=== PATIENT | male | born 1935 | race Caucasian/White ===

== ENCOUNTER 2016-11-05 12:16 | Inpatient (IN) | payer OTHER, MEDICARE ==
[2016-11-05] VITALS (14 sets, daily range): BP systolic 159–195; BP diastolic 88–123; PULSE 92–112; RESP 16–31; TEMP 98–98.8; O2SAT 95–97
[~2016-11-05] VITALS: Ht 167.6 cm; Wt 98.7 kg
[~2016-11-05 12:16] MED LIST: ASPI81TA11 PO; ATOR10TA PO; DIOV320T PO; FERR325T PO; FLUD.1 PO; FURO80 PO; ISOS10 PO; METO50TA PO; PLAV75TA PO; TAMS.4 PO
[2016-11-05 13:01] LABS: AUTOMATED NEUTROPHIL # 6.3 TH/MM3 (1.8-7.7); BASOPHIL % 0.6 % (0.0-2.0); EOSINOPHIL # 0.5 TH/MM3 (0-0.4); HEMATOCRIT 34.9 % (39.0-51.0); HEMO FLAGS DIFF FINAL; LYMPH % 8.1 % (9.0-44.0); LYMPHOCYTE # 0.7 TH/MM3 (1.0-4.8); MEAN CELL VOLUME 92.6 FL (80.0-100.0); MEAN CORPUSCULAR HGB CONC 32.4 % (32.0-36.0); NEUT % 78.3 % (16.0-70.0); PLATELET COUNT 202 TH/MM3 (150-450); RED BLOOD COUNT 3.77 MIL/MM3 (4.50-5.90); RED CELL DISTRIBUTION WIDTH 13.5 % (11.6-17.2); WHITE BLOOD COUNT 8.1 TH/MM3 (4.0-11.0)
[2016-11-05 13:15] LABS: APTT (PATIENT) 47.8 SEC (24.3-30.1); PROTHROMBIN TIME - PATIENT 10.8 SEC (9.8-11.6)
[2016-11-05] MEDS ORDERED: ISOS30TA3 PO (13:25)
[2016-11-05] MEDS ORDERED: FLUD.1 PO (13:25)
[2016-11-05] MEDS ORDERED: FERR325C PO (13:25)
[2016-11-05] MEDS ORDERED: LOSA100T PO (13:25)
[2016-11-05] MEDS ORDERED: CALC0.25 PO (13:25)
[2016-11-05] MEDS ORDERED: BIOTCAP PO (13:25)
[2016-11-05] MEDS ORDERED: ASPI81CH CHEW (13:25)
[2016-11-05] MEDS ORDERED: NITR1SUB3 SL (13:25)
[2016-11-05] MEDS ORDERED: OMEP40CA2 PO (13:25)
[2016-11-05] MEDS ORDERED: FURO80TA PO (13:25)
[2016-11-05] MEDS ORDERED: UBIQ1CAP4 (13:26)
[2016-11-05 13:33] LABS: ANION GAP 8 MEQ/L (5-15); BICARBONATE 19.2 MEQ/L (21.0-32.0); BLOOD UREA NITROGEN 60 MG/DL (7-18); CHLORIDE 111 MEQ/L (98-107); GLOMERULAR FILTRATION RATE 9 ML/MIN (>89); MAGNESIUM 2.2 MG/DL (1.5-2.5); POTASSIUM 4.7 MEQ/L (3.5-5.1); SODIUM (NA) 138 MEQ/L (136-145)
[2016-11-05 13:37] LABS: CREATINE KINASE 263 U/L (39-308)
[2016-11-05 14:00] LABS: CKMB 14.5 NG/ML (0.5-3.6)
[2016-11-05] MEDS ORDERED: HEPARIN SODIUM - IV 10,000 UNITS/10 ML VIAL IV ONE (14:00)
[2016-11-05] MEDS ORDERED: HEPARIN-D5W 25,000 U/250 ML 250 ML IV PRN (14:00)
--- NOTE | 2016-11-05 14:27 | PD ---
HPI Chief Complaint: Chest Pain Time Seen by Provider: 12:33 Travel History International Travel<30 days: No Contact w/Intl Traveler<30days: No Traveled to known affect area: No History of Present Illness HPI 81-year-old male that presents to the ED for evaluation of chest pain. Patient reports that he was recently seen at [facility] and actually was released today. Per patient he left AMA. Per patient he was admitted yesterday and was found to have what appears to be an and 72. Patient comes with paperwork that shows this. Patient had a positive troponin yesterday of 0.7. His network systems integrator as well as his accounting file clerk were concerned and they were about to set up an heart can't and per patient and Dr. Stout his network systems integrator get patient options of medical management or heart cath and patient and family wanted to for patient to have medical management. For some reason patient in a wide to have the heart At the specific hospital. Patient apparently signed out AMA because he wanted to come here to get evaluated and possibly get a second opinion. From what the patient tells me it appears that patient is very concerned that the heart Might put into the edge to have to need dialysis as well as family history of one of the family members having strokes after having the heart cath done at a different hospital. He states that he did have chest pain on the way here but he took a nitroglycerin which made her better. He denies any abdominal pain. Nausea or vomiting. Per patient the pain stays in the chest and feels like a pressure. Per patient feels similar to a year ago when he had his last cardiac event. He denies any other medical issues. No recent travel. Per family and patient he just left [facility]. No other medical issues reported. PFSH Past Medical History Hx Anticoagulant Therapy: Yes Blood Disorders: Yes (anemia) Anxiety: No Depression: No Cancer: No High Cholesterol: Yes Chest Pain: Yes Coronary Artery Disease: Yes Diabetes: Yes Patient Takes Glucophage: No Endocrine: No Genitourinary: Yes Hypertension: Yes Immune Disorder: No Musculoskeletal: No Neurologic: No Psychiatric: No Reproductive: No Respiratory: No Renal Failure: Yes Past Surgical History Abdominal Surgery: No Cardiac Surgery: Yes Coronary Stent: Yes Ear Surgery: No Endocrine Surgery: No Eye Surgery: Yes (BL CAT SX) Genitourinary Surgery: No Gynecologic Surgery: No Oral Surgery: No Thoracic Surgery: No Other Surgery: Yes (colonoscopy) Social History Alcohol Use: No Tobacco Use: No Substance Use: No Allergies-Medications (Allergen,Severity, Reaction): Coded Allergies: No Known Allergies (Unverified , 07/28/14) Reported Meds & Prescriptions Reported Meds & Active Scripts Active Reported Ultra Coq10 (Ubiquinone) 75 Mg Cap Omeprazole 40 Mg Cap 40 Mg PO DAILY Nitroglycerin SL (Nitroglycerin) 0.4 Mg Subl 0.4 Mg SL DIRECTED PRN ONE TABLET UNDER THE TONGUE NEEDED FOR CHEST PAIN, MAY REPEAT EVERY FIVE MINUTES FOR A TOTAL OF 3 DOSES OR CALL 911 IF NO RELIEF Losartan (Losartan Potassium) 100 Mg Tab 100 Mg PO DAILY Isosorbide Mononitrate ER (Isosorbide Mononitrate) 30 Mg Nena 30 Mg PO DAILY Furosemide 80 Mg Tab 80 Mg PO BID Fludrocortisone (Fludrocortisone Acetate) 0.1 Mg Tab 0.1 Mg PO DAILY Iron (Ferrous Sulfate) 325 Mg Cap 325 Mg PO BIDPC Calcitriol 0.25 Mcg Cap 0.25 Mcg PO DAILY Biotin 5 Mg Cap 5 Mg PO Aspirin 81 Mg Chew 81 Mg CHEW DAILY Review of Systems Except as stated in HPI: all other systems reviewed are Neg Physical Exam Narrative GENERAL: SKIN: Warm and dry. HEAD: Atraumatic. Normocephalic. EYES: Pupils equal and round. No scleral icterus. No injection or drainage. ENT: No nasal bleeding or discharge. Mucous membranes pink and moist. Tongue is midline. No uvula deviation. NECK: Trachea midline. No JVD. CARDIOVASCULAR: Regular rate and rhythm. No murmurs, S3, S4. RESPIRATORY: No accessory muscle use. Clear to auscultation. Breath sounds equal bilaterally. GASTROINTESTINAL: Abdomen soft, non-tender, nondistended. Hepatic and splenic margins not palpable. MUSCULOSKELETAL: Extremities without clubbing, cyanosis, or edema. No obvious deformities. Full range of motion of the upper and lower extremities bilaterally. 2+ pulses bilaterally. NEUROLOGICAL: Awake and alert. No obvious cranial nerve deficits. Motor grossly within normal limits. Five out of 5 muscle strength in the arms and legs. Normal speech. PSYCHIATRIC: Appropriate mood and affect; insight and judgment normal. Data Data Last Documented VS Vital Signs Date Time Temp Pulse Resp B/P (MAP) Pulse Ox O2 Delivery O2 Flow Rate FiO2 11/05/16 14:55 107 18 159/93 (115) 97 Room Air 11/05/16 12:22 98.0 Orders Orders Electrocardiogram (11/05/16 12:24) Electrocardiogram (11/05/16 12:41) Complete Blood Count With Diff (11/05/16 12:41) Basic Metabolic Panel (Bmp) (11/05/16 12:41) Ckmb (Isoenzyme) Profile (11/05/16 12:41) Troponin I (11/05/16 12:41) Prothrombin Time / Inr (Pt) (11/05/16 12:41) Act Partial Throm Time (Ptt) (11/05/16 12:41) Magnesium (Mg) (11/05/16 12:41) Iv Access Insert/Monitor (11/05/16 12:41) Ecg Monitoring (11/05/16 12:41) Oximetry (11/05/16 12:41) CKMB (11/05/16 12:50) CKMB% (11/05/16 12:50) Heparin Inj (Heparin Inj) (11/05/16 14:00) Heparin Inj (Heparin Inj) (11/05/16 20:00) Heparin Inj (Heparin Inj) (11/05/16 20:00) Heparin-D5w 25,000 U/250 Ml (Heparin-D5w (11/05/16 14:00) Act Partial Throm Time (Ptt) (11/05/16 13:47) Prothrombin Time / Inr (Pt) (11/05/16 13:47) Cbc No Diff, Includes Plts (11/05/16 13:47) Cbc No Diff, Includes Plts (11/08/16 06:00) Act Partial Throm Time (Ptt) (11/05/16 20:47) Occult Blood (Hemoccult) Stool (11/05/16 13:47) Labetalol Inj (Trandate Inj) (11/05/16 14:30) Admit Order (Ed Use Only) (11/05/16 15:07) Labs Laboratory Tests Test 11/05/16 12:50 White Blood Count 8.1 TH/MM3 Red Blood Count 3.77 MIL/MM3 Hemoglobin 11.3 GM/DL Hematocrit 34.9 % Mean Corpuscular Volume 92.6 FL Mean Corpuscular Hemoglobin 30.0 PG Mean Corpuscular Hemoglobin Concent 32.4 % Red Cell Distribution Width 13.5 % Platelet Count 202 TH/MM3 Mean Platelet Volume 9.2 FL Neutrophils (%) (Auto) 78.3 % Lymphocytes (%) (Auto) 8.1 % Monocytes (%) (Auto) 7.0 % Eosinophils (%) (Auto) 6.0 % Basophils (%) (Auto) 0.6 % Neutrophils # (Auto) 6.3 TH/MM3 Lymphocytes # (Auto) 0.7 TH/MM3 Monocytes # (Auto) 0.6 TH/MM3 Eosinophils # (Auto) 0.5 TH/MM3 Basophils # (Auto) 0.0 TH/MM3 CBC Comment DIFF FINAL Differential Comment Prothrombin Time 10.8 SEC Prothromb Time International Ratio 1.0 RATIO Activated Partial Thromboplast Time 47.8 SEC Blood Urea Nitrogen 60 MG/DL Creatinine 5.95 MG/DL Random Glucose 217 MG/DL Calcium Level 8.2 MG/DL Magnesium Level 2.2 MG/DL Sodium Level 138 MEQ/L Potassium Level 4.7 MEQ/L Chloride Level 111 MEQ/L Carbon Dioxide Level 19.2 MEQ/L Anion Gap 8 MEQ/L Estimat Glomerular Filtration Rate 9 ML/MIN Total Creatine Kinase 263 U/L Creatine Kinase MB 14.5 NG/ML Troponin I 3.27 NG/ML MDM Medical Decision Making Medical Screen Exam Complete: Yes Emergency Medical Condition: Yes Medical Record Reviewed: Yes Interpretation(s) EKG showed first-degree AV block but no sign of acute ST elevation. Read by me and attending. Troponin elevated at 3. CK slightly elevated. CBC & BMP Diagram 11/05/16 12:50 Calcium Level 8.2 L, Magnesium Level 2.2 Differential Diagnosis Chest pain versus atypical chest pain versus NSTEMI versus ACS versus STEMI Narrative Course 81-year-old male that presents to the ED for evaluation of possible second opinion. Patient was properly examined and was found to have signs and symptoms which appear to be very consistent with unstable angina versus and STEMI. Patient comes here the blood work that shows that he had a positive troponin. She does have significant history of heart disease. Labs were done and did show positive troponin of 3. I spoke with Dr. Stout over the phone and I told him the patient seemed to be more open to having a hard Now at this facility and he agreed that he should be admitted to medicine with a consult to his group. He states that he will speak with whoever is on-call for his group at this time. I spoke with Dr. Young who Agrees to admission. Patient himself and family agree with admission. My attending Dr. Zarate herself evaluated the patient with me and spoke with him in regards to need for further evaluation and more likely have a Heart cath, and he seemed agreeable. Diagnosis Primary Impression: NSTEMI (non-ST elevated myocardial infarction) Admitting Information Admitting Physician Requests: Admit Jon Rapp Nov 05, 2016 14:27
[2016-11-05] MEDS ORDERED: LABETALOL HCL 100 MG/20 ML VIAL IV PUSH ONE (14:30)
[2016-11-05] MEDS ORDERED: NITROGLYCERIN 2% OINT 1 GM PACKET TOPICAL ONE (15:15)
[2016-11-05] MEDS ORDERED: MAGNESIUM HYDROXIDE SUSP 30 ML CUP PO PRN (16:00)
[2016-11-05] MEDS ORDERED: MORPHINE SULFATE 4 MG/ML INJ IV PUSH PRN ×4 (16:00)
[2016-11-05] MEDS ORDERED: ACETAMINOPHEN 325 MG TAB PO PRN ×3 (16:00)
[2016-11-05] MEDS ORDERED: GLUCAGON 1 MG/ML VIAL OTHER PRN (16:00)
[2016-11-05] MEDS ORDERED: ONDANSETRON HCL 4 MG/2 ML VIAL IV PUSH PRN (16:00)
[2016-11-05] MEDS ORDERED: LACTULOSE SYRUP 20 GM/30 ML CUP PO PRN (16:00)
[2016-11-05] MEDS ORDERED: SENNOSIDES 8.6 MG TAB PO PRN (16:00)
[2016-11-05] MEDS ORDERED: NITROGLYCERIN 0.4 MG SL 25 TABS/BTL SL PRN (16:00)
[2016-11-05] MEDS ORDERED: DOCUSATE SODIUM 100 MG CAP PO PRN (16:00)
[2016-11-05] MEDS ORDERED: PROCHLORPERAZINE 25 MG SUPP RECTAL PRN (16:00)
[2016-11-05] MEDS ORDERED: ONDANSETRON HCL 4 MG/2 ML VIAL IVP PRN (16:00)
[2016-11-05] MEDS ORDERED: BISACODYL 10 MG SUPP RECTAL PRN (16:00)
[2016-11-05] MEDS ORDERED: SODIUM CHLORIDE 0.9% FLUSH 10 ML FLUSH IV FLUSH PRN ×2 (16:00)
[2016-11-05] MEDS ORDERED: ALPRAZolam 0.25 MG TAB PO PRN (16:00)
[2016-11-05] MEDS ORDERED: DEXTROSE 50% IN WATER 50 ML VIAL(D50) IV PUSH PRN (16:00)
[2016-11-05] MEDS ORDERED: oxyCODONE/ACETAMINOPHEN 5 MG/325 MG TAB PO PRN (16:00)
[2016-11-05] MEDS ORDERED: NALOXONE HCL 0.4 MG/ML AMP IV PUSH PRN (16:00)
--- NOTE | 2016-11-05 16:04 | HHI.HP ---
HPI Service [facility] Hospitalists Primary Care Physician Andrez Reyes DO Admission Diagnosis NSTEMI, ESRD Diagnoses: (1) NSTEMI (non-ST elevated myocardial infarction) Diagnosis: Principal (2) Hypertension Diagnosis: Secondary (3) CAD (coronary artery disease) Diagnosis: Principal (4) Chronic kidney disease Diagnosis: Principal (5) Morbid obesity Diagnosis: Secondary (6) Iron (Fe) deficiency anemia Diagnosis: Secondary (7) Hyperlipidemia Diagnosis: Secondary (8) CHF (congestive heart failure), NYHA class II Diagnosis: Secondary (9) Diabetes Diagnosis: Secondary (10) Hypothyroidism Diagnosis: Secondary Chief Complaint: Chest pain Travel History International Travel<30 Days: No Contact w/Intl Traveler <30 Da: No Traveled to Known Affected Are: No History of Present Illness Written by Meghana Verde PA-C acting as scribe for Dr. Young on 11/05/16 at 15:39. This is a 81yo male past medical history significant for coronary artery disease status post previous PA with history of cardiac stent implants WITH A HISTORY OF STENT THROMBOSIS WITH IN STENT RETHROMBOSIS approximately 3 years ago with the in-stent stenosis treated 1 year ago, hypertension, CKD stage IV, ESRD not yet on HD, DM, dyslipidemia, anemia, hypothyroidism, GERD and history of GI bleed who presents to [facility] ED with complaints of chest pain. Patient was admitted Thursday night AT [facility] with complaints of chest pain and was found to have elevated troponin 0.741. Patient was seen in consultation by his machine icer Dr. Joanne Stout as well as by his electrical and radio aircraft mechanic Dr. Lou. Patient and his family wanted treatment here in our facility and so decided to leave [place] and presented to our ED. Troponin now elevated at 3.27 and CK-MB is 14.5. He continues to have complaints of chest discomfort at this time. He states he received 3 sublingual nitroglycerin while he was over at [facility] earlier today and was started on nitroglycerin paste in our ED. Patient denies any other complaints at this time. Patient states that he takes aspirin only as anticoagulation. Review of Systems Constitutional: DENIES: Diaphoretic episodes, Fatigue, Fever, Weight gain, Weight loss, Chills, Dizziness, Change in appetite Endocrine: DENIES: Heat/cold intolerance, Polydipsia, Polyuria, Polyphagia Eyes: DENIES: Blurred vision, Diplopia, Eye inflammation, Eye pain, Vision loss Ears, nose, mouth, throat: DENIES: Tinnitus, Hearing loss, Vertigo, Nasal discharge, Oral lesions, Throat pain, Hoarseness Respiratory: DENIES: Apneas, Cough, Snoring, Wheezing, Hemoptysis Cardiovascular: COMPLAINS OF: Chest pain, DENIES: Palpitations, Syncope, Dyspnea on Exertion, PND Gastrointestinal: DENIES: Abdominal pain, Black stools, Bloody stools, Constipation, Diarrhea Genitourinary: DENIES: Sexual dysfunction, Urinary frequency Musculoskeletal: DENIES: Joint pain, Muscle aches, Stiffness Integumentary: DENIES: Abnormal pigmentation, Nail changes Hematologic/lymphatic: DENIES: Bruising, Lymphadenopathy Immunologic/allergic: DENIES: Eczema, Urticaria Neurologic: DENIES: Abnormal gait, Headache, Localized weakness Psychiatric: COMPLAINS OF: Anxiety, DENIES: Confusion, Mood changes Except as stated in HPI: all other systems reviewed are Neg Past Family Social History Past Medical History Coronary artery disease status post previous PA and cardiac stent implant History of pericardial effusion on 05/01/12 which resolved spontaneously CKD stage IV/ESRD not yet on HD Hypertension Diabetes Dyslipidemia Hypothyroidism Anemia GERD History GI bleed OBESITY Past Surgical History Cardiac catheterization for in-stent stenosis one year ago Cardiac catheterization with stent implantation 2014 Left knee arthroscopy Bilateral cataract surgery Colonoscopy Reported Medications Ultra Coq10 (Ubiquinone) 75 Mg Cap Omeprazole 40 Mg Cap 40 Mg PO DAILY Nitroglycerin SL (Nitroglycerin) 0.4 Mg Subl 0.4 Mg SL DIRECTED PRN ONE TABLET UNDER THE TONGUE NEEDED FOR CHEST PAIN, MAY REPEAT EVERY FIVE MINUTES FOR A TOTAL OF 3 DOSES OR CALL 911 IF NO RELIEF Losartan (Losartan Potassium) 100 Mg Tab 100 Mg PO DAILY Isosorbide Mononitrate ER (Isosorbide Mononitrate) 30 Mg Nena 30 Mg PO DAILY Furosemide 80 Mg Tab 80 Mg PO BID Fludrocortisone (Fludrocortisone Acetate) 0.1 Mg Tab 0.1 Mg PO DAILY Iron (Ferrous Sulfate) 325 Mg Cap 325 Mg PO BIDPC Calcitriol 0.25 Mcg Cap 0.25 Mcg PO DAILY Biotin 5 Mg Cap 5 Mg PO Aspirin 81 Mg Chew 81 Mg CHEW DAILY Allergies: Coded Allergies: No Known Allergies (Unverified , 07/28/14) Active Ordered Medications Current Medications Heparin Sodium (Porcine) (Heparin Inj) 4,000 units ONCE ONCE IV Last administered on 11/05/16 14:29; Start 11/05/16 at 14:00; Stop 11/05/16 at 14:01 ; Status DC Heparin Sodium (Porcine) (Heparin Inj) 5,000 units UNSCH PRN IV APTT LESS THAN 25; Start 11/05/16 at 20:00 Heparin Sodium (Porcine) (Heparin Inj) 2,500 units UNSCH PRN IV APTT 25 TO 39; Start 11/05/16 at 20:00 Heparin Sodium/ Dextrose 250 ml @ 10 mls/hr TITRATE PRN IV Coagulation management Last administered on 11/05/16 14:29; Start 11/05/16 at 14:00 Labetalol HCl (Trandate Inj) 20 mg ONCE ONCE IV PUSH Last administered on 11/05 14:53; Start 11/05/16 at 14:30; Stop 11/05/16 at 14:31; Status DC Nitroglycerin (Nitroglycerin 2% Oint) 1 inch ONCE ONCE TOPICAL Last administered on 11/05/16 15:22; Start 11/05/16 at 15:15; Stop 11/05/16 at 15:16 ; Status DC Dextrose (D50w (Vial) Inj) 50 ml UNSCH PRN IV PUSH HYPOGLYCEMIA-SEE COMMENTS; Start 11/05/16 at 16:00; Status UNV Glucagon (Glucagon Inj) 1 mg UNSCH PRN OTHER HYPOGLYCEMIA-SEE COMMENTS; Start 11/05/16 at 16:00; Status UNV Insulin Aspart (NovoLOG SUPPLEMENTAL SCALE) 1 ACHS SLIDING SCALE SQ ; Start at 17:00; Status UNV Current Medications Medications (Trade) Dose Ordered Sig/Armida Route Start Time Stop Time Status Last Admin (Heparin Inj) 5,000 units UNSCH PRN IV 11/05/16 20:00 (Heparin Inj) 2,500 units UNSCH PRN IV 11/05/16 20:00 Heparin Sodium/ Dextrose 250 ml @ 10 mls/hr TITRATE PRN IV 11/05/16 14:00 11/05/16 14:29 Family History Brothers and sisters, diabetes Social History Patient denies any tobacco use, alcohol consumption or illicit drug use. Physical Exam Vital Signs Vital Signs Date Time Temp Pulse Resp B/P (MAP) Pulse Ox O2 Delivery O2 Flow Rate FiO2 11/05/16 14:55 107 18 159/93 (115) 97 Room Air 11/05/16 14:50 110 18 189/123 (145) 97 Room Air 11/05/16 14:30 105 18 195/108 (137) 97 Room Air 11/05/16 14:20 102 18 190/115 (140) 97 Room Air 11/05/16 12:45 111 19 169/96 (120) 97 Room Air 11/05/16 12:43 110 15 97 Room Air 11/05/16 12:22 98.0 112 20 193/107 (135) 97 Room Air Physical Exam GENERAL: This is a well-nourished, well-developed obese patient, in no apparent distress. Awake and alert. Family at the bedside. SKIN: No rashes, ecchymoses or lesions. Cool and dry. HEAD: Atraumatic. Normocephalic. No temporal or scalp tenderness. EYES: Pupils equal round and reactive. Extraocular motions intact. No scleral icterus. No injection or drainage. ENT: Nose without bleeding, purulent drainage. Throat without erythema, tonsillar hypertrophy or exudate. Uvula midline. Airway patent. NECK: Trachea midline. No lymphadenopathy. Supple, nontender, no meningeal signs. CARDIOVASCULAR: Tachycardic. Irregular rate and rhythm without murmurs, gallops , or rubs. RESPIRATORY: Clear to auscultation. Breath sounds equal bilaterally. No wheezes , rales, or rhonchi. GASTROINTESTINAL: Abdomen soft, non-tender, nondistended. No hepato-splenomegaly , or palpable masses. No guarding. MUSCULOSKELETAL: Extremities without clubbing, cyanosis, or edema. No joint tenderness, effusion, or edema noted. No calf tenderness. NEUROLOGICAL: Awake and alert. Able to move all extremities. Normal speech. Laboratory Laboratory Tests Test 11/05/16 12:50 White Blood Count 8.1 Red Blood Count 3.77 Hemoglobin 11.3 Hematocrit 34.9 Mean Corpuscular Volume 92.6 Mean Corpuscular Hemoglobin 30.0 Mean Corpuscular Hemoglobin Concent 32.4 Red Cell Distribution Width 13.5 Platelet Count 202 Mean Platelet Volume 9.2 Neutrophils (%) (Auto) 78.3 Lymphocytes (%) (Auto) 8.1 Monocytes (%) (Auto) 7.0 Eosinophils (%) (Auto) 6.0 Basophils (%) (Auto) 0.6 Neutrophils # (Auto) 6.3 Lymphocytes # (Auto) 0.7 Monocytes # (Auto) 0.6 Eosinophils # (Auto) 0.5 Basophils # (Auto) 0.0 CBC Comment DIFF FINAL Differential Comment Prothrombin Time 10.8 Prothromb Time International Ratio 1.0 Activated Partial Thromboplast Time 47.8 Blood Urea Nitrogen 60 Creatinine 5.95 Random Glucose 217 Calcium Level 8.2 Magnesium Level 2.2 Sodium Level 138 Potassium Level 4.7 Chloride Level 111 Carbon Dioxide Level 19.2 Anion Gap 8 Estimat Glomerular Filtration Rate 9 Total Creatine Kinase 263 Creatine Kinase MB 14.5 Troponin I 3.27 Result Diagram: 11/05/16 1250 11/05/16 1250 Caprini VTE Risk Assessment Caprini VTE Risk Assessment: Mod/High Risk (score >= 2) Caprini Risk Assessment Model Point Value = 1 Point Value = 2 Point Value = 3 Point Value = 5 Age 41-60 Minor surgery BMI > 25 kg/m2 Swollen legs Varicose veins or History of unexplained or recurrent spontaneous Oral contraceptives or hormone replacement Sepsis (< 1 month) Serious lung disease, including pneumonia (< 1 month) Abnormal pulmonary function Acute myocardial infarction Congestive heart failure (< 1 month) History of inflammatory bowel disease Medical patient at bed rest Age 61-74 Arthroscopic surgery Major open surgery (> 45 min) Laparoscopic surgery (> 45 min) Malignancy Confined to bed (> 72 hours) Immobilizing plaster cast Central venous access Age >= 75 History of VTE Family history of VTE Factor V Leiden Prothrombin [id number] Lupus anticoagulant Anticardiolipin antibodies Elevated serum homocysteine Heparin-induced thrombocytopenia Other congenital or acquired thrombophilia Stroke (< 1 month) Elective arthroplasty Hip, pelvis, or leg fracture Acute spinal cord injury (< 1 month) Prophylaxis Regimen Total Risk Factor Score Risk Level Prophylaxis Regimen 0-1 Low Early ambulation 2 Moderate Order ONE of the following: *Sequential Compression Device (SCD) *Heparin 5000 units SQ BID 3-4 Higher Order ONE of the following medications: *Heparin 5000 units SQ TID *Enoxaparin/Lovenox 40 mg SQ daily (WT < 150 kg, CrCl > 30 mL/min) *Enoxaparin/Lovenox 30 mg SQ daily (WT < 150 kg, CrCl > 10-29 mL/min) *Enoxaparin/Lovenox 30 mg SQ BID (WT < 150 kg, CrCl > 30 mL/min) AND/OR *Sequential Compression Device (SCD) 5 or more Highest Order ONE of the following medications: *Heparin 5000 units SQ TID (Preferred with Epidurals) *Enoxaparin/Lovenox 40 mg SQ daily (WT < 150 kg, CrCl > 30 mL/min) *Enoxaparin/Lovenox 30 mg SQ daily (WT < 150 kg, CrCl > 10-29 mL/min) *Enoxaparin/Lovenox 30 mg SQ BID (WT < 150 kg, CrCl > 30 mL/min) AND *Sequential Compression Device (SCD) Assessment and Plan Problem List: (1) NSTEMI (non-ST elevated myocardial infarction) ICD Code: I21.4 - Non-ST elevation (NSTEMI) myocardial infarction Status: Acute (2) CAD (coronary artery disease) ICD Code: I25.10 - CAD (coronary artery disease) Status: Chronic (3) Hypertension ICD Code: I10 - Hypertension Status: Chronic (4) Chronic kidney disease ICD Code: N18.9 - Chronic kidney disease Status: Acute (5) Morbid obesity ICD Code: E66.01 - Morbid (severe) obesity due to excess calories (6) Diabetes ICD Code: E11.9 - Type 2 diabetes mellitus without complications (7) Hyperlipidemia ICD Code: E78.5 - Hyperlipidemia, unspecified (8) Hypothyroidism ICD Code: E03.9 - Hypothyroidism, unspecified (9) CHF (congestive heart failure), NYHA class II ICD Code: I50.9 - Heart failure, unspecified (10) Iron (Fe) deficiency anemia ICD Code: D50.9 - Iron deficiency anemia, unspecified Assessment and Plan 81yo male past medical history significant for coronary artery disease status post previous PA with history of cardiac stent implants approximately 3 years ago with the in-stent stenosis treated 1 year ago, hypertension, CKD stage IV, DM, dyslipidemia, anemia, hypothyroidism, GERD, history of GI bleed who presents to [facility] ED with complaints of chest pain. NSTEMI CAD with previous PA and cardiac stent implants - Consult cardiology - EKG personally reviewed and shows no evidence of ST elevation - Cycle cardiac enzymes - continuous cardiac monitoring - Continue aspirin daily - Supplemental oxygen to maintain O2 sats above 92% - IV Morphine when necessary chest pain - Continue Nitropaste - Heparin drip - obtain echocardiogram - PT/OT eval/tx Hypertension - BP elevated - Resume patient's home dose of losartan 100 mg daily and isosorbide 30 mg - Monitor BP CHF, not in acute exacerbation - Last echocardiogram in the system dated July 2014 revealed EF 20-25% and a grade 1 diastolic dysfunction - Monitor for signs of fluid overload - Fluid restriction, low-salt renal diabetic diet - Will hold patient's home dose of furosemide 80 mg twice a day until evaluated by nephrology CKD stage IV - Creatinine 5.95. Unknown baseline. - Consult nephrology - Avoid nephrotoxic agents - Monitor kidney function Diabetes - Elevated at 217 on admission - Accu-Chek - Insulin sliding scale - Obtain hemoglobin A1c - Last A1c in the system 07/2014 was 6.7 Hypothyroidism - No home thyroid medications listed in med rec - Check TSH level and free T4 Iron deficiency anemia - Resume patient's home dose of iron supplementation - Monitor CBC GERD - PPI DVT prophylaxis - Bilateral SCD/VENICE hose - Heparin drip The exam, history, and the medical decision-making described in the above note were completed with the assistance of the mid-level provider. I reviewed and agree with the findings presented. I attest that I had a [id number] encounter with the patient on the same day, and personally performed and documented my assessment and findings in the medical record. Seen in attendance simultaneously with ARCELIA discussed with family and ER and the patient Code Status Full code Discussed Condition With ED physician, nursing staff, daughter and Physician Certification 2 Midnight Certification Type: Admission for Inpatient Services Order for Inpatient Services The services are ordered in accordance with Medicare regulations or non- Medicare payer requirements, as applicable. In the case of services not specified as inpatient-only, they are appropriately provided as inpatient services in accordance with the 2-midnight benchmark. Estimated LOS (days): 3 3 days is the estimated time the patient will need to remain in the hospital, assuming treatment plan goals are met and no additional complications. Post-Hospital Plan: Not yet determined Meghana Verde Nov 05, 2016 16:04 Andrez Young DO Nov 05, 2016 16:22
[2016-11-05] MEDS: INSULIN ASPART SUPPLEMENTAL SCALE SQ SCH ×2 (17:00→21:00)
[2016-11-05] MEDS: FERROUS SULFATE 325 MG (65 MG ELEMENTAL IRON) TAB PO SCH (17:54)
[2016-11-05] MEDS: ASPIRIN EC 325 MG TABEC PO SCH (17:54)
--- NOTE | 2016-11-05 18:26 | PD.CONS ---
HPI Service Nephrology Consult Requested By ARCELIA Durbin Reason for Consult CKD stage 5 Primary Care Physician Andrez Reyes, DO History of Present Illness The patient is a 81 yo [place] male who presented to [facility] on 11/03 with complaints of chest pain and elevated troponin. According to records, he and his family refused treatment at [facility], so he signed out AMA and arrived in the ED here 11/05 with same complaints. He has been treated with NTG but still has discomfort. He has been stage 5 CKD for some time but has yet to be started on dialysis. There are potential plans for cardiac cath. He has a PMHx significant for CAD s/p GA, PTCA with restenosis of stents that had to be replaced a year ago and cardiomyopathy with EF of 20-25% in 2014. He also is hypertensive, diabetic, anemic, and has hx of GI bleeding. Admitting SCr 5.95 with eGFR of 9. According to regular poacher operator, Dr. Lou, his baseline SCr is 6. (Aaliyah Foreman) Review of Systems Cardiovascular: COMPLAINS OF: Chest pain (Aaliyah Foreman) Past Family Social History Allergies: Coded Allergies: No Known Allergies (Unverified , 07/28/14) Past Medical History CAD s/p GA and PTCA Cardiomyopathy of 20-25% HTN DM Anemia GERD GI bleeding Past Surgical History PTCA x2 in 2015 Repeat PTCA for restenosis x1 2016 Left knee arthroscopy Bilateral cataract surgery Colonoscopy Reported Medications Reported Meds & Active Scripts Active Reported Ultra Coq10 (Ubiquinone) 75 Mg Cap Omeprazole 40 Mg Cap 40 Mg PO DAILY Nitroglycerin SL (Nitroglycerin) 0.4 Mg Subl 0.4 Mg SL DIRECTED PRN ONE TABLET UNDER THE TONGUE NEEDED FOR CHEST PAIN, MAY REPEAT EVERY FIVE MINUTES FOR A TOTAL OF 3 DOSES OR CALL 911 IF NO RELIEF Losartan (Losartan Potassium) 100 Mg Tab 100 Mg PO DAILY Isosorbide Mononitrate ER (Isosorbide Mononitrate) 30 Mg Nena 30 Mg PO DAILY Furosemide 80 Mg Tab 80 Mg PO BID Fludrocortisone (Fludrocortisone Acetate) 0.1 Mg Tab 0.1 Mg PO DAILY Iron (Ferrous Sulfate) 325 Mg Cap 325 Mg PO BIDPC Calcitriol 0.25 Mcg Cap 0.25 Mcg PO DAILY Biotin 5 Mg Cap 5 Mg PO Aspirin 81 Mg Chew 81 Mg CHEW DAILY Active Ordered Medications Current Medications Medications (Trade) Dose Ordered Sig/Armida Route Start Time Stop Time Status Last Admin Heparin Sodium/ Dextrose 250 ml @ 10 mls/hr TITRATE PRN IV 11/05/16 14:00 11/05/16 14:29 (D50w (Vial) Inj) 50 ml UNSCH PRN IV PUSH 11/05/16 16:00 (Glucagon Inj) 1 mg UNSCH PRN OTHER 11/05/16 16:00 (NovoLOG SUPPLEMENTAL SCALE) 1 ACHS SLIDING SCALE SQ 11/05/16 17:00 (NS Flush) 2 ml BID IV FLUSH 11/05/16 21:00 (NS Flush) 2 ml UNSCH PRN IV FLUSH 11/05/16 16:00 (Ecotrin Ec) 325 mg DAILY PO 11/05/16 16:00 (Nitroglycerin 2% Oint) 1 inch Q6H TOP 11/05/16 22:00 (Nitrostat Sl) 0.4 mg Q5M PRN SL 11/05/16 16:00 (Morphine Inj) 2 mg Q30M PRN IV PUSH 11/05/16 16:00 (Tylenol) 650 mg Q6H PRN PO 11/05/16 16:00 (Xanax) 0.25 mg Q8H PRN PO 11/05/16 16:00 (Zofran Inj) 4 mg Q6H PRN IV PUSH 11/05/16 16:00 (Heparin Inj) 5,000 units UNSCH PRN IV 11/05/16 22:00 (Heparin Inj) 2,500 units UNSCH PRN IV 11/05/16 22:00 Heparin Sodium/ Dextrose 250 ml @ 10 mls/hr TITRATE PRN IV 11/05/16 16:00 (Compazine Supp) 25 mg Q12H PRN RECTAL 11/05/16 16:00 (Tylenol) 650 mg Q6H PRN PO 11/05/16 16:00 (Percocet 5-325 Mg) 1 tab Q6H PRN PO 11/05/16 16:00 (Percocet 10-325 Mg) 1 tab Q6H PRN PO 11/05/16 16:00 (Morphine Inj) 2 mg Q3H PRN IV PUSH 11/05/16 16:00 (Morphine Inj) 4 mg Q3H PRN IV PUSH 11/05/16 16:00 (Morphine Inj) 4 mg Q1H PRN IV PUSH 11/05/16 16:00 (Morphine Inj) 4 mg Q3H PRN IV PUSH 11/05/16 16:00 (Narcan Inj) 0.4 mg UNSCH PRN IV PUSH 11/05/16 16:00 (Janene-Colace) 1 tab BID PO 11/05/16 21:00 (Milk Of Magnesia Liq) 30 ml Q12H PRN PO 11/05/16 16:00 (Senokot) 17.2 mg Q12H PRN PO 11/05/16 16:00 (Dulcolax Supp) 10 mg DAILY PRN RECTAL 11/05/16 16:00 (Lactulose Liq) 30 ml DAILY PRN PO 11/05/16 16:00 (Rocaltrol) 0.25 mcg DAILY PO 11/06/16 09:00 (Florinef) 0.1 mg DAILY PO 11/06/16 09:00 (Imdur) 30 mg DAILY PO 11/06/16 09:00 (Cozaar) 100 mg DAILY PO 11/06/16 09:00 (Ferrous Sulfate) 325 mg BIDPC PO 11/05/16 18:00 (Protonix) 40 mg DAILY@0600 PO 11/06/16 06:00 Family History Diabetes Social History Denies illicits, EtOH, or tobacco use (Aaliyah Foreman) Physical Exam Vital Signs Vital Signs Date Time Temp Pulse Resp B/P (MAP) Pulse Ox O2 Delivery O2 Flow Rate FiO2 11/05/16 17:00 108 18 183/99 (127) 96 Room Air 11/05/16 16:00 110 18 169/95 (119) 96 Room Air 11/05/16 15:20 110 18 163/97 (119) 96 Room Air 11/05/16 14:55 107 18 159/93 (115) 97 Room Air 11/05/16 14:50 110 18 189/123 (145) 97 Room Air 11/05/16 14:30 105 18 195/108 (137) 97 Room Air 11/05/16 14:20 102 18 190/115 (140) 97 Room Air 11/05/16 12:45 111 19 169/96 (120) 97 Room Air 11/05/16 12:43 110 15 97 Room Air 11/05/16 12:22 98.0 112 20 193/107 (135) 97 Room Air Physical Exam GENERAL: Pt seen in ICU. Is laying in bed in NAD SKIN: Warm and dry. HEAD: Atraumatic. Normocephalic. EYES: Pupils equal and round. No scleral icterus. No injection or drainage. ENT: No nasal bleeding or discharge. Mucous membranes pink and moist. NECK: Trachea midline. No JVD. CARDIOVASCULAR: Regular rate and rhythm. RESPIRATORY: No accessory muscle use. Clear to auscultation. Breath sounds equal bilaterally. GASTROINTESTINAL: Abdomen soft, non-tender, nondistended. Hepatic and splenic margins not palpable. MUSCULOSKELETAL: Extremities without clubbing, cyanosis, or edema. No obvious deformities. NEUROLOGICAL: Awake and alert. Normal speech. PSYCHIATRIC: Appropriate mood and affect; insight and judgment normal. Laboratory Laboratory Tests Test 11/05/16 12:50 White Blood Count 8.1 Red Blood Count 3.77 Hemoglobin 11.3 Hematocrit 34.9 Mean Corpuscular Volume 92.6 Mean Corpuscular Hemoglobin 30.0 Mean Corpuscular Hemoglobin Concent 32.4 Red Cell Distribution Width 13.5 Platelet Count 202 Mean Platelet Volume 9.2 Neutrophils (%) (Auto) 78.3 Lymphocytes (%) (Auto) 8.1 Monocytes (%) (Auto) 7.0 Eosinophils (%) (Auto) 6.0 Basophils (%) (Auto) 0.6 Neutrophils # (Auto) 6.3 Lymphocytes # (Auto) 0.7 Monocytes # (Auto) 0.6 Eosinophils # (Auto) 0.5 Basophils # (Auto) 0.0 CBC Comment DIFF FINAL Differential Comment Prothrombin Time 10.8 Prothromb Time International Ratio 1.0 Activated Partial Thromboplast Time 47.8 Blood Urea Nitrogen 60 Creatinine 5.95 Random Glucose 217 Calcium Level 8.2 Magnesium Level 2.2 Sodium Level 138 Potassium Level 4.7 Chloride Level 111 Carbon Dioxide Level 19.2 Anion Gap 8 Estimat Glomerular Filtration Rate 9 Total Creatine Kinase 263 Creatine Kinase MB 14.5 Troponin I 3.27 (Aaliyah Foreman) Result Diagram: 11/05/16 1250 11/05/16 1250 Assessment and Plan Problem List: (1) Chronic kidney disease, stage 5 ICD Codes: N18.5 - Chronic kidney disease, stage 5 Plan: According to his regular poacher operator, his baseline SCr has been 6 for some time. He does not have any immediate plans for dialysis (i.e. not made plans for hemodialysis versus peritoneal dialysis), but does say that he realizes that he will require dialytic intervention in the near future if not during this admission. To continue on Rocaltrol. Check iPTH and Vit D levels. Check Phos His K+ is normal. He is mildly acidotic so we will start po bicarb. Will hold off on resuming Lasix for the present. Ordered CXR. There is no immediate indication for dialysis at the present, but will follow closely during admission. Medications should be adjusted for the patient's renal decline. (2) NSTEMI (non-ST elevated myocardial infarction) ICD Codes: I21.4 - Non-ST elevation (NSTEMI) myocardial infarction Status: Acute Plan: Awaiting cardiology opinion. Head Silverman in recommended cardiac cath. Given his severely impaired renal functions, he is at 15% risk or greater chance that he will require dialytic intervention post cardiac cath. The patient has been counseled of risk. He is making decisions about intervention with the help of his and his son who is a chiropractor. To help lessen damage of contrast injury, would recommend Mucomyst 1300mg BID starting day of procedure x4 doses. Consideration of IV hydration prior to cath is feasible, however, there are records reporting an EF of 20%. (3) Hypertension ICD Codes: I10 - Hypertension Status: Chronic Plan: Continue on Losartan. Add Amlodipine 5mg QD. (4) Diabetes ICD Codes: E11.9 - Type 2 diabetes mellitus without complications Plan: Mgmt as per primary team (5) Metabolic acidosis ICD Codes: E87.2 - Metabolic acidosis Status: Chronic Plan: Likely related to renal failure. Start po bicarbonate (Aaliyah Foreman) Assessment and Plan The exam, history, and the medical decision-making described in the above note were completed with the assistance of the SEBASTIÁN. I reviewed and agree with the findings presented. I attest that I had a [id number] encounter with the patient on the same day, and personally performed and documented my assessment and findings in the medical record. I discussed with the patient the proximal her risk of patient requiring dialytic support post contrast exposure. Given the current status of the patient's renal function it is inevitable that he will require dialytic support in the not too distant future regardless and the risk-benefit ratio needs to be considered as far as cardiac catheterization is concerned. We'll defer to cardiology to discussed with patient and his son the necessity of cardiac catheterization. If the patient accepts the risk of worsening renal function with the potential requirement for dialytic support most likely permanently if initiated the patient is clear from a renal point of view to proceed with cardiac catheterization. Patient was advised that cardiovascular disease is the primary contributor to in patients with chronic kidney disease and this should be kept in mind in regards to the patient making his decision. Case discussed with the medical oncologist in the ICU. I also discussed the patient with his primary poacher operator Dr. Lou by telephone. (Sg Henley MD) Aaliyah Foreman Nov 05, 2016 18:26 Sg Henley MD Nov 05, 2016 18:43
[2016-11-05] MEDS ORDERED: HEPARIN SODIUM - IV 10,000 UNITS/10 ML VIAL IV PRN ×4 (20:00→22:00)
[2016-11-05] MEDS: NITROGLYCERIN 2% OINT 1 GM PACKET TOP SCH (20:31)
[2016-11-05] MEDS: SODIUM BICARBONATE 650 MG TAB PO SCH (20:31)
[2016-11-05] MEDS: DOCUSATE SODIUM 50 MG/SENNA 8.6 MG TAB PO SCH (20:31)
[2016-11-05] MEDS ORDERED: ACETYLCYSTEINE 20% ORAL SOLN 4 ML VIAL PO SCH (21:00)
[2016-11-05] MEDS ORDERED: SODIUM CHLORIDE 0.9% FLUSH 10 ML FLUSH IV FLUSH SCH (21:00)
[2016-11-05] MEDS ORDERED: CHLORHEXIDINE GLUCONATE 2 % 1 PACK (2 CLOTHS)(extra cloths) TOPICAL PRN (21:30)
--- NOTE | 2016-11-05 21:33 | RADRPT ---
EXAM DATE/TIME: 11/05/2016 20:49 [facility] COMPARISON: CHEST PA & LAT, July 28, 2014, 14:11. INDICATIONS : Difficulty breathing. MEDICAL HISTORY : Myocardial infarction. Hypercholesterolemia. Hypertension. Renal failure. SURGICAL HISTORY : Coronary artery stent. ENCOUNTER: Initial ACUITY: 1 day PAIN SCORE: 2/10 LOCATION: Bilateral chest FINDINGS: The heart is enlarged. The pulmonary vascular pattern is normal. The lungs are clear. There is mild elevation of the right hemidiaphragm. Mild degenerative changes and scoliosis of the thoracic spine are noted. CONCLUSION: 1. No acute focal pulmonary infiltrate or pulmonary vascular congestion. 2. Mild cardiomegaly. 3. Degenerative changes and scoliosis of the thoracic spine. Rizwan Kline MD on November 05, 2016 at 21:24 Board Certified Radiologist. This report was verified electronically.
[2016-11-05 21:59] LABS: HEMATOCRIT 34.7 % (39.0-51.0); MEAN CORPUSCULAR HEMOGLOBIN 29.6 PG (27.0-34.0); MEAN CORPUSCULAR HGB CONC 32.2 % (32.0-36.0); PLATELET COUNT 202 TH/MM3 (150-450); RED BLOOD COUNT 3.77 MIL/MM3 (4.50-5.90); RED CELL DISTRIBUTION WIDTH 13.8 % (11.6-17.2); REVIEW FLAG FINAL
[2016-11-05 22:02] LABS: CKMB 18.8 NG/ML (0.5-3.6)
[2016-11-05] MEDS: SODIUM CHLORIDE 0.9% FLUSH 10 ML FLUSH IV FLUSH SCH (22:30)
[2016-11-05] MEDS: amLODIPine BESYLATE 5 MG TAB PO SCH (22:31)
[2016-11-05] MEDS: METOPROLOL TARTRATE 25 MG TAB PO SCH (22:33)
[2016-11-05 23:01] LABS: PROTHROMBIN TIME - PATIENT 10.7 SEC (9.8-11.6)
[2016-11-05 23:03] LABS: APTT (PATIENT) 92.4 SEC (24.3-30.1)
--- NOTE | 2016-11-05 23:20 | EKG ---
Date Performed: 11/05/2016 Time Performed: 21:46:24 PTAGE: 81 years EKG: Sinus rhythm INDETERMINATE AXIS ANTEROSEPTAL MYOCARDIAL INFARCTION , OF INDETERMINATE AGE ST/T wave changes possi ble ischemic in nature ABNORMAL ECG PREVIOUS TRACING : 11/05/2016 12.41 Compared to the previous tracing, ST/T wave changes are mil dly more prominent DOCTOR: Vickey Ott Interpretating Date/Time 11/05/2016 23:18:48
--- NOTE | 2016-11-05 23:27 | MB ---
cc: VICKEY BASHIR DO DATE OF CONSULTATION November 05, 2016 REASON FOR CONSULTATION NSTEMI. HISTORY OF PRESENT ILLNESS Rizwan Garcia is a pleasant 81-year-old male who is known to my partner, Dr. Stout, who presented to [facility] on November 05, 2016 due to chest pain. The patient was recently in [facility] with the complaint of chest pain. He was found to have an elevated troponin and my partner, Dr. Jara, had seen him. Originally, there was a plan for stress testing as he has significant chronic kidney disease. The patient continued to have elevation of his troponins and so it was felt that he should undergo cardiac catheterization. This was discussed multiple times with the patient and son per my partner Dr. Jara. The patient was placed on a heparin drip and nitro drip and still had episodes of chest pain. The patient left against medical advice from [facility] and presented to [facility]. In seeing him at this point he is currently hemodynamically stable without chest pain. PAST MEDICAL HISTORY 1. Coronary artery disease with a history of previous myocardial infarction. 2. Chronic kidney disease stage V. 3. Hypertension. 4. Diabetes mellitus. 5. Dyslipidemia. 6. Hypothyroidism. 7. Anemia. 8. Gastroesophageal reflux disease. 9. History of GI bleed. PAST SURGICAL HISTORY 1. The patient has had multiple cardiac catheterizations in the past with two stents placed in 2014. It appears that he had in-stent restenosis 1 year ago. His full cardiac anatomy is not known at this time. 2. Left knee arthroscopy. 3. Bilateral cataract surgery. 4. Colonoscopy. ALLERGIES NO KNOWN DRUG ALLERGIES. MEDICATIONS 1. Iron 325 milligrams b.i.d. 2. Imdur 30 milligrams daily. 3. Nitro sublingual as needed. 4. Losartan 100 milligrams daily. 5. Aspirin 81 milligrams daily. 6. Lasix 80 milligrams b.i.d. 7. Omeprazole 40 milligrams daily. 8. Fludrocortisone 0.1 milligrams daily. FAMILY HISTORY Denies premature coronary artery disease or sudden cardiac within the family. SOCIAL HISTORY Denies tobacco, alcohol or drug abuse. REVIEW OF SYSTEMS 14-systems were reviewed including osteopathic, pertinent positives and negatives above, otherwise negative. PHYSICAL EXAMINATION VITAL SIGNS: Temperature 98.8, heart rate 100, blood pressure 163/97, respirations 18, pulse ox 96% on room air. GENERAL: In general, the patient appears well, in no acute distress, alert, awake and oriented x3. HEENT: Extraocular muscles intact. Mucous membranes moist. NECK: Neck is supple. No JVD at 45 degrees. No carotid bruits heard bilaterally. Carotid upstroke is brisk in nature. HEART: Heart is regular rate and rhythm. Positive first and second heart sounds with no noted murmurs, gallops or rubs. LUNGS: Lungs have decreased breath sounds bilaterally but no overt wheezes, rales or rhonchi. ABDOMEN: Soft, nontender, nondistended. No organomegaly noted. EXTREMITIES: Show no clubbing, cyanosis or edema. Femoral and distal pulses intact bilaterally. NEUROLOGICALLY: No focal deficits. SKIN: Warm, dry and intact. OSTEOPATHIC: No kyphoscoliosis, lordosis or paraspinal tender points. LABORATORY FINDINGS Hemoglobin 11.2, hematocrit 34.7, platelets 202. Potassium 4.7, BUN 60, creatinine 5.95. Troponin 3.27. CARDIOLOGY STUDIES Electrocardiogram (November 05, 2016 at 12:41) sinus rhythm, anterior septal myocardial infarction. IMPRESSION 1. NSTEMI. 2. Accelerated hypertension. 3. History of coronary artery disease. 4. Chronic kidney disease stage V, not on hemodialysis. 5. Hyperlipidemia. 6. Congestive heart failure, [place] Heart Association class II. 7. Diabetes. 8. Hypothyroidism. RECOMMENDATIONS 1. Mr. Garcia appears to have sustained a myocardial infarction with chest pain concerning for coronary insufficiency. 2. I agree with admitting him to the ICU for further observation. 3. Case was discussed with my partner, Dr. Jara, and I agree with his overall assessment that he should undergo a cardiac catheterization. 4. I discussed this with Dr. Henley from nephrology who agrees that he will eventually be on hemodialysis and that cardiac catheterization should not be held back due to his chronic kidney disease. If catheterization was done we would plan on doing a diagnostic and if anything needs to be fixed a staged procedure 48 hours later depending on his creatinine levels. 5. The patient will be continued on aspirin and started on a heparin drip. If he has further chest pain I would start him on a nitro drip. 6. His blood pressure is overall elevated so we will plan on placing him on medications to further help this. 7. Case was discussed extensively over the phone with the patient's son for over 25 minutes, and he would like that he only be treated medically with no cardiac catheterization. We went over the risks, benefits and alternatives of this and he understands that there is significant risk as his father has had chest pain while at rest on heparin and nitro drip while in [facility] as well as the elevation of his troponins. This includes but not limited to further myocardial infarction, arrhythmia and . Overall, the patient's son seems to be somewhat dictating his father's care but afterwards I discussed with the patient the risks, benefits and alternatives and for now he would like to try medical therapy but understands that overall the decision is his with input from his son. 8. We will attempt to place him on antianginal medications to keep him chest pain free. 9. Overall I am unsure if antianginal medications as well as the heparin drip will keep him chest pain free and I explained to his son that he obviously cannot be released on a heparin and nitro drip to go home and I am unsure that we will be able to keep him chest pain free off of these medications and he understands this. 10. Greater than 60 minutes of critical care time was spent discussing with the patient, family and consultants. Thank you for allowing me to see Rizwan Garcia. If there are any questions please do not hesitate to call. Vickey Bashir DO VGP/EO /10:10 PM /10:57 PM
--- NOTE | 2016-11-05 23:49 | EKG ---
Date Performed: 11/05/2016 Time Performed: 12:41:58 PTAGE: 81 years EKG: PROBABLE SINUS TACHYCARDIA POSSIBLE RIGHT VENTRICULAR HYPERTROPHY ANTEROSEPTAL MYOCARDIAL I NFARCTION ABNORMAL ECG PREVIOUS TRACING : 07/28/2014 17.48 Compared to the previous tracing, rate has increased, ST/T wave changes are not noted DOCTOR: Vickey Ott Interpretating Date/Time 11/05/2016 23:47:46
[2016-11-06] VITALS (13 sets, daily range): BP systolic 112–154; BP diastolic 67–86; PULSE 78–109; RESP 15–25; TEMP 98.2–98.8; O2SAT 90–97
[2016-11-06] MEDS: HEPARIN-D5W 25,000 U/250 ML 250 ML IV PRN ×2 (00:12→23:48)
[2016-11-06 01:49] LABS: BLOOD, URINE MOD (NEG); GLUCOSE,URINE 300 mg/dL (NEG); KETONE, URINE NEG (NEG); NITRITE,URINE NEG (NEG); URINE COLOR LIGHT-YELLOW (YELLW/STRAW)
[2016-11-06] MEDS: oxyCODONE/ACETAMINOPHEN 10 MG/325 MG TAB PO PRN ×2 (02:41→23:47)
[2016-11-06 03:06] LABS: AUTOMATED NEUTROPHIL # 6.2 TH/MM3 (1.8-7.7); BASOPHIL # 0.1 TH/MM3 (0-0.2); BASOPHIL % 0.8 % (0.0-2.0); EOSINOPHIL # 0.6 TH/MM3 (0-0.4); EOSINOPHIL % 7.2 % (0.0-4.0); HEMATOCRIT 35.6 % (39.0-51.0); HEMO FLAGS DIFF FINAL; LYMPH % 12.8 % (9.0-44.0); LYMPHOCYTE # 1.1 TH/MM3 (1.0-4.8); MEAN CELL VOLUME 92.2 FL (80.0-100.0); MEAN CORPUSCULAR HEMOGLOBIN 29.8 PG (27.0-34.0); MEAN CORPUSCULAR HGB CONC 32.4 % (32.0-36.0); MONO % 7.6 % (0.0-8.0); NEUT % 71.6 % (16.0-70.0); PLATELET COUNT 214 TH/MM3 (150-450); RED BLOOD COUNT 3.86 MIL/MM3 (4.50-5.90); WHITE BLOOD COUNT 8.7 TH/MM3 (4.0-11.0)
[2016-11-06 03:18] LABS: APTT (PATIENT) 63.4 SEC (24.3-30.1)
[2016-11-06 03:52] LABS: ALKALINE PHOSPHATASE 86 U/L (45-117); ALT (GPT) 23 U/L (12-78); ANION GAP 8 MEQ/L (5-15); AST (GOT) 37 U/L (15-37); BICARBONATE 20.6 MEQ/L (21.0-32.0); BLOOD UREA NITROGEN 59 MG/DL (7-18); CHLORIDE 112 MEQ/L (98-107); CREATINE KINASE 419 U/L (39-308); FREE T4 0.95 NG/DL (0.76-1.46); GLOMERULAR FILTRATION RATE 10 ML/MIN (>89); HDL CHOLESTEROL 42.9 MG/DL (40.0-60.0); LDL CHOLESTEROL 124 MG/DL (0-99); MAGNESIUM 2.2 MG/DL (1.5-2.5); POTASSIUM 4.4 MEQ/L (3.5-5.1); SODIUM (NA) 141 MEQ/L (136-145); TOTAL BILIRUBIN ADULT 0.3 MG/DL (0.2-1.0)
[2016-11-06] MEDS: CHLORHEXIDINE GLUCONATE 2 % 1 PACK (2 CLOTHS)(taper/protocol) TOPICAL SCH (04:00)
[2016-11-06 04:05] LABS: CKMB 24.7 NG/ML (0.5-3.6)
[2016-11-06] MEDS: PANTOPRAZOLE SOD 40 MG DELAYED RELEASE TAB PO SCH (05:01)
[2016-11-06] MEDS: NITROGLYCERIN 2% OINT 1 GM PACKET TOP SCH ×4 (05:02→21:40)
[2016-11-06] MEDS: INSULIN ASPART SUPPLEMENTAL SCALE SQ SCH ×4 (08:00→21:00)
[2016-11-06] MEDS: ACETYLCYSTEINE 20% 6,000 MG/30 ML ORAL SOLN VIAL PO SCH ×2 (08:47→21:00)
[2016-11-06] MEDS: ASPIRIN EC 325 MG TABEC PO SCH (08:47)
[2016-11-06] MEDS: amLODIPine BESYLATE 5 MG TAB PO SCH (08:47)
[2016-11-06] MEDS: ISOSORBIDE MONONITRATE 30 MG TAB PO SCH (08:47)
[2016-11-06] MEDS: METOPROLOL TARTRATE 25 MG TAB PO SCH ×2 (08:47→21:41)
[2016-11-06] MEDS: LOSARTAN 50 MG TAB PO SCH (08:47)
[2016-11-06] MEDS: SODIUM BICARBONATE 650 MG TAB PO SCH ×2 (08:47→22:03)
[2016-11-06] MEDS: FERROUS SULFATE 325 MG (65 MG ELEMENTAL IRON) TAB PO SCH ×2 (08:47→17:49)
[2016-11-06] MEDS: CALCITRIOL 0.25 MCG CAP PO SCH (08:47)
[2016-11-06] MEDS: DOCUSATE SODIUM 50 MG/SENNA 8.6 MG TAB PO SCH ×2 (08:47→21:41)
[2016-11-06] MEDS: FLUDROCORTISONE ACETATE 0.1 MG TAB PO SCH (08:47)
[2016-11-06] MEDS: SODIUM CHLORIDE 0.9% FLUSH 10 ML FLUSH IV FLUSH SCH ×2 (08:48→21:45)
--- NOTE | 2016-11-06 09:00 | HHI.PR ---
Subjective Remarks Follow up for NSTEMI, CKD stage 5. Patient is doing well, resting in bed. He reports chest discomfort with minor exertion. Denies any nausea, vomiting, fever , chills. Patient has been evaluated by [employer] Dr. Ott. At the time of this interview, patient remains skeptical about undergoing cardiac catheterization. We had a lengthy conversation for more than 30 minutes. I went over his labs, his clinical symptoms, prognosis, importance of cardiac cath etc. Patient appears to understand. However, he would like to discuss with his son. 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 Objective Vitals Vital Signs Date Time Temp Pulse Resp B/P (MAP) Pulse Ox O2 Delivery O2 Flow Rate FiO2 11/06/16 07:51 95 21 11/06/16 06:00 78 11/06/16 04:00 98.2 79 18 136/67 (90) 90 11/06/16 04:00 79 11/06/16 02:00 83 11/06/16 00:00 98.4 90 16 154/80 (104) 97 11/06/16 00:00 90 11/05/16 22:00 92 11/05/16 20:20 96 21 11/05/16 20:00 100 11/05/16 19:00 98.3 96 16 181/88 (119) 95 11/05/16 18:24 98.8 92 31 177/116 (136) 97 11/05/16 17:00 108 18 183/99 (127) 96 Room Air 11/05/16 16:00 110 18 169/95 (119) 96 Room Air 11/05/16 15:20 110 18 163/97 (119) 96 Room Air 11/05/16 14:55 107 18 159/93 (115) 97 Room Air 11/05/16 14:50 110 18 189/123 (145) 97 Room Air 11/05/16 14:30 105 18 195/108 (137) 97 Room Air 11/05/16 14:20 102 18 190/115 (140) 97 Room Air 11/05/16 12:45 111 19 169/96 (120) 97 Room Air 11/05/16 12:43 110 15 97 Room Air 11/05/16 12:22 98.0 112 20 193/107 (135) 97 Room Air I/O 11/05/16 11/05/16 11/05/16 11/06/16 11/06/16 11/06/16 07:00 15:00 23:00 07:00 15:00 23:00 Intake Total 100 ml Output Total 800 ml Balance -700 ml Intake Oral 100 ml Output Urine Total 800 ml # Bowel Movements 0 Result Diagram: 11/06/16 0253 11/06/16 0253 Imaging Last Impressions Chest X-Ray 11/05/16 1813 Signed Impressions: Service Date/Time: Saturday, November 05, 2016 20:49 - CONCLUSION: 1. No acute focal pulmonary infiltrate or pulmonary vascular congestion. 2. Mild cardiomegaly. 3. Degenerative changes and scoliosis of the thoracic spine. Rizwan Kline MD Objective Remarks GENERAL: Alert, Oriented x 3, NAD. SKIN: Warm and dry. HEAD: Normocephalic. EYES: No scleral icterus. No injection or drainage. NECK: Supple, trachea midline. No JVD or lymphadenopathy. CARDIOVASCULAR: Regular rate and rhythm without murmurs, gallops, or rubs. RESPIRATORY: Breath sounds equal bilaterally. No accessory muscle use. GASTROINTESTINAL: Abdomen soft, non-tender, nondistended. MUSCULOSKELETAL: No cyanosis, or edema. BACK: Nontender without obvious deformity. No CVA tenderness. Procedures Echo 11/06/2016 The left ventricular systolic function is severely reduced with an estimated ejection fraction in the range of 20-25%. Anterior wall hypokinesis. Wall thickness is measured at the upper limits of normal. Normal left ventricular size. Mild mitral valve regurgitation. A/P Problem List: (1) NSTEMI (non-ST elevated myocardial infarction) ICD Code: I21.4 - Non-ST elevation (NSTEMI) myocardial infarction Status: Acute (2) CAD (coronary artery disease) ICD Code: I25.10 - CAD (coronary artery disease) Status: Chronic (3) Hypertension ICD Code: I10 - Hypertension Status: Chronic (4) Chronic kidney disease ICD Code: N18.9 - Chronic kidney disease Status: Acute (5) Diabetes ICD Code: E11.9 - Type 2 diabetes mellitus without complications (6) Hyperlipidemia ICD Code: E78.5 - Hyperlipidemia, unspecified (7) Hypothyroidism ICD Code: E03.9 - Hypothyroidism, unspecified (8) CHF (congestive heart failure), NYHA class II ICD Code: I50.9 - Heart failure, unspecified (9) Iron (Fe) deficiency anemia ICD Code: D50.9 - Iron deficiency anemia, unspecified Assessment and Plan Mr. Garcia is a pleasant 81 year old male with a history of CAD, CKD, DM, HTN who presented to the ED on 11/05/2016 with chest pain. He was initially evaluated at an outside facility for chest pain on 11/03/2016. [employer] recommended cardiac cath. Due to family's choice, he left the outside hospital against medical advice and came to [facility]. His troponin on Thursday was 0.7. After he came to [place], he was evaluated by Dr. Ott ( Cardiology) who recommended cardiac cath as well. Due to patient's advance stage CKD, Dr. Ott discussed with Nephrology. Patient's troponin elevated in the range of 5 to 6 and patient continued to have chest discomfort. After discussing with Nephrology, Dr. Ott offered cardiac cath. However, patient and family remained skeptical about the need for Cath. 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 - Continue heparin drip. - Continue Isosorbide mononitrate 30mg Qday, Metoprolol 25mg Q12hrs, Aspirin 325mg Qday. - Consider Lisinopril and perhaps also Spironolactone. - Will start patient on Lipitor 80mg QHS. - IF conservative medical management is desired, we could consider Ticagrelor , ASA 81mg, BB, JOSHUA inhibitor. - Per family's request, I consulted Dr. Rush for a second opinion. Dr. Persaud's agreed with Dr. Ott's recommendations. - Spent over 30 minutes with patient this morning going over his labs, clinical conditions, CKD and current NSTEMI. - Later in the evening, I also had 30 minute discussion with patient's son who then discussed with his parents. - Throughout my discussion with patient and later his son, while I emphasized the utmost importance of considering cardiac cath and possible PCI, I also repeated mentioned that ultimately it is patient's/family's choice whether they would accept our recommendations. - Final decision from the family was to proceed with Cardiac catheterization to be performed by Dr. Ott. - Will keep patient NPO midnight except meds for probable Cath in the morning. - CKD stage 5 - Creatinine is 5.57 with eGFR 10. - Nephrology following. - Due to gradual decline of CKD, patient will likely need dialysis in near future regardless of current consideration of cardiac cath. - Will continue gentle hydration with IV NS. - Diabetes mellitus type 2 - Hemoglobin A1c 8.6. - Currently blood glucose is within reasonable range. - Will continue sliding scale insulin. May need low dose Levemir at bedtime. - Hypertension - Continue Amlodipine 5mg Qday. - Iron deficiency anemia - Continue Ferrous sulfate 325mg BIDPC. Full code. Heparin Drip. Discussed with patient, patient's son, Dr. Rush (Cardiology), Dr. Ott ( Cardiology), RN. Over 60 minutes spent reviewing chart, discussing with patient/ family member. Rasheed Vega DO Nov 06, 2016 09:00
[2016-11-06 11:38] LABS: HEMOGLOBIN A1a 1.1 %; HEMOGLOBIN A1b 1.2 %; HEMOGLOBIN Ao 78.6 %; HEMOGLOBIN F 1.6 %; HEMOGLOBIN LA1C 2.8 %; HEMOGLOBIN P3 7.3 %
--- NOTE | 2016-11-06 12:11 | ECHRPT ---
Indication: Chest pain, unspecified CONCLUSIONS The left ventricular systolic function is severely reduced with an estimated ejection fraction in th e range of 20-25%. Anterior wall hypokinesis. Wall thickness is measured at the upper limits of normal. Normal left ventricular size. Mild mitral valve regurgitation. BP: / HR: 94 Rhythm: Sinus MEASUREMENTS (Male / Female) Normal Values Technical Quality:Good 2D ECHO LV Diastolic Diameter PLAX 5.4 cm 4.2 - 5.9 / 3.9 - 5.3 cm LV Systolic Diameter PLAX 4.9 cm IVS Diastolic Thickness 1.2 cm 0.6 - 1.0 / 0.6 - 0.9 cm LVPW Diastolic Thickness 1.2 cm 0.6 - 1.0 / 0.6 - 0.9 cm LV Relative Wall Thickness 0.5 LVOT Diameter 1.9 cm M-MODE Aortic Root Diameter MM 2.9 cm LA Systolic Diameter MM 3.9 cm LA Ao Ratio MM 1.3 AV Cusp Separation MM 2.1 cm DOPPLER AV Peak Velocity 134.0 cm/s AV Peak Gradient 7.2 mmHg LVOT Peak Velocity 120.0 cm/s LVOT Peak Gradient 5.8 mmHg AV Area Cont Eq pk 2.5 cm MR Peak Velocity 397.0 cm/s MR Peak Gradient 63.0 mmHg PV Peak Velocity 96.9 cm/s PV Peak Gradient 3.8 mmHg FINDINGS LEFT VENTRICLE The left ventricular systolic function is severely reduced with an estimated ejection fraction in th e range of 20-25%. Wall thickness is measured at the upper limits of normal. Normal left ventricular size. RIGHT VENTRICLE Normal right ventricular size and systolic function. LEFT ATRIUM The left atrial size is normal. RIGHT ATRIUM The right atrial size is normal. ATRIAL SEPTUM Normal atrial septal thickness without atrial level shunting by limited color doppler interrogation. AORTA The aortic root and proximal ascending aorta are normal in size on limited imaging. MITRAL VALVE Mild mitral valve regurgitation. AORTIC VALVE Trileaflet aortic valve. No aortic valve stenosis or regurgitation. TRICUSPID VALVE Structurally normal tricuspid valve. No tricuspid valve stenosis or regurgitation. PULMONARY VALVE The pulmonary valve is not well visualized. VESSELS The inferior vena cava is normal in size. PERICARDIUM No pericardial effusion. Harry Bob MD, FACC (Electronically Signed) Final Date:06 November 2016 12:10
[2016-11-06 13:47] LABS: APTT (PATIENT) 60.1 SEC (24.3-30.1)
--- NOTE | 2016-11-06 16:49 | MB ---
cc: PAMELA ARELLANO MD DATE OF CONSULTATION: 11/06/2016 REASON FOR CONSULTATION: Consultation, second opinion. HISTORY: This is a 81-year-old gentleman who to the hospital for chest discomfort has a history of coronary artery disease with stent implantation approximately 10 years ago. Last year the patient had in-stent stenosis with repeat balloon and stenting. He had been doing well when over the past week he developed increasing chest discomfort which he relates is very similar to his prior discomfort preceding his catheterization and stent implantation. He also has a history of stage V renal disease. 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 Brooks. At that time they apparently had some type of disagreement and the patient left against medical advice and returned to our hospital. He was seen by Dr. Ott who examined him and recommended a cardiac catheterization. The patient is unsure whether he wants to proceed with this and on we have been asked to see him for a second opinion. He has a history of stage V kidney disease and Dr. Henley has seen him and is of the opinion that the patient is very close to dialysis and should not have cardiac catheterization interfere with decision whether or not to do heart catheterization. Since his admission to the hospital EKG has not shown any significant changes but troponins were initially elevated at 3.27 and then increased to 6.11 yesterday. His creatinine has been stable at 5.57. The patient has had episodes of chest discomfort essentially at rest since his admission to the hospital but has had none today. He has been placed on heparin as well as isosorbide and nitroglycerin ointment. His losartan and metoprolol have been continued. He is currently resting comfortably. PAST MEDICAL HISTORY: Past medical history has otherwise been significant for diabetes and hypertension and hyperlipidemia. He also had a history of GI bleed in the past. MEDICATIONS Medications at home have included Isosorbide mononitrate 30 mg daily. Losartan 100 mg daily. Aspirin 81 daily. Lasix 80 mg twice daily. Omeprazole 40 daily. Flucortisone 0.1 mg daily. SOCIAL HISTORY The patient does not drink, smoke or use recreational drugs. ALLERGIES None. PHYSICAL EXAMINATION: IN GENERAL: On physical exam he is awake and alert. He is in no acute distress. VITAL SIGNS: Blood pressure 130/70, pulse is 80 and regular, NECK: There is no neck vein distention. No carotid bruits are present. LUNGS: The lungs are clear. CARDIOVASCULAR SYSTEM: Exam reveals regular rate and rhythm. There is no significant murmur, no gallop is noted. EXTREMITIES: The extremities revealed no edema. Peripheral pulses are intact. LABORATORY FINDINGS: The laboratory examination is as noted above in addition his CPK has also gone up slightly to 419 with a 6.1 MB percentage ASSESSMENT/PLAN: The patient has clearly had a non-STEMI of a small degree and troponins are starting to trend down. I would certainly agree that cardiac catheterization should be done in this setting as intervention is far superior to medical therapy. I also agree with Dr. Ott that I would stage the procedure in a diagnostic first and then if angioplasty is indicated to rehydrate and then proceed after 24/48 hours certainly would to hydrate liberally prior to either diagnostic or therapeutic interventions. MD CAROLYNE Yoo/ken[place] /3:06 PM /4:30 PM
--- NOTE | 2016-11-06 18:03 | PD.CARD.PN ---
Subjective Subjective Remarks Patient seen this morning Doing well resting in bed Did have chest pain last night while getting up to use the restroom Objective Medications Current Medications Medications (Trade) Dose Ordered Sig/Armida Route Start Time Stop Time Status Last Admin (D50w (Vial) Inj) 50 ml UNSCH PRN IV PUSH 11/05/16 16:00 (Glucagon Inj) 1 mg UNSCH PRN OTHER 11/05/16 16:00 (NovoLOG SUPPLEMENTAL SCALE) 1 ACHS SLIDING SCALE SQ 11/05/16 17:00 11/06/16 12:00 (NS Flush) 2 ml BID IV FLUSH 11/05/16 21:00 11/06/16 08:48 (NS Flush) 2 ml UNSCH PRN IV FLUSH 11/05/16 16:00 (Ecotrin Ec) 325 mg DAILY PO 11/05/16 16:00 11/06/16 08:47 (Nitroglycerin 2% Oint) 1 inch Q6H TOP 11/05/16 22:00 11/06/16 16:00 (Nitrostat Sl) 0.4 mg Q5M PRN SL 11/05/16 16:00 (Morphine Inj) 2 mg Q30M PRN IV PUSH 11/05/16 16:00 (Tylenol) 650 mg Q6H PRN PO 11/05/16 16:00 (Xanax) 0.25 mg Q8H PRN PO 11/05/16 16:00 (Zofran Inj) 4 mg Q6H PRN IV PUSH 11/05/16 16:00 (Heparin Inj) 5,000 units UNSCH PRN IV 11/05/16 22:00 (Heparin Inj) 2,500 units UNSCH PRN IV 11/05/16 22:00 Heparin Sodium/ Dextrose 250 ml @ 10 mls/hr TITRATE PRN IV 11/05/16 16:00 11/06/16 00:12 (Compazine Supp) 25 mg Q12H PRN RECTAL 11/05/16 16:00 (Tylenol) 650 mg Q6H PRN PO 11/05/16 16:00 (Percocet 5-325 Mg) 1 tab Q6H PRN PO 11/05/16 16:00 (Percocet 10-325 Mg) 1 tab Q6H PRN PO 11/05/16 16:00 11/06/16 02:41 (Morphine Inj) 2 mg Q3H PRN IV PUSH 11/05/16 16:00 11/05/16 17:55 (Morphine Inj) 4 mg Q3H PRN IV PUSH 11/05/16 16:00 (Morphine Inj) 4 mg Q1H PRN IV PUSH 11/05/16 16:00 (Morphine Inj) 4 mg Q3H PRN IV PUSH 11/05/16 16:00 (Narcan Inj) 0.4 mg UNSCH PRN IV PUSH 11/05/16 16:00 (Janene-Colace) 1 tab BID PO 11/05/16 21:00 11/06/16 08:47 (Milk Of Magnesia Liq) 30 ml Q12H PRN PO 11/05/16 16:00 (Senokot) 17.2 mg Q12H PRN PO 11/05/16 16:00 (Dulcolax Supp) 10 mg DAILY PRN RECTAL 11/05/16 16:00 (Lactulose Liq) 30 ml DAILY PRN PO 11/05/16 16:00 (Rocaltrol) 0.25 mcg DAILY PO 11/06/16 09:00 11/06/16 08:47 (Florinef) 0.1 mg DAILY PO 11/06/16 09:00 11/06/16 08:47 (Imdur) 30 mg DAILY PO 11/06/16 09:00 11/06/16 08:47 (Cozaar) 100 mg DAILY PO 11/06/16 09:00 11/06/16 08:47 (Ferrous Sulfate) 325 mg BIDPC PO 11/05/16 18:00 11/06/16 17:49 (Protonix) 40 mg DAILY@0600 PO 11/06/16 06:00 11/06/16 05:01 (Sodium Bicarbonate) 650 mg BID PO 11/05/16 21:00 11/06/16 08:47 (Norvasc) 5 mg DAILY PO 11/05/16 20:00 11/06/16 08:47 Miscellaneous Information Patient in critical care unit? Ass... [id number] .XX 11/05/16 21:30 (Chlorhexidine 2% Cloth) 3 pack DAILY@04 TOPICAL 11/06/16 04:00 11/10/16 04:01 (Chlorhexidine 2% Cloth) 3 pack UNSCH PRN TOPICAL 11/05/16 21:30 11/10/16 21:28 (Mucomyst 20% Liq) 1,200 mg BID PO 11/06/16 09:00 11/06/16 08:47 (Lopressor) 25 mg Q12HR PO 11/05/16 22:15 11/06/16 08:47 (Lipitor) 80 mg DAILY PO 11/07/16 09:00 Sodium Chloride 1,000 ml @ 84 mls/hr [id number] IV 11/06/16 18:00 Vital Signs / I&O Vital Signs Date Time Temp Pulse Resp B/P (MAP) Pulse Ox O2 Delivery O2 Flow Rate FiO2 11/06/16 16:00 79 11/06/16 14:00 83 11/06/16 12:00 98.4 81 25 145/78 (100) 94 11/06/16 12:00 81 11/06/16 10:00 97 11/06/16 08:00 98.8 82 15 147/73 (97) 94 11/06/16 08:00 82 11/06/16 07:51 95 21 11/06/16 06:00 78 11/06/16 04:00 98.2 79 18 136/67 (90) 90 11/06/16 04:00 79 11/06/16 02:00 83 11/06/16 00:00 98.4 90 16 154/80 (104) 97 11/06/16 00:00 90 11/05/16 22:00 92 11/05/16 20:20 96 21 11/05/16 20:00 100 11/05/16 19:00 98.3 96 16 181/88 (119) 95 11/05/16 18:24 98.8 92 31 177/116 (136) 97 I/O 11/05/16 11/05/16 11/05/16 11/06/16 11/06/16 11/06/16 06:59 14:59 22:59 06:59 14:59 22:59 Intake Total 100 ml Output Total 800 ml Balance -700 ml Intake Oral 100 ml Output Urine Total 800 ml # Bowel Movements 0 Physical Exam GENERAL: NAD, AAOx3 SKIN: Warm and dry. HEAD: Atraumatic. Normocephalic. EYES: Pupils equal and round. No scleral icterus. No injection or drainage. ENT: No nasal bleeding or discharge. Mucous membranes pink and moist. NECK: Trachea midline. No JVD. CARDIOVASCULAR: Regular rate and rhythm. RESPIRATORY: No accessory muscle use. Clear to auscultation. Breath sounds equal bilaterally. GASTROINTESTINAL: Abdomen soft, non-tender, nondistended. Hepatic and splenic margins not palpable. MUSCULOSKELETAL: Extremities without clubbing, cyanosis, or edema. No obvious deformities. NEUROLOGICAL: Awake and alert. No obvious cranial nerve deficits. Motor grossly within normal limits. Five out of 5 muscle strength in the arms and legs. Normal speech. PSYCHIATRIC: Appropriate mood and affect; insight and judgment normal. Laboratory Laboratory Tests Test 11/05/16 20:06 11/05/16 22:30 11/06/16 00:21 11/06/16 02:53 White Blood Count 8.0 TH/MM3 8.7 TH/MM3 Red Blood Count 3.77 MIL/MM3 3.86 MIL/MM3 Hemoglobin 11.2 GM/DL 11.5 GM/DL Hematocrit 34.7 % 35.6 % Mean Corpuscular Volume 92.0 FL 92.2 FL Mean Corpuscular Hemoglobin 29.6 PG 29.8 PG Mean Corpuscular Hemoglobin Concent 32.2 % 32.4 % Red Cell Distribution Width 13.8 % 14.0 % Platelet Count 202 TH/MM3 214 TH/MM3 Mean Platelet Volume 9.2 FL 8.8 FL Total Creatine Kinase 333 U/L 419 U/L Creatine Kinase MB 18.8 NG/ML 24.7 NG/ML Creatine Kinase MB % 5.6 % 6.1 % Troponin I 3.75 NG/ML 5.97 NG/ML Prothrombin Time 10.7 SEC Prothromb Time International Ratio 1.0 RATIO Activated Partial Thromboplast Time 92.4 SEC 63.4 SEC Urine Color LIGHT-YELLOW Urine Turbidity CLEAR Urine pH 6.0 Urine Specific [place] 1.009 Urine Protein 30 mg/dL Urine Glucose (UA) 300 mg/dL Urine Ketones NEG mg/dL Urine Occult Blood MOD Urine Nitrite NEG Urine Bilirubin NEG Urine Urobilinogen LESS THAN 2.0 MG/DL Urine Leukocyte Esterase NEG Urine RBC 1 /hpf Urine WBC LESS THAN 1 /hpf Neutrophils (%) (Auto) 71.6 % Lymphocytes (%) (Auto) 12.8 % Monocytes (%) (Auto) 7.6 % Eosinophils (%) (Auto) 7.2 % Basophils (%) (Auto) 0.8 % Neutrophils # (Auto) 6.2 TH/MM3 Lymphocytes # (Auto) 1.1 TH/MM3 Monocytes # (Auto) 0.7 TH/MM3 Eosinophils # (Auto) 0.6 TH/MM3 Basophils # (Auto) 0.1 TH/MM3 CBC Comment DIFF FINAL Differential Comment Blood Urea Nitrogen 59 MG/DL Creatinine 5.57 MG/DL Random Glucose 101 MG/DL Total Protein 6.9 GM/DL Albumin 3.2 GM/DL Calcium Level 8.4 MG/DL Phosphorus Level 4.6 MG/DL Magnesium Level 2.2 MG/DL Alkaline Phosphatase 86 U/L Aspartate Amino Transf (AST/SGOT) 37 U/L Alanine Aminotransferase (ALT/SGPT) 23 U/L Total Bilirubin 0.3 MG/DL Sodium Level 141 MEQ/L Potassium Level 4.4 MEQ/L Chloride Level 112 MEQ/L Carbon Dioxide Level 20.6 MEQ/L Anion Gap 8 MEQ/L Estimat Glomerular Filtration Rate 10 ML/MIN Hemoglobin A1c 8.6 % Triglycerides Level 155 MG/DL Cholesterol Level 198 MG/DL LDL Cholesterol 124 MG/DL HDL Cholesterol 42.9 MG/DL Cholesterol/HDL Ratio 4.61 RATIO 25-Hydroxy Vitamin D Total 22.4 ng/ML Free Thyroxine 0.95 NG/DL Thyroid Stimulating Hormone 3rd Gen 8.340 uIU/ML Parathyroid Hormone (Intact) 263.3 PG/ML Test 11/06/16 12:56 Activated Partial Thromboplast Time 60.1 SEC Assessment and Plan Problem List: (1) NSTEMI (non-ST elevated myocardial infarction) ICD Codes: I21.4 - Non-ST elevation (NSTEMI) myocardial infarction Status: Acute (2) Chronic kidney disease, stage 5 ICD Codes: N18.5 - Chronic kidney disease, stage 5 (3) CHF (congestive heart failure), NYHA class II ICD Codes: I50.9 - Heart failure, unspecified (4) Hypertension ICD Codes: I10 - Hypertension Status: Chronic (5) Hyperlipidemia ICD Codes: E78.5 - Hyperlipidemia, unspecified (6) Diabetes ICD Codes: E11.9 - Type 2 diabetes mellitus without complications (7) CAD (coronary artery disease) ICD Codes: I25.10 - CAD (coronary artery disease) Status: Chronic Assessment and Plan 1) Patient seen earlier 2) Currently hemodynamically stable without chest pain But getting out of bed he had chest pain 3) Family asked to have a second cardiology opinion They assumed because Dr. Stout and I were partners that we would automatically recommend the same thing I let them know that we all practice our own ways and I formed my own opinion of the case Discussed with Dr. Vega, will have Bob Bob or Nils Rush see the patient for second opinion Vickey Ott DO Nov 06, 2016 18:03
--- NOTE | 2016-11-06 18:28 | HHI.NPPN ---
Subjective History of Present Illness The patient is a 81 yo [place] male who presented to [facility] on 11/03 with complaints of chest pain and elevated troponin. According to records, he and his family refused treatment at [facility], so he signed out AMA and arrived in the ED here 11/05 with same complaints. He has been treated with NTG but still has discomfort. He has been stage 5 CKD for some time but has yet to be started on dialysis. There are potential plans for cardiac cath. He has a PMHx significant for CAD s/p AL, PTCA with restenosis of stents that had to be replaced a year ago and cardiomyopathy with EF of 20-25% in 2015. He also is hypertensive, diabetic, anemic, and has hx of GI bleeding. Admitting SCr 5.95 with eGFR of 9. According to regular certified court/medical interpreter, Dr. Lou, his baseline SCr is 6. Interval History Pt still with CP with any kind of exertion. Has had at this point 3 cardiology opinions regarding chest pain and all are recommending the same, i.e. to proceed with cath and angioplasty if needed The patient appears to be in agreement with this, but feels his son is making other dictations. (Aaliyah Foreman) Review of Systems Respiratory Lungs: SOB (Aaliyah Foreman) Cardiovascular Cardiac: Chest Pain (Aaliyah Foreman) Objective Data Data Vital Signs Date Time Temp Pulse Resp B/P (MAP) Pulse Ox O2 Delivery O2 Flow Rate FiO2 11/06/16 16:00 79 11/06/16 14:00 83 11/06/16 12:00 98.4 81 25 145/78 (100) 94 11/06/16 12:00 81 11/06/16 10:00 97 11/06/16 08:00 98.8 82 15 147/73 (97) 94 11/06/16 08:00 82 11/06/16 07:51 95 21 11/06/16 06:00 78 11/06/16 04:00 98.2 79 18 136/67 (90) 90 11/06/16 04:00 79 11/06/16 02:00 83 11/06/16 00:00 98.4 90 16 154/80 (104) 97 11/06/16 00:00 90 11/05/16 22:00 92 11/05/16 20:20 96 21 11/05/16 20:00 100 11/05/16 19:00 98.3 96 16 181/88 (119) 95 11/05/16 18:24 98.8 92 31 177/116 (136) 97 (Aaliyah Foreman) -: 11/06/16 0253 11/06/16 0253 Imaging Last Impressions Chest X-Ray 11/05/161812 Signed Impressions: Service Date/Time: Saturday, November 05, 2016 20:49 - CONCLUSION: 1. No acute focal pulmonary infiltrate or pulmonary vascular congestion. 2. Mild cardiomegaly. 3. Degenerative changes and scoliosis of the thoracic spine. Rizwan Kline MD Medication Review Current Medications Medications (Trade) Dose Ordered Sig/Armida Route Start Time Stop Time Status Last Admin (D50w (Vial) Inj) 50 ml UNSCH PRN IV PUSH 11/05/16 16:00 (Glucagon Inj) 1 mg UNSCH PRN OTHER 11/05/16 16:00 (NovoLOG SUPPLEMENTAL SCALE) 1 ACHS SLIDING SCALE SQ 11/05/16 17:00 11/06/16 12:00 (NS Flush) 2 ml BID IV FLUSH 11/05/16 21:00 11/06/16 08:48 (NS Flush) 2 ml UNSCH PRN IV FLUSH 11/05/16 16:00 (Ecotrin Ec) 325 mg DAILY PO 11/05/16 16:00 11/06/16 08:47 (Nitroglycerin 2% Oint) 1 inch Q6H TOP 11/05/16 22:00 11/06/16 16:00 (Nitrostat Sl) 0.4 mg Q5M PRN SL 11/05/16 16:00 (Morphine Inj) 2 mg Q30M PRN IV PUSH 11/05/16 16:00 (Tylenol) 650 mg Q6H PRN PO 11/05/16 16:00 (Xanax) 0.25 mg Q8H PRN PO 11/05/16 16:00 (Zofran Inj) 4 mg Q6H PRN IV PUSH 11/05/16 16:00 (Heparin Inj) 5,000 units UNSCH PRN IV 11/05/16 22:00 (Heparin Inj) 2,500 units UNSCH PRN IV 11/05/16 22:00 Heparin Sodium/ Dextrose 250 ml @ 10 mls/hr TITRATE PRN IV 11/05/16 16:00 11/06/16 00:12 (Compazine Supp) 25 mg Q12H PRN RECTAL 11/05/16 16:00 (Tylenol) 650 mg Q6H PRN PO 11/05/16 16:00 (Percocet 5-325 Mg) 1 tab Q6H PRN PO 11/05/16 16:00 (Percocet 10-325 Mg) 1 tab Q6H PRN PO 11/05/16 16:00 11/06/16 02:41 (Morphine Inj) 2 mg Q3H PRN IV PUSH 11/05/16 16:00 11/05/16 17:55 (Morphine Inj) 4 mg Q3H PRN IV PUSH 11/05/16 16:00 (Morphine Inj) 4 mg Q1H PRN IV PUSH 11/05/16 16:00 (Morphine Inj) 4 mg Q3H PRN IV PUSH 11/05/16 16:00 (Narcan Inj) 0.4 mg UNSCH PRN IV PUSH 11/05/16 16:00 (Janene-Colace) 1 tab BID PO 11/05/16 21:00 11/06/16 08:47 (Milk Of Magnesia Liq) 30 ml Q12H PRN PO 11/05/16 16:00 (Senokot) 17.2 mg Q12H PRN PO 11/05/16 16:00 (Dulcolax Supp) 10 mg DAILY PRN RECTAL 11/05/16 16:00 (Lactulose Liq) 30 ml DAILY PRN PO 11/05/16 16:00 (Rocaltrol) 0.25 mcg DAILY PO 11/06/16 09:00 11/06/16 08:47 (Florinef) 0.1 mg DAILY PO 11/06/16 09:00 11/06/16 08:47 (Imdur) 30 mg DAILY PO 11/06/16 09:00 11/06/16 08:47 (Cozaar) 100 mg DAILY PO 11/06/16 09:00 11/06/16 08:47 (Ferrous Sulfate) 325 mg BIDPC PO 11/05/16 18:00 11/06/16 17:49 (Protonix) 40 mg DAILY@0600 PO 11/06/16 06:00 11/06/16 05:01 (Sodium Bicarbonate) 650 mg BID PO 11/05/16 21:00 11/06/16 08:47 (Norvasc) 5 mg DAILY PO 11/05/16 20:00 11/06/16 08:47 Miscellaneous Information Patient in critical care unit? Ass... [id number] .XX 11/05/16 21:30 (Chlorhexidine 2% Cloth) 3 pack DAILY@04 TOPICAL 11/06/16 04:00 11/10/16 04:01 (Chlorhexidine 2% Cloth) 3 pack UNSCH PRN TOPICAL 11/05/16 21:30 11/10/16 21:28 (Mucomyst 20% Liq) 1,200 mg BID PO 11/06/16 09:00 11/06/16 08:47 (Lopressor) 25 mg Q12HR PO 11/05/16 22:15 11/06/16 08:47 (Lipitor) 80 mg DAILY PO 11/07/16 09:00 Sodium Chloride 1,000 ml @ 84 mls/hr [id number] IV 11/06/16 18:00 (Aaliyah Foreman) Physical Exam General Appearance: No Acute Distress, Comfortable (Aaliyah Foreman) Neck Neck Exam: Neck Supple, Trachea Midline (Aaliyah Foreman) Pulmonary Resp Exam: Clear Bilaterally, Breath Sounds Equal (Aaliyah Foreman) Cardiology CV Exam: Regular, Normal Sinus Rhythm (Aaliyah Foreman) Gastrointestinal/Abdomen GI Exam: Soft, Non-Tender (Aaliyah Foreman) Integumentary Skin Exam: Clear, Warm (Aaliyah Foreman) Extremeties Extremities Exam: No Edema (Aaliyah Foreman) Neurologic Neuro Exam: Alert, Awake, Oriented (Aaliyah Foreman) Psychiatric Psych Exam: Appropriate Responses (Aaliyah Foreman) Assessment/Plan Problem List: (1) Chronic kidney disease, stage 5 ICD Codes: N18.5 - Chronic kidney disease, stage 5 Plan: According to his regular certified court/medical interpreter, his baseline SCr has been 6 for some time. He does not have any immediate plans for dialysis (i.e. not made plans for hemodialysis versus peritoneal dialysis), but does say that he realizes that he will require dialytic intervention in the near future if not during this admission. To continue on Rocaltrol. Start Ergocalciferol. There is no immediate indication for dialysis at the present, but will follow closely during admission. The patient is aware that cardiac cath will likely lead to dialysis, but says he is willing to accept this. Medications should be adjusted for the patient's renal decline. (2) NSTEMI (non-ST elevated myocardial infarction) ICD Codes: I21.4 - Non-ST elevation (NSTEMI) myocardial infarction Status: Acute Plan: If the patient accepts the risk of worsening renal function with the potential requirement for dialytic support most likely permanently if initiated the patient is clear from a renal point of view to proceed with cardiac catheterization. Patient was advised that cardiovascular disease is the primary contributor to in patients with chronic kidney disease and this should be kept in mind in regards to the patient making his decision. Given his severely impaired renal functions, he is at 15% risk or greater chance that he will require dialytic intervention post cardiac cath. The patient has been counseled of risk. The patient seems to be leaning towards cath tomorrow, but is wanting son to be in agreement as well. As mentioned above, 3 cardiologists have recommended intervention at this point. (3) Hypertension ICD Codes: I10 - Hypertension Status: Chronic Plan: Continue on Losartan. Add Amlodipine 5mg QD. (4) Diabetes ICD Codes: E11.9 - Type 2 diabetes mellitus without complications Plan: Mgmt as per primary team (5) Metabolic acidosis ICD Codes: E87.2 - Metabolic acidosis Status: Chronic Plan: Likely related to renal failure. Continue po bicarb (Aaliyah Foreman) Plan The exam, history, and the medical decision-making described in the above note were completed with the assistance of the SEBASTIÁN. I reviewed and agree with the findings presented. (Sg Henley MD) Aaliyah Foreman Nov 06, 2016 18:28 Sg Henley MD Nov 07, 2016 15:26
[2016-11-06] MEDS ORDERED: ERGOCALCIFEROL (VIT D2) 50,000 UNIT CAP PO SCH (20:00)
[2016-11-06] MEDS: ATORVASTATIN 80 MG TAB PO SCH (21:40)
[2016-11-06] MEDS: SODIUM CHLOR 0.9% 1000 ML INJ 1,000 ML IV SCH (21:45)
[2016-11-07] VITALS (15 sets, daily range): BP systolic 116–176; BP diastolic 69–110; PULSE 71–117; RESP 16–23; TEMP 97.3–98.5; O2SAT 94–97
[2016-11-07] MEDS: NITROGLYCERIN 2% OINT 1 GM PACKET TOP SCH ×2 (04:00→20:59)
[2016-11-07] MEDS: CHLORHEXIDINE GLUCONATE 2 % 1 PACK (2 CLOTHS)(taper/protocol) TOPICAL SCH (04:00)
[2016-11-07 05:35] LABS: HEMATOCRIT 34.8 % (39.0-51.0); MEAN CELL VOLUME 92.2 FL (80.0-100.0); MEAN CORPUSCULAR HEMOGLOBIN 29.9 PG (27.0-34.0); MEAN CORPUSCULAR HGB CONC 32.5 % (32.0-36.0); PLATELET COUNT 197 TH/MM3 (150-450); RED BLOOD COUNT 3.78 MIL/MM3 (4.50-5.90); RED CELL DISTRIBUTION WIDTH 13.4 % (11.6-17.2); REVIEW FLAG FINAL; WHITE BLOOD COUNT 9.2 TH/MM3 (4.0-11.0)
[2016-11-07 05:39] LABS: APTT (PATIENT) 68.1 SEC (24.3-30.1)
[2016-11-07 05:55] LABS: BICARBONATE 18.5 MEQ/L (21.0-32.0); POTASSIUM 4.4 MEQ/L (3.5-5.1)
[2016-11-07] MEDS: SODIUM CHLOR 0.9% 1000 ML INJ 1,000 ML IV SCH (05:55)
[2016-11-07] MEDS ORDERED: HEPARIN-NS/PF INJ 1,000 ML ONE (08:10)
[2016-11-07] MEDS ORDERED: SODIUM CHLORID 0.9% 500 ML INJ 500 ML ONE (08:11)
[2016-11-07] MEDS: MORPHINE SULFATE 4 MG/ML INJ IV PUSH PRN (08:15)
[2016-11-07] MEDS ORDERED: NITROGLYCERIN-D5W 50 MG/250 ML 250 ML ONE (08:18)
--- NOTE | 2016-11-07 08:44 | HHI.PR ---
Subjective Remarks Follow up for NSTEMI, CKD stage 5. Patient complains of chest pressure this morning. No nausea, vomiting, diaphoresis. He is scheduled for cardiac cath today. Objective Vitals Vital Signs Date Time Temp Pulse Resp B/P (MAP) Pulse Ox O2 Delivery O2 Flow Rate FiO2 11/07/16 06:00 74 11/07/16 04:00 71 11/07/16 04:00 98.5 71 20 127/69 (88) 97 11/07/16 02:00 104 11/07/16 01:00 127/72 (90) 11/07/16 00:00 98.3 106 20 168/110 (129) 94 11/07/16 00:00 106 11/06/16 21:47 97 21 11/06/16 20:00 98.6 109 20 141/86 (104) 94 11/06/16 20:00 109 11/06/16 20:00 109 11/06/16 18:00 109 11/06/16 16:00 98.5 79 21 112/67 (82) 94 11/06/16 16:00 79 11/06/16 14:00 83 11/06/16 12:00 98.4 81 25 145/78 (100) 94 11/06/16 12:00 81 11/06/16 10:00 97 I/O 11/06/16 11/06/16 11/06/16 11/07/16 11/07/16 11/07/16 07:00 15:00 23:00 07:00 15:00 23:00 Intake Total 100 ml 847 ml Output Total 800 ml 650 ml 950 ml Balance -700 ml -650 ml -103 ml Intake Oral 100 ml 600 ml IV Total 247 ml Output Urine Total 800 ml 650 ml 950 ml # Bowel Movements 0 0 Result Diagram: 11/07/16 0434 11/07/16 0434 Imaging Last Impressions Chest X-Ray 11/05/161812 Signed Impressions: Service Date/Time: Saturday, November 05, 2016 20:49 - CONCLUSION: 1. No acute focal pulmonary infiltrate or pulmonary vascular congestion. 2. Mild cardiomegaly. 3. Degenerative changes and scoliosis of the thoracic spine. Rizwan Kline MD Objective Remarks GENERAL: Alert, Oriented x 3, NAD. SKIN: Warm and dry. HEAD: Normocephalic. EYES: No scleral icterus. No injection or drainage. NECK: Supple, trachea midline. No JVD or lymphadenopathy. CARDIOVASCULAR: Regular rate and rhythm without murmurs, gallops, or rubs. RESPIRATORY: Breath sounds equal bilaterally. No accessory muscle use. GASTROINTESTINAL: Abdomen soft, non-tender, nondistended. MUSCULOSKELETAL: No cyanosis, or edema. BACK: Nontender without obvious deformity. No CVA tenderness. Procedures Echo 11/06/2016 The left ventricular systolic function is severely reduced with an estimated ejection fraction in the range of 20-25%. Anterior wall hypokinesis. Wall thickness is measured at the upper limits of normal. Normal left ventricular size. Mild mitral valve regurgitation. A/P Problem List: (1) NSTEMI (non-ST elevated myocardial infarction) ICD Code: I21.4 - Non-ST elevation (NSTEMI) myocardial infarction Status: Acute (2) CAD (coronary artery disease) ICD Code: I25.10 - CAD (coronary artery disease) Status: Chronic (3) Hypertension ICD Code: I10 - Hypertension Status: Chronic (4) Chronic kidney disease ICD Code: N18.9 - Chronic kidney disease Status: Acute (5) Diabetes ICD Code: E11.9 - Type 2 diabetes mellitus without complications (6) Hyperlipidemia ICD Code: E78.5 - Hyperlipidemia, unspecified (7) Hypothyroidism ICD Code: E03.9 - Hypothyroidism, unspecified (8) CHF (congestive heart failure), NYHA class II ICD Code: I50.9 - Heart failure, unspecified (9) Iron (Fe) deficiency anemia ICD Code: D50.9 - Iron deficiency anemia, unspecified Assessment and Plan Mr. Garcia is a pleasant 81 year old male with a history of CAD, CKD, DM, HTN who presented to the ED on 11/05/2016 with chest pain. He was initially evaluated at an outside facility for chest pain on 11/03/2016. Strapping Machine Operator recommended cardiac cath. Due to family's choice, he left the outside hospital against medical advice and came to [facility]. His troponin on Thursday was 0.7. After he came to [facility], he was evaluated by Dr. Ott ( Cardiology) who recommended cardiac cath as well. Due to patient's advance stage CKD, Dr. Ott discussed with Nephrology. Patient's troponin elevated in the range of 5 to 6 and patient continued to have chest discomfort. After discussing with Nephrology, Dr. Ott offered cardiac cath. However, patient and family remained skeptical about the need for Cath. 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 - Continue heparin drip. - Continue Isosorbide mononitrate 30mg Qday, Metoprolol 25mg Q12hrs, Aspirin 325mg Qday. - Consider Lisinopril and perhaps also Spironolactone. - Continue Lipitor 80mg QHS. - Cardiac cath today. - Morphine, nitroglycerine PRN for chest pain. - CKD stage 5 - Creatinine is 5.78 with eGFR 10. - Nephrology following. - Will continue gentle hydration with IV NS. - Diabetes mellitus type 2 - Hemoglobin A1c 8.6. - Currently blood glucose is within reasonable range. - Will continue sliding scale insulin. May need low dose Levemir at bedtime. - Hypertension - Continue Amlodipine 5mg Qday. - Iron deficiency anemia - Continue Ferrous sulfate 325mg BIDPC. Full code. Heparin Drip. Rasheed Vega DO Nov 07, 2016 08:44
[2016-11-07] MEDS: FLUDROCORTISONE ACETATE 0.1 MG TAB PO SCH (09:00)
[2016-11-07] MEDS: FERROUS SULFATE 325 MG (65 MG ELEMENTAL IRON) TAB PO SCH ×2 (09:00→18:00)
[2016-11-07] MEDS: CALCITRIOL 0.25 MCG CAP PO SCH (09:00)
[2016-11-07] MEDS ORDERED: IOHEXOL 350 MG/ML 100 ML BTL (for Cath Lab) OTHER ONE (09:00)
[2016-11-07] MEDS: ISOSORBIDE MONONITRATE 30 MG TAB PO SCH (09:00)
[2016-11-07] MEDS ORDERED: ATORVASTATIN 80 MG TAB PO SCH (09:00)
[2016-11-07] MEDS ORDERED: MIDAZOLAM HCL 2 MG/2 ML VIAL ONE (09:03)
[2016-11-07] MEDS ORDERED: hydrALAZINE HCL 20 MG/ML VIAL ONE ×2 (09:41→14:10)
[2016-11-07] MEDS ORDERED: SODIUM CHLOR 0.9% 1000 ML INJ 1,000 ML IV SCH ×2 (09:59→11:39)
[2016-11-07] MEDS ORDERED: LABETALOL HCL 100 MG/20 ML VIAL ONE (09:59)
[2016-11-07] MEDS ORDERED: NITROGLYCERIN-D5W 50 MG/250 ML 250 ML IV PRN (10:00)
[2016-11-07] MEDS ORDERED: TIROFIBAN INFUSION INJ 0 ML IV ONE (10:06)
[2016-11-07] MEDS ORDERED: HEPARIN-NS/PF INJ 500 ML ONE (10:14)
[2016-11-07] MEDS ORDERED: HEPARIN SODIUM - IV 10,000 UNITS/10 ML VIAL ONE (10:17)
[2016-11-07] MEDS ORDERED: CLOPIDOGREL 300 MG TAB ONE (11:25)
--- NOTE | 2016-11-07 11:33 | MB ---
cc: PRISCILA BASHIR STEVEN C. DO KHANNA, SOHIT K. MD RAO, SURYA P. MD DATE OF CONSULTATION: 11/07/2016 DATE OF : 1935 PRIMARY CARE PHYSICIAN: Andrez Reyes MD. CARDIOLOGISTS: Dr. Jared Bashir. REASON FOR CONSULTATION: A 81 year-old male who apparently presented to [facility] on Thursday the with chest pain. He has been having chest pain off/on for the past year, worsening in the last couple of weeks and then presented to the emergency room and was found to have an elevated troponin at 0.74. He was seen by his aircraft magneto mechanic Dr. Jared ONTIVEROS. Apparently his son works as a chiropractor who decided for him to leave against medical advice and then come over to our facility to be evaluated for the chest pain. Upon admission his troponin was 3.27 and 6.11, His electrocardiogram does show right bundle-branch block, poor R-wave progression, he was ruled in for a non-STEMI. The son actually wanted a second opinion for cardiology and they consulted Dr. Elie Rush who agreed that the patient would require undergoing cardiac catheterization. He has a history of chronic kidney disease, stage IV, he sees Dr. Lou in [place], he has not been placed on dialysis, he still urinates, he states that his levels are about the same. He currently is undergoing cardiac catheterization where he continued to having chest pains despite the catheterization. He did require some Hydralazine, labetalol, nitroglycerin IV for hypertension and chest pain. The patients pain is currently starting to improve however, his blood pressure was 200/114, and he went down into the low 100s following the administration of the intravenous medications. He also started complaining of some low back pain and there was concern for possible dissection which he did an aortogram which at this time is not showing an acute dissection. The patient did receive a 3.0 drug eluting stent to the mid right coronary artery. His pain is down to a 2-3/10. PAST MEDICAL HISTORY: 1. Includes again; coronary artery disease with prior myocardial infarction. 2. Coronary stenting times two to the left anterior descending. 3. Has history of pericardial effusion in April 2012 which resolved spontaneously. 4. Chronic kidney disease stage IV, followed by Dr. Lou as an outpatient, now being seen by Dr. Henley at our facility. He is not yet on dialysis. 5. Hypertension. 6. Diabetes mellitus. 7. Hyperlipidemia. 8. Hypothyroidism. 9. Anemia. 10. Gastroesophageal reflux disease. 11. History of gastrointestinal bleed. 12. Obesity. PAST SURGICAL HISTORY: 1. Cardiac catheterization with stent implant times two 2015 to the left anterior descending. 2. Restent stenosis one year ago. 3. Left knee arthroplasty. 4. Bilateral cataract surgery. 5. Colon surgery. ALLERGIES NO KNOWN DRUG ALLERGIES. HOME MEDICATIONS: 1. Co-Q-10. 2. Omeprazole 3. Nitro 4. Losartan 5. Imdur 6. Lasix 7. Florinef 8. Iron 9. Bioten 10. Aspirin FAMILY HISTORY: Noncontributory. SOCIAL HISTORY: The patient is , two children. No tobacco or alcohol. 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 REVIEW OF SYSTEMS As above in the history of present illness otherwise 12 systems unremarkable. PHYSICAL EXAMINATION: VITAL SIGNS: Blood pressure currently 120/75, heart rate remains slightly tachycardiac at 112-114, 94% on o2. IN GENERAL: The patient is awake, alert, still complaining of some mild low back pain, chest pain is improving. Pupils are midline reactive, not injected. Oral mucosa is pink and moist. NECK: The neck is supple, no jugular venous distention. HEART: The heart sounds are S1, S2. Regular rate and rhythm, no audible rubs, murmurs or gallops. LUNGS: Diminished in the bases, otherwise clear to auscultation, no wheezes, rales or rhonchi. ABDOMEN: The abdomen is soft, hypoactive bowel sounds, he does have a arterial venous sheath in the right groin, plus distal pulses. LABORATORY FINDINGS: The lab work shows; hemoglobin of 11, hematocrit 35, white blood count of 9.2, platelet count of 197. Sodium 140, potassium 4.4. Blood urea nitrogen 60, creatinine 5.78. Hemoglobin A1c 8.6. Troponin as above. Triglycerides 155, cholesterol 198, LDL 124, TSH at 8.3. T4 0.95. Normal liver function tests, INR was 1.0, currently on heparin drip. Urinalysis showed no evidence of bacteria, MRSA screen negative. Chest x-ray showed some degenerative changes in his spine, and electrocardiogram as above. IMPRESSION: This is a 81 year old male who signed out against medical advice from [facility] who had been consulted at that time by his aircraft magneto mechanic Dr. ONTIVEROS, recommending a cardiac catheterization at that facility. He left against medical advice and presented to our emergency department with non-STEMI, he has undergone cardiac catheterization with emergent placement of a drug eluting stent to the mid right coronary artery, is still having some chest discomfort. The cardiac films will need to be evaluated by Dr. Alonso Burnham in regards for planning for possible coronary artery bypass grafting. After the films are reviewed, he did have a echocardiogram which did show injection fraction of 25%, anterior wall hypokinesis, severe left ventricular systolic dysfunction. There was no aortic valve stenosis or regurgitation, no tricuspid valve stenosis or regurgitation. The patient did have some mid mitral regurgitation. Further planning as per Dr. Nicole Burnham. Dictated by CLAIRE Ramirez Nicole Skelton /10:57 AM /12:34 PM
--- NOTE | 2016-11-07 11:42 | CATHPROC ---
[employer] HIS Report Study Information Study Number Admission Scheduled Start Study Start [id number] Nov 05 2016 3:09PM 11/06/2016 Nov 07 2016 8:13AM [facility] Cardiac Catheterization Admit Source Facility Department Emergency department [facility] - Press Tender Physician and Clinical Staff Initial Vickey Moise Counter Tender Hemanth Mclain,RN Counter Tender David Hamlin,SOFIA Recorder Reggie Marshall,RT(R) Scrub John TiradoRT(R) Procedures Performed Procedure Location (Site) Vessel Name Angiogram LV Asc. Aorta (A) Coronary Angiograms LCA Left Coronary Coronary Angiograms RCA Right Coronary Drug Eluting Inflatio RCA Mid Right Coronary Drug Eluting Inflatio RCA Prox Right Coronary L Heart Cath PTCA RCA Mid Right Coronary PTCA RCA Prox Right Coronary Wire insertion Fem Art (right) Femoral Art Equipment Time Sign Language Instructor Description Size Mfg Part Number Used/Scraped WIRE, BALANCE MIDDLEWEIGHT [id number] 10:18 [employer] 190CM Used 190CM *[id number] TRANSDUCER, TRUWAVE [id number] 08:52 JOYCE TENORIO * Used W/STOCKCOCK *[id number] BALLOON, 2.75 12[place] [id number] 11:18 [employer] 2.75 12MM Used QUANTUM APEX MR *[id number] BALLOON, 3.0 [place] [id number] 10:38 [employer] 3.0 12MM Used QUANTUM APEX MR *[id number] MPIS-502-10.0- INTRODUCER SET, 08:52 [employer]. FR 5 SC-NT-U-SST Used MICROPUNCTURE, STIFFENED *[id number] MPIS-502-10.0- INTRODUCER SET, 08:52 [employer]. FR 5 SC-NT-U-SST Used MICROPUNCTURE, STIFFENED *[id number] 534-520T *[id number] [phone] *[id number] [phone] *[id number] 538-421 *[id number] 534-521T *[id number] 534-552S *[id number] 08:52 [employer] PACK, CCL CUSTOM * Used *[id number] [id number] 10:11 [employer] PACK, CCL CUSTOM * Used *[id number] 10:23 MEDTRONIC BALLOON, 2.0 X 12MM EUPHORA 12MM Used *0854827 [id number] 11:13 MEDTRONIC STENT, 2.75 12MM DARIEL 2.75 12MM Used *[id number] [id number] 10:31 MEDTRONIC STENT, 3.0 18MM DARIEL 3.0 18MM Used *[id number] [id number] 10:16 [employer] MEDICAL 30 JULIO CESAR INDEFLATOR Used *[id number] [id number] 10:12 [employer] MEDICAL SHEATH, FR6.5 PRELUDE 11CM FR 6.5 038ACT Used *5800014 [id number] 08:52 [employer] MEDICAL WIRE, 3MMJ .035 180CM 180CM Used *5400559 [id number] 10:12 [employer] WIRE, 3MMJ .035 180CM 180CM Used *[id number] 10:11 NAMIC MANIFOLD, 4 PORT * Used *[id number] 08:52 NAMIC MANIFOLD, 4 PORT * Used *4656938 [id number] 10:46 NAMIC TUBING, HIGH PRESSURE 20" 20" Used *[id number] 08:52 [employer] OMNIPAQUE, 350 MG, 150ML 150ML [id number] Used 10:50 [employer] OMNIPAQUE, 350 MG, 50ML 50ML [id number] Used [id number] 08:52 [employer],WARM AIR CCL * Used *6388980 [id number] 09:11 TERUMO MEDICAL SHEATH, FR5 TERUMO (10CM) FR 5 Used *6527683 [id number] 10:16 [employer]UMO MEDICAL SHEATH, FR6 TERUMO (10CM) FR 6 Used *[id number] Equipment Model, Serial, Lot Number and Expiration Data Description Model Number Serial Number Lot Number Expiration Date BALLOON, 2.75 12MM NC QUANTUM [id number] 12-16-2018 APEX MR BALLOON, 3.0 12MM NC QUANTUM [id number] 06-16-2019 APEX MR INTRODUCER SET, [id number] 09-16-2019 MICROPUNCTURE, STIFFENED STENT, 2.75 12MM DARIEL [id number] 07-30-2018 STENT, 3.0 18MM DARIEL [id number] 07-23-2018 History: Current Medications Medication Dosage/Unit Route Frequency Last Date/Time Taken ASA Prilosec NTG SL HEPARIN Insulin History: Allergies Allergy Reaction No Known Allergies History: Risk Factors Family History of Hypertension Dyslipidemia Previous [place] Previous Heart Failure Premature CAD Yes Yes No Yes No Prior Valve Prior PCI Prior PCIDate Prior CABG Surgery No Yes 03/19/2014 No Cerebrovascular Peripheral Artery Chronic Lung On Dialysis Diabetes Diabetes Therapy Disease Disease Disease No No No No Yes Insulin History: Symptoms/Diagnosis Selection Items Chest pain History: CV Disease Selection Items Cardiomyopathy Known CAD [place] History: Stress Tests Stress or Imaging Studies Performed No History: Other Disease Selection Items CAD CHF Gerd HTN Renal Failure-No Dialysis History: Other Current Smoker No Labs Hgb (g/dl) Hct (%) RBC (MIL/MM3) WBC (l/cumm) Platelets (thousands) 11.60-17.00 35.00-51.00 4.00-5.90 4.00-11.00 150.00-450.00 11.3 34.8 3.7 9.2 197 Glucose (mg/dl) BUN (mg/dl) Creatinine (mg/dl) BUN:Creatinine (1:x) 74.00-106.00 7.00-18.00 0.50-1.30 10.00-20.00 117 11 5.7 1.9 Na (meq/l) K (meq/l) Cl (meq/l) CO2 (mmol/L) Ca (mg/dl) 136.00-145.00 3.50-5.10 98.00-107.00 21.00-32.00 8.50-10.10 140 4.4 111 18.5 8.4 PT (sec) PTT (sec) INR (PTT:PT) 9.80-11.60 24.30-30.10 0.90-1.10 10.7 68.1 1 Troponin I (ng/ml) Troponin T (ng/ml) CPK (u/l) CPK-MB (ng/ML) 0.02-0.05 0.40-2.10 26.00-308.00 0.50-3.60 5.97 6.11 419 24.7 Medication Medication Total Dose (Bolus/Oral) Medication Total Dosage/Unit 1% XYLOCAINE 40 mL FENTANYL 50 mcg HEPARIN 6900 units HYDRALAZINE 20 mg LABETOLOL 10 mg PLAVIX 600 mg VERSED 1 mg Medications (Bolus/Oral) Medication Time Given Dosage/Unit Administered By Reason VERSED 11/07/2016 9:05:01 AM 0.5 mg David Hamlin 0.5 mg VERSED given in lab by David Hamlin RN in Right Antecubital via Peripheral IV. Ordered by Vickey Chanel. FENTANYL 11/07/2016 9:05:09 AM 25 mcg FerliDavid pitt 25 mcg FENTANYL given in lab by David Hamlin RN in Right Antecubital via Peripheral IV. Ordered by Vickey Ott. 1% XYLOCAINE 11/07/2016 9:05:14 AM 20 mL Vickey Ott 20 mL 1% XYLOCAINE given in lab by Vickey Ott in Right Groin via Subcutaneous. HYDRALAZINE 11/07/2016 9:42:07 AM 10 mg David Hamlin 10 mg HYDRALAZINE given in lab by David Hamlin RN in Right Antecubital via Peripheral IV. Ordered by Vickey Ott. HYDRALAZINE 11/07/2016 9:49:17 AM 10 mg David Hamlin 10 mg HYDRALAZINE given in lab by David Hamlin RN in Right Antecubital via Peripheral IV. Ordered by Vickey Ott. LABETOLOL 11/07/2016 9:52:02 AM 10 mg Hemanth Mclain 10 mg LABETOLOL given in lab by Hemanth Mclain RN in Right Antecubital via Peripheral IV. Ordered by Vickey Ott. VERSED 11/07/2016 10:11:24 AM 0.5 mg David Hamlin 0.5 mg VERSED given in lab by David Hamlin RN in Right Antecubital via Peripheral IV. Ordered by Vickey Chanel. FENTANYL 11/07/2016 10:11:27 AM 25 mcg David Hamlin 25 mcg FENTANYL given in lab by David Hamlin RN in Right Antecubital via Peripheral IV. Ordered by Vickey Ott. 1% XYLOCAINE 11/07/2016 10:20:17 AM 20 mL Vickey Ott 20 mL 1% XYLOCAINE given in lab by Vickey Ott in Right Groin via Subcutaneous. HEPARIN 11/07/2016 10:22:00 AM 6900 units Hemanth Mclain 6900 units HEPARIN given in lab by Hemanth Mclain RN in Right Antecubital via Peripheral IV. Ordered by Vickey Ott. PLAVIX 11/07/2016 11:29:48 AM 600 mg Hemanth Mclain 600 mg PLAVIX given in lab by Hemanth Mclain RN via Oral. Ordered by Vickey Ott. Medication (Drip) Medication Time Given Dosage/Unit Concentration/Unit Diluent (ml) Solution HEPARIN DRIP 11/07/2016 8:37:34 AM 100 units/hr 51980 units 250 D5W Patient arrived on 100 units/hr HEPARIN DRIP via Peripheral IV. Pump/Drip Flow = 1 ml/hr using D5[place] [address] units in 250 ml. HEPARIN DRIP 11/07/2016 9:55:20 AM 700 units/hr 15149 units 250 D5W Patient arrived on 700 units/hr HEPARIN DRIP given by David Hamlin RN in Right Antecubital via Per ipheral IV. Pump/Drip Flow = 7 ml/hr [place] [address] units in 250 ml. Ordered by Vickey Ott. HEPARIN DRIP STOPPED 11/07/2016 10:18:43 AM 0 units/hr 0 0 units/hr HEPARIN DRIP STOPPED given in lab by David Hamlin RN via Peripheral IV. Pump/Drip Flow = 0 ml/hr using [Solution Name]. Ordered by Vickey Ott. IV Solutions 11/07/2016 8:40:28 AM 0 mL (IV) 1000 NaCl .9 Patient arrived on IV Solutions given by Hemanth Mclain RN in Left Forearm via Peripheral IV. Pump/Dr ip Flow = 20 ml/hr using NaCl .9. NITROGLYCERIN DRIP 11/07/2016 8:38:02 AM 13.33 mcg/min 50 mg 250 D5W Patient arrived on 13.33 mcg/min NITROGLYCERIN DRIP in Left Forearm via Peripheral IV. Pump/Drip Flow = 4 ml/hr using D5W with a concentration of 50 mg in 250 ml. NITROGLYCERIN DRIP 11/07/2016 9:26:28 AM 30 mcg/min 50 mg 250 D5W Patient arrived on 30 mcg/min NITROGLYCERIN DRIP given by David Hamlin RN in Left Forearm via Janene pheral IV. Pump/Drip Flow = 9 ml/hr using D5W with a concentration of 50 mg in 250 ml. Ordered by Vickey Ott. NITROGLYCERIN DRIP 11/07/2016 9:33:22 AM 40 mcg/min 50 mg 250 D5W Patient arrived on 40 mcg/min NITROGLYCERIN DRIP given by David Hamlin RN in Left Forearm via Janene pheral IV. Pump/Drip Flow = 12 ml/hr using D5W with a concentration of 50 mg in 250 ml. Ordered by Vickey Ott. NITROGLYCERIN DRIP 11/07/2016 9:49:11 AM 70 mcg/min 50 mg 250 D5W Patient arrived on 70 mcg/min NITROGLYCERIN DRIP given by David Hamlin RN in Left Forearm via Janene pheral IV. Pump/Drip Flow = 21 ml/hr using D5W with a concentration of 50 mg in 250 ml. Ordered by Vickey Ott. NITROGLYCERN DRIP 11/07/2016 10:18:31 AM 0 units/hr 0 STOPPED 0 units/hr NITROGLYCERN DRIP STOPPED given in lab by David Hamlin RN via Peripheral IV. Pump/Drip Flow = 0 ml/hr using [Solution Name]. Ordered by Vickey Ott. Initial Case Assessment Cardiovascular HR Rhythm NIBP Chest Pain 114 Sinus 202/140 0 Edema Present Skin color Skin None Normal Warm Dry Circulatory - Right Pulses Dorsalis Pedis Femoral 1 1 Scale (0,1,2,3,4,d) Circulatory - Left Pulses Dorsalis Pedis Femoral 1 1 Scale (0,1,2,3,4,d) Neurological State Oriented to time-place- Alert Moves all extremities person Respiration - General Respiration Rate SpO2 (%) O2 (lpm) (B/min) 8 97 2 Final Case Assessment Cardiovascular HR Rhythm NIBP Chest Pain 117 SinusTACHY 130/114 0 Edema Present Skin color Skin None Normal Warm Dry Circulatory - Right Pulses Dorsalis Pedis Femoral 1 1 Scale (0,1,2,3,4,d) Circulatory - Left Pulses Dorsalis Pedis Femoral 1 1 Scale (0,1,2,3,4,d) Neurological State Oriented to time-place- Alert Moves all extremities person Respiration - General Respiration Rate SpO2 (%) O2 (lpm) (B/min) 8 97 2 Chronological Log Time Study Chronological Log 8:34:06 Patient arrived via Bed. 8:34:07 Patient Name, D.O.B, / Armband Verified By R.N. 8:34:08 Consent signed by the physician and the patient and verified by the Press Tender staff. 8:34:09 Pre-op and post- op instructions given; patient acknowledges understanding of instructions. 8:34:10 Verbal Stimulation=2 Physical Stimulation=2 Airway=2 Respiration=2 TOTAL=8. (0=absent, 1=li mited, 2=present) 8:34:24 Presedation assessment performed by Press Tender RN. 8:34:46 Patient has been NPO for More than 6Hrs. 8:34:47 Skin Breakdown- none per patient. 8:37:06 Patient Warmer Placed on the Table. 8:37:09 Tatum Prominences Protected 8:37:13 A # 20 IV was noted in the Antecubital (right). Grade = 0 Patient arrived on 100 units/hr HEPARIN DRIP via Peripheral IV. Pump/Drip Flow = 1 ml/hr using D5W with a 8:37:[place] [address] units in 250 ml. 8:38:00 History and physical on the chart or being dictated. Patient arrived on 13.33 mcg/min NITROGLYCERIN DRIP in Left Forearm via Peripheral IV. Pump/Dri p Flow = 4 ml/hr 8:38:02 using D5W with a concentration of 50 mg in 250 ml. 8:40:01 A # 20 IV was noted in the Forearm (left). Grade = 0 Patient arrived on IV Solutions given by Hemanth Mclain RN in Left Forearm via Peripheral IV. P ump/Drip Flow = 20 ml/hr 8:40:28 using NaCl .9. Vitals capture started with the following parameters, Patient=Adult, Interval=5 min, Initial Pre myrmh=316 mmHg, 8:40:37 Deflation Rate=5 mmHg, Cuff placed on Left Ankle Assessment: Initial Case, HL=984 BPM, Rhythm=Sinus, LUQT=022/140 mmhg, Chest Pain=0, Edema=None, Color=Normal, Skin = Warm, Dry Right Pulses: Darrick Ped=1, Femoral=1 8:41:39 Left Pulses: Darrick Ped=1, Femoral=1 Neurological: State=Alert, Ox3, REYES Respiration: Resp=8 B/min, SpO2=97 %, O2=2 lpm 8:42:01 TF=612 bpm, CGRS=906/140 mmhg, SpO2=97.0 %, Resp=8 B/min, Pain=0, Temitope=10, Pete=2 8:46:25 GT=189 bpm, LPNH=050/144 mmhg, SpO2=98.0 %, Resp=17 B/min, Pain=0, Temitope=10, Pete=2 8:46:43 Reference ECG taken 8:48:42 MD arrived. 8:49:53 Contrast Scanned 8:49:53 Immediate Presedation assesment performed by physician. 8:51:10 Bilateral groins prepped with 2% chlorhexidine, and with a 3 min. waiting time. 8:51:26 FX=896 bpm, JBGB=122/136 mmhg, SpO2=96.0 %, Resp=18 B/min, Pain=0, Temitope=10, Pete=2 8:56:23 MT=847 bpm, YWXQ=032/135 mmhg, SpO2=95.0 %, Resp=10 B/min, Pain=0, Temitope=10, Pete=2 8:57:31 Pressure channel 1 zeroed. 9:01:22 MG=245 bpm, KIIK=837/133 mmhg, SpO2=95.0 %, Resp=14 B/min, Pain=0, Temitope=10, Pete=2 Time Out. Correct patient, correct procedure,correct physician, ,power injector loaded or not lo aded with contrast with 9:04:00 surgical team present. Time Out Concurred by MD, individual staff and THIRD RAIL INSTALLER in procedure 9:04:02 Case Start 9:04:03 Verbal Stimulation=2 Physical Stimulation=2 Airway=2 Respiration=2 TOTAL=8. (0=absent, 1=bejarano ited, 2=present) Time Out. Correct patient, correct procedure,correct physician, ,power injector loaded or not lo aded with contrast with 9:04:39 surgical team present. Time Out Concurred by , individual staff and THIRD RAIL INSTALLER in procedure 9:05:01 0.5 mg VERSED given in lab by David Hamlin RN in Right Antecubital via Peripheral IV. Ord ered by Vickey Ott. 25 mcg FENTANYL given in lab by David Hamlin RN in Right Antecubital via Peripheral IV. Order ed by Tru, 9:05:09 Vickey. 9:05:14 20 mL 1% XYLOCAINE given in lab by Vickey Ott in Right Groin via Subcutaneous. 9:06:19 BG=967 bpm, WRBM=175/117 mmhg, SpO2=95.0 %, Resp=15 B/min, Pain=0, Temitope=10, Pete=2 9:07:11 Access site was Right Femoral Artery. A INTRODUCER SET, MICROPUNCTURE, STIFFENED FR 5 was advanced into the Fem Art (right) using the ::15 Percutaneous technique. A SHEATH, FR5 TERUMO (10CM) FR 5 was exchanged in the Fem Art (right). This was necessary in ord er to 9:07:21 accomodate a larger catheter. 9::16 An injection in the Fem Art (right) was made through the SHEATH, FR5 TERUMO (10CM) FR 5. A JR 4.0 INFINITI CATHETER FR 5 was advanced over a wire. OMNIPAQUE, 350 MG, 150ML 150ML was use d for ::11 injections. 9:11:21 YH=976 bpm, QCNN=132/110 mmhg, SpO2=94.0 %, Resp=15 B/min, Pain=0, Temitope=10, Pete=2 Recorded Pressure: LV, ZQ=432, Condition=Condition 1 9:13:09 (Left Ventricle) LV 157/19/22 Recorded Pressure: LV, Ao, PJ=652, Condition=Condition 1 9:13:30 (Left Ventricle) LV 153/18/21, (Aorta) Ao 147/87/113 Recorded Pressure: Ao, VP=448, Condition=Condition 1 9:13:57 (Aorta) Ao 158/91/122 9:14:34 The RCA was injected and visualized at various angles. OMNIPAQUE, 350 MG, 150ML 150ML used. 9:16:15 DX=774 bpm, XSUX=247/105 mmhg, SpO2=96.0 %, Resp=15 B/min, Pain=0, Temitope=10, Pete=2 After removing the current catheter a JL 4.0 INFINITI CATHETER FR 5 was advanced over a WIRE, 3M MJ .035 180CM 9:16:30 180CM. 9:19:49 The LCA was injected and visualized at various angles. OMNIPAQUE, 350 MG, 150ML 150ML used. 9:21:19 WQ=041 bpm, PMCL=281/109 mmhg, SpO2=97.0 %, Resp=17 B/min, Pain=0, Temitope=10, Pete=2 9:26:20 RW=376 bpm, YRGU=625/111 mmhg, SpO2=98.0 %, Resp=16 B/min, Pain=0, Temitope=10, Pete=2 Patient arrived on 30 mcg/min NITROGLYCERIN DRIP given by David Hamlin RN in Left Forearm vi a Peripheral IV. 9:26:28 Pump/Drip Flow = 9 ml/hr using D5W with a concentration of 50 mg in 250 ml. Ordered by Vickey Ott. 9:26:55 Catheter was removed 9:30:42 Activated Clotting Time Drawn 9:31:19 GE=144 bpm, YKHS=975/122 mmhg, SpO2=96.0 %, Resp=12 B/min, Pain=0, Temitope=10, Pete=2 Patient arrived on 40 mcg/min NITROGLYCERIN DRIP given by David Hamlin RN in Left Forearm vi a Peripheral IV. 9:33:22 Pump/Drip Flow = 12 ml/hr using D5W with a concentration of 50 mg in 250 ml. Ordered by Vickey Arreola. 9:34:17 ACT (Normal Range 90-180) = 151 9:34:21 Case End 9:34:38 Catheter(s) removed without difficulty 9:34:42 No case complications noted. 9:34:42 Cine recording checked. 9:34:45 Bedside Report will be given. 9:34:47 Contrast Scanned 9::49 Verbal Stimulation=2 Physical Stimulation=2 Airway=2 Respiration=2 TOTAL=8. (0=absent, 1=bejarano ited, 2=present) 9:35:05 A Left Heart Cath was performed. 9:37:05 XU=529 bpm, ZBEG=335/128 mmhg, SpO2=97.0 %, Resp=14 B/min, Pain=0, Temitope=10, Pete=2 9:41:27 AL=021 bpm, CJYC=468/138 mmhg, SpO2=98.0 %, Resp=15 B/min, Pain=0, Temitope=10, Pete=2 10 mg HYDRALAZINE given in lab by David Hamlin RN in Right Antecubital via Peripheral IV. Or dered by Tru, 9:42:07 Vickey. 9:46:26 DS=954 bpm, FKZZ=085/128 mmhg, SpO2=98.0 %, Resp=15 B/min, Pain=2, Temitope=10, Pete=2 Patient arrived on 70 mcg/min NITROGLYCERIN DRIP given by David Hamlin RN in Left Forearm vi a Peripheral IV. 9:49:11 Pump/Drip Flow = 21 ml/hr using D5W with a concentration of 50 mg in 250 ml. Ordered by Vickey Arreola. 10 mg HYDRALAZINE given in lab by David Hamlin RN in Right Antecubital via Peripheral IV. Or dered by Tru, 9:49:17 Vickey. 9:51:29 DC=043 bpm, SEUH=617/110 mmhg, SpO2=98.0 %, Resp=14 B/min, Pain=4, Temitope=10, Pete=2 10 mg LABETOLOL given in lab by Hemanth Mclain RN in Right Antecubital via Peripheral IV. Order ed by Tru, 9:52:02 Vickey. 9:53:34 In the Fem Art (right) the SHEATH, FR5 TERUMO (10CM) FR [address] by John Tirado RT(R). Patient arrived on 700 units/hr HEPARIN DRIP given by David Hamlin RN in Right Antecubital v ia Peripheral IV. 9:55:20 Pump/Drip Flow = 7 ml/hr [place] D[place] [address] units in 250 ml. Ordered by Vickey Hughes. 9:56:26 IG=814 bpm, CCDU=597/116 mmhg, SpO2=99.0 %, Resp=13 B/min, Pain=4, Temitope=10, Pete=2 9:56:49 Sterile dressing applied to site 10:01:23 NF=459 bpm, ZNHR=603/106 mmhg, SpO2=98.0 %, Resp=10 B/min, Pain=6, Temitope=10, Pete=2 10:07:06 Patient complaining of worsening chest pain. Vitals capture started with the following parameters, Patient=Adult, Interval=5 min, Initial Pr ajdlql=370 mmHg, 10:11:17 Deflation Rate=5 mmHg, Cuff placed on Left Ankle 10:11:24 0.5 mg VERSED given in lab by David Hamlin, SOFIA in Right Antecubital via Peripheral IV. Or dered by Vickey Ott. 25 mcg FENTANYL given in lab by David Hamlin RN in Right Antecubital via Peripheral IV. Orde red by Tru, 10:11:27 Vickey. 10:11:56 OD=133 bpm, FBRY=025/66 mmhg, SpO2=95.0 %, Resp=8 B/min, Pain=6, Temitope=10, Pete=2 10:16:49 KE=251 bpm, NIBP=86/66 mmhg, SpO2=94.0 %, Resp=13 B/min, Pain=6, Temitope=10, Pete=2 10:17:36 Proceeding with intervention of RCA Vitals capture started with the following parameters, Patient=Adult, Interval=5 min, Initial Pr szpgko=342 mmHg, 10:18:03 Deflation Rate=5 mmHg, Cuff placed on Left Ankle 10:18:27 TX=004 bpm, NIBP=88/57 mmhg, SpO2=94.0 %, Resp=16 B/min, Pain=6, Temitope=10, Pete=2 0 units/hr NITROGLYCERN DRIP STOPPED given in lab by David Hamlin, SOFIA via Peripheral IV. Pump /Drip Flow = 0 ml/hr 10:18:31 using [Solution Name]. Ordered by Vickey Ott. 0 units/hr HEPARIN DRIP STOPPED given in lab by David Hamlin, SOFIA via Peripheral IV. Pump/Drip Flow = 0 ml/hr using 10:18:43 [Solution Name]. Ordered by Vickey Ott. 10:18:56 Bilateral groins prepped with 2% chlorhexidine, and with a 3 min. waiting time. Vitals capture started with the following parameters, Patient=Adult, Interval=5 min, Initial Pr crgpln=065 mmHg, 10:19:33 Deflation Rate=5 mmHg, Cuff placed on Left Ankle 10:19:59 CE=626 bpm, NIBP=90/54 mmhg, SpO2=93.0 %, Resp=16 B/min, Pain=6, Temitope=10, Pete=2 10:20:17 20 mL 1% XYLOCAINE given in lab by Vickey Ott in Right Groin via Subcutaneous. A SHEATH, FR6 TERUMO (10CM) FR 6 was exchanged in the Fem Art (right). This was necessary in or chad to insure 10:20:33 sterility. 6900 units HEPARIN given in lab by Hemanth Mclain, RN in Right Antecubital via Peripheral IV. Or dered by Tru, 10:22:00 Vickey. 10:23:10 Pressure channel 1 zeroed. A JR 4.0 GUIDE CATHETER FR 6 was advanced over a wire. OMNIPAQUE, 350 MG, 150ML 150ML was used for 10:23:20 injections. Recorded Pressure: Ao, IR=066, Condition=Condition 1 10:23:57 (Aorta) Ao 80/52/63 10:25:02 KX=590 bpm, NIBP=99/52 mmhg, SpO2=95.0 %, Resp=14 B/min, Pain=6, Temitope=10, Pete=2 10:26:41 A WIRE, BALANCE MIDDLEWEIGHT 190CM 190CM was inserted via Fem Art (right). 10:27:46 Interventional wire has crossed the lesion A BALLOON, 2.0 X 12MM EUPHORA 12MM was inserted over WIRE, BALANCE MIDDLEWEIGHT 190CM 190CM via the 10:28:41 RCA Mid. A BALLOON, 2.0 X 12MM EUPHORA 12MM over a WIRE, BALANCE MIDDLEWEIGHT 190CM 190CM in the RCA Mid was 10:29:07 inflated using a 30 JULIO CESAR INDEFLATOR at 8 julio cesar for 10 sec. A BALLOON, 2.0 X 12MM EUPHORA 12MM over a WIRE, BALANCE MIDDLEWEIGHT 190CM 190CM in the RCA Mid was 10:29:53 inflated using a 30 JULIO CESAR INDEFLATOR at 14 juloi cesar for 20 sec. 10:30:02 FQ=885 bpm, VHLD=846/60 mmhg, SpO2=95.0 %, Resp=14 B/min, Pain=6, Temitope=10, Pete=2 10:30:18 Balloon Removed. A STENT, 3.0 18MM DARIEL 3.0 18MM was advanced through a JR 4.0 GUIDE CATHETER FR 6 over a WIRE, BALANCE 10:30:56 MIDDLEWEIGHT 190CM 190CM. A STENT, 3.0 18MM DARIEL 3.0 18MM was deployed using a 30 JULIO CESAR INDEFLATOR at 12 atmospheres for 10 seconds in 10:34:45 the RCA Mid. 10:35:03 EX=052 bpm, NIBP=96/67 mmhg, SpO2=95.0 %, Resp=11 B/min, Pain=6, Temitope=10, Pete=2 10:36:14 Delivery device removed 10:37:02 Activated Clotting Time Drawn A BALLOON, 3.0 12MM NC QUANTUM APEX MR 3.0 12MM was inserted over WIRE, BALANCE MIDDLEWEIGHT 19 0CM 10:38:31 190CM via the RCA Mid. A BALLOON, 3.0 12MM NC QUANTUM APEX MR 3.0 12MM over a WIRE, BALANCE MIDDLEWEIGHT 190CM 190CM i n the 10:39:14 RCA Mid was inflated using a 30 JULIO CESAR INDEFLATOR at 14 julio cesar for 15 sec. A BALLOON, 3.0 12MM NC QUANTUM APEX MR 3.0 12MM over a WIRE, BALANCE MIDDLEWEIGHT 190CM 190CM i n the 10:39:42 RCA Mid was inflated using a 30 JULIO CESAR INDEFLATOR at 12 julio cesar for 10 sec. 10:39:55 Balloon Removed. 10:39:58 QS=210 bpm, EJOD=314/78 mmhg, SpO2=95.0 %, Resp=12 B/min, Pain=4, Temitope=10, Pete=2 10:40:02 ACT (Normal Range 90-180) = 325 10:45:01 GN=813 bpm, YLRM=844/76 mmhg, SpO2=94.0 %, Resp=15 B/min, Pain=4, Temitope=10, Pete=2 10:45:31 Wire removed After removing the current catheter a PIGTAIL ANG. INFINITI CATHETER FR 5 was advanced over a W SOLA, 3MMJ .035 10:46:17 180CM 180CM. 10:48:59 The Asc. Aorta (A) was injected at 20 cc/sec for a total of 40. OMNIPAQUE, 350 MG, 50ML 50M L used. 10:50:04 UC=011 bpm, HYDL=350/74 mmhg, SpO2=94.0 %, Resp=13 B/min, Pain=4, Temitope=10, Pete=2 10:55:03 RO=102 bpm, ZLCJ=712/82 mmhg, SpO2=95.0 %, Resp=15 B/min, Pain=4, Temitope=10, Pete=2 A PIGTAIL ANG. INFINITI CATHETER FR 5 was advanced over a wire. OMNIPAQUE, 350 MG, 150ML 150ML was used 10:56:37 for injections. Recorded Pressure: LV, HC=976, Condition=Condition 1 10:57:51 (Left Ventricle) LV 104/14/18 10:58:17 Catheter was removed A JR 4.0 INFINITI CATHETER FR 4 was advanced over a wire. OMNIPAQUE, 350 MG, 150ML 150ML was us ed for 10:58:58 injections. 11:00:06 MT=981 bpm, VKET=697/75 mmhg, SpO2=95.0 %, Resp=13 B/min, Pain=4, Temitope=10, Pete=2 11:00:46 The RCA was injected and visualized at various angles. OMNIPAQUE, 350 MG, 150ML 150ML used . After removing the current catheter a JR 4.0 GUIDE CATHETER FR 6 was advanced over a WIRE, 3MMJ .035 180CM 11:01:40 180CM. 11:05:07 DW=760 bpm, CRSK=961/76 mmhg, SpO2=95.0 %, Resp=15 B/min, Pain=3, Temitope=10, Pete=2 11:07:40 A WIRE, BALANCE MIDDLEWEIGHT 190CM 190CM was inserted via Fem Art (right). 11:08:47 Interventional wire has crossed the lesion A STENT, 2.75 12MM DARIEL 2.75 12MM was advanced through a JR 4.0 INFINITI CATHETER FR 4 over a W SOLA, 11:09:06 BALANCE MIDDLEWEIGHT 190CM 190CM. 11:10:02 NW=014 bpm, BLOS=210/90 mmhg, SpO2=95.0 %, Resp=18 B/min, Pain=3, Temitope=10, Pete=2 11:15:07 WF=749 bpm, LYER=393/85 mmhg, SpO2=94.0 %, Resp=12 B/min, Pain=3, Temitope=10, Pete=2 A STENT, 2.75 12MM DARIEL 2.75 12MM was deployed using a 30 JULIO CESAR INDEFLATOR at 14 atmospheres for 15 seconds 11:15:53 in the RCA Prox. 11:17:13 Delivery device removed A BALLOON, 2.75 12MM NC QUANTUM APEX MR 2.75 12MM was inserted over WIRE, BALANCE MIDDLEWEIGHT 190CM 11:18:15 190CM via the RCA Prox. 11:20:04 WB=101 bpm, VDDY=010/114 mmhg, SpO2=94.0 %, Resp=12 B/min, Pain=3, Temitope=10, Pete=2 A BALLOON, 2.75 12MM NC QUANTUM APEX MR 2.75 12MM over a WIRE, BALANCE MIDDLEWEIGHT 190CM 190CM in 11:21:05 the RCA Prox was inflated using a 30 JULIO CESAR INDEFLATOR at 14 julio cesar for 15 sec. 11:21:53 Balloon Removed. 11:22:32 Wire removed 11:23:58 Catheter was removed 11:24:02 Case End 11:24:09 In the Fem Art (right) the SHEATH, FR6 TERUMO (10CM) FR [address] by John Tirado RT(R). Assessment: Final Case, ES=135 BPM, Rhythm=SinusTACHY, POOM=126/114 mmhg, Chest Pain=0, Edema=N one, Color=Normal, Skin = Warm, Dry Right Pulses: Darrick Ped=1, Femoral=1 11:24:26 Left Pulses: Darrick Ped=1, Femoral=1 Neurological: State=Alert, Ox3, REYES Respiration: Resp=8 B/min, SpO2=97 %, O2=2 lpm 11:24:57 Sterile dressing applied to site 11:24:57 No case complications noted. 11:24:58 Cine recording checked. 11:25:05 Bedside Report will be given. 11:25:06 Implantable Device card placed in patient's chart. 11:25:07 DF=984 bpm, LFLZ=093/98 mmhg, SpO2=98.0 %, Resp=16 B/min, Pain=3, Temitope=10, Pete=2 11:25:08 Contrast Scanned 11:25:09 Verbal Stimulation=2 Physical Stimulation=2 Airway=2 Respiration=2 TOTAL=8. (0=absent, 1=l imited, 2=present) 11:29:48 600 mg PLAVIX given in lab by Hemanth Mclain RN via Oral. Ordered by Vickey Ott. 11:30:10 KM=747 bpm, FGLS=271/103 mmhg, SpO2=97.0 %, Resp=16 B/min, Pain=3, Temitope=10, Pete=2 11:41:42 Patient moved to stretcher and taken to CVICU End Study - Contrast Media Used In Study Contrast Total Opened (mL) Total Used (mL) Total Wasted (mL) Omnipaque 195 195 0 End Study - Maximum Contrast Load Max Contrast Load (mL) 86.0 End Study - Radiation Exposure Fluoro Time (minutes) 20.3 End Study - Patient Disposition Complications Transferred To Interventional Outcome No Critical Care Bed successful
[2016-11-07] MEDS ORDERED: MISC INFORMATION XX ONE (11:45)
[2016-11-07] MEDS ORDERED: ACETAMINOPHEN 325 MG TAB PO PRN (11:45)
[2016-11-07] MEDS: INSULIN ASPART SUPPLEMENTAL SCALE SQ SCH ×2 (12:00→21:00)
[2016-11-07] MEDS: amLODIPine BESYLATE 5 MG TAB PO SCH (13:13)
[2016-11-07] MEDS: METOPROLOL TARTRATE 25 MG TAB PO SCH ×2 (13:13→20:56)
[2016-11-07] MEDS ORDERED: INSULIN REGULAR (IV INFUSION) 100 UNITS in SODIUM CHLORIDE 0.9% INJ 100 ML IV SCH (15:15)
[2016-11-07] MEDS ORDERED: ceFAZolin 2 GM PREMIX 50 ML IV SCH (15:15)
[2016-11-07] MEDS ORDERED: CHLORHEXIDINE GLUCONATE 4% SOLN 120 ML BTL TOPICAL SCH (15:15)
[2016-11-07] MEDS ORDERED: PAPAVERINE INJ 60 MG, NITROGLYCERIN INJ 100 MCG, DILTIAZEM INJ 100 MG in SODIUM CHLORID... IRRIGATION SCH (15:15)
[2016-11-07] MEDS ORDERED: METOPROLOL TARTRATE 25 MG TAB PO SCH (15:15)
[2016-11-07] MEDS ORDERED: CEFAZOLIN INJ 500 MG in SODIUM CHLORIDE 0.9% IRR BTL 500 ML IRRIGATION SCH (15:15)
--- NOTE | 2016-11-07 15:22 | PD.CAR.PN ---
CVT Progress Note Subjective/Hospital Course: sts data discussed with the pt RISK SCORES About the STS Risk Calculator Procedure: CAB Only Risk of Mortality: 11.157% Morbidity or Mortality: 52.662% Long Length of Stay: 27.08% Short Length of Stay: 6.215% Permanent Stroke: 4.599% Prolonged Ventilation: 29.238% DSW Infection: 0.722% Renal Failure: 35.539% Reoperation: 12.799% Objective: Vital Signs Date Time Temp Pulse Resp B/P (MAP) Pulse Ox O2 Delivery O2 Flow Rate FiO2 11/07/16 09:19 97 21 11/07/16 08:00 80 11/07/16 08:00 98.1 80 23 176/99 (124) 94 11/07/16 07:00 76 11/07/16 06:00 74 11/07/16 04:00 71 11/07/16 04:00 98.5 71 20 127/69 (88) 97 11/07/16 02:00 104 11/07/16 01:00 127/72 (90) 11/07/16 00:00 98.3 106 20 168/110 (129) 94 11/07/16 00:00 106 11/06/16 21:47 97 21 11/06/16 20:00 98.6 109 20 141/86 (104) 94 11/06/16 20:00 109 11/06/16 20:00 109 11/06/16 18:00 109 11/06/16 16:00 98.5 79 21 112/67 (82) 94 11/06/16 16:00 79 Labs: Laboratory Tests Test 11/07/16 04:34 White Blood Count 9.2 TH/MM3 (4.0-11.0) Red Blood Count 3.78 MIL/MM3 (4.50-5.90) Hemoglobin 11.3 GM/DL (13.0-17.0) Hematocrit 34.8 % (39.0-51.0) Mean Corpuscular Volume 92.2 FL (80.0-100.0) Mean Corpuscular Hemoglobin 29.9 PG (27.0-34.0) Mean Corpuscular Hemoglobin Concent 32.5 % (32.0-36.0) Red Cell Distribution Width 13.4 % (11.6-17.2) Platelet Count 197 TH/MM3 (150-450) Mean Platelet Volume 9.3 FL (7.0-11.0) Activated Partial Thromboplast Time 68.1 SEC (24.3-30.1) Blood Urea Nitrogen 60 MG/DL (7-18) Creatinine 5.78 MG/DL (0.60-1.30) Random Glucose 117 MG/DL (74-106) Albumin 2.9 GM/DL (3.4-5.0) Calcium Level 8.4 MG/DL (8.5-10.1) Phosphorus Level 4.6 MG/DL (2.5-4.9) Sodium Level 140 MEQ/L (136-145) Potassium Level 4.4 MEQ/L (3.5-5.1) Chloride Level 111 MEQ/L (98-107) Carbon Dioxide Level 18.5 MEQ/L (21.0-32.0) Anion Gap 11 MEQ/L (5-15) Estimat Glomerular Filtration Rate 10 ML/MIN (>89) Result Diagram: 11/07/16 0434 11/07/16 0434 (1) NSTEMI (non-ST elevated myocardial infarction) (2) Chronic kidney disease, stage 5 (3) CHF (congestive heart failure), NYHA class II (4) Hypertension (5) Hyperlipidemia (6) Diabetes (7) CAD (coronary artery disease) Rocio Conway Nov 07, 2016 15:22
--- NOTE | 2016-11-07 15:30 | HHI.NPPN ---
Subjective History of Present Illness The patient is a 81 yo [place] male who presented to [facility] on 11/03 with complaints of chest pain and elevated troponin. According to records, he and his family refused treatment at [facility], so he signed out AMA and arrived in the ED here 11/05 with same complaints. He has been treated with NTG but still has discomfort. He has been stage 5 CKD for some time but has yet to be started on dialysis. There are potential plans for cardiac cath. He has a PMHx significant for CAD s/p [place], PTCA with restenosis of stents that had to be replaced a year ago and cardiomyopathy with EF of 20-25% in 2015. He also is hypertensive, diabetic, anemic, and has hx of GI bleeding. Admitting SCr 5.95 with eGFR of 9. According to regular oil expert, Dr. Lou, his baseline SCr is 6. Interval History Patient had no verbal complaints today. Status post drug-eluting stent placement however consideration is being given for coronary bypass. Review of Systems Respiratory Lungs: SOB Cardiovascular Cardiac: Chest Pain Objective Data Data Vital Signs Date Time Temp Pulse Resp B/P (MAP) Pulse Ox O2 Delivery O2 Flow Rate FiO2 11/07/16 09:19 97 21 11/07/16 08:00 80 11/07/16 08:00 98.1 80 23 176/99 (124) 94 11/07/16 07:00 76 11/07/16 06:00 74 11/07/16 04:00 71 11/07/16 04:00 98.5 71 20 127/69 (88) 97 11/07/16 02:00 104 11/07/16 01:00 127/72 (90) 11/07/16 00:00 98.3 106 20 168/110 (129) 94 11/07/16 00:00 106 11/06/16 21:47 97 21 11/06/16 20:00 98.6 109 20 141/86 (104) 94 11/06/16 20:00 109 11/06/16 20:00 109 11/06/16 18:00 109 11/06/16 16:00 98.5 79 21 112/67 (82) 94 11/06/16 16:00 79 -: 11/07/16 0434 11/07/16 0434 Physical Exam General Appearance: No Acute Distress, Comfortable Neck Neck Exam: Neck Supple, Trachea Midline Pulmonary Resp Exam: Clear Bilaterally, Breath Sounds Equal Cardiology CV Exam: Regular, Normal Sinus Rhythm Gastrointestinal/Abdomen GI Exam: Soft, Non-Tender Integumentary Skin Exam: Clear, Warm Extremeties Extremities Exam: No Edema Neurologic Neuro Exam: Alert, Awake, Oriented Psychiatric Psych Exam: Appropriate Responses Assessment/Plan Discussed Condition With: Patient Problem List: (1) Chronic kidney disease, stage 5 ICD Codes: N18.5 - Chronic kidney disease, stage 5 Plan: According to his regular oil expert, his baseline SCr has been 6 for some time. He does not have any immediate plans for dialysis (i.e. not made plans for hemodialysis versus peritoneal dialysis), but does say that he realizes that he will require dialytic intervention in the near future if not during this admission. To continue on Rocaltrol. Start Ergocalciferol. There is no immediate indication for dialysis at the present, but will follow closely during admission. Patient already has CKD stage V and if he does require coronary artery bypassing procedure it would be very unlikely that we would be able to avoid initiating dialysis in my opinion in this would almost certainly be required permanently as discussed with the patient. As mentioned previously however it is inevitable that the patient will require dialytic support in the not too distant future regardless . Await decision of patient and basilar surgery. Medications should be adjusted for the patient's renal decline. Avoid gadolinium. (2) NSTEMI (non-ST elevated myocardial infarction) ICD Codes: I21.4 - Non-ST elevation (NSTEMI) myocardial infarction Status: Acute Plan: (3) Hypertension ICD Codes: I10 - Hypertension Status: Chronic Plan: Continue on Losartan. Add Amlodipine 5mg QD. (4) Diabetes ICD Codes: E11.9 - Type 2 diabetes mellitus without complications Plan: Mgmt as per primary team (5) Metabolic acidosis ICD Codes: E87.2 - Metabolic acidosis Status: Chronic Plan: Secondary to CKD. Continue by mouth sodium bicarbonate. Benefits of same discussed with patient. Sg Henley MD Nov 07, 2016 15:30
--- NOTE | 2016-11-07 18:06 | RADRPT ---
EXAM DATE/TIME: 11/07/2016 17:09 [facility] COMPARISON: No previous studies available for comparison. INDICATIONS : Preop cardiac surgery. MEDICAL HISTORY : [place]. CAD. Hypercholesterol. Hypertension. Renal failure. Diabetic. SURGICAL HISTORY : Coronary stent. Left knee arthrscopy. Colonoscopy. ENCOUNTER: Initial ACUITY: 1 day PAIN SCORE: 0/10 LOCATION: Bilateral leg. TECHNIQUE: Venous ultrasound of the left and right leg was performed from the inguinal ligament to the proximal calf. Real-time, color Doppler and spectral tracing, compression and augmentation techniques were us ed. FINDINGS: RIGHT LEG: There is normal compressibility of the deep venous system from the inguinal region to the proximal ca lf. No echogenic clot is seen in the lumen of the common femoral, femoral, popliteal, and posterior tibial veins. There is a normal response of the venous system to proximal and distal augmentation an d respiration. LEFT LEG: There is normal compressibility of the deep venous system from the inguinal region to the proximal ca lf. No echogenic clot is seen in the lumen of the common femoral, femoral, popliteal, and posterior tibial veins. There is a normal response of the venous system to proximal and distal augmentation an d respiration. CONCLUSION: No evidence of deep venous thrombosis within the lower extremities. Rizwan Kline MD on November 07, 2016 at 18:04 Board Certified Radiologist. This report was verified electronically.
--- NOTE | 2016-11-07 18:47 | RADRPT ---
EXAM DATE/TIME: 11/07/2016 16:47 [facility] COMPARISON: No previous studies available for comparison. INDICATIONS : Preop cardiac surgery. MEDICAL HISTORY : [place]. CAD. Hypercholesterolemia. Hypertension. Renal failure. Diabetic. SURGICAL HISTORY : Colonoscopy. Left knee arthroscopy. Coronary stent. ENCOUNTER: Initial ACUITY: 1 day PAIN SCORE: 0/10 LOCATION: Bilateral neck PEAK SYSTOLIC VELOCITIES (cm/sec): ICA/CCA RATIO: Right: 1.5 Left: 3.1 ICA: Right: 101 Left: 166 CCA: Right: 68 Left: 55 ECA: Right: 108 Left: 180 VERTEBRAL: Right: 37 antegrade Left: 27 antegrade Elevated flow velocities and ICA/CCA ratios have been found to correlate with increased degrees of vessel stenosis, calculated as percentage of diameter relative to a normal segment of distal ICA/CCA FINDINGS: There is elevation of the peak systolic velocity of the left ICA as well as the left ICA to CCA ratio in the 50-69& stenosis range. There is also elevation of the peak systolic velocity of the left ext ernal carotid artery in the 50-69% stenosis range. The right ICA and CCA systolic velocities suggest less than 50% stenosis. Atherosclerotic plaque is noted within the left carotid system and is moder ate in degree. Antegrade flow is noted within the vertebral arteries bilaterally. CONCLUSION: 1. Approximately 50-69% stenosis involving the left ICA and ECA. Rizwan Kline MD on November 07, 2016 at 18:01 Board Certified Radiologist. This report was verified electronically.
[2016-11-07] MEDS ORDERED: hydrALAZINE HCL 20 MG/ML VIAL IV ONE (20:00)
--- NOTE | 2016-11-07 20:22 | RADRPT ---
EXAM DATE/TIME: 11/07/2016 17:18 [facility] COMPARISON: No previous studies available for comparison. INDICATIONS : Pre-op cardiac surgery. MEDICAL HISTORY : [place]. CAD. Hypercholesterol. Hypertension. Renal failure. Diabetic. SURGICAL HISTORY : Colonoscopy. Coronary stent. Left knee arthroscopy. ENCOUNTER: Initial ACUITY: 1 day PAIN SCORE: 0/10 LOCATION: Bilateral leg. GREATER SAPHENOUS VEIN THIGH: PROXIMAL: Right 5 mm Left 4 mm MID: Right 2 mm Left 2 mm DISTAL: Right Non-visualized Left Non-visualized CALF: PROXIMAL: Right Non-visualized Left Non-visualized MID: Right Non-visualized Left Non-visualized DISTAL: Right Non-visualized Left Non-visualized FINDINGS: The venous system of the lower extremities are patent by color Doppler imaging. Measurements of the leg veins (in mm) are listed above. CONCLUSION: Saphenous vein measurements as above. Rizwan Kline MD on November 07, 2016 at 20:20 Board Certified Radiologist. This report was verified electronically.
[2016-11-07] MEDS: SODIUM BICARBONATE 650 MG TAB PO SCH (20:56)
[2016-11-07] MEDS: ATORVASTATIN 80 MG TAB PO SCH (20:56)
[2016-11-07] MEDS: SODIUM CHLORIDE 0.9% FLUSH 10 ML FLUSH IV FLUSH SCH (21:00)
[2016-11-07] MEDS: DOCUSATE SODIUM 50 MG/SENNA 8.6 MG TAB PO SCH (21:00)
[2016-11-07] MEDS: ACETYLCYSTEINE 20% 6,000 MG/30 ML ORAL SOLN VIAL PO SCH (21:00)
--- NOTE | 2016-11-07 23:25 | PD.CARD.PN ---
Subjective Subjective Remarks Patient seen earlier around 4pm post-cath Doing well, no further chest pain Back pain relieved with morphine Objective Medications Current Medications Medications (Trade) Dose Ordered Sig/Armida Route Start Time Stop Time Status Last Admin (D50w (Vial) Inj) 50 ml UNSCH PRN IV PUSH 11/05/16 16:00 (Glucagon Inj) 1 mg UNSCH PRN OTHER 11/05/16 16:00 (NovoLOG SUPPLEMENTAL SCALE) 1 ACHS SLIDING SCALE SQ 11/05/16 17:00 11/06/16 12:00 (NS Flush) 2 ml BID IV FLUSH 11/05/16 21:00 11/06/16 21:45 (NS Flush) 2 ml UNSCH PRN IV FLUSH 11/05/16 16:00 (Nitroglycerin 2% Oint) 1 inch Q6H TOP 11/05/16 22:00 11/07/16 20:59 (Nitrostat Sl) 0.4 mg Q5M PRN SL 11/05/16 16:00 (Morphine Inj) 2 mg Q30M PRN IV PUSH 11/05/16 16:00 11/07/16 08:15 (Tylenol) 650 mg Q6H PRN PO 11/05/16 16:00 (Xanax) 0.25 mg Q8H PRN PO 11/05/16 16:00 (Zofran Inj) 4 mg Q6H PRN IV PUSH 11/05/16 16:00 (Compazine Supp) 25 mg Q12H PRN RECTAL 11/05/16 16:00 (Percocet 5-325 Mg) 1 tab Q6H PRN PO 11/05/16 16:00 (Percocet 10-325 Mg) 1 tab Q6H PRN PO 11/05/16 16:00 11/06/16 23:47 (Morphine Inj) 2 mg Q3H PRN IV PUSH 11/05/16 16:00 11/05/16 17:55 (Morphine Inj) 4 mg Q3H PRN IV PUSH 11/05/16 16:00 (Morphine Inj) 4 mg Q1H PRN IV PUSH 11/05/16 16:00 (Morphine Inj) 4 mg Q3H PRN IV PUSH 11/05/16 16:00 (Narcan Inj) 0.4 mg UNSCH PRN IV PUSH 11/05/16 16:00 (Janene-Colace) 1 tab BID PO 11/05/16 21:00 11/06/16 21:41 (Milk Of Magnesia Liq) 30 ml Q12H PRN PO 11/05/16 16:00 (Senokot) 17.2 mg Q12H PRN PO 11/05/16 16:00 (Dulcolax Supp) 10 mg DAILY PRN RECTAL 11/05/16 16:00 (Lactulose Liq) 30 ml DAILY PRN PO 11/05/16 16:00 (Rocaltrol) 0.25 mcg DAILY PO 11/06/16 09:00 11/06/16 08:47 (Florinef) 0.1 mg DAILY PO 11/06/16 09:00 11/06/16 08:47 (Imdur) 30 mg DAILY PO 11/06/16 09:00 11/06/16 08:47 (Cozaar) 100 mg DAILY PO 11/06/16 09:00 Future Hold 11/06/16 08:47 (Ferrous Sulfate) 325 mg BIDPC PO 11/05/16 18:00 11/06/16 17:49 (Protonix) 40 mg DAILY@0600 PO 11/06/16 06:00 11/06/16 05:01 (Sodium Bicarbonate) 650 mg BID PO 11/05/16 21:00 11/07/16 20:56 (Norvasc) 5 mg DAILY PO 11/05/16 20:00 11/07/16 13:13 Miscellaneous Information Patient in critical care unit? Ass... Q361D .XX 11/05/16 21:30 (Chlorhexidine 2% Cloth) 3 pack DAILY@04 TOPICAL 11/06/16 04:00 11/10/16 04:01 (Chlorhexidine 2% Cloth) 3 pack UNSCH PRN TOPICAL 11/05/16 21:30 11/10/16 21:28 (Mucomyst 20% Liq) 1,200 mg BID PO 11/06/16 09:00 11/06/16 21:00 (Lopressor) 25 mg Q12HR PO 11/05/16 22:15 11/07/16 20:56 Sodium Chloride 1,000 ml @ 84 mls/hr [id number] IV 11/06/16 18:00 11/06/16 21:45 (Drisdol) 50,000 units Q7D PO 11/06/16 20:00 11/06/16 22:15 (Lipitor) 80 mg HS PO 11/06/16 21:00 11/07/16 20:56 Nitroglycerin/ Dextrose 250 ml @ 1.5 mls/hr TITRATE PRN IV 11/07/16 10:00 (Tylenol) 325 mg Q4H PRN PO 11/07/16 11:45 (Aspirin Chew) 81 mg DAILY CHEW 11/08/16 09:00 Papaverine HCl 60 mg/Nitroglycerin 100 mcg/Diltiazem HCl 100 mg/Sodium Chloride 100 ml @ 0 mls/hr RISK CONSULTANT IRRIGATION 11/07/16 15:15 11/14/16 15:14 Cefazolin Sodium 500 mg/Sodium Chloride 505 ml @ 0 mls/hr RISK CONSULTANT IRRIGATION 11/07/16 15:15 11/14/16 15:14 Cefazolin Sodium/ Dextrose 50 ml @ 150 mls/hr RISK CONSULTANT IV 11/07/16 15:15 11/14/16 15:14 (Lopressor) 12.5 mg RISK CONSULTANT PO 11/07/16 15:15 11/14/16 15:14 (Hibiclens 4% Top Soln) 1 applic RISK CONSULTANT TOPICAL 11/07/16 15:15 11/14/16 15:14 Insulin Human Regular 100 units/ Sodium Chloride 101 ml @ 0 mls/hr RISK CONSULTANT IV 11/07/16 15:15 11/14/16 15:14 Vital Signs / I&O Vital Signs Date Time Temp Pulse Resp B/P (MAP) Pulse Ox O2 Delivery O2 Flow Rate FiO2 11/07/16 21:42 95 21 11/07/16 20:00 98.3 84 18 128/81 (97) 95 11/07/16 20:00 84 11/07/16 18:00 87 11/07/16 16:00 98.1 78 16 116/75 (89) 96 11/07/16 15:00 80 11/07/16 12:00 97.3 117 18 167/92 (117) 97 11/07/16 09:19 97 21 11/07/16 08:00 80 11/07/16 08:00 98.1 80 23 176/99 (124) 94 11/07/16 07:00 76 11/07/16 06:00 74 11/07/16 04:00 71 11/07/16 04:00 98.5 71 20 127/69 (88) 97 11/07/16 02:00 104 11/07/16 01:00 127/72 (90) 11/07/16 00:00 98.3 106 20 168/110 (129) 94 11/07/16 00:00 106 I/O 11/07/16 11/07/16 11/07/16 11/08/16 11/08/16 11/08/16 07:00 15:00 23:00 07:00 15:00 23:00 Intake Total 847 ml 2122 ml Output Total 950 ml 700 ml Balance -103 ml 1422 ml Intake Oral 600 ml 480 ml IV Total 247 ml 1642 ml Output Urine Total 950 ml 700 ml # Bowel Movements 0 Physical Exam GENERAL: NAD, AAOx3 SKIN: Warm and dry. HEAD: Atraumatic. Normocephalic. EYES: Pupils equal and round. No scleral icterus. No injection or drainage. ENT: No nasal bleeding or discharge. Mucous membranes pink and moist. NECK: Trachea midline. No JVD. CARDIOVASCULAR: Regular rate and rhythm. RESPIRATORY: No accessory muscle use. Clear to auscultation. Breath sounds equal bilaterally. GASTROINTESTINAL: Abdomen soft, non-tender, nondistended. Hepatic and splenic margins not palpable. MUSCULOSKELETAL: Extremities without clubbing, cyanosis, or edema. No obvious deformities. NEUROLOGICAL: Awake and alert. No obvious cranial nerve deficits. Motor grossly within normal limits. Five out of 5 muscle strength in the arms and legs. Normal speech. PSYCHIATRIC: Appropriate mood and affect; insight and judgment normal. Laboratory Laboratory Tests Test 11/07/16 04:34 White Blood Count 9.2 TH/MM3 Red Blood Count 3.78 MIL/MM3 Hemoglobin 11.3 GM/DL Hematocrit 34.8 % Mean Corpuscular Volume 92.2 FL Mean Corpuscular Hemoglobin 29.9 PG Mean Corpuscular Hemoglobin Concent 32.5 % Red Cell Distribution Width 13.4 % Platelet Count 197 TH/MM3 Mean Platelet Volume 9.3 FL Activated Partial Thromboplast Time 68.1 SEC Blood Urea Nitrogen 60 MG/DL Creatinine 5.78 MG/DL Random Glucose 117 MG/DL Albumin 2.9 GM/DL Calcium Level 8.4 MG/DL Phosphorus Level 4.6 MG/DL Sodium Level 140 MEQ/L Potassium Level 4.4 MEQ/L Chloride Level 111 MEQ/L Carbon Dioxide Level 18.5 MEQ/L Anion Gap 11 MEQ/L Estimat Glomerular Filtration Rate 10 ML/MIN Assessment and Plan Problem List: (1) NSTEMI (non-ST elevated myocardial infarction) ICD Codes: I21.4 - Non-ST elevation (NSTEMI) myocardial infarction Status: Acute (2) Chronic kidney disease, stage 5 ICD Codes: N18.5 - Chronic kidney disease, stage 5 (3) CHF (congestive heart failure), NYHA class II ICD Codes: I50.9 - Heart failure, unspecified (4) Hypertension ICD Codes: I10 - Hypertension Status: Chronic (5) Hyperlipidemia ICD Codes: E78.5 - Hyperlipidemia, unspecified (6) Diabetes ICD Codes: E11.9 - Type 2 diabetes mellitus without complications (7) CAD (coronary artery disease) ICD Codes: I25.10 - CAD (coronary artery disease) Status: Chronic Assessment and Plan 1) DESx2 to the RCA due to cardiogenic shock/unstable angina during catheterization Con't ASA 2) Residual CAD Consider CABG Dr. Burnham will discuss with patient and family Will hold Plavix in anticipation of surgery Place on heparin and aggrastat drips in the morning due to GLEN 3) Back pain Relieved with morphine No dissection noted on aortic root angiogram but suboptimal If further concern would CT angio 4) CKD 5 5) EF 20-25% Vickey Ott DO Nov 07, 2016 23:25
[2016-11-08] VITALS (16 sets, daily range): BP systolic 142–160; BP diastolic 85–103; PULSE 82–110; RESP 16–18; TEMP 97–99; O2SAT 94–99
[2016-11-08] MEDS: CHLORHEXIDINE GLUCONATE 2 % 1 PACK (2 CLOTHS)(taper/protocol) TOPICAL SCH (04:00)
[2016-11-08] MEDS: NITROGLYCERIN 2% OINT 1 GM PACKET TOP SCH ×2 (04:00→10:06)
[2016-11-08 05:32] LABS: AUTOMATED NEUTROPHIL # 8.9 TH/MM3 (1.8-7.7); BASOPHIL % 0.2 % (0.0-2.0); EOSINOPHIL # 0.3 TH/MM3 (0-0.4); EOSINOPHIL % 2.5 % (0.0-4.0); HEMATOCRIT 30.8 % (39.0-51.0); HEMO FLAGS DIFF FINAL; LYMPH % 4.4 % (9.0-44.0); LYMPHOCYTE # 0.5 TH/MM3 (1.0-4.8); MEAN CELL VOLUME 92.2 FL (80.0-100.0); MEAN CORPUSCULAR HEMOGLOBIN 30.6 PG (27.0-34.0); MEAN CORPUSCULAR HGB CONC 33.2 % (32.0-36.0); MONO % 7.4 % (0.0-8.0); NEUT % 85.5 % (16.0-70.0); PLATELET COUNT 184 TH/MM3 (150-450); RED BLOOD COUNT 3.34 MIL/MM3 (4.50-5.90); RED CELL DISTRIBUTION WIDTH 14.1 % (11.6-17.2); WHITE BLOOD COUNT 10.4 TH/MM3 (4.0-11.0)
[2016-11-08 05:33] LABS: APTT (PATIENT) 49.1 SEC (24.3-30.1)
[2016-11-08 05:41] LABS: BICARBONATE 15.4 MEQ/L (21.0-32.0); POTASSIUM 4.5 MEQ/L (3.5-5.1)
[2016-11-08] MEDS: SODIUM CHLOR 0.9% 1000 ML INJ 1,000 ML IV SCH ×2 (05:45→14:24)
[2016-11-08] MEDS: PANTOPRAZOLE SOD 40 MG DELAYED RELEASE TAB PO SCH (06:25)
[2016-11-08] MEDS: MORPHINE SULFATE 4 MG/ML INJ IV PUSH PRN ×3 (07:32→10:23)
[2016-11-08] MEDS: INSULIN ASPART SUPPLEMENTAL SCALE SQ SCH ×4 (08:00→21:00)
--- NOTE | 2016-11-08 08:22 | MA ---
cc: VICKEY BASHIR DO DATE: November 07, 2016 PROCEDURE Left heart catheterization, coronary angiogram, complex case, moderate sedation 140 minutes, aortic root angiogram, Resolute rishi drug-eluting stent x2 (2.75 x 12 proximal, 3 x 18 mid) to the RCA. PREPROCEDURE DIAGNOSIS N-STEMI, Coronary artery disease. POSTPROCEDURE DIAGNOSIS Multivessel coronary artery disease, N-STEMI, cardiogenic shock, status post Resolute Rishi drug-eluting stent x2 (2.75 x 12 proximal, 3 x 18 mid)to the Right coronary artery). MEDICATIONS 1. Versed 1 mg. 2. Fentanyl 50 mcg. 3. Hydralazine 20 mg, lately. 4. Labetalol 10 mg. 5. Heparin 6900 units. 6. Plavix 600 mg. CONTRAST 195 cc. Fluoroscopy 20.3 minutes Moderate sedation 140 minutes ESTIMATED BLOOD LOSS 30 cc. PROCEDURAL SUMMARY: Rizwan Garcia is a pleasant 81-year-old male who originally presented to [facility] after previously being in [facility] with N-STEMI and continual chest pain. Because of his elevated troponins and symptoms of angina. It was felt that he should undergo cardiac catheterization. The Risks, benefits and alternatives were explained to him and he consented as such. I also did discuss the procedure preoperatively with his son about the risks, benefits and alternatives. I originally planned for a diagnostic only, as he has significant chronic kidney disease stage V. DyeVert was used during the initial portion of the procedure to try to limit our amount of contrast. He was brought to the lab and prepped in the usual sterile fashion. Right femoral artery was accessed using a modified Seldinger technique and placement of a 5-Maori sheath. This was easily aspirated and flushed. A JR-4 was advanced over a J-wire to the ascending aorta and an across the aortic valve for measurement of left ventricular pressure. This was pulled back across the aortic valve showing no significant gradient of aortic stenosis. JR-4 was used for selective angiography of the right coronary artery. This was then exchanged out for JL-4 which was used for selective angiography of the left coronary artery. JL-4 was removed over a J-wire. At that time the patient was noted to have multivessel coronary artery disease and I plan on him being seen by cardiothoracic surgery for evaluation for coronary artery bypass graft. While on the table before removal of the sheath Mr. Greer started to have chest pain. His pressure got elevated at 200/100 and he was started on a nitroglycerin drip which was quickly titrated up as well as he was given doses of hydralazine and labetalol. The chest pain seemed to be getting worse and worse and was uncontrolled with a nitroglycerin drip. As this chest pain became more and more extensive the patient's blood pressure went from 150-170 systolically quickly to 70 systolic. I believe this may be due to him being ischemic for the past week while trying to avoid cardiac catheterization. At that time it was felt that the RCA needed to be intervened on and there was no chance of him waiting until he could have a surgical workup. His 5-Maori sheath was then exchanged for a 6-Maori sheath. He was given heparin as an additional anticoagulant. A JR-4 guide was inserted and engaged in the right coronary artery. The BMW wire was advanced into the distal RCA. A compliant balloon (2 x 12) was then inflated over the lesion. This was exchanged for a Resolute rishi drug-eluting stent (3 x 18) which was placed over the lesion and inflated. A noncompliant balloon (3 x 12) was then used to post dilate the stent. Post angiography shows possibly some spasm in the proximal portion of the RCA, although it is difficult as there is overlap with the Conus branch. At this time the patient was stating that he had some back pain and due to the presentation with hypotension I felt that an aortic root shot was prudent to try to rule out a dissection. The wire was removed. The JR-4 guide was exchanged for a pigtail. Aortic root angiogram, although somewhat suboptimal did not show any glaring dissections. Post stenting the patient's chest pain decreased, his blood pressure got somewhat better and his back felt better after being able to move most likely from lying on the table. There was still concerned for the proximal portion of the RCA so a 4-Maori JR-4 was used to engage the ostium of the RCA and angiogram shows most likely a stenosis without spasm. It was felt that this should be also be intervened on as the patient still had some chest pain. The JR-4 guide was then engaged into the RCA. A BMW wire was advanced to the distal portion of the vessel. A Resolute rishi drug-eluting stent (2.75 x 12) was then placed in the proximal portion of the RCA and inflated. Afterwards a noncompliant balloon (2.7 x 12) was placed within the stent and inflated to post dilate the stent. Wire was pulled back angiogram shows two well opposed stents with no dissections or perforations. JR-4 guide was removed over a J-wire. Femoral sheath was sewn in place with a plan to remove once ACTs were adequate. 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 FINDINGS Left main overall short vessel with adequate reflux and mild luminal irregularities. LAD small to moderate size vessel with diffuse 70% disease in the proximal to midportion. In the midportion of the vessel there is a wall overlapping stents which are believed to be 2.25 mm in size with diffuse 60-70% disease. Distally the LAD does get larger in size with possible to target for bypass. He gives off one major diagonal which has at least a 60% lesion in the proximal portion. Left circumflex normal size vessel with mild luminal irregularities throughout the proximal portion. At it gives off two major obtuse marginals with the first one having diffuse 50% disease. A second one has what appears to be a 70-80% ostial lesion. Right coronary artery, normal-size vessel with proximal 70% stenosis and mid 99% stenosis. Overall it is a dominant vessel. This it is no significant disease distally. LVEDP 21. IMPRESSION 1. N-STEMI. 2. Multivessel coronary artery disease as above. 3. Cardiogenic shock, most likely due to prolonged ischemia during decision making for possible cardiac catheterization. 4. Status post Resolute rishi drug-eluting stent x2 (2.75 x 12 proximal, 3 x 18 mid) three right coronary artery. IMPRESSION 1. Mr. Garcia underwent cardiac catheterization was found to have significant multivessel coronary artery disease. Due to him appearing to go into cardiogenic shock. It was felt necessary to intervene on his RCA. Because of this he will be placed on aspirin and was loaded with Plavix. 2. He will still be evaluated by CT surgery and after discussing with them. We will plan on holding the Plavix and he will discuss with him consideration of bypassing his LAD, circumflex and possible obtuse marginal. Because of the recent drug-eluting stents we will place him on a heparin drip as well as statin therapy. 3. If he decides against coronary artery bypass grafting, his overall disease in his LAD is quite diffuse and may be difficult from a percutaneous standpoint. This will have to be further discussed with him his family about how to further intervene on his coronary anatomy. 4. He will be transferred to the CVICU for further observation. 5. Further recommendations will be made based on the hospital course. Thank you for allowing me to see Rizwan Garcia, if there are any questions please do not hesitate to call. Vickey Bashir DO VGP/mh /10:24 PM /7:59 AM MTDD
[2016-11-08] MEDS: ASPIRIN 81 MG CHEW TAB CHEW SCH (08:31)
[2016-11-08] MEDS: CALCITRIOL 0.25 MCG CAP PO SCH (08:32)
[2016-11-08] MEDS: SODIUM BICARBONATE 650 MG TAB PO SCH ×2 (08:32→17:16)
[2016-11-08] MEDS: METOPROLOL TARTRATE 25 MG TAB PO SCH ×2 (08:32→21:32)
[2016-11-08] MEDS: ISOSORBIDE MONONITRATE 30 MG TAB PO SCH (08:32)
[2016-11-08] MEDS: FLUDROCORTISONE ACETATE 0.1 MG TAB PO SCH (08:32)
[2016-11-08] MEDS: FERROUS SULFATE 325 MG (65 MG ELEMENTAL IRON) TAB PO SCH ×2 (08:32→17:16)
[2016-11-08] MEDS: SODIUM CHLORIDE 0.9% FLUSH 10 ML FLUSH IV FLUSH SCH ×2 (08:32→22:09)
[2016-11-08] MEDS: amLODIPine BESYLATE 5 MG TAB PO SCH (08:32)
[2016-11-08] MEDS: ACETYLCYSTEINE 20% 6,000 MG/30 ML ORAL SOLN VIAL PO SCH ×2 (08:44→22:05)
[2016-11-08] MEDS: DOCUSATE SODIUM 50 MG/SENNA 8.6 MG TAB PO SCH ×2 (09:00→21:32)
[2016-11-08] MEDS ORDERED: CLOPIDOGREL 75 MG TAB PO SCH (09:00)
[2016-11-08] MEDS ORDERED: HEPARIN-D5W 25,000 U/250 ML 250 ML IV PRN (11:45)
--- NOTE | 2016-11-08 11:45 | PD.CARD.PN ---
Subjective Subjective Remarks No events overnight Doing well No chest pain/back pain Objective Medications Current Medications Medications (Trade) Dose Ordered Sig/Armida Route Start Time Stop Time Status Last Admin (D50w (Vial) Inj) 50 ml UNSCH PRN IV PUSH 11/05/16 16:00 (Glucagon Inj) 1 mg UNSCH PRN OTHER 11/05/16 16:00 (NovoLOG SUPPLEMENTAL SCALE) 1 ACHS SLIDING SCALE SQ 11/05/16 17:00 11/06/16 12:00 (NS Flush) 2 ml BID IV FLUSH 11/05/16 21:00 11/08/16 08:32 (NS Flush) 2 ml UNSCH PRN IV FLUSH 11/05/16 16:00 (Nitroglycerin 2% Oint) 1 inch Q6H TOP 11/05/16 22:00 11/08/16 10:06 (Nitrostat Sl) 0.4 mg Q5M PRN SL 11/05/16 16:00 (Morphine Inj) 2 mg Q30M PRN IV PUSH 11/05/16 16:00 11/08/16 10:23 (Tylenol) 650 mg Q6H PRN PO 11/05/16 16:00 (Xanax) 0.25 mg Q8H PRN PO 11/05/16 16:00 (Zofran Inj) 4 mg Q6H PRN IV PUSH 11/05/16 16:00 (Compazine Supp) 25 mg Q12H PRN RECTAL 11/05/16 16:00 (Percocet 5-325 Mg) 1 tab Q6H PRN PO 11/05/16 16:00 (Percocet 10-325 Mg) 1 tab Q6H PRN PO 11/05/16 16:00 11/06/16 23:47 (Morphine Inj) 2 mg Q3H PRN IV PUSH 11/05/16 16:00 11/05/16 17:55 (Morphine Inj) 4 mg Q3H PRN IV PUSH 11/05/16 16:00 (Morphine Inj) 4 mg Q1H PRN IV PUSH 11/05/16 16:00 (Morphine Inj) 4 mg Q3H PRN IV PUSH 11/05/16 16:00 (Narcan Inj) 0.4 mg UNSCH PRN IV PUSH 11/05/16 16:00 (Janene-Colace) 1 tab BID PO 11/05/16 21:00 11/07/16 21:00 (Milk Of Magnesia Liq) 30 ml Q12H PRN PO 11/05/16 16:00 (Senokot) 17.2 mg Q12H PRN PO 11/05/16 16:00 (Dulcolax Supp) 10 mg DAILY PRN RECTAL 11/05/16 16:00 (Lactulose Liq) 30 ml DAILY PRN PO 11/05/16 16:00 (Rocaltrol) 0.25 mcg DAILY PO 11/06/16 09:00 11/08/16 08:32 (Florinef) 0.1 mg DAILY PO 11/06/16 09:00 11/08/16 08:32 (Imdur) 30 mg DAILY PO 11/06/16 09:00 11/08/16 08:32 (Cozaar) 100 mg DAILY PO 11/06/16 09:00 Future Hold 11/06/16 08:47 (Ferrous Sulfate) 325 mg BIDPC PO 11/05/16 18:00 11/08/16 08:32 (Protonix) 40 mg DAILY@0600 PO 11/06/16 06:00 11/08/16 06:25 (Sodium Bicarbonate) 650 mg BID PO 11/05/16 21:00 11/08/16 08:32 (Norvasc) 5 mg DAILY PO 11/05/16 20:00 11/08/16 08:32 Miscellaneous Information Patient in critical care unit? Ass... [id number] .XX 11/05/16 21:30 (Chlorhexidine 2% Cloth) 3 pack DAILY@04 TOPICAL 11/06/16 04:00 11/10/16 04:01 11/07/16 04:00 (Chlorhexidine 2% Cloth) 3 pack UNSCH PRN TOPICAL 11/05/16 21:30 11/10/16 21:28 (Mucomyst 20% Liq) 1,200 mg BID PO 11/06/16 09:00 11/08/16 08:44 (Lopressor) 25 mg Q12HR PO 11/05/16 22:15 11/08/16 08:32 Sodium Chloride 1,000 ml @ 84 mls/hr [id number] IV 11/06/16 18:00 11/08/16 05:45 (Drisdol) 50,000 units Q7D PO 11/06/16 20:00 11/06/16 22:15 (Lipitor) 80 mg HS PO 11/06/16 21:00 11/07/16 20:56 Nitroglycerin/ Dextrose 250 ml @ 1.5 mls/hr TITRATE PRN IV 11/07/16 10:00 (Tylenol) 325 mg Q4H PRN PO 11/07/16 11:45 (Aspirin Chew) 81 mg DAILY CHEW 11/08/16 09:00 11/08/16 08:31 Papaverine HCl 60 mg/Nitroglycerin 100 mcg/Diltiazem HCl 100 mg/Sodium Chloride 100 ml @ 0 mls/hr DETECTIVE HOMICIDE SQUAD IRRIGATION 11/07/16 15:15 11/14/16 15:14 Cefazolin Sodium 500 mg/Sodium Chloride 505 ml @ 0 mls/hr DETECTIVE HOMICIDE SQUAD IRRIGATION 11/07/16 15:15 11/14/16 15:14 Cefazolin Sodium/ Dextrose 50 ml @ 150 mls/hr DETECTIVE HOMICIDE SQUAD IV 11/07/16 15:15 11/14/16 15:14 (Lopressor) 12.5 mg DETECTIVE HOMICIDE SQUAD PO 11/07/16 15:15 11/14/16 15:14 (Hibiclens 4% Top Soln) 1 applic DETECTIVE HOMICIDE SQUAD TOPICAL 11/07/16 15:15 11/14/16 15:14 Insulin Human Regular 100 units/ Sodium Chloride 101 ml @ 0 mls/hr DETECTIVE HOMICIDE SQUAD IV 11/07/16 15:15 11/14/16 15:14 Vital Signs / I&O Vital Signs Date Time Temp Pulse Resp B/P (MAP) Pulse Ox O2 Delivery O2 Flow Rate FiO2 11/08/16 11:07 110 11/08/16 09:49 94 21 11/08/16 08:47 98.0 88 18 157/95 (115) 97 11/08/16 07:39 94 11/08/16 04:00 98.6 89 18 144/85 (104) 94 11/08/16 03:00 108 11/08/16 00:00 98.3 84 18 142/91 (108) 96 11/07/16 23:00 108 11/07/16 21:42 95 21 11/07/16 20:00 98.3 84 18 128/81 (97) 95 11/07/16 20:00 84 11/07/16 18:00 87 11/07/16 16:00 98.1 78 16 116/75 (89) 96 11/07/16 15:00 80 11/07/16 12:00 97.3 117 18 167/92 (117) 97 I/O 11/07/16 11/07/16 11/07/16 11/08/16 11/08/16 11/08/16 07:00 15:00 23:00 07:00 15:00 23:00 Intake Total 847 ml 2122 ml 1584 ml Output Total 950 ml 700 ml 600 ml Balance -103 ml 1422 ml 984 ml Intake Oral 600 ml 480 ml 680 ml IV Total 247 ml 1642 ml 904 ml Output Urine Total 950 ml 700 ml 600 ml # Bowel Movements 0 2 Physical Exam GENERAL: NAD, AAOx3 SKIN: Warm and dry. HEAD: Atraumatic. Normocephalic. EYES: Pupils equal and round. No scleral icterus. No injection or drainage. ENT: No nasal bleeding or discharge. Mucous membranes pink and moist. NECK: Trachea midline. No JVD. CARDIOVASCULAR: Regular rate and rhythm. RESPIRATORY: No accessory muscle use. Clear to auscultation. Breath sounds equal bilaterally. GASTROINTESTINAL: Abdomen soft, non-tender, nondistended. Hepatic and splenic margins not palpable. MUSCULOSKELETAL: Extremities without clubbing, cyanosis, or edema. No obvious deformities. NEUROLOGICAL: Awake and alert. No obvious cranial nerve deficits. Motor grossly within normal limits. Five out of 5 muscle strength in the arms and legs. Normal speech. PSYCHIATRIC: Appropriate mood and affect; insight and judgment normal. Laboratory Laboratory Tests Test 11/08/16 05:03 White Blood Count 10.4 TH/MM3 Red Blood Count 3.34 MIL/MM3 Hemoglobin 10.2 GM/DL Hematocrit 30.8 % Mean Corpuscular Volume 92.2 FL Mean Corpuscular Hemoglobin 30.6 PG Mean Corpuscular Hemoglobin Concent 33.2 % Red Cell Distribution Width 14.1 % Platelet Count 184 TH/MM3 Mean Platelet Volume 9.2 FL Neutrophils (%) (Auto) 85.5 % Lymphocytes (%) (Auto) 4.4 % Monocytes (%) (Auto) 7.4 % Eosinophils (%) (Auto) 2.5 % Basophils (%) (Auto) 0.2 % Neutrophils # (Auto) 8.9 TH/MM3 Lymphocytes # (Auto) 0.5 TH/MM3 Monocytes # (Auto) 0.8 TH/MM3 Eosinophils # (Auto) 0.3 TH/MM3 Basophils # (Auto) 0.0 TH/MM3 CBC Comment DIFF FINAL Differential Comment Activated Partial Thromboplast Time 49.1 SEC Blood Urea Nitrogen 50 MG/DL Creatinine 5.20 MG/DL Random Glucose 113 MG/DL Calcium Level 8.0 MG/DL Sodium Level 138 MEQ/L Potassium Level 4.5 MEQ/L Chloride Level 112 MEQ/L Carbon Dioxide Level 15.4 MEQ/L Anion Gap 11 MEQ/L Estimat Glomerular Filtration Rate 11 ML/MIN Assessment and Plan Problem List: (1) NSTEMI (non-ST elevated myocardial infarction) ICD Codes: I21.4 - Non-ST elevation (NSTEMI) myocardial infarction Status: Acute (2) Chronic kidney disease, stage 5 ICD Codes: N18.5 - Chronic kidney disease, stage 5 (3) CHF (congestive heart failure), NYHA class II ICD Codes: I50.9 - Heart failure, unspecified (4) Hypertension ICD Codes: I10 - Hypertension Status: Chronic (5) Hyperlipidemia ICD Codes: E78.5 - Hyperlipidemia, unspecified (6) Diabetes ICD Codes: E11.9 - Type 2 diabetes mellitus without complications (7) CAD (coronary artery disease) ICD Codes: I25.10 - CAD (coronary artery disease) Status: Chronic Assessment and Plan 1) DESx2 to the RCA due to cardiogenic shock/unstable angina during catheterization Con't ASA 2) Residual CAD Consider CABG Dr. Burnham will discuss with patient and family Will hold Plavix in anticipation of surgery Place on heparin and aggrastat drips 3) Back pain Relieved with morphine No dissection noted on aortic root angiogram but suboptimal If further concern would CT angio 4) CKD 5 5) EF 20-25% Vickey Ott DO Nov 08, 2016 11:45
--- NOTE | 2016-11-08 12:13 | HHI.PR ---
Subjective Remarks Follow up for NSTEMI, CKD stage 5. Patient is currently doing well. He denies any chest pain, shortness of breath, fever or chills. He had back pain yesterday but no back pain today. Family members at bedside. Objective Vitals Vital Signs Date Time Temp Pulse Resp B/P (MAP) Pulse Ox O2 Delivery O2 Flow Rate FiO2 11/08/16 11:07 110 11/08/16 09:49 94 21 11/08/16 08:47 98.0 88 18 157/95 (115) 97 11/08/16 07:39 94 11/08/16 04:00 98.6 89 18 144/85 (104) 94 11/08/16 03:00 108 11/08/16 00:00 98.3 84 18 142/91 (108) 96 11/07/16 23:00 108 11/07/16 21:42 95 21 11/07/16 20:00 98.3 84 18 128/81 (97) 95 11/07/16 20:00 84 11/07/16 18:00 87 11/07/16 16:00 98.1 78 16 116/75 (89) 96 11/07/16 15:00 80 I/O 11/07/16 11/07/16 11/07/16 11/08/16 11/08/16 11/08/16 07:00 15:00 23:00 07:00 15:00 23:00 Intake Total 847 ml 2122 ml 1584 ml Output Total 950 ml 700 ml 600 ml Balance -103 ml 1422 ml 984 ml Intake Oral 600 ml 480 ml 680 ml IV Total 247 ml 1642 ml 904 ml Output Urine Total 950 ml 700 ml 600 ml # Bowel Movements 0 2 Result Diagram: 11/08/16 0503 11/08/16 0503 Imaging Last Impressions Lower Extremity Ultrasound 11/07/16 0000 Signed Impressions: Service Date/Time: Monday, November 07, 2016 17:18 - CONCLUSION: Saphenous vein measurements as above. Rizwan Kline MD Carotid Artery Ultrasound 11/07/16 0000 Signed Impressions: Service Date/Time: Monday, November 07, 2016 16:47 - CONCLUSION: 1. 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 Rizwan Kline MD Chest X-Ray 11/05/16 181 Signed Impressions: Service Date/Time: Saturday, November 05, 2016 20:49 - CONCLUSION: 1. No acute focal pulmonary infiltrate or pulmonary vascular congestion. 2. Mild cardiomegaly. 3. Degenerative changes and scoliosis of the thoracic spine. Rizwan Kline MD Objective Remarks GENERAL: Alert, Oriented x 3, NAD. SKIN: Warm and dry. HEAD: Normocephalic. EYES: No scleral icterus. No injection or drainage. NECK: Supple, trachea midline. No JVD or lymphadenopathy. CARDIOVASCULAR: Regular rate and rhythm without murmurs, gallops, or rubs. RESPIRATORY: Breath sounds equal bilaterally. No accessory muscle use. GASTROINTESTINAL: Abdomen soft, non-tender, nondistended. MUSCULOSKELETAL: No cyanosis, or edema. BACK: Nontender without obvious deformity. No CVA tenderness. Procedures Echo 11/06/2016 The left ventricular systolic function is severely reduced with an estimated ejection fraction in the range of 20-25%. Anterior wall hypokinesis. Wall thickness is measured at the upper limits of normal. Normal left ventricular size. Mild mitral valve regurgitation. A/P Problem List: (1) NSTEMI (non-ST elevated myocardial infarction) ICD Code: I21.4 - Non-ST elevation (NSTEMI) myocardial infarction Status: Acute (2) CAD (coronary artery disease) ICD Code: I25.10 - CAD (coronary artery disease) Status: Chronic (3) Hypertension ICD Code: I10 - Hypertension Status: Chronic (4) Chronic kidney disease ICD Code: N18.9 - Chronic kidney disease Status: Acute (5) Diabetes ICD Code: E11.9 - Type 2 diabetes mellitus without complications (6) Hyperlipidemia ICD Code: E78.5 - Hyperlipidemia, unspecified (7) Hypothyroidism ICD Code: E03.9 - Hypothyroidism, unspecified (8) CHF (congestive heart failure), NYHA class II ICD Code: I50.9 - Heart failure, unspecified (9) Iron (Fe) deficiency anemia ICD Code: D50.9 - Iron deficiency anemia, unspecified Assessment and Plan Mr. Garcia is a pleasant 81 year old male with a history of CAD, CKD, DM, HTN who presented to the ED on 11/05/2016 with chest pain. He was initially evaluated at an outside facility for chest pain on 11/03/2016. Prune Washer recommended cardiac cath. Due to family's choice, he left the outside hospital against medical advice and came to [facility]. His troponin on Thursday was 0.7. After he came to [place], he was evaluated by Dr. Ott ( Cardiology) who recommended cardiac cath as well. Due to patient's advance stage CKD, Dr. Ott discussed with Nephrology. Patient's troponin elevated in the range of 5 to 6 and patient continued to have chest discomfort. After discussing with Nephrology, Dr. Ott offered cardiac cath. Although initially family members declined cardiac catheter. However eventually they agreed with cardiac catheterization. Patient underwent cardiac catheter on 11/07. 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 - Continue heparin drip as well as Aggrastat drip. - Continue Isosorbide mononitrate 30mg Qday, Metoprolol 25mg Q12hrs, Aspirin 325mg Qday. - Consider Lisinopril and perhaps also Spironolactone. - Continue Lipitor 80mg QHS. - Cardiac cath on 11/07/2016 ==> multivessel disease, emergent GLEN were placed to the RCA due to cardiogenic shock. - CT surgery evaluated patient. Patient/family declines surgery at this point. - Consider Ticagrelor, low dose aspirin as well as BB, JOSHUA inhibitor, Spironolactone. Will wait for further cardiology recs. - CKD stage 5 - Creatinine is 5.78 with eGFR 10. - Nephrology following. - Currently on Mucomyst, Bicarb. - Diabetes mellitus type 2 - Hemoglobin A1c 8.6. - Currently blood glucose is within reasonable range. - Will continue sliding scale insulin - Hypertension - Continue Amlodipine 5mg Qday. - Iron deficiency anemia - Continue Ferrous sulfate 325mg BIDPC. - Transfer patient to step down (CIC) with telemetry. Full code. Heparin Drip. Discussed with Cardiology as well as RN. Rasheed Vega DO Nov 08, 2016 12:13
--- NOTE | 2016-11-08 12:45 | PD.CAR.PN ---
CVT Progress Note Subjective/Hospital Course: Lengthy discussion with patient, son, [id number] and regarding clinical and angiographic findings. I have offered off Pump CABG to LAD and LCX distribution to them. I think, in the long-term, it offers him the best option to improved cardiac function and lifestyle, however, the patient and all the family members are not in favor of proceeding with surgical therapy. They understand the sequelae of their decision and that the next cardiac event could be fatal. Will standby for now. Objective: Vital Signs Date Time Temp Pulse Resp B/P (MAP) Pulse Ox O2 Delivery O2 Flow Rate FiO2 11/08/16 12:14 97.0 85 18 160/103 (122) 97 11/08/16 11:07 110 11/08/16 09:49 94 21 11/08/16 08:47 98.0 88 18 157/95 (115) 97 11/08/16 07:39 94 11/08/16 04:00 98.6 89 18 144/85 (104) 94 11/08/16 03:00 108 11/08/16 00:00 98.3 84 18 142/91 (108) 96 11/07/16 23:00 108 11/07/16 21:42 95 21 11/07/16 20:00 98.3 84 18 128/81 (97) 95 11/07/16 20:00 84 11/07/16 18:00 87 11/07/16 16:00 98.1 78 16 116/75 (89) 96 11/07/16 15:00 80 Labs: Laboratory Tests Test 11/08/16 05:03 White Blood Count 10.4 TH/MM3 (4.0-11.0) Red Blood Count 3.34 MIL/MM3 (4.50-5.90) Hemoglobin 10.2 GM/DL (13.0-17.0) Hematocrit 30.8 % (39.0-51.0) Mean Corpuscular Volume 92.2 FL (80.0-100.0) Mean Corpuscular Hemoglobin 30.6 PG (27.0-34.0) Mean Corpuscular Hemoglobin Concent 33.2 % (32.0-36.0) Red Cell Distribution Width 14.1 % (11.6-17.2) Platelet Count 184 TH/MM3 (150-450) Mean Platelet Volume 9.2 FL (7.0-11.0) Neutrophils (%) (Auto) 85.5 % (16.0-70.0) Lymphocytes (%) (Auto) 4.4 % (9.0-44.0) Monocytes (%) (Auto) 7.4 % (0.0-8.0) Eosinophils (%) (Auto) 2.5 % (0.0-4.0) Basophils (%) (Auto) 0.2 % (0.0-2.0) Neutrophils # (Auto) 8.9 TH/MM3 (1.8-7.7) Lymphocytes # (Auto) 0.5 TH/MM3 (1.0-4.8) Monocytes # (Auto) 0.8 TH/MM3 (0-0.9) Eosinophils # (Auto) 0.3 TH/MM3 (0-0.4) Basophils # (Auto) 0.0 TH/MM3 (0-0.2) CBC Comment DIFF FINAL Differential Comment Activated Partial Thromboplast Time 49.1 SEC (24.3-30.1) Blood Urea Nitrogen 50 MG/DL (7-18) Creatinine 5.20 MG/DL (0.60-1.30) Random Glucose 113 MG/DL (74-106) Calcium Level 8.0 MG/DL (8.5-10.1) Sodium Level 138 MEQ/L (136-145) Potassium Level 4.5 MEQ/L (3.5-5.1) Chloride Level 112 MEQ/L (98-107) Carbon Dioxide Level 15.4 MEQ/L (21.0-32.0) Anion Gap 11 MEQ/L (5-15) Estimat Glomerular Filtration Rate 11 ML/MIN (>89) Result Diagram: 11/08/16 0503 11/08/16 0503 (1) NSTEMI (non-ST elevated myocardial infarction) (2) Chronic kidney disease, stage 5 (3) CHF (congestive heart failure), NYHA class II (4) Hypertension (5) Hyperlipidemia (6) Diabetes (7) CAD (coronary artery disease) Nicole Burnham MD Nov 08, 2016 12:45
[2016-11-08] MEDS ORDERED: TIROFIBAN INFUSION INJ 250 ML IV SCH (13:00)
[2016-11-08] MEDS ORDERED: TIROFIBAN BOLUS IV ONE (13:00)
[2016-11-08] MEDS ORDERED: TICAGRELOR 90 MG TAB PO ONE (14:00)
--- NOTE | 2016-11-08 14:02 | HHI.NPPN ---
Subjective History of Present Illness The patient is a 81 yo [place] male who presented to [facility] on 11/03 with complaints of chest pain and elevated troponin. According to records, he and his family refused treatment at [facility], so he signed out AMA and arrived in the ED here 11/05 with same complaints. He has been treated with NTG but still has discomfort. He has been stage 5 CKD for some time but has yet to be started on dialysis. There are potential plans for cardiac cath. He has a PMHx significant for CAD s/p [place], PTCA with restenosis of stents that had to be replaced a year ago and cardiomyopathy with EF of 20-25% in 2015. He also is hypertensive, diabetic, anemic, and has hx of GI bleeding. Admitting SCr 5.95 with eGFR of 9. According to regular gas pumper, Dr. Lou, his baseline SCr is 6. Interval History Pt seen in CVICU with at bedside States he is feeling well. Chest pain resolved after PTCA (Aaliyah Foreman) Review of Systems Respiratory Lungs: SOB (Aaliyah Foreman) Objective Data Data Vital Signs Date Time Temp Pulse Resp B/P (MAP) Pulse Ox O2 Delivery O2 Flow Rate FiO2 11/08/16 12:14 97.0 85 18 160/103 (122) 97 11/08/16 11:07 110 11/08/16 09:49 94 21 11/08/16 08:47 98.0 88 18 157/95 (115) 97 11/08/16 07:39 94 11/08/16 04:00 98.6 89 18 144/85 (104) 94 11/08/16 03:00 108 11/08/16 00:00 98.3 84 18 142/91 (108) 96 11/07/16 23:00 108 11/07/16 21:42 95 21 11/07/16 20:00 98.3 84 18 128/81 (97) 95 11/07/16 20:00 84 11/07/16 18:00 87 11/07/16 16:00 98.1 78 16 116/75 (89) 96 11/07/16 15:00 80 (Aaliyah Foreman) -: 11/08/16 0503 11/08/16 0503 Imaging Last Impressions Lower Extremity Ultrasound 11/07/16 0000 Signed Impressions: Service Date/Time: Monday, November 07, 2016 17:18 - CONCLUSION: Saphenous vein measurements as above. Rizwan Kline MD Carotid Artery Ultrasound 11/07/16 0000 Signed Impressions: Service Date/Time: Monday, November 07, 2016 16:47 - CONCLUSION: 1. 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 Rizwan Kline MD Chest X-Ray 11/05/161812 Signed Impressions: Service Date/Time: Saturday, November 05, 2016 20:49 - CONCLUSION: 1. No acute focal pulmonary infiltrate or pulmonary vascular congestion. 2. Mild cardiomegaly. 3. Degenerative changes and scoliosis of the thoracic spine. Rizwan Kline MD Medication Review Current Medications Medications (Trade) Dose Ordered Sig/Armida Route Start Time Stop Time Status Last Admin (D50w (Vial) Inj) 50 ml UNSCH PRN IV PUSH 11/05/16 16:00 (Glucagon Inj) 1 mg UNSCH PRN OTHER 11/05/16 16:00 (NovoLOG SUPPLEMENTAL SCALE) 1 ACHS SLIDING SCALE SQ 11/05/16 17:00 11/08/16 12:12 (NS Flush) 2 ml BID IV FLUSH 11/05/16 21:00 11/08/16 08:32 (NS Flush) 2 ml UNSCH PRN IV FLUSH 11/05/16 16:00 (Nitrostat Sl) 0.4 mg Q5M PRN SL 11/05/16 16:00 (Morphine Inj) 2 mg Q30M PRN IV PUSH 11/05/16 16:00 11/08/16 10:23 (Tylenol) 650 mg Q6H PRN PO 11/05/16 16:00 (Xanax) 0.25 mg Q8H PRN PO 11/05/16 16:00 (Zofran Inj) 4 mg Q6H PRN IV PUSH 11/05/16 16:00 (Compazine Supp) 25 mg Q12H PRN RECTAL 11/05/16 16:00 (Percocet 5-325 Mg) 1 tab Q6H PRN PO 11/05/16 16:00 (Percocet 10-325 Mg) 1 tab Q6H PRN PO 11/05/16 16:00 11/06/16 23:47 (Morphine Inj) 2 mg Q3H PRN IV PUSH 11/05/16 16:00 11/05/16 17:55 (Morphine Inj) 4 mg Q3H PRN IV PUSH 11/05/16 16:00 (Morphine Inj) 4 mg Q1H PRN IV PUSH 11/05/16 16:00 (Morphine Inj) 4 mg Q3H PRN IV PUSH 11/05/16 16:00 (Narcan Inj) 0.4 mg UNSCH PRN IV PUSH 11/05/16 16:00 (Janene-Colace) 1 tab BID PO 11/05/16 21:00 11/07/16 21:00 (Milk Of Magnesia Liq) 30 ml Q12H PRN PO 11/05/16 16:00 (Senokot) 17.2 mg Q12H PRN PO 11/05/16 16:00 (Dulcolax Supp) 10 mg DAILY PRN RECTAL 11/05/16 16:00 (Lactulose Liq) 30 ml DAILY PRN PO 11/05/16 16:00 (Rocaltrol) 0.25 mcg DAILY PO 11/06/16 09:00 11/08/16 08:32 (Florinef) 0.1 mg DAILY PO 11/06/16 09:00 11/08/16 08:32 (Imdur) 30 mg DAILY PO 11/06/16 09:00 11/08/16 08:32 (Cozaar) 100 mg DAILY PO 11/06/16 09:00 Future hold 11/06/16 08:47 (Ferrous Sulfate) 325 mg BIDPC PO 11/05/16 18:00 11/08/16 08:32 (Protonix) 40 mg DAILY@0600 PO 11/06/16 06:00 11/08/16 06:25 (Sodium Bicarbonate) 650 mg BID PO 11/05/16 21:00 11/08/16 08:32 (Norvasc) 5 mg DAILY PO 11/05/16 20:00 11/08/16 08:32 Miscellaneous Information Patient in critical care unit? Ass... Q361D .XX 11/05/16 21:30 (Chlorhexidine 2% Cloth) 3 pack DAILY@04 TOPICAL 11/06/16 04:00 11/10/16 04:01 11/07/16 04:00 (Chlorhexidine 2% Cloth) 3 pack UNSCH PRN TOPICAL 11/05/16 21:30 11/10/16 21:28 (Mucomyst 20% Liq) 1,200 mg BID PO 11/06/16 09:00 11/08/16 08:44 (Lopressor) 25 mg Q12HR PO 11/05/16 22:15 11/08/16 08:32 (Drisdol) 50,000 units Q7D PO 11/06/16 20:00 11/06/16 22:15 (Lipitor) 80 mg HS PO 11/06/16 21:00 11/07/16 20:56 Nitroglycerin/ Dextrose 250 ml @ 1.5 mls/hr TITRATE PRN IV 11/07/16 10:00 (Tylenol) 325 mg Q4H PRN PO 11/07/16 11:45 (Aspirin Chew) 81 mg DAILY CHEW 11/08/16 09:00 11/08/16 08:31 (Brilinta) 90 mg BID PO 11/08/16 21:00 (Brilinta) 180 mg ONCE ONCE PO 11/08/16 14:00 11/08/16 14:01 11/08/16 13:43 (Aaliyah Foreman) Physical Exam General Appearance: No Acute Distress, Comfortable (Aaliyah Foreman) Neck Neck Exam: Neck Supple, Trachea Midline (Aaliyah Foreman) Pulmonary Resp Exam: Clear Bilaterally, Breath Sounds Equal, Diminished Breath Sounds (Aaliyah Foreman) Cardiology CV Exam: Regular, Normal Sinus Rhythm (Aaliyah Foreman) Gastrointestinal/Abdomen GI Exam: Soft, Non-Tender (Aaliyah Foreman) Integumentary Skin Exam: Clear, Warm (Aaliyah Foreman) Extremeties Extremities Exam: No Edema (Aaliyah Foremna) Neurologic Neuro Exam: Alert, Awake, Oriented (Aaliyah Foreman) Psychiatric Psych Exam: Appropriate Responses (Aaliyah Foreman) Assessment/Plan Discussed Condition With: Patient Problem List: (1) Chronic kidney disease, stage 5 ICD Codes: N18.5 - Chronic kidney disease, stage 5 Plan: According to his regular gas pumper, his baseline SCr has been 6 for some time. He does not have any immediate plans for dialysis (i.e. not made plans for hemodialysis versus peritoneal dialysis), but does say that he realizes that he will require dialytic intervention in the near future if not during this admission. Renal functions stable UOP good. Decrease IVF to 40mL/hr Increase po bicarb given acidosis Will continue to follow at the present---no immediate need for dialysis Medications should be adjusted for the patient's renal decline. Avoid gadolinium. (2) NSTEMI (non-ST elevated myocardial infarction) ICD Codes: I21.4 - Non-ST elevation (NSTEMI) myocardial infarction Status: Acute Plan: Management as per cardiology Underwent cardiac cath with stenting. Recommendations are to proceed with CABG , but at the present the patient and his feel like they will likely defer this to a later time. Will defer discussion about this to cardiology (3) Hypertension ICD Codes: I10 - Hypertension Status: Chronic Plan: Continue current regimen (4) Diabetes ICD Codes: E11.9 - Type 2 diabetes mellitus without complications Plan: Mgmt as per primary team (5) Metabolic acidosis ICD Codes: E87.2 - Metabolic acidosis Status: Chronic Plan: Secondary to CKD. Increase po bicarb (Aaliyah Foreman) Plan The exam, history, and the medical decision-making described in the above note were completed with the assistance of the PACarlin. I reviewed and agree with the findings presented. (Sg Henley MD) Aaliyah Foreman Nov 08, 2016 14:02 Sg Henley MD Nov 09, 2016 16:05
[2016-11-08] MEDS ORDERED: SODIUM CHLOR 0.9% 1000 ML INJ 1,000 ML IV SCH (17:00)
--- NOTE | 2016-11-08 17:38 | EKG ---
Date Performed: 11/08/2016 Time Performed: 06:56:38 PTAGE: 81 years EKG: Sinus rhythm with 1st degree A-V block Rightward axis Anteroseptal infarct - age undetermined Inferior/lateral ST -T changes suggest myocardial injury/ischemia Abnormal ECG PREVIOUS TRACING : 11/05/2016 21.46 Since previous tracing 11/05/2016, ST changes anterolaterly slightly more prominent. T-wave changes in leads 1 and AVL has improved to some degree. DOCTOR: Kirit Toribio Interpretating Date/Time 11/08/2016 17:38:06
[2016-11-08] MEDS ORDERED: HEPARIN SODIUM - IV 10,000 UNITS/10 ML VIAL IV PRN ×2 (17:45)
[2016-11-08] MEDS: ATORVASTATIN 80 MG TAB PO SCH (21:31)
[2016-11-08] MEDS: TICAGRELOR 90 MG TAB PO SCH (21:32)
[2016-11-09] VITALS (29 sets, daily range): BP systolic 16–167; BP diastolic 69–95; PULSE 78–120; RESP 16–21; TEMP 97.8–99; O2SAT 93–99
[2016-11-09] MEDS: CHLORHEXIDINE GLUCONATE 2 % 1 PACK (2 CLOTHS)(taper/protocol) TOPICAL SCH (04:00)
[2016-11-09] MEDS: PANTOPRAZOLE SOD 40 MG DELAYED RELEASE TAB PO SCH (06:16)
[2016-11-09 07:19] LABS: BICARBONATE 13.7 MEQ/L (21.0-32.0); POTASSIUM 4.1 MEQ/L (3.5-5.1)
[2016-11-09] MEDS: INSULIN ASPART SUPPLEMENTAL SCALE SQ SCH ×4 (08:00→21:32)
[2016-11-09] MEDS: ASPIRIN 81 MG CHEW TAB CHEW SCH (08:42)
[2016-11-09] MEDS: TICAGRELOR 90 MG TAB PO SCH ×2 (08:42→21:34)
[2016-11-09] MEDS: SODIUM BICARBONATE 650 MG TAB PO SCH ×3 (08:42→17:57)
[2016-11-09] MEDS: ISOSORBIDE MONONITRATE 30 MG TAB PO SCH (08:43)
[2016-11-09] MEDS: DOCUSATE SODIUM 50 MG/SENNA 8.6 MG TAB PO SCH ×2 (08:43→21:00)
[2016-11-09] MEDS: amLODIPine BESYLATE 5 MG TAB PO SCH (08:43)
[2016-11-09] MEDS: CARVEDILOL 6.25 MG TAB PO SCH ×2 (08:44→21:33)
[2016-11-09] MEDS: FERROUS SULFATE 325 MG (65 MG ELEMENTAL IRON) TAB PO SCH ×2 (08:45→17:57)
[2016-11-09] MEDS: FLUDROCORTISONE ACETATE 0.1 MG TAB PO SCH (08:45)
[2016-11-09] MEDS: CALCITRIOL 0.25 MCG CAP PO SCH (08:45)
[2016-11-09] MEDS: LOSARTAN 50 MG TAB PO SCH (08:46)
[2016-11-09] MEDS: SODIUM CHLORIDE 0.9% FLUSH 10 ML FLUSH IV FLUSH SCH ×2 (08:48→21:34)
[2016-11-09] MEDS: ACETYLCYSTEINE 20% 6,000 MG/30 ML ORAL SOLN VIAL PO SCH (08:57)
--- NOTE | 2016-11-09 11:08 | HHI.NPPN ---
Subjective History of Present Illness The patient is a 81 yo [place] male who presented to [facility] on 11/03 with complaints of chest pain and elevated troponin. According to records, he and his family refused treatment at [facility], so he signed out AMA and arrived in the ED here 11/05 with same complaints. He has been treated with NTG but still has discomfort. He has been stage 5 CKD for some time but has yet to be started on dialysis. There are potential plans for cardiac cath. He has a PMHx significant for CAD s/p [place], PTCA with restenosis of stents that had to be replaced a year ago and cardiomyopathy with EF of 20-25% in 2015. He also is hypertensive, diabetic, anemic, and has hx of GI bleeding. Admitting SCr 5.95 with eGFR of 9. According to regular mailing section clerk, Dr. Lou, his baseline SCr is 6. Interval History Pt resting States he feels well today Somewhat SOB last night, IVF stopped (Aaliyah Foreman) Review of Systems Respiratory Lungs: SOB (Aaliyah Foreman) Objective Data Data Vital Signs Date Time Temp Pulse Resp B/P (MAP) Pulse Ox O2 Delivery O2 Flow Rate FiO2 11/09/16 11:00 102 11/09/16 10:00 96 11/09/16 09:00 100 11/09/16 08:20 93 21 11/09/16 08:00 120 11/09/16 07:00 102 11/09/16 07:00 98.9 112 20 146/92 (110) 94 11/09/16 06:02 100 11/09/16 05:50 109 11/09/16 04:03 99 11/09/16 03:40 96 Nasal Cannula 2.00 11/09/16 03:15 98.8 99 16 167/95 (119) 99 11/09/16 03:15 97 11/09/16 02:26 99 11/09/16 01:25 99 11/09/16 00:41 95 11/08/16 23:42 99.0 94 16 151/93 (112) 99 11/08/16 23:42 88 11/08/16 22:45 82 11/08/16 21:00 96 11/08/16 20:00 90 11/08/16 19:30 87 11/08/16 19:30 97.9 92 16 153/96 (115) 98 11/08/16 18:11 92 11/08/16 16:12 94 11/08/16 15:12 87 11/08/16 12:14 97.0 85 18 160/103 (122) 97 (Aaliyah Foreman) -: 11/08/16 0503 11/09/16 0615 Medication Review Current Medications Medications (Trade) Dose Ordered Sig/Armida Route Start Time Stop Time Status Last Admin (D50w (Vial) Inj) 50 ml UNSCH PRN IV PUSH 11/05/16 16:00 (Glucagon Inj) 1 mg UNSCH PRN OTHER 11/05/16 16:00 (NovoLOG SUPPLEMENTAL SCALE) 1 ACHS SLIDING SCALE SQ 11/05/16 17:00 11/09/16 08:00 (NS Flush) 2 ml BID IV FLUSH 11/05/16 21:00 11/09/16 08:48 (NS Flush) 2 ml UNSCH PRN IV FLUSH 11/05/16 16:00 11/08/16 21:32 (Nitrostat Sl) 0.4 mg Q5M PRN SL 11/05/16 16:00 (Morphine Inj) 2 mg Q30M PRN IV PUSH 11/05/16 16:00 11/08/16 10:23 (Tylenol) 650 mg Q6H PRN PO 11/05/16 16:00 (Xanax) 0.25 mg Q8H PRN PO 11/05/16 16:00 (Zofran Inj) 4 mg Q6H PRN IV PUSH 11/05/16 16:00 (Compazine Supp) 25 mg Q12H PRN RECTAL 11/05/16 16:00 (Percocet 5-325 Mg) 1 tab Q6H PRN PO 11/05/16 16:00 (Percocet 10-325 Mg) 1 tab Q6H PRN PO 11/05/16 16:00 11/06/16 23:47 (Morphine Inj) 2 mg Q3H PRN IV PUSH 11/05/16 16:00 11/05/16 17:55 (Morphine Inj) 4 mg Q3H PRN IV PUSH 11/05/16 16:00 (Morphine Inj) 4 mg Q1H PRN IV PUSH 11/05/16 16:00 (Morphine Inj) 4 mg Q3H PRN IV PUSH 11/05/16 16:00 (Narcan Inj) 0.4 mg UNSCH PRN IV PUSH 11/05/16 16:00 (Janene-Colace) 1 tab BID PO 11/05/16 21:00 11/08/16 21:32 (Milk Of Magnesia Liq) 30 ml Q12H PRN PO 11/05/16 16:00 (Senokot) 17.2 mg Q12H PRN PO 11/05/16 16:00 (Dulcolax Supp) 10 mg DAILY PRN RECTAL 11/05/16 16:00 (Lactulose Liq) 30 ml DAILY PRN PO 11/05/16 16:00 (Rocaltrol) 0.25 mcg DAILY PO 11/06/16 09:00 11/09/16 08:45 (Florinef) 0.1 mg DAILY PO 11/06/16 09:00 11/09/16 08:45 (Imdur) 30 mg DAILY PO 11/06/16 09:00 11/09/16 08:43 (Cozaar) 100 mg DAILY PO 11/06/16 09:00 Future hold 11/09/16 08:46 (Ferrous Sulfate) 325 mg BIDPC PO 11/05/16 18:00 11/09/16 08:45 (Protonix) 40 mg DAILY@0600 PO 11/06/16 06:00 11/09/16 06:16 (Norvasc) 5 mg DAILY PO 11/05/16 20:00 11/09/16 08:43 Miscellaneous Information Patient in critical care unit? Ass... Q361D .XX 11/05/16 21:30 (Chlorhexidine 2% Cloth) 3 pack DAILY@04 TOPICAL 11/06/16 04:00 11/10/16 04:01 11/07/16 04:00 (Chlorhexidine 2% Cloth) 3 pack UNSCH PRN TOPICAL 11/05/16 21:30 11/10/16 21:28 (Drisdol) 50,000 units Q7D PO 11/06/16 20:00 11/06/16 22:15 (Lipitor) 80 mg HS PO 11/06/16 21:00 11/08/16 21:31 Nitroglycerin/ Dextrose 250 ml @ 1.5 mls/hr TITRATE PRN IV 11/07/16 10:00 (Tylenol) 325 mg Q4H PRN PO 11/07/16 11:45 (Aspirin Chew) 81 mg DAILY CHEW 11/08/16 09:00 11/09/16 08:42 (Brilinta) 90 mg BID PO 11/08/16 21:00 11/09/16 08:42 (Coreg) 6.25 mg Q12HR PO 11/09/16 09:00 11/09/16 08:44 (Sodium Bicarbonate) 1,300 mg TID PO 11/09/16 13:00 (Aaliyah Foreman) Physical Exam General Appearance: No Acute Distress, Comfortable (Aaliyah Foreman) Neck Neck Exam: Neck Supple, Trachea Midline (Aaliyah Foreman) Pulmonary Resp Exam: Clear Bilaterally, Breath Sounds Equal, Diminished Breath Sounds (Aaliyah Foreman) Cardiology CV Exam: Normal Sinus Rhythm, Irregular (Aaliyah Foreman) Gastrointestinal/Abdomen GI Exam: Soft, Non-Tender (Aaliyah Foreman) Integumentary Skin Exam: Clear, Warm (Aaliyah Foreman) Extremeties Extremities Exam: No Edema (Aaliyah Foreman) Neurologic Neuro Exam: Alert, Awake, Oriented (Aaliyah Foreman) Psychiatric Psych Exam: Appropriate Responses (Aaliyah Foreman) Assessment/Plan Discussed Condition With: Patient Problem List: (1) Chronic kidney disease, stage 5 ICD Codes: N18.5 - Chronic kidney disease, stage 5 Plan: According to his regular mailing section clerk, his baseline SCr has been 6 for some time. He does not have any immediate plans for dialysis (i.e. not made plans for hemodialysis versus peritoneal dialysis), but does say that he realizes that he will require dialytic intervention in the near future if not during this admission. Renal functions stable UOP good. IVF stopped. Increase bicarb to 1300mg TID Will continue to follow at the present---no immediate need for dialysis If discharge planning underway, he needs to have f/u with Dr. Lou (regular mailing section clerk) within 1-2 weeks Medications should be adjusted for the patient's renal decline. Avoid gadolinium. (2) NSTEMI (non-ST elevated myocardial infarction) ICD Codes: I21.4 - Non-ST elevation (NSTEMI) myocardial infarction Status: Acute Plan: Management as per cardiology (3) Hypertension ICD Codes: I10 - Hypertension Status: Chronic Plan: Continue current regimen (4) Diabetes ICD Codes: E11.9 - Type 2 diabetes mellitus without complications Plan: Mgmt as per primary team (5) Metabolic acidosis ICD Codes: E87.2 - Metabolic acidosis Status: Chronic Plan: Secondary to CKD. Increase po bicarb (Aaliyah Foreman) Plan Patient sodium bicarbonate level fell today despite being on by mouth bicarbonate. Sodium bicarbonate has been increased but as discussed with the patient is acid- base status does not improve significantly with by mouth bicarbonate, dialysis may have to be initiated. The patient is stable enough for discharge he was advised to follow-up with his outpatient mailing section clerk within 2 weeks. The exam, history, and the medical decision-making described in the above note were completed with the assistance of the SEBASTIÁN. I reviewed and agree with the findings presented. I attest that I had a [id number] encounter with the patient on the same day, and personally performed and documented my assessment and findings in the medical record. (Sg Henley MD) Aaliyah Foreman Nov 09, 2016 11:08 Sg Henley MD Nov 09, 2016 17:20
[2016-11-09] MEDS ORDERED: FUROSEMIDE 40 MG/4 ML VIAL IV PUSH ONE (11:45)
--- NOTE | 2016-11-09 11:46 | PD.CARD.PN ---
Subjective Subjective Remarks Doing well Mildly SOB upon waking Objective Medications Current Medications Medications (Trade) Dose Ordered Sig/Armida Route Start Time Stop Time Status Last Admin (D50w (Vial) Inj) 50 ml UNSCH PRN IV PUSH 11/05/16 16:00 (Glucagon Inj) 1 mg UNSCH PRN OTHER 11/05/16 16:00 (NovoLOG SUPPLEMENTAL SCALE) 1 ACHS SLIDING SCALE SQ 11/05/16 17:00 11/09/16 08:00 (NS Flush) 2 ml BID IV FLUSH 11/05/16 21:00 11/09/16 08:48 (NS Flush) 2 ml UNSCH PRN IV FLUSH 11/05/16 16:00 11/08/16 21:32 (Nitrostat Sl) 0.4 mg Q5M PRN SL 11/05/16 16:00 (Morphine Inj) 2 mg Q30M PRN IV PUSH 11/05/16 16:00 11/08/16 10:23 (Tylenol) 650 mg Q6H PRN PO 11/05/16 16:00 (Xanax) 0.25 mg Q8H PRN PO 11/05/16 16:00 (Zofran Inj) 4 mg Q6H PRN IV PUSH 11/05/16 16:00 (Compazine Supp) 25 mg Q12H PRN RECTAL 11/05/16 16:00 (Percocet 5-325 Mg) 1 tab Q6H PRN PO 11/05/16 16:00 (Percocet 10-325 Mg) 1 tab Q6H PRN PO 11/05/16 16:00 11/06/16 23:47 (Morphine Inj) 2 mg Q3H PRN IV PUSH 11/05/16 16:00 11/05/16 17:55 (Morphine Inj) 4 mg Q3H PRN IV PUSH 11/05/16 16:00 (Morphine Inj) 4 mg Q1H PRN IV PUSH 11/05/16 16:00 (Morphine Inj) 4 mg Q3H PRN IV PUSH 11/05/16 16:00 (Narcan Inj) 0.4 mg UNSCH PRN IV PUSH 11/05/16 16:00 (Janene-Colace) 1 tab BID PO 11/05/16 21:00 11/08/16 21:32 (Milk Of Magnesia Liq) 30 ml Q12H PRN PO 11/05/16 16:00 (Senokot) 17.2 mg Q12H PRN PO 11/05/16 16:00 (Dulcolax Supp) 10 mg DAILY PRN RECTAL 11/05/16 16:00 (Lactulose Liq) 30 ml DAILY PRN PO 11/05/16 16:00 (Rocaltrol) 0.25 mcg DAILY PO 11/06/16 09:00 11/09/16 08:45 (Florinef) 0.1 mg DAILY PO 11/06/16 09:00 11/09/16 08:45 (Imdur) 30 mg DAILY PO 11/06/16 09:00 11/09/16 08:43 (Cozaar) 100 mg DAILY PO 11/06/16 09:00 Future hold 11/09/16 08:46 (Ferrous Sulfate) 325 mg BIDPC PO 11/05/16 18:00 11/09/16 08:45 (Protonix) 40 mg DAILY@0600 PO 11/06/16 06:00 11/09/16 06:16 (Norvasc) 5 mg DAILY PO 11/05/16 20:00 11/09/16 08:43 Miscellaneous Information Patient in critical care unit? Ass... Q361D .XX 11/05/16 21:30 (Chlorhexidine 2% Cloth) 3 pack DAILY@04 TOPICAL 11/06/16 04:00 11/10/16 04:01 11/07/16 04:00 (Chlorhexidine 2% Cloth) 3 pack UNSCH PRN TOPICAL 11/05/16 21:30 11/10/16 21:28 (Drisdol) 50,000 units Q7D PO 11/06/16 20:00 11/06/16 22:15 (Lipitor) 80 mg HS PO 11/06/16 21:00 11/08/16 21:31 Nitroglycerin/ Dextrose 250 ml @ 1.5 mls/hr TITRATE PRN IV 11/07/16 10:00 (Tylenol) 325 mg Q4H PRN PO 11/07/16 11:45 (Aspirin Chew) 81 mg DAILY CHEW 11/08/16 09:00 11/09/16 08:42 (Brilinta) 90 mg BID PO 11/08/16 21:00 11/09/16 08:42 (Coreg) 6.25 mg Q12HR PO 11/09/16 09:00 11/09/16 08:44 (Sodium Bicarbonate) 1,300 mg TID PO 11/09/16 13:00 Vital Signs / I&O Vital Signs Date Time Temp Pulse Resp B/P (MAP) Pulse Ox O2 Delivery O2 Flow Rate FiO2 11/09/16 11:00 102 11/09/16 10:00 96 11/09/16 09:00 100 11/09/16 08:20 93 21 11/09/16 08:00 120 11/09/16 07:00 102 11/09/16 07:00 98.9 112 20 146/92 (110) 94 11/09/16 06:02 100 11/09/16 05:50 109 11/09/16 04:03 99 11/09/16 03:40 96 Nasal Cannula 2.00 11/09/16 03:15 98.8 99 16 167/95 (119) 99 11/09/16 03:15 97 11/09/16 02:26 99 11/09/16 01:25 99 11/09/16 00:41 95 11/08/16 23:42 99.0 94 16 151/93 (112) 99 11/08/16 23:42 88 11/08/16 22:45 82 11/08/16 21:00 96 11/08/16 20:00 90 11/08/16 19:30 87 11/08/16 19:30 97.9 92 16 153/96 (115) 98 11/08/16 18:11 92 11/08/16 16:12 94 11/08/16 15:12 87 11/08/16 12:14 97.0 85 18 160/103 (122) 97 I/O 11/08/16 11/08/16 11/08/16 11/09/16 11/09/16 11/09/16 07:00 15:00 23:00 07:00 15:00 23:00 Intake Total 1584 ml 1800 ml 120 ml 480 ml Output Total 600 ml 705 ml 100 ml 625 ml Balance 984 ml 1095 ml 20 ml -145 ml Intake Oral 680 ml 900 ml 120 ml 480 ml IV Total 904 ml 900 ml Output Urine Total 600 ml 705 ml 100 ml 625 ml # Voids 3 # Bowel Movements 2 1 Physical Exam GENERAL: NAD, AAOx3 SKIN: Warm and dry. HEAD: Atraumatic. Normocephalic. EYES: Pupils equal and round. No scleral icterus. No injection or drainage. ENT: No nasal bleeding or discharge. Mucous membranes pink and moist. NECK: Trachea midline. No JVD. CARDIOVASCULAR: Regular rate and rhythm. RESPIRATORY: No accessory muscle use. Decreased breath sounds bilateral bases GASTROINTESTINAL: Abdomen soft, non-tender, nondistended. Hepatic and splenic margins not palpable. MUSCULOSKELETAL: Extremities without clubbing, cyanosis, or edema. No obvious deformities. NEUROLOGICAL: Awake and alert. No obvious cranial nerve deficits. Motor grossly within normal limits. Five out of 5 muscle strength in the arms and legs. Normal speech. PSYCHIATRIC: Appropriate mood and affect; insight and judgment normal. Laboratory Laboratory Tests Test 11/09/16 06:15 Blood Urea Nitrogen 53 MG/DL Creatinine 5.40 MG/DL Random Glucose 150 MG/DL Albumin 2.8 GM/DL Calcium Level 8.8 MG/DL Phosphorus Level 3.2 MG/DL Sodium Level 138 MEQ/L Potassium Level 4.1 MEQ/L Chloride Level 111 MEQ/L Carbon Dioxide Level 13.7 MEQ/L Anion Gap 13 MEQ/L Estimat Glomerular Filtration Rate 10 ML/MIN Assessment and Plan Problem List: (1) NSTEMI (non-ST elevated myocardial infarction) ICD Codes: I21.4 - Non-ST elevation (NSTEMI) myocardial infarction Status: Acute (2) Chronic kidney disease, stage 5 ICD Codes: N18.5 - Chronic kidney disease, stage 5 (3) CHF (congestive heart failure), NYHA class II ICD Codes: I50.9 - Heart failure, unspecified (4) Hypertension ICD Codes: I10 - Hypertension Status: Chronic (5) Hyperlipidemia ICD Codes: E78.5 - Hyperlipidemia, unspecified (6) Diabetes ICD Codes: E11.9 - Type 2 diabetes mellitus without complications (7) CAD (coronary artery disease) ICD Codes: I25.10 - CAD (coronary artery disease) Status: Chronic Assessment and Plan 1) DESx2 to the RCA due to cardiogenic shock/unstable angina during catheterization Con't ASA/Brilinta 2) Residual CAD Does not want CABG Discussed PCI of LAD Most likely would need CSI and stenting of the proximal LAD as well as probably laser atherectomy and cutting balloon of in-stent restenosis Patient and son want to try to treat medically as best they can 3) SOB Sounds fluid overloaded Lasix x1 today Reevaluate tomorrow 4) CKD 5 5) EF 20-25% Coreg/ARB 6) HTN Agree with changing Lopressor to Coreg Vickey Ott DO Nov 09, 2016 11:46
--- NOTE | 2016-11-09 12:05 | HHI.PR ---
Subjective Remarks Follow-up for N STEMI, multivessel vessel coronary artery disease, ischemic cardiomyopathy. Patient is currently doing well. He does report some shortness of breath. No chest pain at rest or on ambulation. No fever or chills. Objective Vitals Vital Signs Date Time Temp Pulse Resp B/P (MAP) Pulse Ox O2 Delivery O2 Flow Rate FiO2 11/09/16 11:30 98.3 78 18 129/89 (102) 98 11/09/16 11:00 102 11/09/16 10:00 96 11/09/16 09:00 100 11/09/16 08:20 93 21 11/09/16 08:00 120 11/09/16 07:00 102 11/09/16 07:00 98.9 112 20 146/92 (110) 94 11/09/16 06:02 100 11/09/16 05:50 109 11/09/16 04:03 99 11/09/16 03:40 96 Nasal Cannula 2.00 11/09/16 03:15 98.8 99 16 167/95 (119) 99 11/09/16 03:15 97 11/09/16 02:26 99 11/09/16 01:25 99 11/09/16 00:41 95 11/08/16 23:42 99.0 94 16 151/93 (112) 99 11/08/16 23:42 88 11/08/16 22:45 82 11/08/16 21:00 96 11/08/16 20:00 90 11/08/16 19:30 87 11/08/16 19:30 97.9 92 16 153/96 (115) 98 11/08/16 18:11 92 11/08/16 16:12 94 11/08/16 15:12 87 11/08/16 12:14 97.0 85 18 160/103 (122) 97 I/O 11/08/16 11/08/16 11/08/16 11/09/16 11/09/16 11/09/16 07:00 15:00 23:00 07:00 15:00 23:00 Intake Total 1584 ml 1800 ml 120 ml 480 ml Output Total 600 ml 705 ml 100 ml 625 ml Balance 984 ml 1095 ml 20 ml -145 ml Intake Oral 680 ml 900 ml 120 ml 480 ml IV Total 904 ml 900 ml Output Urine Total 600 ml 705 ml 100 ml 625 ml # Voids 3 # Bowel Movements 2 1 Result Diagram: 11/08/16 0503 11/09/16 0615 Imaging Last Impressions Lower Extremity Ultrasound 11/07/16 0000 Signed Impressions: Service Date/Time: Monday, November 07, 2016 17:18 - CONCLUSION: Saphenous vein measurements as above. Rizwan Klien MD Carotid Artery Ultrasound 11/07/16 0000 Signed Impressions: Service Date/Time: Monday, November 07, 2016 16:47 - CONCLUSION: 1. 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 Rizwan Kline MD Chest X-Ray 11/05/16 1813 Signed Impressions: Service Date/Time: Saturday, November 05, 2016 20:49 - CONCLUSION: 1. No acute focal pulmonary infiltrate or pulmonary vascular congestion. 2. Mild cardiomegaly. 3. Degenerative changes and scoliosis of the thoracic spine. Rizwan Kline MD Objective Remarks GENERAL: Alert, Oriented x 3, NAD. SKIN: Warm and dry. HEAD: Normocephalic. EYES: No scleral icterus. No injection or drainage. NECK: Supple, trachea midline. No JVD or lymphadenopathy. CARDIOVASCULAR: Regular rate and rhythm without murmurs, gallops, or rubs. RESPIRATORY: Breath sounds equal bilaterally. No accessory muscle use. GASTROINTESTINAL: Abdomen soft, non-tender, nondistended. MUSCULOSKELETAL: No cyanosis, or edema. BACK: Nontender without obvious deformity. No CVA tenderness. Procedures Echo 11/06/2016 The left ventricular systolic function is severely reduced with an estimated ejection fraction in the range of 20-25%. Anterior wall hypokinesis. Wall thickness is measured at the upper limits of normal. Normal left ventricular size. Mild mitral valve regurgitation. A/P Problem List: (1) NSTEMI (non-ST elevated myocardial infarction) ICD Code: I21.4 - Non-ST elevation (NSTEMI) myocardial infarction Status: Acute (2) CAD (coronary artery disease) ICD Code: I25.10 - CAD (coronary artery disease) Status: Chronic (3) Hypertension ICD Code: I10 - Hypertension Status: Chronic (4) Chronic kidney disease ICD Code: N18.9 - Chronic kidney disease Status: Acute (5) Diabetes ICD Code: E11.9 - Type 2 diabetes mellitus without complications (6) Hyperlipidemia ICD Code: E78.5 - Hyperlipidemia, unspecified (7) Hypothyroidism ICD Code: E03.9 - Hypothyroidism, unspecified (8) CHF (congestive heart failure), NYHA class II ICD Code: I50.9 - Heart failure, unspecified (9) Iron (Fe) deficiency anemia ICD Code: D50.9 - Iron deficiency anemia, unspecified Assessment and Plan Mr. Garcia is a pleasant 81 year old male with a history of CAD, CKD, DM, HTN who presented to the ED on 11/05/2016 with chest pain. He was initially evaluated at an outside facility for chest pain on 11/03/2016. Fish Icer recommended cardiac cath. Due to family's choice, he left the outside hospital against medical advice and came to [facility]. His troponin on Thursday was 0.7. After he came to [place], he was evaluated by Dr. Ott ( Cardiology) who recommended cardiac cath as well. Due to patient's advance stage CKD, Dr. Ott discussed with Nephrology. Patient's troponin elevated in the range of 5 to 6 and patient continued to have chest discomfort. After discussing with Nephrology, Dr. Ott offered cardiac cath. Although initially family members declined cardiac catheter. However eventually they agreed with cardiac catheterization. Patient underwent cardiac catheter on 11/07. 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 - Cardiac cath on 11/07/2016 ==> multivessel disease, emergent GLEN were placed to the RCA due to cardiogenic shock. - CT surgery evaluated patient. Patient/family declines surgery at this point. - Continue aspirin 81 mg, ticagrelor 90 mg BID, losartan 100 mg, isosorbide mononitrate 30 mg. - We'll switch metoprolol to carvedilol 6.25 g twice a day, titrate as needed. - Cardiology will start patient on IV Lasix. - Hold fludrocortisone 0.1 mg daily. - CKD stage 5 - Creatinine is 5.40 with eGFR 10. - Nephrology following. - Currently on Bicarb. - Diabetes mellitus type 2 - Hemoglobin A1c 8.6. - Currently blood glucose is within goal range of 140-180. - Will continue sliding scale insulin - Hypertension - Continue Amlodipine 5mg Qday. - Titrate carvedilol up before increasing amlodipine. - Iron deficiency anemia - Continue Ferrous sulfate 325mg BIDPC. Full code. SCDs, ambulation Discussed with Cardiology. Potential discharge in the morning. Rasheed Vega DO Nov 09, 2016 12:05 pm
[2016-11-09] MEDS: ATORVASTATIN 80 MG TAB PO SCH (21:33)
[2016-11-10] VITALS (30 sets, daily range): BP systolic 129–170; BP diastolic 79–94; PULSE 78–128; RESP 16–20; TEMP 97.4–98.7; O2SAT 94–97
[2016-11-10] MEDS: PANTOPRAZOLE SOD 40 MG DELAYED RELEASE TAB PO SCH (06:03)
[2016-11-10] MEDS: INSULIN ASPART SUPPLEMENTAL SCALE SQ SCH ×4 (08:00→22:15)
[2016-11-10] MEDS: DOCUSATE SODIUM 50 MG/SENNA 8.6 MG TAB PO SCH ×2 (08:52→20:57)
[2016-11-10] MEDS: TICAGRELOR 90 MG TAB PO SCH ×2 (08:52→20:57)
[2016-11-10] MEDS: SODIUM BICARBONATE 650 MG TAB PO SCH ×3 (08:53→18:39)
[2016-11-10] MEDS: LOSARTAN 50 MG TAB PO SCH (08:53)
[2016-11-10] MEDS: ISOSORBIDE MONONITRATE 30 MG TAB PO SCH (08:54)
[2016-11-10] MEDS: CALCITRIOL 0.25 MCG CAP PO SCH (08:54)
[2016-11-10] MEDS: FERROUS SULFATE 325 MG (65 MG ELEMENTAL IRON) TAB PO SCH ×2 (08:55→18:40)
[2016-11-10] MEDS: SODIUM CHLORIDE 0.9% FLUSH 10 ML FLUSH IV FLUSH SCH ×2 (08:55→21:01)
[2016-11-10] MEDS: ASPIRIN 81 MG CHEW TAB CHEW SCH (08:55)
[2016-11-10] MEDS: amLODIPine BESYLATE 5 MG TAB PO SCH (08:55)
[2016-11-10] MEDS: CARVEDILOL 12.5 MG TAB PO SCH ×2 (09:00→21:07)
--- NOTE | 2016-11-10 09:44 | HHI.PR ---
Subjective Remarks Follow-up for NSTEMI, multivessel vessel coronary artery disease, ischemic cardiomyopathy. Patient is currently doing well. Denies any chest pain, shortness of breath, fever or chills. No chest pain on ambulation either. Per telemetry he had a 4 second cause at around 6 AM this morning. However patient was sleeping and was asymptomatic. Objective Vitals Vital Signs Date Time Temp Pulse Resp B/P (MAP) Pulse Ox O2 Delivery O2 Flow Rate FiO2 11/10/16 08:19 97.9 91 18 129/81 (97) 97 11/10/16 06:11 96 11/10/16 05:04 88 11/10/16 04:36 87 11/10/16 03:10 98.7 86 20 138/87 (104) 96 11/10/16 03:01 81 11/10/16 02:06 83 11/10/16 01:01 78 11/10/16 00:19 103 11/09/16 23:30 99.0 91 16 138/84 (102) 96 11/09/16 23:05 92 11/09/16 22:01 95 11/09/16 20:41 94 11/09/16 20:36 96 11/09/16 19:30 98.9 97 20 144/82 (102) 97 11/09/16 19:00 95 11/09/16 18:02 94 11/09/16 17:00 98 11/09/16 16:00 86 11/09/16 15:00 97.8 86 21 118/69 (85) 96 11/09/16 15:00 84 11/09/16 14:00 90 11/09/16 13:46 86 11/09/16 12:02 90 11/09/16 11:30 98.3 94 18 144/72 (96) 98 11/09/16 11:00 102 11/09/16 10:00 96 I/O 11/09/16 11/09/16 11/09/16 11/10/16 11/10/16 11/10/16 07:00 15:00 23:00 07:00 15:00 23:00 Intake Total 480 ml 630 ml 720 ml Output Total 625 ml 950 ml 1045 ml Balance -145 ml -320 ml -325 ml Intake Oral 480 ml 630 ml 720 ml Output Urine Total 625 ml 950 ml 1045 ml Result Diagram: 9/23/17 0503 11/09/16 0615 Imaging Last Impressions Lower Extremity Ultrasound 11/07/16 0000 Signed Impressions: Service Date/Time: Monday, November 07, 2016 17:18 - CONCLUSION: Saphenous vein measurements as above. Rizwan Kline MD Carotid Artery Ultrasound 11/07/16 0000 Signed Impressions: Service Date/Time: Monday, November 07, 2016 16:47 - CONCLUSION: 1. 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 Rizwan Kline MD Chest X-Ray 11/05/16 1813 Signed Impressions: Service Date/Time: Saturday, November 05, 2016 20:49 - CONCLUSION: 1. No acute focal pulmonary infiltrate or pulmonary vascular congestion. 2. Mild cardiomegaly. 3. Degenerative changes and scoliosis of the thoracic spine. Rizwan Kline MD Objective Remarks GENERAL: Alert, Oriented x 3, NAD. SKIN: Warm and dry. HEAD: Normocephalic. EYES: No scleral icterus. No injection or drainage. NECK: Supple, trachea midline. No JVD or lymphadenopathy. CARDIOVASCULAR: Regular rate and rhythm without murmurs, gallops, or rubs. RESPIRATORY: Breath sounds equal bilaterally. No accessory muscle use. GASTROINTESTINAL: Abdomen soft, non-tender, nondistended. MUSCULOSKELETAL: No cyanosis, or edema. BACK: Nontender without obvious deformity. No CVA tenderness. Procedures Echo 11/06/2016 The left ventricular systolic function is severely reduced with an estimated ejection fraction in the range of 20-25%. Anterior wall hypokinesis. Wall thickness is measured at the upper limits of normal. Normal left ventricular size. Mild mitral valve regurgitation. A/P Problem List: (1) NSTEMI (non-ST elevated myocardial infarction) ICD Code: I21.4 - Non-ST elevation (NSTEMI) myocardial infarction Status: Acute (2) CAD (coronary artery disease) ICD Code: I25.10 - CAD (coronary artery disease) Status: Chronic (3) Hypertension ICD Code: I10 - Hypertension Status: Chronic (4) Chronic kidney disease ICD Code: N18.9 - Chronic kidney disease Status: Acute (5) Diabetes ICD Code: E11.9 - Type 2 diabetes mellitus without complications (6) Hyperlipidemia ICD Code: E78.5 - Hyperlipidemia, unspecified (7) Hypothyroidism ICD Code: E03.9 - Hypothyroidism, unspecified (8) CHF (congestive heart failure), NYHA class II ICD Code: I50.9 - Heart failure, unspecified (9) Iron (Fe) deficiency anemia ICD Code: D50.9 - Iron deficiency anemia, unspecified Assessment and Plan Mr. Garcia is a pleasant 81 year old male with a history of CAD, CKD, DM, HTN who presented to the ED on 11/05/2016 with chest pain. He was initially evaluated at an outside facility for chest pain on 11/03/2016. Tobacco Drier Operator recommended cardiac cath. Due to family's choice, he left the outside hospital against medical advice and came to [facility]. His troponin on Thursday was 0.7. After he came to [place], he was evaluated by Dr. Ott ( Cardiology) who recommended cardiac cath as well. Due to patient's advance stage CKD, Dr. Ott discussed with Nephrology. Patient's troponin elevated in the range of 5 to 6 and patient continued to have chest discomfort. After discussing with Nephrology, Dr. Ott offered cardiac cath. Although initially family members declined cardiac catheter. However eventually they agreed with cardiac catheterization. Patient underwent cardiac catheter on 11/07. 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 - Cardiac cath on 11/07/2016 ==> multivessel disease, emergent GLEN were placed to the RCA due to cardiogenic shock. - CT surgery evaluated patient. Patient/family declines surgery at this point. - Continue aspirin 81 mg, ticagrelor 90 mg BID, losartan 100 mg, isosorbide mononitrate 30 mg. - Patient's heart rate has been in the 80s and 90s. We'll increase carvedilol from 6.25-12.5 mg twice a day. - However, due to a 4 second pause on telemetry at this morning, we'll hold beta mike for now until cardiology evaluates patient. - Will also need to know if patient needs LifeVest prior to discharge. - Discontinue fludrocortisone. - CKD stage 5 - Creatinine is 5.40 with eGFR 10. BMP is pending this AM. - Nephrology following. - Currently on Bicarb. - Diabetes mellitus type 2 - Hemoglobin A1c 8.6. - Currently blood glucose is within goal range of 140-180. - Will continue sliding scale insulin - Hypertension - Continue Amlodipine 5mg Qday. - Titrate carvedilol up before increasing amlodipine. - Iron deficiency anemia - Continue Ferrous sulfate 325mg BIDPC. Full code. SCDs, ambulation Pending cardiology clearance, patient could potentially be discharged this morning. Rasheed Vega DO Nov 10, 2016 9:44 am
[2016-11-10] MEDS ORDERED: CARV12.5 PO (09:48)
[2016-11-10] MEDS ORDERED: SODI650T PO (09:48)
[2016-11-10] MEDS ORDERED: AMLO5 PO (09:48)
[2016-11-10] MEDS ORDERED: BRIL90TA PO (09:48)
[2016-11-10] MEDS ORDERED: ATOR1TAB18 PO (09:48)
[2016-11-10 10:16] LABS: BICARBONATE 15.2 MEQ/L (21.0-32.0); POTASSIUM 3.8 MEQ/L (3.5-5.1)
--- NOTE | 2016-11-10 10:57 | HHI.NPPN ---
Subjective History of Present Illness The patient is a 81 yo [place] male who presented to [facility] on 11/03 with complaints of chest pain and elevated troponin. According to records, he and his family refused treatment at [facility], so he signed out AMA and arrived in the ED here 11/05 with same complaints. He has been treated with NTG but still has discomfort. He has been stage 5 CKD for some time but has yet to be started on dialysis. There are potential plans for cardiac cath. He has a PMHx significant for CAD s/p SD, PTCA with restenosis of stents that had to be replaced a year ago and cardiomyopathy with EF of 20-25% in 2015. He also is hypertensive, diabetic, anemic, and has hx of GI bleeding. Admitting SCr 5.95 with eGFR of 9. According to regular welder apprentice combination, Dr. Lou, his baseline SCr is 6. Interval History Had 6s pause this AM per tele. Asymptomatic. Pt anxious to go home. Review of Systems Respiratory Lungs: SOB Objective Data Data Vital Signs Date Time Temp Pulse Resp B/P (MAP) Pulse Ox O2 Delivery O2 Flow Rate FiO2 11/10/16 08:19 97.9 91 18 129/81 (97) 97 11/10/16 06:11 96 11/10/16 05:04 88 11/10/16 04:36 87 11/10/16 03:10 98.7 86 20 138/87 (104) 96 11/10/16 03:01 81 11/10/16 02:06 83 11/10/16 01:01 78 11/10/16 00:19 103 11/09/16 23:30 99.0 91 16 138/84 (102) 96 11/09/16 23:05 92 11/09/16 22:01 95 11/09/16 20:41 94 11/09/16 20:36 96 11/09/16 19:30 98.9 97 20 144/82 (102) 97 11/09/16 19:00 95 11/09/16 18:02 94 11/09/16 17:00 98 11/09/16 16:00 86 11/09/16 15:00 97.8 86 21 118/69 (85) 96 11/09/16 15:00 84 11/09/16 14:00 90 11/09/16 13:46 86 11/09/16 12:02 90 11/09/16 11:30 98.3 94 18 144/72 (96) 98 11/09/16 11:00 102 -: 11/08/16 0503 11/10/16 0743 Imaging Last Impressions Lower Extremity Ultrasound 11/07/16 0000 Signed Impressions: Service Date/Time: Monday, November 07, 2016 17:18 - CONCLUSION: Saphenous vein measurements as above. Rizwan Kline MD Carotid Artery Ultrasound 11/07/16 0000 Signed Impressions: Service Date/Time: Monday, November 07, 2016 16:47 - CONCLUSION: 1. 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 Rizwan Kline MD Chest X-Ray 11/05/161812 Signed Impressions: Service Date/Time: Saturday, November 05, 2016 20:49 - CONCLUSION: 1. No acute focal pulmonary infiltrate or pulmonary vascular congestion. 2. Mild cardiomegaly. 3. Degenerative changes and scoliosis of the thoracic spine. Rizwan Kline MD Medication Review Current Medications Medications (Trade) Dose Ordered Sig/Armida Route Start Time Stop Time Status Last Admin (D50w (Vial) Inj) 50 ml UNSCH PRN IV PUSH 11/05/16 16:00 (Glucagon Inj) 1 mg UNSCH PRN OTHER 11/05/16 16:00 (NovoLOG SUPPLEMENTAL SCALE) 1 ACHS SLIDING SCALE SQ 11/05/16 17:00 11/09/16 21:32 (NS Flush) 2 ml BID IV FLUSH 11/05/16 21:00 11/10/16 08:55 (NS Flush) 2 ml UNSCH PRN IV FLUSH 11/05/16 16:00 11/08/16 21:32 (Nitrostat Sl) 0.4 mg Q5M PRN SL 11/05/16 16:00 (Morphine Inj) 2 mg Q30M PRN IV PUSH 11/05/16 16:00 11/08/16 10:23 (Tylenol) 650 mg Q6H PRN PO 11/05/16 16:00 (Xanax) 0.25 mg Q8H PRN PO 11/05/16 16:00 (Zofran Inj) 4 mg Q6H PRN IV PUSH 11/05/16 16:00 (Compazine Supp) 25 mg Q12H PRN RECTAL 11/05/16 16:00 (Percocet 5-325 Mg) 1 tab Q6H PRN PO 11/05/16 16:00 (Percocet 10-325 Mg) 1 tab Q6H PRN PO 11/05/16 16:00 11/06/16 23:47 (Morphine Inj) 2 mg Q3H PRN IV PUSH 11/05/16 16:00 11/05/16 17:55 (Morphine Inj) 4 mg Q3H PRN IV PUSH 11/05/16 16:00 (Morphine Inj) 4 mg Q1H PRN IV PUSH 11/05/16 16:00 (Morphine Inj) 4 mg Q3H PRN IV PUSH 11/05/16 16:00 (Narcan Inj) 0.4 mg UNSCH PRN IV PUSH 11/05/16 16:00 (Janene-Colace) 1 tab BID PO 11/05/16 21:00 11/10/16 08:52 (Milk Of Magnesia Liq) 30 ml Q12H PRN PO 11/05/16 16:00 (Senokot) 17.2 mg Q12H PRN PO 11/05/16 16:00 (Dulcolax Supp) 10 mg DAILY PRN RECTAL 11/05/16 16:00 (Lactulose Liq) 30 ml DAILY PRN PO 11/05/16 16:00 (Rocaltrol) 0.25 mcg DAILY PO 11/06/16 09:00 11/10/16 08:54 (Imdur) 30 mg DAILY PO 11/06/16 09:00 11/10/16 08:54 (Cozaar) 100 mg DAILY PO 11/06/16 09:00 Future hold 11/10/16 08:53 (Ferrous Sulfate) 325 mg BIDPC PO 11/05/16 18:00 11/10/16 08:55 (Protonix) 40 mg DAILY@0600 PO 11/06/16 06:00 11/10/16 06:03 (Norvasc) 5 mg DAILY PO 11/05/16 20:00 11/10/16 08:55 Miscellaneous Information Patient in critical care unit? Ass... [id number] .XX 11/05/16 21:30 (Chlorhexidine 2% Cloth) 3 pack UNSCH PRN TOPICAL 11/05/16 21:30 11/10/16 21:28 (Drisdol) 50,000 units Q7D PO 11/06/16 20:00 11/06/16 22:15 (Lipitor) 80 mg HS PO 11/06/16 21:00 11/09/16 21:33 Nitroglycerin/ Dextrose 250 ml @ 1.5 mls/hr TITRATE PRN IV 11/07/16 10:00 (Tylenol) 325 mg Q4H PRN PO 11/07/16 11:45 (Aspirin Chew) 81 mg DAILY CHEW 11/08/16 09:00 11/10/16 08:55 (Brilinta) 90 mg BID PO 11/08/16 21:00 11/10/16 08:52 (Sodium Bicarbonate) 1,300 mg TID PO 11/09/16 13:00 11/10/16 08:53 (Coreg) 12.5 mg Q12HR PO 11/10/16 09:00 Physical Exam General Appearance: No Acute Distress, Comfortable Neck Neck Exam: Neck Supple, Trachea Midline Pulmonary Resp Exam: Clear Bilaterally, Breath Sounds Equal, Diminished Breath Sounds Cardiology CV Exam: Normal Sinus Rhythm, Irregular Gastrointestinal/Abdomen GI Exam: Soft, Non-Tender Integumentary Skin Exam: Clear, Warm Extremeties Extremities Exam: No Edema Neurologic Neuro Exam: Alert, Awake, Oriented Psychiatric Psych Exam: Appropriate Responses Assessment/Plan Discussed Condition With: Patient Problem List: (1) Chronic kidney disease, stage 5 ICD Codes: N18.5 - Chronic kidney disease, stage 5 Plan: According to his regular welder apprentice combination, his baseline SCr has been 6 for some time. He does not have any immediate plans for dialysis (i.e. not made plans for hemodialysis versus peritoneal dialysis), but does say that he realizes that he will require dialytic intervention in the near future if not during this admission. Renal functions stable UOP good. IVF stopped. Continue bicarb at 1300mg TID. Florinef stopped by cardio. Resume Lasix 40mg po QD OK to be discharged today if cleared by specialists If discharge planning underway, he needs to have f/u with Dr. Lou (regular welder apprentice combination) within 1-2 weeks Medications should be adjusted for the patient's renal decline. Avoid gadolinium. (2) NSTEMI (non-ST elevated myocardial infarction) ICD Codes: I21.4 - Non-ST elevation (NSTEMI) myocardial infarction Status: Acute Plan: Management as per cardiology (3) Hypertension ICD Codes: I10 - Hypertension Status: Chronic Plan: Continue current regimen (4) Diabetes ICD Codes: E11.9 - Type 2 diabetes mellitus without complications Plan: Mgmt as per primary team (5) Metabolic acidosis ICD Codes: E87.2 - Metabolic acidosis Status: Chronic Plan: Secondary to CKD. Increase po Aaliyah Torre Nov 10, 2016 10:57
--- NOTE | 2016-11-10 17:03 | PD.CARD.PN ---
Subjective Subjective Remarks 6am this morning noted to have Second Degree Type 2 AV Block Patient was sleeping and asymptomatic Also had anther similar episode later in the day Objective Medications Current Medications Medications (Trade) Dose Ordered Sig/Armida Route Start Time Stop Time Status Last Admin (D50w (Vial) Inj) 50 ml UNSCH PRN IV PUSH 11/05/16 16:00 (Glucagon Inj) 1 mg UNSCH PRN OTHER 11/05/16 16:00 (NovoLOG SUPPLEMENTAL SCALE) 1 ACHS SLIDING SCALE SQ 11/05/16 17:00 11/10/16 12:00 (NS Flush) 2 ml BID IV FLUSH 11/05/16 21:00 11/10/16 08:55 (NS Flush) 2 ml UNSCH PRN IV FLUSH 11/05/16 16:00 11/08/16 21:32 (Nitrostat Sl) 0.4 mg Q5M PRN SL 11/05/16 16:00 (Morphine Inj) 2 mg Q30M PRN IV PUSH 11/05/16 16:00 11/08/16 10:23 (Tylenol) 650 mg Q6H PRN PO 11/05/16 16:00 (Xanax) 0.25 mg Q8H PRN PO 11/05/16 16:00 (Zofran Inj) 4 mg Q6H PRN IV PUSH 11/05/16 16:00 (Compazine Supp) 25 mg Q12H PRN RECTAL 11/05/16 16:00 (Percocet 5-325 Mg) 1 tab Q6H PRN PO 11/05/16 16:00 (Percocet 10-325 Mg) 1 tab Q6H PRN PO 11/05/16 16:00 11/06/16 23:47 (Morphine Inj) 2 mg Q3H PRN IV PUSH 11/05/16 16:00 11/05/16 17:55 (Morphine Inj) 4 mg Q3H PRN IV PUSH 11/05/16 16:00 (Morphine Inj) 4 mg Q1H PRN IV PUSH 11/05/16 16:00 (Morphine Inj) 4 mg Q3H PRN IV PUSH 11/05/16 16:00 (Narcan Inj) 0.4 mg UNSCH PRN IV PUSH 11/05/16 16:00 (Janene-Colace) 1 tab BID PO 11/05/16 21:00 11/10/16 08:52 (Milk Of Magnesia Liq) 30 ml Q12H PRN PO 11/05/16 16:00 (Senokot) 17.2 mg Q12H PRN PO 11/05/16 16:00 (Dulcolax Supp) 10 mg DAILY PRN RECTAL 11/05/16 16:00 (Lactulose Liq) 30 ml DAILY PRN PO 11/05/16 16:00 (Rocaltrol) 0.25 mcg DAILY PO 11/06/16 09:00 11/10/16 08:54 (Imdur) 30 mg DAILY PO 11/06/16 09:00 11/10/16 08:54 (Cozaar) 100 mg DAILY PO 11/06/16 09:00 Future hold 11/10/16 08:53 (Ferrous Sulfate) 325 mg BIDPC PO 11/05/16 18:00 11/10/16 08:55 (Protonix) 40 mg DAILY@0600 PO 11/06/16 06:00 11/10/16 06:03 (Norvasc) 5 mg DAILY PO 11/05/16 20:00 11/10/16 08:55 Miscellaneous Information Patient in critical care unit? Ass... Q361D .XX 11/05/16 21:30 (Chlorhexidine 2% Cloth) 3 pack UNSCH PRN TOPICAL 11/05/16 21:30 11/10/16 21:28 (Drisdol) 50,000 units Q7D PO 11/06/16 20:00 11/06/16 22:15 (Lipitor) 80 mg HS PO 11/06/16 21:00 11/09/16 21:33 Nitroglycerin/ Dextrose 250 ml @ 1.5 mls/hr TITRATE PRN IV 11/07/16 10:00 (Tylenol) 325 mg Q4H PRN PO 11/07/16 11:45 (Aspirin Chew) 81 mg DAILY CHEW 11/08/16 09:00 11/10/16 08:55 (Brilinta) 90 mg BID PO 11/08/16 21:00 11/10/16 08:52 (Sodium Bicarbonate) 1,300 mg TID PO 11/09/16 13:00 11/10/16 12:53 (Coreg) 12.5 mg Q12HR PO 11/10/16 09:00 (Lasix) 40 mg DAILY PO 11/11/16 09:00 Vital Signs / I&O Vital Signs Date Time Temp Pulse Resp B/P (MAP) Pulse Ox O2 Delivery O2 Flow Rate FiO2 11/10/16 16:13 95 11/10/16 15:25 92 11/10/16 15:16 98.2 93 20 144/82 (102) 96 11/10/16 14:02 81 11/10/16 13:00 91 11/10/16 12:00 96 11/10/16 11:00 98.0 93 17 131/79 (96) 95 11/10/16 11:00 99 11/10/16 10:40 127 11/10/16 10:00 101 11/10/16 09:00 128 11/10/16 08:19 97.9 91 18 129/81 (97) 97 11/10/16 08:00 98 11/10/16 07:00 86 11/10/16 06:11 96 11/10/16 05:04 88 11/10/16 04:36 87 11/10/16 03:10 98.7 86 20 138/87 (104) 96 11/10/16 03:01 81 11/10/16 02:06 83 11/10/16 01:01 78 11/10/16 00:19 103 11/09/16 23:30 99.0 91 16 138/84 (102) 96 11/09/16 23:05 92 11/09/16 22:01 95 11/09/16 20:41 94 11/09/16 20:36 96 11/09/16 19:30 98.9 97 20 144/82 (102) 97 11/09/16 19:00 95 11/09/16 18:02 94 11/09/16 17:00 98 I/O 11/09/16 11/09/16 11/09/16 11/10/16 11/10/16 11/10/16 07:00 15:00 23:00 07:00 15:00 23:00 Intake Total 480 ml 630 ml 720 ml Output Total 625 ml 950 ml 1045 ml Balance -145 ml -320 ml -325 ml Intake Oral 480 ml 630 ml 720 ml Output Urine Total 625 ml 950 ml 1045 ml Physical Exam GENERAL: NAD, AAOx3 SKIN: Warm and dry. HEAD: Atraumatic. Normocephalic. EYES: Pupils equal and round. No scleral icterus. No injection or drainage. ENT: No nasal bleeding or discharge. Mucous membranes pink and moist. NECK: Trachea midline. No JVD. CARDIOVASCULAR: Regular rate and rhythm. RESPIRATORY: No accessory muscle use. Decreased breath sounds bilateral bases GASTROINTESTINAL: Abdomen soft, non-tender, nondistended. Hepatic and splenic margins not palpable. MUSCULOSKELETAL: Extremities without clubbing, cyanosis, or edema. No obvious deformities. NEUROLOGICAL: Awake and alert. No obvious cranial nerve deficits. Motor grossly within normal limits. Five out of 5 muscle strength in the arms and legs. Normal speech. PSYCHIATRIC: Appropriate mood and affect; insight and judgment normal. Laboratory Laboratory Tests Test 11/10/16 07:43 Blood Urea Nitrogen 51 MG/DL Creatinine 5.33 MG/DL Random Glucose 112 MG/DL Albumin 2.5 GM/DL Calcium Level 8.7 MG/DL Phosphorus Level 3.2 MG/DL Sodium Level 141 MEQ/L Potassium Level 3.8 MEQ/L Chloride Level 112 MEQ/L Carbon Dioxide Level 15.2 MEQ/L Anion Gap 14 MEQ/L Estimat Glomerular Filtration Rate 10 ML/MIN Assessment and Plan Problem List: (1) NSTEMI (non-ST elevated myocardial infarction) ICD Codes: I21.4 - Non-ST elevation (NSTEMI) myocardial infarction Status: Acute (2) Chronic kidney disease, stage 5 ICD Codes: N18.5 - Chronic kidney disease, stage 5 (3) CHF (congestive heart failure), NYHA class II ICD Codes: I50.9 - Heart failure, unspecified (4) Hypertension ICD Codes: I10 - Hypertension Status: Chronic (5) Hyperlipidemia ICD Codes: E78.5 - Hyperlipidemia, unspecified (6) Diabetes ICD Codes: E11.9 - Type 2 diabetes mellitus without complications (7) CAD (coronary artery disease) ICD Codes: I25.10 - CAD (coronary artery disease) Status: Chronic Assessment and Plan 1) DESx2 to the RCA due to cardiogenic shock/unstable angina during catheterization Con't ASA Change to Plavix 2) Residual CAD Does not want CABG Discussed PCI of LAD Most likely would need CSI and stenting of the proximal LAD as well as probably laser atherectomy and cutting balloon of in-stent restenosis Patient and son want to try to treat medically as best they can 3) SOB Reevaluated, doing well, no complaints 4) CKD 5 5) EF 20-25% Coreg/ARB 6) Second degree type 2 AV block Will plan for EP evaluation Brilinta can cause some AV block in case studies, usually more likely pauses , will plan to change to Plavix Vickey Ott DO Nov 10, 2016 17:03
[2016-11-10] MEDS ORDERED: CLOPIDOGREL 75 MG TAB PO ONE (18:00)
[2016-11-10] MEDS: ATORVASTATIN 80 MG TAB PO SCH (20:57)
[2016-11-11] VITALS (17 sets, daily range): BP systolic 120–146; BP diastolic 75–86; PULSE 79–118; RESP 18–20; TEMP 97.9–98.7; O2SAT 95–98
--- NOTE | 2016-11-11 06:10 | MB ---
cc: ALEJANDRO TURNER M.D. DATE OF CONSULTATION 11/10/2016 ELECTROPHYSIOLOGY CONSULT REASON FOR CONSULTATION AV block. HISTORY OF PRESENT ILLNESS Mr. Garcia is a 81-year-old gentleman with a history of coronary artery disease. He has previous PTCA plus stent around 12 years ago, history of high blood pressure, diabetes mellitus, hyperlipidemia, a history of GI bleeding. He was admitted on November 05 due to [id number] MO. The gentleman underwent left heart catheterization by Dr. Ott, PTCA plus stent to the RCA was performed. The gentleman during hospitalization developed an episode of A-V dissociation. Beta-mike was discontinued. His ejection fraction is around 20%. I was consulted for further evaluation and management. The chart was reviewed. The patient was evaluated. ALLERGIES None. SOCIAL HISTORY The gentleman denies smoking and drinking. FAMILY HISTORY Noncontributory to his current medical condition. MEDICATIONS 1. He is on nitrates 2. Amlodipine 5 mg a day. 3. Aspirin. 4. Lipitor 80 mg a day. 5. Coreg was on hold. 6. Plavix. 7. Imdur. 8. Brilinta was discontinued. REVIEW OF SYSTEMS Refers shortness of breath on minimal activity. No chest pain or chest discomfort. PHYSICAL EXAMINATION GENERAL: Alert, fully oriented. The gentleman looked tired and very difficult to keep up his breath. LUNGS: Ventilated. CARDIOVASCULAR: S1-S2, no gallop. Tachycardia. ABDOMEN: Obese. No mass. EXTREMITIES: Edema +1-2. ELECTROCARDIOGRAM Indicated possible sinus tachycardia, right axis, poor R-wave progression, diffuse ST and T-wave changes. LABORATORY DATA Hemoglobin is 10.2, white blood cell 10.4, potassium 3.8, creatinine is 5.33, coming down. INR is 1. APTT 49.1. ASSESSMENT AND RECOMMENDATIONS Mr. Garcia is in tachyarrhythmia. Heart rate needs to be controlled in the setting of [id number] MO. He is very tired. He has some shortness of breath. His creatinine is 5.33, improving from 5.78. The gentleman's heart rate needs to be controlled. He will need some diuretic because of the shortness of breath, the gentleman is in heart failure. Nephrology needs to be consulted. At this point I am going to resume the Coreg. If the gentleman develops AV block, then he will need a pacemaker defibrillator, but the heart rate needs to be controlled. Case discussed extensively with the gentleman. I did explain to him that he may need to spend some more days in the hospital for further management. His condition is of care. Alejandro Turner MD HS/SSB /8:26 PM /6:00 AM
[2016-11-11 06:16] LABS: HEMATOCRIT 26.7 % (39.0-51.0); MEAN CELL VOLUME 90.7 FL (80.0-100.0); MEAN CORPUSCULAR HEMOGLOBIN 30.2 PG (27.0-34.0); MEAN CORPUSCULAR HGB CONC 33.3 % (32.0-36.0); PLATELET COUNT 190 TH/MM3 (150-450); RED BLOOD COUNT 2.94 MIL/MM3 (4.50-5.90); RED CELL DISTRIBUTION WIDTH 13.8 % (11.6-17.2); REVIEW FLAG FINAL; WHITE BLOOD COUNT 8.6 TH/MM3 (4.0-11.0)
[2016-11-11] MEDS: PANTOPRAZOLE SOD 40 MG DELAYED RELEASE TAB PO SCH (06:41)
[2016-11-11 06:45] LABS: BICARBONATE 16.3 MEQ/L (21.0-32.0); POTASSIUM 4.2 MEQ/L (3.5-5.1)
[2016-11-11] MEDS: INSULIN ASPART SUPPLEMENTAL SCALE SQ SCH ×3 (08:00→17:00)
[2016-11-11] MEDS ORDERED: FUROSEMIDE 40 MG TAB PO SCH (09:00)
[2016-11-11] MEDS: DOCUSATE SODIUM 50 MG/SENNA 8.6 MG TAB PO SCH (09:42)
[2016-11-11] MEDS: CARVEDILOL 12.5 MG TAB PO SCH (09:42)
[2016-11-11] MEDS: FERROUS SULFATE 325 MG (65 MG ELEMENTAL IRON) TAB PO SCH (09:42)
[2016-11-11] MEDS: amLODIPine BESYLATE 5 MG TAB PO SCH (09:42)
[2016-11-11] MEDS: ISOSORBIDE MONONITRATE 30 MG TAB PO SCH (09:42)
[2016-11-11] MEDS: SODIUM CHLORIDE 0.9% FLUSH 10 ML FLUSH IV FLUSH SCH (09:42)
[2016-11-11] MEDS: ASPIRIN 81 MG CHEW TAB CHEW SCH (09:42)
[2016-11-11] MEDS: CALCITRIOL 0.25 MCG CAP PO SCH (09:42)
[2016-11-11] MEDS: SODIUM BICARBONATE 650 MG TAB PO SCH ×2 (09:43→12:46)
[2016-11-11] MEDS: LOSARTAN 50 MG TAB PO SCH (09:43)
--- NOTE | 2016-11-11 09:47 | HHI.PR ---
Objective Vitals Vital Signs Date Time Temp Pulse Resp B/P (MAP) Pulse Ox O2 Delivery O2 Flow Rate FiO2 11/11/16 07:46 97.9 87 18 122/82 (95) 96 11/11/16 06:00 92 11/11/16 05:00 82 11/11/16 04:00 80 11/11/16 03:15 85 20 138/82 (100) 95 11/11/16 03:00 84 11/11/16 02:00 84 11/11/16 01:00 88 11/11/16 00:00 96 11/10/16 23:00 94 11/10/16 23:00 97.9 94 20 148/92 (110) 94 11/10/16 22:00 96 11/10/16 21:00 104 11/10/16 20:00 104 11/10/16 19:15 97.4 103 20 170/94 (119) 96 11/10/16 19:00 94 11/10/16 18:03 96 11/10/16 17:00 96 11/10/16 16:13 95 11/10/16 15:25 92 11/10/16 15:16 98.2 93 20 144/82 (102) 96 11/10/16 14:02 81 11/10/16 13:00 91 11/10/16 12:00 96 11/10/16 11:00 98.0 93 17 131/79 (96) 95 11/10/16 11:00 99 11/10/16 10:40 127 11/10/16 10:00 101 I/O 11/10/16 11/10/16 11/10/16 11/11/16 11/11/16 11/11/16 07:00 15:00 23:00 07:00 15:00 23:00 Intake Total 720 ml 480 ml 240 ml Output Total 1045 ml 1000 ml 575 ml Balance -325 ml -520 ml -335 ml Intake Oral 720 ml 480 ml 240 ml Output Urine Total 1045 ml 1000 ml 575 ml Result Diagram: 11/11/16 0559 11/11/16 0559 Objective Remarks GENERAL: Alert, Oriented x 3, NAD. SKIN: Warm and dry. HEAD: Normocephalic. EYES: No scleral icterus. No injection or drainage. NECK: Supple, trachea midline. No JVD or lymphadenopathy. CARDIOVASCULAR: Regular rate and rhythm without murmurs, gallops, or rubs. RESPIRATORY: Breath sounds equal bilaterally. No accessory muscle use. GASTROINTESTINAL: Abdomen soft, non-tender, nondistended. MUSCULOSKELETAL: No cyanosis, or edema. BACK: Nontender without obvious deformity. No CVA tenderness. Procedures Echo 11/06/2016 The left ventricular systolic function is severely reduced with an estimated ejection fraction in the range of 20-25%. Anterior wall hypokinesis. Wall thickness is measured at the upper limits of normal. Normal left ventricular size. Mild mitral valve regurgitation. A/P Problem List: (1) NSTEMI (non-ST elevated myocardial infarction) ICD Code: I21.4 - Non-ST elevation (NSTEMI) myocardial infarction Status: Acute (2) CAD (coronary artery disease) ICD Code: I25.10 - CAD (coronary artery disease) Status: Chronic (3) Hypertension ICD Code: I10 - Hypertension Status: Chronic (4) Chronic kidney disease ICD Code: N18.9 - Chronic kidney disease Status: Acute (5) Diabetes ICD Code: E11.9 - Type 2 diabetes mellitus without complications (6) Hyperlipidemia ICD Code: E78.5 - Hyperlipidemia, unspecified (7) Hypothyroidism ICD Code: E03.9 - Hypothyroidism, unspecified (8) CHF (congestive heart failure), NYHA class II ICD Code: I50.9 - Heart failure, unspecified (9) Iron (Fe) deficiency anemia ICD Code: D50.9 - Iron deficiency anemia, unspecified Assessment and Plan Mr. Garcia is a pleasant 81 year old male with a history of CAD, CKD, DM, HTN who presented to the ED on 11/05/2016 with chest pain. He was initially evaluated at an outside facility for chest pain on 11/03/2016. Supervisor Inspection recommended cardiac cath. Due to family's choice, he left the outside hospital against medical advice and came to [facility]. His troponin on Thursday was 0.7. After he came to [facility], he was evaluated by Dr. Ott ( Cardiology) who recommended cardiac cath as well. Due to patient's advance stage CKD, Dr. Ott discussed with Nephrology. Patient's troponin elevated in the range of 5 to 6 and patient continued to have chest discomfort. After discussing with Nephrology, Dr. Ott offered cardiac cath. Although initially family members declined cardiac catheter. However eventually they agreed with cardiac catheterization. Patient underwent cardiac catheter on 11/07. 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 - Cardiac cath on 11/07/2016 ==> multivessel disease, emergent GLEN were placed to the RCA due to cardiogenic shock. - CT surgery evaluated patient. Patient/family declines surgery at this point. - Continue aspirin 81 mg, ticagrelor 90 mg BID, losartan 100 mg, isosorbide mononitrate 30 mg. - Patient's heart rate has been in the 80s and 90s. We'll increase carvedilol from 6.25-12.5 mg twice a day. - However, due to a 4 second pause on telemetry at this morning, we'll hold beta mike for now until cardiology evaluates patient. - Will also need to know if patient needs LifeVest prior to discharge. - Discontinue fludrocortisone. - CKD stage 5 - Creatinine is 5.40 with eGFR 10. BMP is pending this AM. - Nephrology following. - Currently on Bicarb. - Diabetes mellitus type 2 - Hemoglobin A1c 8.6. - Currently blood glucose is within goal range of 140-180. - Will continue sliding scale insulin - Hypertension - Continue Amlodipine 5mg Qday. - Titrate carvedilol up before increasing amlodipine. - Iron deficiency anemia - Continue Ferrous sulfate 325mg BIDPC. Full code. SCDs, ambulation Pending cardiology clearance, patient could potentially be discharged this morning. Rasheed Vega DO Nov 11, 2016 09:47
--- NOTE | 2016-11-11 10:25 | HHI.PR ---
Subjective Remarks Feeling ok Objective Vital Signs Date Time Temp Pulse Resp B/P (MAP) Pulse Ox O2 Delivery O2 Flow Rate FiO2 11/11/16 07:46 97.9 87 18 122/82 (95) 96 11/11/16 06:00 92 11/11/16 05:00 82 11/11/16 04:00 80 11/11/16 03:15 85 20 138/82 (100) 95 11/11/16 03:00 84 11/11/16 02:00 84 11/11/16 01:00 88 11/11/16 00:00 96 11/10/16 23:00 94 11/10/16 23:00 97.9 94 20 148/92 (110) 94 11/10/16 22:00 96 11/10/16 21:00 104 11/10/16 20:00 104 11/10/16 19:15 97.4 103 20 170/94 (119) 96 11/10/16 19:00 94 11/10/16 18:03 96 11/10/16 17:00 96 11/10/16 16:13 95 11/10/16 15:25 92 11/10/16 15:16 98.2 93 20 144/82 (102) 96 11/10/16 14:02 81 11/10/16 13:00 91 11/10/16 12:00 96 11/10/16 11:00 98.0 93 17 131/79 (96) 95 11/10/16 11:00 99 11/10/16 10:40 127 I/O 11/10/16 11/10/16 11/10/16 11/11/16 11/11/16 11/11/16 07:00 15:00 23:00 07:00 15:00 23:00 Intake Total 720 ml 480 ml 240 ml Output Total 1045 ml 1000 ml 575 ml Balance -325 ml -520 ml -335 ml Intake Oral 720 ml 480 ml 240 ml Output Urine Total 1045 ml 1000 ml 575 ml Result Diagram: 11/11/16 0559 11/11/16 0559 Imaging Alert, fully oriented, in bed Lungs: ventilated Heart:S1, S2 regular, tachycardia Abdomen: soft, obese, no mass Ext: no edema Last Impressions Lower Extremity Ultrasound 11/07/16 0000 Signed Impressions: Service Date/Time: Monday, November 07, 2016 17:18 - CONCLUSION: Saphenous vein measurements as above. Rizwan Kline MD Carotid Artery Ultrasound 11/07/16 0000 Signed Impressions: Service Date/Time: Monday, November 07, 2016 16:47 - CONCLUSION: 1. 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 Rizwan Kline MD Chest X-Ray 11/05/16 1813 Signed Impressions: Service Date/Time: Saturday, November 05, 2016 20:49 - CONCLUSION: 1. No acute focal pulmonary infiltrate or pulmonary vascular congestion. 2. Mild cardiomegaly. 3. Degenerative changes and scoliosis of the thoracic spine. Rizwan Kline MD Current Medications Medications (Trade) Dose Ordered Sig/Armida Route Start Time Stop Time Status Last Admin (D50w (Vial) Inj) 50 ml UNSCH PRN IV PUSH 11/05/16 16:00 (Glucagon Inj) 1 mg UNSCH PRN OTHER 11/05/16 16:00 (NovoLOG SUPPLEMENTAL SCALE) 1 ACHS SLIDING SCALE SQ 11/05/16 17:00 11/10/16 22:15 (NS Flush) 2 ml BID IV FLUSH 11/05/16 21:00 11/11/16 09:42 (NS Flush) 2 ml UNSCH PRN IV FLUSH 11/05/16 16:00 11/08/16 21:32 (Nitrostat Sl) 0.4 mg Q5M PRN SL 11/05/16 16:00 (Morphine Inj) 2 mg Q30M PRN IV PUSH 11/05/16 16:00 11/08/16 10:23 (Tylenol) 650 mg Q6H PRN PO 11/05/16 16:00 (Xanax) 0.25 mg Q8H PRN PO 11/05/16 16:00 11/11/16 02:06 (Zofran Inj) 4 mg Q6H PRN IV PUSH 11/05/16 16:00 (Compazine Supp) 25 mg Q12H PRN RECTAL 11/05/16 16:00 (Percocet 5-325 Mg) 1 tab Q6H PRN PO 11/05/16 16:00 (Percocet 10-325 Mg) 1 tab Q6H PRN PO 11/05/16 16:00 11/06/16 23:47 (Morphine Inj) 2 mg Q3H PRN IV PUSH 11/05/16 16:00 11/05/16 17:55 (Morphine Inj) 4 mg Q3H PRN IV PUSH 11/05/16 16:00 (Morphine Inj) 4 mg Q1H PRN IV PUSH 11/05/16 16:00 (Morphine Inj) 4 mg Q3H PRN IV PUSH 11/05/16 16:00 (Narcan Inj) 0.4 mg UNSCH PRN IV PUSH 11/05/16 16:00 (Janene-Colace) 1 tab BID PO 11/05/16 21:00 11/11/16 09:42 (Milk Of Magnesia Liq) 30 ml Q12H PRN PO 11/05/16 16:00 (Senokot) 17.2 mg Q12H PRN PO 11/05/16 16:00 (Dulcolax Supp) 10 mg DAILY PRN RECTAL 11/05/16 16:00 (Lactulose Liq) 30 ml DAILY PRN PO 11/05/16 16:00 (Rocaltrol) 0.25 mcg DAILY PO 11/06/16 09:00 11/11/16 09:42 (Imdur) 30 mg DAILY PO 11/06/16 09:00 11/11/16 09:42 (Cozaar) 100 mg DAILY PO 11/06/16 09:00 Future hold 11/11/16 09:43 (Ferrous Sulfate) 325 mg BIDPC PO 11/05/16 18:00 11/11/16 09:42 (Protonix) 40 mg DAILY@0600 PO 11/06/16 06:00 11/11/16 06:41 (Norvasc) 5 mg DAILY PO 11/05/16 20:00 11/11/16 09:42 Miscellaneous Information Patient in critical care unit? Ass... Q361D .XX 11/05/16 21:30 (Drisdol) 50,000 units Q7D PO 11/06/16 20:00 11/06/16 22:15 (Lipitor) 80 mg HS PO 11/06/16 21:00 11/10/16 20:57 Nitroglycerin/ Dextrose 250 ml @ 1.5 mls/hr TITRATE PRN IV 11/07/16 10:00 (Tylenol) 325 mg Q4H PRN PO 11/07/16 11:45 (Aspirin Chew) 81 mg DAILY CHEW 11/08/16 09:00 11/11/16 09:42 (Sodium Bicarbonate) 1,300 mg TID PO 11/09/16 13:00 11/11/16 09:43 (Coreg) 12.5 mg Q12HR PO 11/10/16 09:00 Future hold 11/11/16 09:42 (Lasix) 40 mg DAILY PO 11/11/16 09:00 11/11/16 09:00 (Plavix) 75 mg DAILY PO 11/12/16 09:00 Assessment and Plan Problem List: (1) AV block ICD Codes: I44.30 - Unspecified atrioventricular block Plan: Patient with tachy. Will need negative chronotropic for rate control. Need beta mike for heart failure management also. High sympathetic tone. Developed multiple pauses for the past 2 days . Some of them around 7 sec. EPS and pacing support discussed. patient aware of risks of syncope and malignant arrhythmia. He wants to go with medical management. He is aware BB cannot be used currently. I did discussed the situation with Dr Ott I will be available on a PRN basis (2) Morbid obesity ICD Codes: E66.01 - Morbid (severe) obesity due to excess calories Plan: patient advise to loose some weight (3) Acute CHF ICD Codes: I50.9 - Acute CHF Status: Acute Plan: CHF III. Meds will need to be modified BB cannot be increased for now. Condition of care Poor compliance (4) NSTEMI (non-ST elevated myocardial infarction) ICD Codes: I21.4 - Non-ST elevation (NSTEMI) myocardial infarction Status: Acute Plan: Recent PTCA plus stent to RCA Kade Dennis MD Nov 11, 2016 10:25
--- NOTE | 2016-11-11 12:39 | PD.CARD.PN ---
Subjective Subjective Remarks Tachycardia overnight, with high degree block Asymptomatic Objective Medications Current Medications Medications (Trade) Dose Ordered Sig/Armida Route Start Time Stop Time Status Last Admin (D50w (Vial) Inj) 50 ml UNSCH PRN IV PUSH 11/05/16 16:00 (Glucagon Inj) 1 mg UNSCH PRN OTHER 11/05/16 16:00 (NovoLOG SUPPLEMENTAL SCALE) 1 ACHS SLIDING SCALE SQ 11/05/16 17:00 11/10/16 22:15 (NS Flush) 2 ml BID IV FLUSH 11/05/16 21:00 11/11/16 09:42 (NS Flush) 2 ml UNSCH PRN IV FLUSH 11/05/16 16:00 11/08/16 21:32 (Nitrostat Sl) 0.4 mg Q5M PRN SL 11/05/16 16:00 (Morphine Inj) 2 mg Q30M PRN IV PUSH 11/05/16 16:00 11/08/16 10:23 (Tylenol) 650 mg Q6H PRN PO 11/05/16 16:00 (Xanax) 0.25 mg Q8H PRN PO 11/05/16 16:00 11/11/16 02:06 (Zofran Inj) 4 mg Q6H PRN IV PUSH 11/05/16 16:00 (Compazine Supp) 25 mg Q12H PRN RECTAL 11/05/16 16:00 (Percocet 5-325 Mg) 1 tab Q6H PRN PO 11/05/16 16:00 (Percocet 10-325 Mg) 1 tab Q6H PRN PO 11/05/16 16:00 11/06/16 23:47 (Morphine Inj) 2 mg Q3H PRN IV PUSH 11/05/16 16:00 11/05/16 17:55 (Morphine Inj) 4 mg Q3H PRN IV PUSH 11/05/16 16:00 (Morphine Inj) 4 mg Q1H PRN IV PUSH 11/05/16 16:00 (Morphine Inj) 4 mg Q3H PRN IV PUSH 11/05/16 16:00 (Narcan Inj) 0.4 mg UNSCH PRN IV PUSH 11/05/16 16:00 (Janene-Colace) 1 tab BID PO 11/05/16 21:00 11/11/16 09:42 (Milk Of Magnesia Liq) 30 ml Q12H PRN PO 11/05/16 16:00 (Senokot) 17.2 mg Q12H PRN PO 11/05/16 16:00 (Dulcolax Supp) 10 mg DAILY PRN RECTAL 11/05/16 16:00 (Lactulose Liq) 30 ml DAILY PRN PO 11/05/16 16:00 (Rocaltrol) 0.25 mcg DAILY PO 11/06/16 09:00 11/11/16 09:42 (Imdur) 30 mg DAILY PO 11/06/16 09:00 11/11/16 09:42 (Cozaar) 100 mg DAILY PO 11/06/16 09:00 Future hold 11/11/16 09:43 (Ferrous Sulfate) 325 mg BIDPC PO 11/05/16 18:00 11/11/16 09:42 (Protonix) 40 mg DAILY@0600 PO 11/06/16 06:00 11/11/16 06:41 (Norvasc) 5 mg DAILY PO 11/05/16 20:00 11/11/16 09:42 Miscellaneous Information Patient in critical care unit? Ass... Q361D .XX 11/05/16 21:30 (Drisdol) 50,000 units Q7D PO 11/06/16 20:00 11/06/16 22:15 (Lipitor) 80 mg HS PO 11/06/16 21:00 11/10/16 20:57 Nitroglycerin/ Dextrose 250 ml @ 1.5 mls/hr TITRATE PRN IV 11/07/16 10:00 (Tylenol) 325 mg Q4H PRN PO 11/07/16 11:45 (Aspirin Chew) 81 mg DAILY CHEW 11/08/16 09:00 11/11/16 09:42 (Sodium Bicarbonate) 1,300 mg TID PO 11/09/16 13:00 11/11/16 09:43 (Coreg) 12.5 mg Q12HR PO 11/10/16 09:00 Future hold 11/11/16 09:42 (Lasix) 40 mg DAILY PO 11/11/16 09:00 11/11/16 09:00 (Plavix) 75 mg DAILY PO 11/12/16 09:00 Vital Signs / I&O Vital Signs Date Time Temp Pulse Resp B/P (MAP) Pulse Ox O2 Delivery O2 Flow Rate FiO2 11/11/16 12:19 85 11/11/16 11:29 98.7 90 18 146/86 (106) 98 11/11/16 11:00 90 11/11/16 10:00 92 11/11/16 09:00 87 11/11/16 08:00 86 11/11/16 07:46 97.9 87 18 122/82 (95) 96 11/11/16 07:00 88 11/11/16 06:00 92 11/11/16 05:00 82 11/11/16 04:00 80 11/11/16 03:15 85 20 138/82 (100) 95 11/11/16 03:00 84 11/11/16 02:00 84 11/11/16 01:00 88 11/11/16 00:00 96 11/10/16 23:00 94 11/10/16 23:00 97.9 94 20 148/92 (110) 94 11/10/16 22:00 96 11/10/16 21:00 104 11/10/16 20:00 104 11/10/16 19:15 97.4 103 20 170/94 (119) 96 11/10/16 19:00 94 11/10/16 18:03 96 11/10/16 17:00 96 11/10/16 16:13 95 11/10/16 15:25 92 11/10/16 15:16 98.2 93 20 144/82 (102) 96 11/10/16 14:02 81 11/10/16 13:00 91 I/O 11/10/16 11/10/16 11/10/16 11/11/16 11/11/16 11/11/16 07:00 15:00 23:00 07:00 15:00 23:00 Intake Total 720 ml 480 ml 240 ml Output Total 1045 ml 1000 ml 575 ml Balance -325 ml -520 ml -335 ml Intake Oral 720 ml 480 ml 240 ml Output Urine Total 1045 ml 1000 ml 575 ml Physical Exam GENERAL: NAD, AAOx3 SKIN: Warm and dry. HEAD: Atraumatic. Normocephalic. EYES: Pupils equal and round. No scleral icterus. No injection or drainage. ENT: No nasal bleeding or discharge. Mucous membranes pink and moist. NECK: Trachea midline. No JVD. CARDIOVASCULAR: Regular rate and rhythm. RESPIRATORY: No accessory muscle use. Decreased breath sounds bilateral bases GASTROINTESTINAL: Abdomen soft, non-tender, nondistended. Hepatic and splenic margins not palpable. MUSCULOSKELETAL: Extremities without clubbing, cyanosis, or edema. No obvious deformities. NEUROLOGICAL: Awake and alert. No obvious cranial nerve deficits. Motor grossly within normal limits. Five out of 5 muscle strength in the arms and legs. Normal speech. PSYCHIATRIC: Appropriate mood and affect; insight and judgment normal. Laboratory Laboratory Tests Test 11/11/16 05:59 White Blood Count 8.6 TH/MM3 Red Blood Count 2.94 MIL/MM3 Hemoglobin 8.9 GM/DL Hematocrit 26.7 % Mean Corpuscular Volume 90.7 FL Mean Corpuscular Hemoglobin 30.2 PG Mean Corpuscular Hemoglobin Concent 33.3 % Red Cell Distribution Width 13.8 % Platelet Count 190 TH/MM3 Mean Platelet Volume 9.1 FL Blood Urea Nitrogen 53 MG/DL Creatinine 5.74 MG/DL Random Glucose 114 MG/DL Albumin 2.4 GM/DL Calcium Level 8.4 MG/DL Phosphorus Level 3.7 MG/DL Sodium Level 141 MEQ/L Potassium Level 4.2 MEQ/L Chloride Level 115 MEQ/L Carbon Dioxide Level 16.3 MEQ/L Anion Gap 10 MEQ/L Estimat Glomerular Filtration Rate 10 ML/MIN Assessment and Plan Problem List: (1) NSTEMI (non-ST elevated myocardial infarction) ICD Codes: I21.4 - Non-ST elevation (NSTEMI) myocardial infarction Status: Acute (2) Chronic kidney disease, stage 5 ICD Codes: N18.5 - Chronic kidney disease, stage 5 (3) CHF (congestive heart failure), NYHA class II ICD Codes: I50.9 - Heart failure, unspecified (4) Hypertension ICD Codes: I10 - Hypertension Status: Chronic (5) Hyperlipidemia ICD Codes: E78.5 - Hyperlipidemia, unspecified (6) Diabetes ICD Codes: E11.9 - Type 2 diabetes mellitus without complications (7) CAD (coronary artery disease) ICD Codes: I25.10 - CAD (coronary artery disease) Status: Chronic Assessment and Plan 1) DESx2 to the RCA due to cardiogenic shock/unstable angina during catheterization Con't ASA Change to Plavix 2) Residual CAD Does not want CABG Discussed PCI of LAD Most likely would need CSI and stenting of the proximal LAD as well as probably laser atherectomy and cutting balloon of in-stent restenosis Patient and son want to try to treat medically as best they can 3) SOB Reevaluated, doing well, no complaints 4) CKD 5 5) EF 20-25% ARB 6) Second degree type 2 AV block Evaluated by EP, does not want further work up, understands the risks Brilinta can cause some AV block in case studies, usually more likely pauses , will plan to change to Plavix Probably should have sleep apnea evaluation 7) No further work up necessary Understands risk of not having EP study, patient wants to be discharged today , no further monitoring from a cardiovascular standpoint necessary If he changes his mind, or has change in symptoms will call Dr. Dennis for reevaluation Vickey Ott DO Nov 11, 2016 12:39
[2016-11-11] MEDS ORDERED: FURO40TA PO (13:53)
[2016-11-11] MEDS ORDERED: PLAV75TA29 PO (13:53)
--- NOTE | 2016-11-11 14:00 | HHI.DS ---
Discharge Summary Admission Date Nov 05, 2016 at 3:09 pm Discharge Date: Nov 11, 2016 Admitting Diagnosis NSTEMI, ESRD (1) NSTEMI (non-ST elevated myocardial infarction) ICD Code: I21.4 - Non-ST elevation (NSTEMI) myocardial infarction Diagnosis: Principal Status: Acute (2) CAD (coronary artery disease) ICD Code: I25.10 - CAD (coronary artery disease) Status: Chronic (3) Hypertension ICD Code: I10 - Hypertension Status: Chronic (4) Chronic kidney disease ICD Code: N18.9 - Chronic kidney disease Status: Acute (5) Diabetes ICD Code: E11.9 - Type 2 diabetes mellitus without complications (6) Hyperlipidemia ICD Code: E78.5 - Hyperlipidemia, unspecified (7) Hypothyroidism ICD Code: E03.9 - Hypothyroidism, unspecified (8) CHF (congestive heart failure), NYHA class II ICD Code: I50.9 - Heart failure, unspecified (9) Iron (Fe) deficiency anemia ICD Code: D50.9 - Iron deficiency anemia, unspecified (10) Second degree AV block ICD Code: I44.1 - Atrioventricular block, second degree Diagnosis: Principal (11) Multi-vessel coronary artery stenosis ICD Code: I25.10 - Atherosclerotic heart disease of quechan coronary artery without angina pectoris Diagnosis: Principal Procedures Echo 11/06/2016 The left ventricular systolic function is severely reduced with an estimated ejection fraction in the range of 20-25%. Anterior wall hypokinesis. Wall thickness is measured at the upper limits of normal. Normal left ventricular size. Mild mitral valve regurgitation. 11/07/2016 1. N-STEMI. 2. Multivessel coronary artery disease as above. 3. Cardiogenic shock, most likely due to prolonged ischemia during decision making for possible cardiac catheterization. 4. Status post Resolute rishi drug-eluting stent x2 (2.75 x 12 proximal, 3 x 18 mid) three right coronary artery. Brief History - From Admission This is a 81yo male past medical history significant for coronary artery disease status post previous OK with history of cardiac stent implants WITH A HISTORY OF STENT THROMBOSIS WITH IN STENT RETHROMBOSIS approximately 3 years ago with the in-stent stenosis treated 1 year ago, hypertension, CKD stage IV, ESRD not yet on HD, DM, dyslipidemia, anemia, hypothyroidism, GERD and history of GI bleed who presents to [facility] ED with complaints of chest pain. Patient was admitted Parth night AT [facility] with complaints of chest pain and was found to have elevated troponin 0.741. Patient was seen in consultation by his yard attendant Dr. Joanne Stout as well as by his metrology manager Dr. Lou. Patient and his family wanted treatment here in our facility and so decided to leave [facility] and presented to our ED. Troponin now elevated at 3.27 and CK-MB is 14.5. He continues to have complaints of chest discomfort at this time. He states he received 3 sublingual nitroglycerin while he was over at [facility] earlier today and was started on nitroglycerin paste in our ED. Patient denies any other complaints at this time. Patient states that he takes aspirin only as anticoagulation. CBC/BMP: 11/11/16 0559 11/11/16 0559 Significant Findings Laboratory Tests Test 11/09/16 06:15 11/10/16 07:43 11/11/16 05:59 Blood Urea Nitrogen 53 MG/DL (7-18) 51 MG/DL (7-18) 53 MG/DL (7-18) Creatinine 5.40 MG/DL (0.60-1.30) 5.33 MG/DL (0.60-1.30) 5.74 MG/DL (0.60-1.30) Random Glucose 150 MG/DL (74-106) 112 MG/DL (74-106) 114 MG/DL (74-106) Albumin 2.8 GM/DL (3.4-5.0) 2.5 GM/DL (3.4-5.0) 2.4 GM/DL (3.4-5.0) Chloride Level 111 MEQ/L (98-107) 112 MEQ/L (98-107) 115 MEQ/L (98-107) Carbon Dioxide Level 13.7 MEQ/L (21.0-32.0) 15.2 MEQ/L (21.0-32.0) 16.3 MEQ/L (21.0-32.0) Estimat Glomerular Filtration Rate 10 ML/MIN (>89) 10 ML/MIN (>89) 10 ML/MIN (>89) Red Blood Count 2.94 MIL/MM3 (4.50-5.90) Hemoglobin 8.9 GM/DL (13.0-17.0) Hematocrit 26.7 % (39.0-51.0) Calcium Level 8.4 MG/DL (8.5-10.1) Imaging Last Impressions Lower Extremity Ultrasound 11/07/16 0000 Signed Impressions: Service Date/Time: Monday, November 07, 2016 17:18 - CONCLUSION: Saphenous vein measurements as above. Rizwan Kline MD Carotid Artery Ultrasound 11/07/16 0000 Signed Impressions: Service Date/Time: Monday, November 07, 2016 16:47 - CONCLUSION: 1. 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 Rizwan Kline MD Chest X-Ray 11/05/16 1813 Signed Impressions: Service Date/Time: Saturday, November 05, 2016 20:49 - CONCLUSION: 1. No acute focal pulmonary infiltrate or pulmonary vascular congestion. 2. Mild cardiomegaly. 3. Degenerative changes and scoliosis of the thoracic spine. Rizwan Kline MD PE at Discharge GENERAL: Alert, Oriented x 3, NAD. SKIN: Warm and dry. HEAD: Normocephalic. EYES: No scleral icterus. No injection or drainage. NECK: Supple, trachea midline. No JVD or lymphadenopathy. CARDIOVASCULAR: Regular rate and rhythm without murmurs, gallops, or rubs. RESPIRATORY: Breath sounds equal bilaterally. No accessory muscle use. GASTROINTESTINAL: Abdomen soft, non-tender, nondistended. MUSCULOSKELETAL: No cyanosis, or edema. BACK: Nontender without obvious deformity. No CVA tenderness. Pt update on day of discharge Patient is doing well. No chest pain, shortness of breath, fever, chills. He wants to go home. He has been evaluated by both Media Arts Professor Dr. Ott and Dr. Dennis (EP). Patient does not want to undergo any further procedure. Since there is nothing else to offer, patient is being discharged home with medical management at this point. Hospital Course Mr. Garcia is a pleasant 81 year old male with a history of CAD, CKD, DM, HTN who presented to the ED on 11/05/2016 with chest pain. He was initially evaluated at an outside facility for chest pain on 11/03/2016. Media Arts Professor recommended cardiac cath. Due to family's choice, he left the outside hospital against medical advice and came to [facility]. His troponin on Thursday was 0.7. After he came to [place], he was evaluated by Dr. Ott ( Cardiology) who recommended cardiac cath as well. Due to patient's advance stage CKD, Dr. Ott discussed with Nephrology. Patient's troponin elevated in the range of 5 to 6 and patient continued to have chest discomfort. After discussing with Nephrology, Dr. Ott offered cardiac cath. Although initially family members declined cardiac catheter. However eventually they agreed with cardiac catheterization. Patient underwent cardiac catheter on 11/07. During cardiac cath, cardiology found multivessel disease for which CABG is superior to non-surgical therapy. Patient went into cardiogenic shock during procedure and thus, patient underwent two GLEN placement emergently. Subsequently cardiothoracic surgery was consulted who also recommended CABG. However, patient and family decided against any surgical intervention. Patient was then started on Ticagrelor, low dose aspirin along with beta mike, ARB, Imdur. On two different days, while sleeping, patient's telemetry showed 2nd degree AV block with several second (4 and 7 s) pause. Patient was asymptomatic. Interventional cardiology consulted EP (Dr. Dennis). Dr. Dennis recommended EP study. Patient again declined to undergo any further work up. Given patient's pause, we switched Ticagrelor to Plavix as there has been case reports of Ticagrelor causing AV blocks. Second episode of pause occurred after Ticagrelor was discontinued. In the background of 2nd degree AV block with pause , EP Dr. Dennis recommended against using any AV sugey mike such as beta mike. I discussed with patient extensively regarding this topic. RN has also explained rationale behind stopping beta mike at length. In summary, patient came in with NSTEMI, chest pain after being evaluated at an outside hospital where he left AMA. Patient was evaluated by cardiology, nephrology, cardiothoracic surgery, EP and hospitalist. Despite our attempts to persuade patient regarding CABG and later on further cardiac cath to address LAD coronary artery disease and also EP study to address high degree AV block, pause, patient and family remained firm with their decision not to undergo any surgical or any other invasive procedure. This obviously places patient at a very high risk for further ischemic heart disease, dysrhythmia potentially causing loss of life. Patient understands these risks. 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 - Cardiac cath on 11/07/2016 ==> multivessel disease, emergent GLEN were placed to the RCA due to cardiogenic shock. - CT surgery evaluated patient. Patient/family declines surgery at this point. - Continue aspirin 81 mg, Plavix 75mg Qday, losartan 100 mg, isosorbide mononitrate 30 mg. - Patient's heart rate has been in the 80s and 90s. We'll increase carvedilol from 6.25-12.5 mg twice a day. - No Carvedilol due to 2nd degree AV block, pause. - Discontinue fludrocortisone. - CKD stage 5 - Creatinine is 5.40 with eGFR 10. - Nephrology following. Patient will likely need dialysis fairly soon. - Currently on Bicarb. - Diabetes mellitus type 2 - Hemoglobin A1c 8.6. - Currently blood glucose is within goal range of 140-180. - Will continue sliding scale insulin - Hypertension - Continue Amlodipine 5mg Qday. - Titrate carvedilol up before increasing amlodipine. - Iron deficiency anemia - Continue Ferrous sulfate 325mg BIDPC. Pt Condition on Discharge: Good Discharge Disposition: Discharge Home Discharge Time: > 30 minutes Discharge Instructions DIET: Follow Instructions for: Heart Healthy Diet Activities you can perform: Regular-No Restrictions Follow up Referrals: Cardiology - 2 Weeks Nephrology - 1 Week with Rolan Lou MD PCP Follow-up - 1 Week New Medications: Amlodipine (Norvasc) 5 Mg Tab 5 MG PO DAILY for Blood Pressure Management, #30 TAB Atorvastatin (Atorvastatin) 80 Mg Tab 80 MG PO HS for Cholesterol Management, #90 TAB 3 Refills Clopidogrel (Plavix) 75 Mg Tab 75 MG PO DAILY for Blood Clot Prevention, #90 TAB 3 Refills Furosemide (Furosemide) 40 Mg Tab 40 MG PO DAILY for Heart, #30 TAB Sodium Bicarbonate (Sodium Bicarbonate) 650 Mg Tab 1300 MG PO TID for Renal, #90 TAB Continued Medications: Aspirin (Aspirin) 81 Mg Chew 81 MG CHEW DAILY, TAB 0 Refills Calcitriol (Calcitriol) 0.25 Mcg Cap 0.25 MCG PO DAILY for Calcium Supplement, #30 CAP 0 Refills Ferrous Sulfate (Iron) 325 Mg Cap 325 MG PO BIDPC for Nutritional Supplement, #60 TAB 0 Refills Isosorbide Mononitrate ER (Isosorbide Mononitrate ER) 30 Mg Nena 30 MG PO DAILY for Prevent Chest Pain, #30 TAB 0 Refills Losartan (Losartan) 100 Mg Tab 100 MG PO DAILY for Blood Pressure Management, #30 TAB 0 Refills Nitroglycerin SL (Nitroglycerin SL) 0.4 Mg Subl 0.4 MG SL DIRECTED PRN for CHEST PAIN, #100 TAB.SL 0 Refills ONE TABLET UNDER THE TONGUE NEEDED FOR CHEST PAIN, MAY REPEAT EVERY FIVE MINUTES FOR A TOTAL OF 3 DOSES OR CALL 911 IF NO RELIEF Omeprazole (Omeprazole) 40 Mg Cap 40 MG PO DAILY, #30 CAP 0 Refills Discontinued Medications: Biotin (Biotin) 5 Mg Cap 5 MG PO for Nutritional Supplement, #1 BOTTLE 0 Refills Fludrocortisone (Fludrocortisone) 0.1 Mg Tab 0.1 MG PO DAILY, #30 TAB 0 Refills Furosemide (Furosemide) 80 Mg Tab 80 MG PO BID, #60 TAB 0 Refills Ubiquinone (Ultra Coq10) 75 Mg Cap Rasheed Vega DO Nov 11, 2016 13:59
--- NOTE | 2016-11-11 14:06 | HHI.NPPN ---
Subjective History of Present Illness The patient is a 81 yo [place] male who presented to [facility] on 11/03 with complaints of chest pain and elevated troponin. According to records, he and his family refused treatment at [facility], so he signed out AMA and arrived in the ED here 11/05 with same complaints. He has been treated with NTG but still has discomfort. He has been stage 5 CKD for some time but has yet to be started on dialysis. There are potential plans for cardiac cath. He has a PMHx significant for CAD s/p NH, PTCA with restenosis of stents that had to be replaced a year ago and cardiomyopathy with EF of 20-25% in 2015. He also is hypertensive, diabetic, anemic, and has hx of GI bleeding. Admitting SCr 5.95 with eGFR of 9. According to regular escapement maker, Dr. Lou, his baseline SCr is 6. Interval History Patient had no verbal complaints and is anxious to go home. It is noted that he has refused CABG as well as EP study. Review of Systems Respiratory Lungs: SOB Objective Data Data Vital Signs Date Time Temp Pulse Resp B/P (MAP) Pulse Ox O2 Delivery O2 Flow Rate FiO2 11/11/16 12:19 85 11/11/16 11:29 98.7 90 18 146/86 (106) 98 11/11/16 11:00 90 11/11/16 10:00 92 11/11/16 09:00 87 11/11/16 08:00 86 11/11/16 07:46 97.9 87 18 122/82 (95) 96 11/11/16 07:00 88 11/11/16 06:00 92 11/11/16 05:00 82 11/11/16 04:00 80 11/11/16 03:15 85 20 138/82 (100) 95 11/11/16 03:00 84 11/11/16 02:00 84 11/11/16 01:00 88 11/11/16 00:00 96 11/10/16 23:00 94 11/10/16 23:00 97.9 94 20 148/92 (110) 94 11/10/16 22:00 96 11/10/16 21:00 104 11/10/16 20:00 104 11/10/16 19:15 97.4 103 20 170/94 (119) 96 11/10/16 19:00 94 11/10/16 18:03 96 11/10/16 17:00 96 11/10/16 16:13 95 11/10/16 15:25 92 11/10/16 15:16 98.2 93 20 144/82 (102) 96 11/10/16 14:02 81 -: 11/11/16 0559 11/11/16 0559 Physical Exam General Appearance: No Acute Distress, Comfortable Neck Neck Exam: Neck Supple, Trachea Midline Pulmonary Resp Exam: Clear Bilaterally, Breath Sounds Equal, Diminished Breath Sounds Cardiology CV Exam: Normal Sinus Rhythm, Irregular Gastrointestinal/Abdomen GI Exam: Soft, Non-Tender Integumentary Skin Exam: Clear, Warm Extremeties Extremities Exam: No Edema, Trace Edema (ankles.) Neurologic Neuro Exam: Alert, Awake, Oriented Psychiatric Psych Exam: Appropriate Responses Assessment/Plan Discussed Condition With: Patient, Spouse Problem List: (1) Chronic kidney disease, stage 5 ICD Codes: N18.5 - Chronic kidney disease, stage 5 Plan: Patient's creatinine level is 5.7 for today higher than yesterday but according to his regular escapement maker, his baseline SCr has been 6 for some time. He does not have any immediate plans for dialysis (i.e. not made plans for hemodialysis versus peritoneal dialysis), but does say that he realizes that he will require dialytic intervention in the near future if not during this admission. Ideally I would like the patient to stay another day to have his renal indices rechecked however the patient is against this. If he is discharged today recommended follow-up with his outpatient escapement maker within a week. I discussed the situation with Dr. Lou and the patient indicated he would like to speak to Dr. Lou prior to discharge and this was conveyed to Dr. Lou today by direct conversation including the patient's room number. Patient was advised of the importance of continuing sodium bicarbonate post discharge for management of his chronic metabolic acidosis. Given the severity of his cardiovascular disease and the patient's reluctance to have any recommended intervention performed I suspect his prognosis overall on dialysis would be guarded . The situation was also discussed with his stores despatch hand Dr. Ott who indicated the patient appeared to be fairly stable dialysis were initiated except for the fact that he would be uncertain as to whether not the patient could tolerate higher ultrafiltration rates. Continue bicarb at 1300mg TID. Florinef stopped by cardio. Resume Lasix 40mg po QD OK to be discharged today if cleared by other specialists given patient's indication that he would like to leave the hospital and not have follow-up laboratory studies in-house tomorrow despite being advised that there is potential for progressive worsening of his renal indices with its associated implications. His was by the bedside during the conversation with his permission. If discharge planning underway, he needs to have f/u with Dr. Lou (regular escapement maker) within 1-2 weeks who will resume his outpatient care and care thereafter. Medications should be adjusted for the patient's renal decline. Avoid gadolinium. (2) NSTEMI (non-ST elevated myocardial infarction) ICD Codes: I21.4 - Non-ST elevation (NSTEMI) myocardial infarction Status: Acute Plan: Management as per cardiology (3) Hypertension ICD Codes: I10 - Hypertension Status: Chronic Plan: Continue current regimen (4) Diabetes ICD Codes: E11.9 - Type 2 diabetes mellitus without complications Plan: Mgmt as per primary team (5) Metabolic acidosis ICD Codes: E87.2 - Metabolic acidosis Status: Chronic Plan: Secondary to CKD. Continue by mouth sodium bicarbonate post discharge. Sg Henley MD Nov 11, 2016 14:06
[2016-11-12] MEDS ORDERED: CLOPIDOGREL 75 MG TAB PO SCH (09:00)
--- NOTE | 2016-11-16 07:45 | PQ ---
Physician Query Response Document PATIENT: JOSUE GRIJALVA : 1935 ADMIT DATE: 11/05/2016 3:09 PM DISCH DATE: 11/11/2016 5:55 PM RESPONDING PROVIDER #: smith QUERY TEXT: CHF Acuity and Type Congestive Heart Failure is documented in the Medical Record. Please document the type and acuity (in cludes probable or suspected) Such as: Type: -- Systolic -- Diastolic -- Combined -- Other, please specify Acuity: -- Acute -- Chronic -- Acute on chronic -- Other, please specify Also please document the underlying cause of the CHF (includes probable or suspected) Your prompt response is appreciated, please do not hesistate to contact the CDI/Coding Hotline with a ny questions,comments,and/or concerns you may have at ext. [phone] The patient's Clinical Indicators include: PER PROGRESS NOTES, PATIENT HAS CHF Query created by: Dasia Presley on 11/12/2016 10:38 AM RESPONSE TEXT: Acute systolic congestive heart failure with LV ejection fraction 20-25%. Electronically signed by: Brandan Vega DO 11/16/2016 7:41 AM
== END 2016-11-11 17:55 | disposition home or self-care (01) | DRG 246 ==
LOC: NEPC 12:16 → NEDA 15:09 → HIME 17:34 → HCVR 11-07 11:48 → HCIN 11-08 15:36
PROVIDERS: ADMIT Hospitalist; ATTEND Hospitalist
PROC: 4A023N7 Measurement of Cardiac Sampling and Pressure, Left Heart, Percutaneous Approach (ICD-10-PCS; 2016-11-07)
PROC: B2111ZZ Fluoroscopy of Multiple Coronary Arteries using Low Osmolar Contrast (ICD-10-PCS; 2016-11-07)
PROC: B3101ZZ Fluoroscopy of Thoracic Aorta using Low Osmolar Contrast (ICD-10-PCS; 2016-11-07)
PROC: 027035Z Dilation of Coronary Artery, One Artery with Two Drug-eluting Intraluminal Devices, Percutaneous Approach (ICD-10-PCS; principal; 2016-11-07 08:30)
DX: I21.4 Non-ST elevation (NSTEMI) myocardial infarction (principal); R57.0 Cardiogenic shock; I50.21 Acute systolic (congestive) heart failure; E87.2 Acidosis; N18.5 Chronic kidney disease, stage 5; I44.1 Atrioventricular block, second degree; I13.2 Hypertensive heart and chronic kidney disease with heart failure and with stage 5 chronic kidney disease, or end stage renal disease; E11.22 Type 2 diabetes mellitus with diabetic chronic kidney disease; E78.5 Hyperlipidemia, unspecified; I25.5 Ischemic cardiomyopathy; D50.9 Iron deficiency anemia, unspecified; E03.9 Hypothyroidism, unspecified; I25.2 Old myocardial infarction; K21.9 Gastro-esophageal reflux disease without esophagitis; E66.01 Morbid (severe) obesity due to excess calories; Z68.35 Body mass index [BMI] 35.0-35.9, adult; I25.110 Atherosclerotic heart disease of native coronary artery with unstable angina pectoris; M54.9 Dorsalgia, unspecified; Z71.3 Dietary counseling and surveillance
CPT/HCPCS: 71020; 76937; 80048; 80053; 80061; 80069; 81001; 82306; 82550; 82552; 82948; 83036; 83735; 83970; 84100; 84439; 84443; 84484; 85002; 85025; 85027; 85610; 85730; 86850; 86900; 86901; 86920; 87641; 92928; 93005; 93306; 93454; 93567; 93880; 93970; 93998; 96365; 96375; C1725; C1769; C1874; C1887; C1893; J0360; J1644; J1815; J1940; J2250; J2270; J3010; J3246; J7030; J7040; Q9967

== ENCOUNTER 2017-02-19 14:31 | Inpatient (IN) | payer OTHER, MEDICARE ==
[~2017-02-19] VITALS: Ht 167.6 cm; Wt 91.8 kg
[~2017-02-19 14:31] MED LIST changes: +AMLO5 PO; +ASPI-516 CHEW; -ASPI81TA11 PO; -ATOR10TA PO; +ATOR80TA45 PO; +CALC0.25 PO; -DIOV320T PO; +FERR325C PO; -FERR325T PO; -FLUD.1 PO; +FURO40TA PO; -FURO80 PO; -ISOS10 PO; +ISOS30TA3 PO; +LOSA100T PO; -METO50TA PO; +NITR1SUB3 SL; +OMEP40CA2 PO; -PLAV75TA PO; +PLAV75TA29 PO; +SODI650T PO; -TAMS.4 PO
[2017-02-19 14:34] VITALS: BP 182/75; PULSE 125; RESP 20; TEMP 99.3; O2SAT 90
--- NOTE | 2017-02-19 15:00 | PD ---
HPI Chief Complaint: Cold / Flu Symptoms Time Seen by Provider: 14:52 Travel History International Travel<30 days: No Contact w/Intl Traveler<30days: No Traveled to known affect area: No History of Present Illness HPI 81-year-old male patient with previous history of extensive cardiac issues, chronic kidney disease, presents to the ER today for 2 weeks' history of cough, nausea, vomiting, poor by mouth intake, cold symptoms, chills, fevers. He apparently is not getting better and getting worse compared to the rest of family who also has some similar symptoms last 2 weeks. He denies any abdominal pains, chest pains, or other issues. Modifying Factors: None Associated Signs & Symptoms: Cough, cold symptoms, chills, fevers, nausea, vomiting, poor by mouth intake Risk Factors: Sick contacts PFSH Past Medical History Hx Anticoagulant Therapy: Yes Blood Disorders: Yes (anemia) Anxiety: No Depression: No Cancer: No High Cholesterol: Yes Chest Pain: Yes Coronary Artery Disease: Yes Diabetes: Yes Endocrine: No Genitourinary: Yes Hypertension: Yes Immune Disorder: No Musculoskeletal: No Neurologic: No Psychiatric: No Reproductive: No Respiratory: No Renal Failure: Yes Past Surgical History Abdominal Surgery: No Cardiac Surgery: Yes Coronary Stent: Yes Ear Surgery: No Endocrine Surgery: No Eye Surgery: Yes (BL CAT SX) Genitourinary Surgery: No Gynecologic Surgery: No Oral Surgery: No Thoracic Surgery: No Other Surgery: Yes (colonoscopy) Social History Alcohol Use: No Tobacco Use: No Substance Use: No Allergies-Medications (Allergen,Severity, Reaction): Coded Allergies: No Known Allergies (Unverified , 07/28/14) Reported Meds & Prescriptions Reported Meds & Active Scripts Active Plavix (Clopidogrel Bisulfate) 75 Mg Tab 75 Mg PO DAILY Sodium Bicarbonate 650 Mg Tab 1,300 Mg PO TID Norvasc (Amlodipine Besylate) 5 Mg Tab 5 Mg PO DAILY Atorvastatin (Atorvastatin Calcium) 80 Mg Tab 80 Mg PO HS Reported Furosemide 20 Mg Tab 10 Mg PO DAILY Metoprolol Tartrate 25 Mg Tab 25 Mg PO HS Omeprazole 40 Mg Cap 40 Mg PO DAILY Losartan (Losartan Potassium) 100 Mg Tab 100 Mg PO DAILY Isosorbide Mononitrate ER (Isosorbide Mononitrate) 30 Mg Nena 30 Mg PO DAILY Review of Systems Except as stated in HPI: all other systems reviewed are Neg Physical Exam Narrative GENERAL: Well-developed elderly white male patient currently in moderate distress. Awake and oriented 3. SKIN: Focused skin assessment warm/dry. HEAD: Atraumatic. Normocephalic. EYES: Pupils equal and round. No scleral icterus. No injection or drainage. ENT: No nasal bleeding or discharge. Mucous membranes pink and moist. NECK: Trachea midline. No JVD. Supple. CARDIOVASCULAR: Regular rate and rhythm. No murmur appreciated. RESPIRATORY: No accessory muscle use. Mild intermittent wheezing. Breath sounds equal bilaterally. GASTROINTESTINAL: Abdomen soft, non-tender, nondistended. Hepatic and splenic margins not palpable. MUSCULOSKELETAL: No obvious deformities. No clubbing. No cyanosis. No edema. NEUROLOGICAL: Awake and lethargic. No obvious cranial nerve deficits. Motor grossly within normal limits. Normal speech. PSYCHIATRIC: Appropriate mood and affect; insight and judgment normal. Data Data Last Documented VS Vital Signs Date Time Temp Pulse Resp B/P (MAP) Pulse Ox O2 Delivery O2 Flow Rate FiO2 02/19/17 15:44 94 Nasal Cannula 3.00 02/19/17 15:19 (110) 02/19/17 15:01 135 02/19/17 14:34 99.3 20 Orders Orders Sepsis Workup Initiated (02/19/17 ) Complete Blood Count With Diff (02/19/17 14:52) Comprehensive Metabolic Panel (02/19/17 14:52) Lactic Acid Sepsis Protocol (02/19/17 14:52) Magnesium (Mg) (02/19/17 14:52) Ckmb (Isoenzyme) Profile (02/19/17 14:52) Troponin I (02/19/17 14:52) Urinalysis - C+S If Indicated (02/19/17 14:52) Influenzae A/B Antigen (02/19/17 14:52) Blood Culture (02/19/17 14:52) Chest, Single Ap (02/19/17 14:52) Arterial Blood Gas (Abg) (02/19/17 14:52) Blood Glucose (02/19/17 14:52) Ecg Monitoring (02/19/17 14:52) Iv Access Insert/Monitor (02/19/17 14:52) Oximetry (02/19/17 14:52) Oxygen Administration (02/19/17 14:52) B-Type Natriuretic Peptide (02/19/17 14:52) Ceftriaxone Inj (Rocephin Inj) (02/19/17 15:28) Azithromycin Inj (Zithromax Inj) (02/19/17 15:28) Furosemide Inj (Lasix Inj) (02/19/17 17:15) Urine Culture (02/19/17 16:20) Admit Order (Ed Use Only) (02/19/17 18:29) Labs Laboratory Tests Test 02/19/17 15:15 02/19/17 16:20 02/19/17 17:00 Blood Gas Puncture Site LT RADIAL Blood Gas Patient Temperature 98.6 Blood Gas HCO3 9 mmol/L Blood Gas Base Excess -16.6 mmol/L Blood Gas Oxygen Saturation 91 % Arterial Blood pH 7.27 Arterial Blood Partial Pressure CO2 20 mmHg Arterial Blood Partial Pressure O2 74 mmHG Arterial Blood Oxygen Content 12.5 Vol % Arterial Blood Carboxyhemoglobin 1.2 % Arterial Blood Methemoglobin 0.7 % Blood Gas Hemoglobin 9.6 G/DL Oxygen Delivery Device NASAL CANNULA Blood Gas Liter Flow 3 L/M Blood Urea Nitrogen 147 MG/DL Creatinine 9.56 MG/DL Random Glucose 185 MG/DL Total Protein 7.3 GM/DL Albumin 2.3 GM/DL Calcium Level 8.9 MG/DL Magnesium Level 2.3 MG/DL Alkaline Phosphatase 265 U/L Aspartate Amino Transf (AST/SGOT) 17 U/L Alanine Aminotransferase (ALT/SGPT) 38 U/L Total Bilirubin 0.7 MG/DL Sodium Level 133 MEQ/L Potassium Level 4.6 MEQ/L Chloride Level 103 MEQ/L Carbon Dioxide Level 11.4 MEQ/L Anion Gap 19 MEQ/L Estimat Glomerular Filtration Rate 5 ML/MIN Lactic Acid Level 1.5 mmol/L Total Creatine Kinase 38 U/L Troponin I 0.05 NG/ML B-Type Natriuretic Peptide 1287 PG/ML Urine Color YELLOW Urine Turbidity HAZY Urine pH 5.5 Urine Specific [place] 1.011 Urine Protein 100 mg/dL Urine Glucose (UA) 70 mg/dL Urine Ketones NEG mg/dL Urine Occult Blood TRACE Urine Nitrite NEG Urine Bilirubin NEG Urine Urobilinogen LESS THAN 2.0 MG/DL Urine Leukocyte Esterase NEG Urine RBC LESS THAN 1 /hpf Urine WBC 1 /hpf Urine Amorphous Sediment RARE Urine Bacteria RARE /hpf Urine Mucus FEW /lpf Microscopic Urinalysis Comment CATH-CULTURE IND White Blood Count 8.4 TH/MM3 Red Blood Count 3.26 MIL/MM3 Hemoglobin 10.0 GM/DL Hematocrit 29.7 % Mean Corpuscular Volume 91.1 FL Mean Corpuscular Hemoglobin 30.7 PG Mean Corpuscular Hemoglobin Concent 33.7 % Red Cell Distribution Width 14.6 % Platelet Count 349 TH/MM3 Mean Platelet Volume 9.0 FL Neutrophils (%) (Auto) 88.4 % Lymphocytes (%) (Auto) 1.6 % Monocytes (%) (Auto) 9.4 % Eosinophils (%) (Auto) 0.0 % Basophils (%) (Auto) 0.6 % Neutrophils # (Auto) 7.4 TH/MM3 Lymphocytes # (Auto) 0.1 TH/MM3 Monocytes # (Auto) 0.8 TH/MM3 Eosinophils # (Auto) 0.0 TH/MM3 Basophils # (Auto) 0.1 TH/MM3 CBC Comment DIFF FINAL Differential Comment MDM Medical Decision Making Medical Screen Exam Complete: Yes Emergency Medical Condition: Yes Medical Record Reviewed: Yes Interpretation(s) Last 24 hours Impressions Chest X-Ray 02/19/17 1452 Signed Impressions: Service Date/Time: February 15:01 - CONCLUSION: 1. Bilateral infiltrates in the lung bases new when compared to previous dated 11/05/16. Examination is concerning for pneumonia. Chandan Reese MD Laboratory Tests Test 02/19/17 15:15 02/19/17 16:20 02/19/17 17:00 Blood Gas HCO3 9 mmol/L (22-26) Blood Gas Base Excess -16.6 mmol/L (-2-2) Arterial Blood pH 7.27 (7.380-7.420) Arterial Blood Partial Pressure CO2 20 mmHg (38-42) Blood Gas Hemoglobin 9.6 G/DL (12.0-16.0) Blood Urea Nitrogen 147 MG/DL (7-18) Creatinine 9.56 MG/DL (0.60-1.30) Random Glucose 185 MG/DL (74-106) Albumin 2.3 GM/DL (3.4-5.0) Alkaline Phosphatase 265 U/L (45-117) Sodium Level 133 MEQ/L (136-145) Carbon Dioxide Level 11.4 MEQ/L (21.0-32.0) Anion Gap 19 MEQ/L (5-15) Estimat Glomerular Filtration Rate 5 ML/MIN (>89) Total Creatine Kinase 38 U/L (39-308) B-Type Natriuretic Peptide 1287 PG/ML (0-100) Urine Turbidity HAZY (CLEAR) Urine Protein 100 mg/dL (NEG-TRACE) Urine Glucose (UA) 70 mg/dL (NEG) Urine Occult Blood TRACE (NEG) Urine Bacteria RARE /hpf (NONE) Urine Mucus FEW /lpf (OCC) Red Blood Count 3.26 MIL/MM3 (4.50-5.90) Hemoglobin 10.0 GM/DL (13.0-17.0) Hematocrit 29.7 % (39.0-51.0) Neutrophils (%) (Auto) 88.4 % (16.0-70.0) Lymphocytes (%) (Auto) 1.6 % (9.0-44.0) Monocytes (%) (Auto) 9.4 % (0.0-8.0) Lymphocytes # (Auto) 0.1 TH/MM3 (1.0-4.8) Differential Diagnosis Coughing, fevers, chills, shortness of breath, nausea, vomiting, malaise, poor by mouth intake: Dehydration versus sepsis versus pneumonia versus viral syndrome versus influenza Narrative Course Chest x-ray concerning for bilateral pneumonia versus pulmonary edema. Influenza testing is negative. IV is factors were given after blood cultures were drawn. His BUN/creatinine creatinine is fairly elevated and BNP is fairly elevated, and a careful Lasix dose of 20 mg was given. At this point, my plan would be to admit the patient for further treatment. Case is discussed with Dr. Young for admission. Diagnosis Primary Impression: Acute CHF Additional Impressions: Chronic kidney disease Metabolic acidosis Pneumonia Admitting Information Admitting Physician Requests: Admit Barbie Pierce MD Feb 19, 2017 15:00
[2017-02-19] MEDS ORDERED: AZITHROMYCIN INJ 500 MG in SODIUM CHLOR 0.9% 250 ML INJ 250 ML IV STA (15:28)
[2017-02-19] MEDS ORDERED: cefTRIAXone INJ 2,000 MG in SODIUM CHLORIDE 0.9% INJ 100 ML IV STA (15:28)
[2017-02-19] MEDS ORDERED: METO25TA3 PO (15:37)
[2017-02-19] MEDS ORDERED: FURO20TA PO (15:37)
--- NOTE | 2017-02-19 15:38 | RADRPT ---
EXAM DATE/TIME: 02/19/2017 15:01 [facility] COMPARISON: CHEST PA & LAT, November 05, 2016, 20:49. INDICATIONS : Lower chest pain, dry heaves MEDICAL HISTORY : Myocardial infarction. SURGICAL HISTORY : Coronary artery stent. ENCOUNTER: Initial ACUITY: 2 weeks PAIN SCORE: 7/10 LOCATION: Bilateral chest FINDINGS: The heart is mildly enlarged. There are diffuse bibasilar infiltrates which are new when compared to previous study. Study could suggest a bibasilar pneumonia. There are minimal bilateral effusions. Visualized bony structures demonstrate degenerative changes but are otherwise intact. CONCLUSION: 1. Bilateral infiltrates in the lung bases new when compared to previous dated 11/05/16. Examination i s concerning for pneumonia. Chandan Reese MD on February 19, 2017 at 15:35 Board Certified Radiologist. This report was verified electronically.
[2017-02-19 15:44] VITALS: O2SAT 94
[2017-02-19 16:12] LABS: ALBUMIN 2.3 GM/DL (3.4-5.0); ALT (GPT) 38 U/L (12-78); AST (GOT) 17 U/L (15-37); BICARBONATE 11.4 MEQ/L (21.0-32.0); BLOOD UREA NITROGEN 147 MG/DL (7-18); CALCIUM 8.9 MG/DL (8.5-10.1); CHLORIDE 103 MEQ/L (98-107); CREATININE 9.56 MG/DL (0.60-1.30); GLOMERULAR FILTRATION RATE 5 ML/MIN (>89); GLUCOSE,RANDOM 185 MG/DL (74-106); MAGNESIUM 2.3 MG/DL (1.5-2.5); SODIUM (NA) 133 MEQ/L (136-145)
[2017-02-19 16:16] LABS: ALKALINE PHOSPHATASE 265 U/L (45-117); TOTAL BILIRUBIN ADULT 0.7 MG/DL (0.2-1.0); TOTAL PROTEIN 7.3 GM/DL (6.4-8.2); TROPONIN I 0.05 NG/ML (0.02-0.05)
[2017-02-19 17:09] LABS: AMORPHOUS SEDIMENT, URINE RARE; BACTERIA, URINE RARE /hpf; BILIRUBIN, URINE NEG (NEG); BLOOD, URINE TRACE (NEG); GLUCOSE,URINE 70 mg/dL (NEG); KETONE, URINE NEG (NEG); MUCUS URINE FEW /lpf (OCC); NITRITE,URINE NEG (NEG); PH, URINE 5.5 (5.0-8.5); URINE COLOR YELLOW (YELLW/STRAW); URINE LEUKOCYTE ESTERASE NEG (NEG)
[2017-02-19] MEDS ORDERED: FUROSEMIDE 20 MG/2 ML VIAL IV PUSH ONE (17:15)
[2017-02-19 17:57] LABS: AUTOMATED NEUTROPHIL # 7.4 TH/MM3 (1.8-7.7); BASOPHIL # 0.1 TH/MM3 (0-0.2); BASOPHIL % 0.6 % (0.0-2.0); HEMATOCRIT 29.7 % (39.0-51.0); LYMPH % 1.6 % (9.0-44.0); LYMPHOCYTE # 0.1 TH/MM3 (1.0-4.8); MEAN CELL VOLUME 91.1 FL (80.0-100.0); MEAN CORPUSCULAR HEMOGLOBIN 30.7 PG (27.0-34.0); MEAN CORPUSCULAR HGB CONC 33.7 % (32.0-36.0); MONO % 9.4 % (0.0-8.0); MONOCYTE # 0.8 TH/MM3 (0-0.9); NEUT % 88.4 % (16.0-70.0); PLATELET COUNT 349 TH/MM3 (150-450); RED BLOOD COUNT 3.26 MIL/MM3 (4.50-5.90); RED CELL DISTRIBUTION WIDTH 14.6 % (11.6-17.2); WHITE BLOOD COUNT 8.4 TH/MM3 (4.0-11.0)
[2017-02-19] MEDS ORDERED: LACTULOSE SYRUP 20 GM/30 ML CUP PO PRN (18:45)
[2017-02-19] MEDS ORDERED: oxyCODONE/ACETAMINOPHEN 5 MG/325 MG TAB PO PRN (18:45)
[2017-02-19] MEDS ORDERED: SODIUM CHLORIDE 0.9% FLUSH 10 ML FLUSH IV FLUSH PRN ×2 (18:45)
[2017-02-19] MEDS ORDERED: SENNOSIDES 8.6 MG TAB PO PRN (18:45)
[2017-02-19] MEDS ORDERED: NALOXONE HCL 0.4 MG/ML AMP IV PUSH PRN (18:45)
[2017-02-19] MEDS ORDERED: ACETAMINOPHEN 325 MG TAB PO PRN ×2 (18:45)
[2017-02-19] MEDS ORDERED: MORPHINE SULFATE 2 MG/ML INJ IV PUSH PRN ×2 (18:45)
[2017-02-19] MEDS ORDERED: ONDANSETRON HCL 4 MG/2 ML VIAL IVP PRN (18:45)
[2017-02-19] MEDS ORDERED: RESP: ALBUTEROL 2.5 MG/IPRATROPIUM 0.5 MG NEB (PRN) INH (18:45)
[2017-02-19] MEDS ORDERED: BISACODYL 10 MG SUPP RECTAL PRN (18:45)
[2017-02-19] MEDS ORDERED: MAGNESIUM HYDROXIDE SUSP 30 ML CUP PO PRN (18:45)
[2017-02-19] MEDS ORDERED: ZOLPIDEM TARTRATE 5 MG TAB PO PRN (18:45)
[2017-02-19 19:23] VITALS: BP 115/79; PULSE 106; RESP 24; TEMP 98; O2SAT 95
[2017-02-19] MEDS ORDERED: methylPREDNISolone SOD SUCC 40 MG/1 ML VIAL IV PUSH SCH (20:00)
[2017-02-19 20:40] VITALS: BP 155/98; PULSE 113; RESP 19; TEMP 97.6; O2SAT 93
[2017-02-19] MEDS ORDERED: SODIUM CHLORIDE 0.9% FLUSH 10 ML FLUSH IV FLUSH SCH (21:00)
[2017-02-19 21:30] VITALS: O2SAT 93
[2017-02-19] MEDS: RESP: ALBUTEROL 2.5 MG/IPRATROPIUM 0.5 MG NEB (SCH) INH (21:30)
[2017-02-19] MEDS: METOPROLOL TARTRATE 25 MG TAB PO SCH (22:35)
[2017-02-19] MEDS: DOCUSATE SODIUM 50 MG/SENNA 8.6 MG TAB PO SCH (22:35)
[2017-02-19] MEDS: SODIUM CHLORIDE 0.9% FLUSH 10 ML FLUSH IV FLUSH SCH (22:35)
[2017-02-19] MEDS: guaiFENesin E.R. 600 MG TAB PO SCH (22:35)
[2017-02-19] MEDS: ATORVASTATIN 80 MG TAB PO SCH (22:35)
[2017-02-19 23:00] VITALS: PULSE 103
--- NOTE | 2017-02-19 23:54 | HHI.HP ---
HPI [facility] Primary Care Physician Andrez Reyes DO Admission Diagnosis pneumonia/CHF/acute renal failure Diagnoses: Chief Complaint: cough,weakness,decreased oral intake Travel History International Travel<30 Days: No Contact w/Intl Traveler <30 Da: No Traveled to Known Affected Are: No Sepsis Criteria SIRS Criteria (2 or more): Heart rate over 90, RR > 20 or PaCO2 < 32 Sepsis Criteria (SIRS+source): Infect source susp/known Severe Sepsis (+one): Acute Oliguria/Renal Failure Criteria Outcome: Meets severe sepsis criteria History of Present Illness 81-year-old male with history of HTN, HLD, CAD s/p stents x4, CHF with EF 20-25% , CKD, anemia, presents with a two-week history of productive cough, congestion , chills, myalgias, and decreased oral intake. The patient reports 2-3 weeks ago his maid brought her child to his home who was sick with a URI. He states everybody in his family including him ended up getting sick with cough and congestion. His family improved however he has worsened over the past 2 weeks with an intractable cough productive of green sputum, nasal congestion, body aches, chills, and nausea with dry heaves. He denies noticing any fevers or sweats. He states he has not had an appetite due to the dry heaves; denies any episodes of vomiting. Over the past 48 hours he has had multiple episodes of nonbloody diarrhea, however this has improved since his arrival to the hospital. He has not been on antibiotics recently. He reports anterior pleuritic chest pains that he only notices with his cough. He denies any significant shortness of breath. He denies any abdominal pain or urinary complaints. He has no other medical complaints to report at this time. His cargo bracer is Dr. Lou in [place], [place]. He states they have discussed dialysis but made a decision to hold off on dialysis at this time per patient's request. He states he last had his labs checked around 1 month ago and he believes his Creatinine was 5.7 at the time. Review of Systems Except as stated in HPI: all other systems reviewed are Neg Past Family Social History Past Medical History HTN HLD CAD s/p stents x4 CKD anemia Past Surgical History Cardiac catheterizations with total 4 stents (2 placed 1-2months ago, 2 placed ~ 5years ago) Bilateral cataract removal Colonoscopy Reported Medications Plavix (Clopidogrel Bisulfate) 75 Mg Tab 75 Mg PO DAILY Sodium Bicarbonate 650 Mg Tab 1,300 Mg PO TID Norvasc (Amlodipine Besylate) 5 Mg Tab 5 Mg PO DAILY Atorvastatin (Atorvastatin Calcium) 80 Mg Tab 80 Mg PO HS Furosemide 20 Mg Tab 10 Mg PO DAILY Metoprolol Tartrate 25 Mg Tab 25 Mg PO HS Omeprazole 40 Mg Cap 40 Mg PO DAILY Losartan (Losartan Potassium) 100 Mg Tab 100 Mg PO DAILY Isosorbide Mononitrate ER (Isosorbide Mononitrate) 30 Mg Nena 30 Mg PO DAILY Allergies: Coded Allergies: No Known Allergies (Unverified , 07/28/14) Active Ordered Medications Current Medications Medications (Trade) Dose Ordered Sig/Armida Route Start Time Stop Time Status Last Admin (Norvasc) 5 mg DAILY PO 02/20/17 09:00 (Lipitor) 80 mg HS PO 02/19/17 21:00 02/19/17 22:35 (Plavix) 75 mg DAILY PO 02/20/17 09:00 (Imdur) 30 mg DAILY PO 02/20/17 09:00 (Lopressor) 25 mg HS PO 02/19/17 21:00 02/19/17 22:35 (Sodium Bicarbonate) 1,300 mg TID PO 02/20/17 09:00 (Protonix) 40 mg DAILY PO 02/20/17 09:00 (Tylenol) 650 mg Q4H PRN PO 02/19/17 18:45 (Zofran Inj) 4 mg Q6H PRN IVP 02/19/17 18:45 (Ambien) 5 mg HS PRN PO 02/19/17 18:45 (Tylenol) 650 mg Q6H PRN PO 02/19/17 18:45 (Percocet 5-325 Mg) 1 tab Q6H PRN PO 02/19/17 18:45 (Percocet 10-325 Mg) 1 tab Q6H PRN PO 02/19/17 18:45 (Morphine Inj) 2 mg Q3H PRN IV PUSH 02/19/17 18:45 (Morphine Inj) 4 mg Q3H PRN IV PUSH 02/19/17 18:45 (Narcan Inj) 0.4 mg UNSCH PRN IV PUSH 02/19/17 18:45 (Janene-Colace) 1 tab BID PO 02/19/17 21:00 02/19/17 22:35 (Milk Of Magnesia Liq) 30 ml Q12H PRN PO 02/19/17 18:45 (Senokot) 17.2 mg Q12H PRN PO 02/19/17 18:45 (Dulcolax Supp) 10 mg DAILY PRN RECTAL 02/19/17 18:45 (Lactulose Liq) 30 ml DAILY PRN PO 02/19/17 18:45 (NS Flush) 2 ml UNSCH PRN IV FLUSH 02/19/17 18:45 (NS Flush) 2 ml BID IV FLUSH 02/19/17 21:00 02/19/17 22:35 Ceftriaxone Sodium 1000 mg/ Sodium Chloride 100 ml @ 200 mls/hr Q24H IV 02/20/17 16:00 Azithromycin 500 mg/Sodium Chloride 250 ml @ 250 mls/hr Q24H IV 02/20/17 17:00 (Tamiflu) 75 mg DAILY PO 02/20/17 09:00 03/02/17 08:59 (Duoneb Neb) 1 ampule Q6HR NEB INH 02/19/17 22:00 02/19/17 21:30 (Duoneb Neb) 1 ampule Q4HR NEB PRN INH 02/19/17 18:45 (SoluMEDROL INJ) 40 mg Q12H IV PUSH 02/19/17 20:00 02/19/17 22:35 (Mucinex Er) 600 mg BID PO 02/19/17 21:00 02/19/17 22:35 Family History Mother with diabetes Father with heart disease Social History Denies any tobacco, alcohol, or illicit drug use. Lives at home with his . Physical Exam Vital Signs Vital Signs Date Time Temp Pulse Resp B/P (MAP) Pulse Ox O2 Delivery O2 Flow Rate FiO2 02/19/17 21:30 93 Nasal Cannula 3.00 02/19/17 20:40 97.6 113 19 155/98 (117) 93 02/19/17 19:23 98.0 106 24 115/79 (91) 95 Nasal Cannula 2.00 02/19/17 15:44 94 Nasal Cannula 3.00 02/19/17 15:19 94 Nasal Cannula 3.00 02/19/17 15:19 (110) Nasal Cannula 3.00 02/19/17 15:01 135 92 Room Air 02/19/17 14:34 99.3 125 20 182/75 (110) 90 Room Air Physical Exam GENERAL: Well-nourished, well-developed pleasant elderly male patient in NAD. SKIN: Warm and dry. No rash. HEAD: Normocephalic. Atraumatic. EYES: Pupils equal and round. No scleral icterus. No injection or drainage. ENT: No nasal bleeding or discharge. Mucous membranes slightly dry. NECK: Supple. Trachea midline. CARDIOVASCULAR: Tachycardic, regular rhythm. S1, S2 noted. No murmur appreciated. RESPIRATORY: No accessory muscle use. Upper airway congestion throughout, breath sounds diminished bilateral bases, with slight expiratory wheeze at right base. GASTROINTESTINAL: Abdomen soft, non-tender, nondistended. Normoactive bowel sounds x4. MUSCULOSKELETAL: No obvious deformities. Extremities without clubbing, cyanosis , or edema. NEUROLOGICAL: Awake and alert. No obvious cranial nerve deficits. Motor grossly within normal limits. Generalized weakness, moving all extremities spontaneously. Normal speech. PSYCHIATRIC: Appropriate mood and affect; insight and judgment normal. Laboratory Laboratory Tests Test 02/19/17 15:15 02/19/17 16:20 02/19/17 17:00 Blood Gas Puncture Site LT RADIAL Blood Gas Patient Temperature 98.6 Blood Gas HCO3 9 Blood Gas Base Excess -16.6 Blood Gas Oxygen Saturation 91 Arterial Blood pH 7.27 Arterial Blood Partial Pressure CO2 20 Arterial Blood Partial Pressure O2 74 Arterial Blood Oxygen Content 12.5 Arterial Blood Carboxyhemoglobin 1.2 Arterial Blood Methemoglobin 0.7 Blood Gas Hemoglobin 9.6 Oxygen Delivery Device NASAL CANNULA Blood Gas Liter Flow 3 Blood Urea Nitrogen 147 Creatinine 9.56 Random Glucose 185 Total Protein 7.3 Albumin 2.3 Calcium Level 8.9 Magnesium Level 2.3 Alkaline Phosphatase 265 Aspartate Amino Transf (AST/SGOT) 17 Alanine Aminotransferase (ALT/SGPT) 38 Total Bilirubin 0.7 Sodium Level 133 Potassium Level 4.6 Chloride Level 103 Carbon Dioxide Level 11.4 Anion Gap 19 Estimat Glomerular Filtration Rate 5 Lactic Acid Level 1.5 Total Creatine Kinase 38 Troponin I 0.05 B-Type Natriuretic Peptide 1287 Urine Color YELLOW Urine Turbidity HAZY Urine pH 5.5 Urine Specific [place] 1.011 Urine Protein 100 Urine Glucose (UA) 70 Urine Ketones NEG Urine Occult Blood TRACE Urine Nitrite NEG Urine Bilirubin NEG Urine Urobilinogen LESS THAN 2.0 Urine Leukocyte Esterase NEG Urine RBC LESS THAN 1 Urine WBC 1 Urine Amorphous Sediment RARE Urine Bacteria RARE Urine Mucus FEW Microscopic Urinalysis Comment CATH-CULTURE IND White Blood Count 8.4 Red Blood Count 3.26 Hemoglobin 10.0 Hematocrit 29.7 Mean Corpuscular Volume 91.1 Mean Corpuscular Hemoglobin 30.7 Mean Corpuscular Hemoglobin Concent 33.7 Red Cell Distribution Width 14.6 Platelet Count 349 Mean Platelet Volume 9.0 Neutrophils (%) (Auto) 88.4 Lymphocytes (%) (Auto) 1.6 Monocytes (%) (Auto) 9.4 Eosinophils (%) (Auto) 0.0 Basophils (%) (Auto) 0.6 Neutrophils # (Auto) 7.4 Lymphocytes # (Auto) 0.1 Monocytes # (Auto) 0.8 Eosinophils # (Auto) 0.0 Basophils # (Auto) 0.1 CBC Comment DIFF FINAL Differential Comment Date/Time Source Procedure Growth Status 02/19/17 15:15 Blood Peripheral Aerobic Blood Culture Pending Received 02/19/17 15:15 Blood Peripheral Anaerobic Blood Culture Pending Received 02/19/17 15:15 Nasal Washing Influenza Types A,B Antigen (HAIR) - Final Complete 02/19/17 16:20 Urine Catheterized Urine Urine Culture Pending Received Result Diagram: 02/19/17 1700 02/19/17 1515 Imaging Last Impressions Chest X-Ray 02/19/17 1452 Signed Impressions: Service Date/Time: February 15:01 - CONCLUSION: 1. Bilateral infiltrates in the lung bases new when compared to previous dated 11/05/16. Examination is concerning for pneumonia. MD Tere Diazi VTE Risk Assessment Terei VTE Risk Assessment: Mod/High Risk (score >= 2) Caprini Risk Assessment Model Point Value = 1 Point Value = 2 Point Value = 3 Point Value = 5 Age 41-60 Minor surgery BMI > 25 kg/m2 Swollen legs Varicose veins or History of unexplained or recurrent spontaneous Oral contraceptives or hormone replacement Sepsis (< 1 month) Serious lung disease, including pneumonia (< 1 month) Abnormal pulmonary function Acute myocardial infarction Congestive heart failure (< 1 month) History of inflammatory bowel disease Medical patient at bed rest Age 61-74 Arthroscopic surgery Major open surgery (> 45 min) Laparoscopic surgery (> 45 min) Malignancy Confined to bed (> 72 hours) Immobilizing plaster cast Central venous access Age >= 75 History of VTE Family history of VTE Factor V Leiden Prothrombin [id number] Lupus anticoagulant Anticardiolipin antibodies Elevated serum homocysteine Heparin-induced thrombocytopenia Other congenital or acquired thrombophilia Stroke (< 1 month) Elective arthroplasty Hip, pelvis, or leg fracture Acute spinal cord injury (< 1 month) Prophylaxis Regimen Total Risk Factor Score Risk Level Prophylaxis Regimen 0-1 Low Early ambulation 2 Moderate Order ONE of the following: *Sequential Compression Device (SCD) *Heparin 5000 units SQ BID 3-4 Higher Order ONE of the following medications: *Heparin 5000 units SQ TID *Enoxaparin/Lovenox 40 mg SQ daily (WT < 150 kg, CrCl > 30 mL/min) *Enoxaparin/Lovenox 30 mg SQ daily (WT < 150 kg, CrCl > 10-29 mL/min) *Enoxaparin/Lovenox 30 mg SQ BID (WT < 150 kg, CrCl > 30 mL/min) AND/OR *Sequential Compression Device (SCD) 5 or more Highest Order ONE of the following medications: *Heparin 5000 units SQ TID (Preferred with Epidurals) *Enoxaparin/Lovenox 40 mg SQ daily (WT < 150 kg, CrCl > 30 mL/min) *Enoxaparin/Lovenox 30 mg SQ daily (WT < 150 kg, CrCl > 10-29 mL/min) *Enoxaparin/Lovenox 30 mg SQ BID (WT < 150 kg, CrCl > 30 mL/min) AND *Sequential Compression Device (SCD) Assessment and Plan Problem List: (1) Pneumonia ICD Code: J18.9 - Pneumonia, unspecified organism Status: Acute (2) Severe sepsis ICD Code: A41.9 - Sepsis, unspecified organism; R65.20 - Severe sepsis without septic shock (3) Acute renal failure ICD Code: N17.9 - Acute kidney failure, unspecified Assessment and Plan 81-year-old male with history of HTN, HLD, CAD s/p stents x4, CHF with EF 20-25% , CKD, anemia, presents with a two-week history of productive cough, congestion , chills, myalgias, and decreased oral intake. Severe Sepsis with Community Acquired Pneumonia: patient meets severe sepsis criteria with tachypnea RR 24, tachycardia HR 135, acute renal failure Cr 9.56, and suspected source-pneumonia. Afebrile, no leukocytosis, lactic acid 1.5. Influenza negative. -CXR images reviewed, shows bilateral infiltrate in the lung bases new compared to previous CXR in -S/p IV Solumedrol 40mg x1, will hold off on further steroids as patient with minimal wheeze on exam, reassess need for steroids in am -S/p IV Lasix 20mg x1 in ED with BNP 1287, however patient appears very dry on exam and with ARF, will hold off on further diuresis at this time -Started antibiotics with IV Rocephin and IV Azithromycin -Continue bronchodilators with duonebs q6h -Incentive spirometry -Mucinex bid -O2 as needed, patient does not wear oxygen at home, will need to wean prior to discharge -Monitor for improvement 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 Suspect secondary to dehydration, poor oral intake, diarrhea. S/p IV lasix in ED with elevated BNP. -hold patient's losartan -will continue to monitor renal function, consider giving trial of IVF if no improvement -consult nephrology for further recommendations Systolic CHF: EF 20-25% on echo 11/06/16. BNP elevated at 1287. No leg edema. CXR with pneumonia as above but no edema. Elevated BNP possibly secondary to renal failure. -s/p IV lasix 20mg x1, hold off on further diuresis tonight -reassess need for further diuresis in am -will repeat limited echocardiogram, consider cardiology consult for evaluation for AICD placement if no improvement of EF Hypertension/Hyperlipidemia/CAD: chronic, stable, no complaints of chest pain. Recent stenting in Oct 2016. Of note, cardiology recommended CABG during hospitalization however declined and opted for medical management. -continue patient's home meds including aspirin, plavix, statin, metoprolol, norvasc, and imdur -holding patient's losartan with acute renal failure as above -monitor BP, adjust antihypertensives as needed -monitor on telemetry Normocytic Anemia: chronic, Hgb 10.0, appears at baseline, no reports of bleeding -monitor CBC -outpatient f/up DVT Prophylaxis: heparin sq Discussed Condition With Patient, RN Physician Certification 2 Midnight Certification Type: Admission for Inpatient Services Order for Inpatient Services The services are ordered in accordance with Medicare regulations or non- Medicare payer requirements, as applicable. In the case of services not specified as inpatient-only, they are appropriately provided as inpatient services in accordance with the 2-midnight benchmark. Estimated LOS (days): 3 days is the estimated time the patient will need to remain in the hospital, assuming treatment plan goals are met and no additional complications. Post-Hospital Plan: Not yet determined Shaina Wheeler PA-C Feb 19, 2017 23:54
[2017-02-20] VITALS (7 sets, daily range): BP systolic 80–155; BP diastolic 50–96; PULSE 69–120; RESP 18–22; TEMP 97.4–98.8; O2SAT 92–95
[2017-02-20] MEDS: RESP: ALBUTEROL 2.5 MG/IPRATROPIUM 0.5 MG NEB (SCH) INH ×4 (04:41→21:40)
[2017-02-20] MEDS: amLODIPine BESYLATE 5 MG TAB PO SCH (08:17)
[2017-02-20] MEDS: SODIUM BICARBONATE 650 MG TAB PO SCH ×3 (08:17→17:27)
[2017-02-20] MEDS: ASPIRIN EC 81 MG TABEC PO SCH (08:17)
[2017-02-20] MEDS: PANTOPRAZOLE SOD 40 MG DELAYED RELEASE TAB PO SCH (08:17)
[2017-02-20] MEDS: guaiFENesin E.R. 600 MG TAB PO SCH ×2 (08:17→23:25)
[2017-02-20] MEDS: ISOSORBIDE MONONITRATE 30 MG TAB PO SCH (08:17)
[2017-02-20] MEDS: CLOPIDOGREL 75 MG TAB PO SCH (08:17)
[2017-02-20] MEDS: DOCUSATE SODIUM 50 MG/SENNA 8.6 MG TAB PO SCH ×2 (08:18→23:25)
[2017-02-20] MEDS: HEPARIN SODIUM - SQ 10,000 UNITS/ML VIAL SQ SCH ×2 (08:18→23:25)
[2017-02-20] MEDS: SODIUM CHLORIDE 0.9% FLUSH 10 ML FLUSH IV FLUSH SCH ×2 (08:18→23:25)
[2017-02-20] MEDS ORDERED: OSELTAMIVIR PHOSPHATE 75 MG CAP PO SCH (09:00)
--- NOTE | 2017-02-20 14:33 | PD.CONS ---
[facility] Service nephrology Consult Requested By Reason for Consult Acute on CKD Primary Care Physician Andrez Reyes, DO History of Present Illness This is a 81 y/o male patient who follows with Dr. Lou. He also has a history of HTN, HLD, CAD s/p stents x4, CHF with EF 20-25%, He has CKD 5, has not started dialysis as of yet. For the past 4 weeks he has been battling flu like illness, also having diarrhea; diagnosed with pneumonia this admission. On admission his creatinine was 9.59, BUN 124, anion gap 19, Co2 14. His creatinine has been running around 5.7 one month ago. He does not have dialysis access currently. He is not demonstrating fluid overload, his potassium is 4.6. We were consulted to assist with management. (Kellen Carlos) Review of Systems Constitutional: COMPLAINS OF: Fatigue, Change in appetite, DENIES: Weight gain Respiratory: COMPLAINS OF: Cough Cardiovascular: DENIES: Chest pain Gastrointestinal: DENIES: Abdominal pain (Kellen Carlos) Past Family Social History Allergies: Coded Allergies: No Known Allergies (Unverified , 07/28/14) Past Medical History CKD 5, creatinine 5.7 at baseline HTN HLD CAD s/p stents x4 anemia Past Surgical History Cardiac catheterizations with total 4 stents (2 placed 1-2months ago, 2 placed ~ 5years ago) Bilateral cataract removal Colonoscopy Reported Medications Plavix (Clopidogrel Bisulfate) 75 Mg Tab 75 Mg PO DAILY Sodium Bicarbonate 650 Mg Tab 1,300 Mg PO TID Norvasc (Amlodipine Besylate) 5 Mg Tab 5 Mg PO DAILY Atorvastatin Furosemide 20 Mg Tab 10 Mg PO DAILY Metoprolol Tartrate 25 Mg Tab 25 Mg PO HS Omeprazole 40 Mg Cap 40 Mg PO DAILY Losartan (Losartan Potassium) 100 Mg Tab 100 Mg PO DAILY Isosorbide Mononitrate ER (Isosorbide Mononitrate) 30 Mg Nena 30 Mg PO DAILY Active Ordered Medications Current Medications Medications (Trade) Dose Ordered Sig/Armida Route Start Time Stop Time Status Last Admin (Norvasc) 5 mg DAILY PO 02/20/17 09:00 02/20/17 08:17 (Lipitor) 80 mg HS PO 02/19/17 21:00 02/19/17 22:35 (Plavix) 75 mg DAILY PO 02/20/17 09:00 02/20/17 08:17 (Imdur) 30 mg DAILY PO 02/20/17 09:00 02/20/17 08:17 (Lopressor) 25 mg HS PO 02/19/17 21:00 02/19/17 22:35 (Sodium Bicarbonate) 1,300 mg TID PO 02/20/17 09:00 02/20/17 12:40 (Protonix) 40 mg DAILY PO 02/20/17 09:00 02/20/17 08:17 (Tylenol) 650 mg Q4H PRN PO 02/19/17 18:45 (Zofran Inj) 4 mg Q6H PRN IVP 02/19/17 18:45 (Ambien) 5 mg HS PRN PO 02/19/17 18:45 (Tylenol) 650 mg Q6H PRN PO 02/19/17 18:45 (Percocet 5-325 Mg) 1 tab Q6H PRN PO 02/19/17 18:45 (Percocet 10-325 Mg) 1 tab Q6H PRN PO 02/19/17 18:45 (Morphine Inj) 2 mg Q3H PRN IV PUSH 02/19/17 18:45 (Morphine Inj) 4 mg Q3H PRN IV PUSH 02/19/17 18:45 (Narcan Inj) 0.4 mg UNSCH PRN IV PUSH 02/19/17 18:45 (Janene-Colace) 1 tab BID PO 02/19/17 21:00 02/19/17 22:35 (Milk Of Magnesia Liq) 30 ml Q12H PRN PO 02/19/17 18:45 (Senokot) 17.2 mg Q12H PRN PO 02/19/17 18:45 (Dulcolax Supp) 10 mg DAILY PRN RECTAL 02/19/17 18:45 (Lactulose Liq) 30 ml DAILY PRN PO 02/19/17 18:45 (NS Flush) 2 ml UNSCH PRN IV FLUSH 02/19/17 18:45 (NS Flush) 2 ml BID IV FLUSH 02/19/17 21:00 02/20/17 08:18 Ceftriaxone Sodium 1000 mg/ Sodium Chloride 100 ml @ 200 mls/hr Q24H IV 02/20/17 16:00 Azithromycin 500 mg/Sodium Chloride 250 ml @ 250 mls/hr Q24H IV 02/20/17 17:00 (Duoneb Neb) 1 ampule Q6HR NEB INH 02/19/17 22:00 02/20/17 04:41 (Duoneb Neb) 1 ampule Q4HR NEB PRN INH 02/19/17 18:45 (Mucinex Er) 600 mg BID PO 02/19/17 21:00 02/20/17 08:17 (Heparin Inj) 5,000 units Q12HR SQ 02/20/17 09:00 02/20/17 08:18 (Ecotrin Ec) 81 mg DAILY PO 02/20/17 09:00 02/20/17 08:17 Family History Non contributory Social History Former smoker 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 [employer] Full code (Kellen Carlos) Physical Exam Vital Signs Vital Signs Date Time Temp Pulse Resp B/P (MAP) Pulse Ox O2 Delivery O2 Flow Rate FiO2 02/20/17 12:00 97.8 120 20 124/69 (87) 92 02/20/17 08:00 97.5 110 21 136/87 (103) 94 02/20/17 05:00 97.4 81 19 136/86 (103) 94 02/20/17 00:30 97.4 103 19 145/96 (112) 94 02/19/17 23:00 103 02/19/17 21:30 93 Nasal Cannula 3.00 02/19/17 20:40 97.6 113 19 155/98 (117) 93 02/19/17 19:23 98.0 106 24 115/79 (91) 95 Nasal Cannula 2.00 02/19/17 15:44 94 Nasal Cannula 3.00 02/19/17 15:19 94 Nasal Cannula 3.00 02/19/17 15:19 (110) Nasal Cannula 3.00 02/19/17 15:01 135 92 Room Air 02/19/17 14:34 99.3 125 20 182/75 (110) 90 Room Air Physical Exam Elderly male patient. Awake, alert oriented Lungs with trace bibasilar rales S1/S2, no murmurs No extremity edema Abdomen soft, non tender. Skin intact Laboratory Laboratory Tests Test 02/19/17 15:15 1/4/18 16:20 02/19/17 17:00 Blood Gas Puncture Site LT RADIAL Blood Gas Patient Temperature 98.6 Blood Gas HCO3 9 Blood Gas Base Excess -16.6 Blood Gas Oxygen Saturation 91 Arterial Blood pH 7.27 Arterial Blood Partial Pressure CO2 20 Arterial Blood Partial Pressure O2 74 Arterial Blood Oxygen Content 12.5 Arterial Blood Carboxyhemoglobin 1.2 Arterial Blood Methemoglobin 0.7 Blood Gas Hemoglobin 9.6 Oxygen Delivery Device NASAL CANNULA Blood Gas Liter Flow 3 Blood Urea Nitrogen 147 Creatinine 9.56 Random Glucose 185 Total Protein 7.3 Albumin 2.3 Calcium Level 8.9 Magnesium Level 2.3 Alkaline Phosphatase 265 Aspartate Amino Transf (AST/SGOT) 17 Alanine Aminotransferase (ALT/SGPT) 38 Total Bilirubin 0.7 Sodium Level 133 Potassium Level 4.6 Chloride Level 103 Carbon Dioxide Level 11.4 Anion Gap 19 Estimat Glomerular Filtration Rate 5 Lactic Acid Level 1.5 Total Creatine Kinase 38 Troponin I 0.05 B-Type Natriuretic Peptide 1287 Urine Color YELLOW Urine Turbidity HAZY Urine pH 5.5 Urine Specific Beatrice 1.011 Urine Protein 100 Urine Glucose (UA) 70 Urine Ketones NEG Urine Occult Blood TRACE Urine Nitrite NEG Urine Bilirubin NEG Urine Urobilinogen LESS THAN 2.0 Urine Leukocyte Esterase NEG Urine RBC LESS THAN 1 Urine WBC 1 Urine Amorphous Sediment RARE Urine Bacteria RARE Urine Mucus FEW Microscopic Urinalysis Comment CATH-CULTURE IND White Blood Count 8.4 Red Blood Count 3.26 Hemoglobin 10.0 Hematocrit 29.7 Mean Corpuscular Volume 91.1 Mean Corpuscular Hemoglobin 30.7 Mean Corpuscular Hemoglobin Concent 33.7 Red Cell Distribution Width 14.6 Platelet Count 349 Mean Platelet Volume 9.0 Neutrophils (%) (Auto) 88.4 Lymphocytes (%) (Auto) 1.6 Monocytes (%) (Auto) 9.4 Eosinophils (%) (Auto) 0.0 Basophils (%) (Auto) 0.6 Neutrophils # (Auto) 7.4 Lymphocytes # (Auto) 0.1 Monocytes # (Auto) 0.8 Eosinophils # (Auto) 0.0 Basophils # (Auto) 0.1 CBC Comment DIFF FINAL Differential Comment Date/Time Source Procedure Growth Status 02/19/17 15:15 Blood Peripheral Aerobic Blood Culture - Preliminary NO GROWTH IN 1 DAY Resulted 02/19/17 15:15 Blood Peripheral Anaerobic Blood Culture - Preliminary NO GROWTH IN 1 DAY Resulted 1/4/18 15:15 Nasal Washing Influenza Types A,B Antigen (HAIR) - Final Complete 02/19/17 16:20 Urine Catheterized Urine Urine Culture - Preliminary NO GROWTH IN 24 HOURS. Resulted (Kellen Carlos) Result Diagram: 02/19/17 1700 02/19/17 1515 Imaging Last 72 hours Impressions Chest X-Ray 02/19/17 1452 Signed Impressions: Service Date/Time: February 15:01 - CONCLUSION: 1. Bilateral infiltrates in the lung bases new when compared to previous dated 11/05/16. Examination is concerning for pneumonia. Chandan Reese MD (Kellen Carlos) Assessment and Plan Problem List: (1) Acute renal failure ICD Codes: N17.9 - Acute kidney failure, unspecified Plan: Acute on CKD 5, baseline creatinine is 5.7 Acute worsening may be due to intravascular volume depletion from diarrhea, acute illness, poor oral intake Obtain post void bladder scan, he makes some urine Potassium level is normal He would like to hold of on dialysis if possible ; he has a very high BUN and most likely would benefit from dialysis (most likely would choose HD if given the option) Avoid nephrotoxic agents. follow labs daily, monitor potassium level, check phosphorus level (2) Metabolic acidosis ICD Codes: E87.2 - Metabolic acidosis Status: Chronic Plan: Due to renal failure On oral sodium bicarbonate. Would improve with dialysis (3) Hypertension ICD Codes: I10 - Hypertension Status: Chronic Plan: Blood pressure is acceptable. (4) Pneumonia ICD Codes: J18.9 - Pneumonia, unspecified organism Status: Acute Plan: On Rocephin and Zithromax. Monitor clinically, on oxygen (Kellen Carlos) Assessment and Plan patient was seen and examined. Patient of Dr. Lou in [facility]. Renal function is poor , likely needs dialysis, he is reluctant to start now. Monitor renal function and urine output. At high risk for further decompensation. (Nithin Cleveland MD) Kellen Carlos Feb 20, 2017 14:33 Nithin Cleveland MD Feb 20, 2017 14:45
--- NOTE | 2017-02-20 14:33 | HHI.PR ---
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 The patient is in bed had echo done, says if he feels improved since yesterday, he is still short of breath and has some yellow greenish cough. No fever or chills. Able to eat no nausea or vomiting no diarrhea or constipation. Denies chest pain at this time says he has some comfort yesterday however none overnight. Objective Vitals Vital Signs Date Time Temp Pulse Resp B/P (MAP) Pulse Ox O2 Delivery O2 Flow Rate FiO2 02/20/17 12:00 97.8 120 20 124/69 (87) 92 02/20/17 08:00 97.5 110 21 136/87 (103) 94 02/20/17 05:00 97.4 81 19 136/86 (103) 94 02/20/17 00:30 97.4 103 19 145/96 (112) 94 02/19/17 23:00 103 02/19/17 21:30 93 Nasal Cannula 3.00 02/19/17 20:40 97.6 113 19 155/98 (117) 93 02/19/17 19:23 98.0 106 24 115/79 (91) 95 Nasal Cannula 2.00 02/19/17 15:44 94 Nasal Cannula 3.00 02/19/17 15:19 94 Nasal Cannula 3.00 02/19/17 15:19 (110) Nasal Cannula 3.00 02/19/17 15:01 135 92 Room Air 02/19/17 14:34 99.3 125 20 182/75 (110) 90 Room Air I/O 02/19/17 02/19/17 02/19/17 02/20/17 02/20/17 02/20/17 07:00 15:00 23:00 07:00 15:00 23:00 Intake Total 350 ml 240 ml Output Total 350 ml 350 ml Balance 350 ml -110 ml -350 ml Intake Oral 240 ml IV Total 350 ml Output Urine Total 350 ml 350 ml Result Diagram: 02/19/17 1700 02/19/17 1515 Imaging Last Impressions Chest X-Ray 02/19/17 1452 Signed Impressions: Service Date/Time: February 15:01 - CONCLUSION: 1. Bilateral infiltrates in the lung bases new when compared to previous dated 11/05/16. Examination is concerning for pneumonia. Chandan Reese MD Objective Remarks GENERAL: Well-nourished, well-developed pleasant elderly male patient in NAD CARDIOVASCULAR: Tachycardic, regular rhythm. S1, S2 noted. No murmur appreciated. RESPIRATORY: No accessory muscle use. Upper airway congestion throughout, breath sounds diminished bilateral bases, with slight expiratory wheeze at right base. GASTROINTESTINAL: Abdomen soft, non-tender, nondistended. Normoactive bowel sounds x4. MUSCULOSKELETAL: No obvious deformities. Extremities without clubbing, cyanosis , or edema. NEUROLOGICAL: Awake and alert. No obvious cranial nerve deficits. Motor grossly within normal limits. Generalized weakness, moving all extremities spontaneously. Normal speech. PSYCHIATRIC: Appropriate mood and affect; insight and judgment normal. A/P Problem List: (1) Pneumonia ICD Code: J18.9 - Pneumonia, unspecified organism Status: Acute (2) Severe sepsis ICD Code: A41.9 - Sepsis, unspecified organism; R65.20 - Severe sepsis without septic shock (3) Acute renal failure ICD Code: N17.9 - Acute kidney failure, unspecified Assessment and Plan 81-year-old male with history of HTN, HLD, CAD s/p stents x4, CHF with EF 20-25% , CKD, anemia, presents with a two-week history of productive cough, congestion , chills, myalgias, and decreased oral intake. Severe Sepsis with Community Acquired Pneumonia: patient meets severe sepsis criteria with tachypnea RR 24, tachycardia HR 135, acute renal failure Cr 9.56, and suspected source-pneumonia. Afebrile, no leukocytosis, lactic acid 1.5. Influenza negative. 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 Suspect secondary to dehydration, poor oral intake, diarrhea. S/p IV lasix in ED with elevated BNP. -hold patient's losartan -will continue to monitor renal function, consider giving trial of IVF if no improvement -consult nephrology for further recommendations Systolic CHF: EF 20-25% on echo 11/06/16. BNP elevated at 1287. No leg edema. CXR with pneumonia as above but no edema. Elevated BNP possibly secondary to renal failure. -s/p IV lasix 20mg x1, hold off on further diuresis tonight -reassess need for further diuresis in am -will repeat limited echocardiogram, consider cardiology consult for evaluation for AICD placement if no improvement of EF Hypertension/Hyperlipidemia/CAD: chronic, stable, no complaints of chest pain. Recent stenting in Oct 2016. Of note, cardiology recommended CABG during hospitalization however declined and opted for medical management. -continue patient's home meds including aspirin, plavix, statin, metoprolol, norvasc, and imdur -holding patient's losartan with acute renal failure as above -monitor BP, adjust antihypertensives as needed -monitor on telemetry Normocytic Anemia: chronic, Hgb 10.0, appears at baseline, no reports of bleeding -monitor CBC -outpatient f/up DVT Prophylaxis: heparin sq Discussed Condition With Patient, nurse DC plan: DC when improved Talia Pressley MD Feb 20, 2017 14:33
[2017-02-20] MEDS: cefTRIAXone INJ 1,000 MG in SODIUM CHLORIDE 0.9% INJ 100 ML IV SCH (15:21)
[2017-02-20] MEDS: AZITHROMYCIN INJ 500 MG in SODIUM CHLOR 0.9% 250 ML INJ 250 ML IV SCH (16:12)
--- NOTE | 2017-02-20 16:15 | ECHRPT ---
Indication: EF CHF CONCLUSIONS Mildly dilated left ventricle. Mild concentric left ventricular hypertrophy. The left ventricular systolic function is [id number] reduced with an estimated ejection fra ction in the range of 35-40%. The left atrial size is mildly dilated. Mitral annular calcification is present. Moderate mitral valve regurgitation. Moderate thickening of the mitral valve leaflets. Aortic valve sclerosis is present. BP: / HR: Rhythm: Atrial fibrillation MEASUREMENTS (Male / Female) Normal Values Technical Quality:Good 2D ECHO LV Diastolic Diameter PLAX 5.2 cm 4.2 - 5.9 / 3.9 - 5.3 cm LV Systolic Diameter PLAX 4.2 cm IVS Diastolic Thickness 1.4 cm 0.6 - 1.0 / 0.6 - 0.9 cm LVPW Diastolic Thickness 1.1 cm 0.6 - 1.0 / 0.6 - 0.9 cm LV Relative Wall Thickness 0.5 RV Internal Dim ED PLAX 2.1 cm LA Systolic Diameter LX 4.6 cm 3.0 - 4.0 / 2.7 - 3.8 cm DOPPLER MR Peak Velocity 457.0 cm/s MR Peak Gradient 83.5 mmHg Mitral E Point Velocity 146.0 cm/s TR Peak Velocity 250.0 cm/s TR Peak Gradient 25.0 mmHg FINDINGS LEFT VENTRICLE Mildly dilated left ventricle. Mild concentric left ventricular hypertrophy. The left ventricular systolic function is xbecxdnx-[id number]-[id number] reduced with an estimated ejection fra ction in the range of 35-40%. RIGHT VENTRICLE Normal right ventricular size and systolic function. LEFT ATRIUM The left atrial size is mildly dilated. RIGHT ATRIUM The right atrial size is normal. ATRIAL SEPTUM Normal atrial septal thickness without atrial level shunting by limited color doppler interrogation. AORTA The aortic root and proximal ascending aorta are normal in size on limited imaging. MITRAL VALVE Mitral annular calcification is present. Moderate mitral valve regurgitation. Moderate thickening of the mitral valve leaflets. AORTIC VALVE Aortic valve sclerosis is present. TRICUSPID VALVE Structurally normal tricuspid valve. No tricuspid valve stenosis or regurgitation. PULMONARY VALVE The pulmonary valve is not well visualized. VESSELS The inferior vena cava is normal in size. PERICARDIUM No pericardial effusion. Evangelist Baires MD (Electronically Signed) Final Date:20 February 2017 16:13
[2017-02-20] MEDS: SODIUM BICARBONATE 8.4% INJ 75 MEQ in SODIUM CHLOR 0.45% 1000 ML INJ 1,000 ML IV SCH (17:27)
[2017-02-20] MEDS: METOPROLOL TARTRATE 25 MG TAB PO SCH (23:25)
[2017-02-20] MEDS: ATORVASTATIN 80 MG TAB PO SCH (23:25)
[2017-02-21] VITALS (8 sets, daily range): BP systolic 124–153; BP diastolic 62–82; PULSE 62–136; RESP 18–20; TEMP 97.6–98.4; O2SAT 92–97
[2017-02-21] MEDS: RESP: ALBUTEROL 2.5 MG/IPRATROPIUM 0.5 MG NEB (SCH) INH ×4 (04:21→21:11)
[2017-02-21] MEDS: SODIUM CHLORIDE 0.9% FLUSH 10 ML FLUSH IV FLUSH SCH ×2 (09:00→22:50)
[2017-02-21] MEDS: SODIUM BICARBONATE 650 MG TAB PO SCH ×3 (09:53→17:16)
[2017-02-21] MEDS: ISOSORBIDE MONONITRATE 30 MG TAB PO SCH (09:53)
[2017-02-21] MEDS: guaiFENesin E.R. 600 MG TAB PO SCH ×2 (09:53→22:50)
[2017-02-21] MEDS: CLOPIDOGREL 75 MG TAB PO SCH (09:54)
[2017-02-21] MEDS: PANTOPRAZOLE SOD 40 MG DELAYED RELEASE TAB PO SCH (09:54)
[2017-02-21] MEDS: amLODIPine BESYLATE 5 MG TAB PO SCH (09:54)
[2017-02-21] MEDS: DOCUSATE SODIUM 50 MG/SENNA 8.6 MG TAB PO SCH ×2 (09:54→22:50)
[2017-02-21] MEDS: HEPARIN SODIUM - SQ 10,000 UNITS/ML VIAL SQ SCH ×2 (09:55→22:49)
[2017-02-21] MEDS: ASPIRIN EC 81 MG TABEC PO SCH (09:55)
--- NOTE | 2017-02-21 14:51 | HHI.PR ---
Subjective Remarks Follow up pneumonia, sepsis, renal failure. Patient reports chest congestion, phlegm. Cough is productive. Denies chest pain, nausea, vomiting. Objective Vitals Vital Signs Date Time Temp Pulse Resp B/P (MAP) Pulse Ox O2 Delivery O2 Flow Rate FiO2 02/21/17 11:55 97.7 136 18 152/82 (105) 92 02/21/17 08:57 93 Nasal Cannula 2.00 02/21/17 08:00 97.6 113 18 124/66 (85) 94 02/21/17 04:23 95 Nasal Cannula 2.00 02/21/17 04:00 98.0 62 19 125/62 (83) 97 02/20/17 20:30 98.8 69 22 130/64 (86) 95 02/20/17 16:49 95 Nasal Cannula 3.00 02/20/17 16:00 97.5 119 18 155/66 (95) 94 I/O 02/20/17 02/20/17 02/20/17 02/21/17 02/21/17 02/21/17 07:00 15:00 23:00 07:00 15:00 23:00 Intake Total 240 ml 1200 ml 800 ml Output Total 350 ml 350 ml Balance -110 ml -350 ml 1200 ml 800 ml Intake Oral 240 ml 850 ml 800 ml IV Total 350 ml Output Urine Total 350 ml 350 ml # Voids 4 1 2 # Bowel Movements 1 0 0 Result Diagram: 02/19/17 1700 02/19/17 1515 Imaging Last Impressions Chest X-Ray 02/19/17 1452 Signed Impressions: Service Date/Time: February 15:01 - CONCLUSION: 1. Bilateral infiltrates in the lung bases new when compared to previous dated 11/05/16. Examination is concerning for pneumonia. Chandan Reese MD Objective Remarks General: Elderly male in no acute distress. Heart: Regular rate and rhythm. No murmur. Lungs: Scattered rhonchi. Breathing is nonlabored. Abdomen: Soft, nontender, nondistended. Extremities: No lower extremity edema. Psych: Alert and oriented. Procedures None Urinary Catheter: No Vascular Central Line Catheter: No A/P Problem List: (1) Pneumonia ICD Code: J18.9 - Pneumonia, unspecified organism Status: Acute (2) Severe sepsis ICD Code: A41.9 - Sepsis, unspecified organism; R65.20 - Severe sepsis without septic shock (3) Acute renal failure ICD Code: N17.9 - Acute kidney failure, unspecified Assessment and Plan 1. Severe sepsis secondary to community-acquired pneumonia: Patient presented with tachypnea, tachycardia, acute renal failure. Continue antibiotics. Continue bronchodilators, incentive spirometry, Mucinex, supplemental oxygen. 2. 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 Appreciate nephrology recommendations. Patient will likely need dialysis, but does not want dialysis at this time. 3. Chronic systolic congestive heart failure: Repeat echocardiogram shows ejection fraction of 30%, which is slightly better than the 20-25% seen on echocardiogram 11/06/16. Received 1 dose of Lasix in the ER. No further diuresis due to acute renal failure, no clinical signs of fluid overload. 4. Hypertension: Continue metoprolol, Norvasc. Losartan on hold secondary to acute renal failure. 5. Hyperlipidemia: Continue statin. 6. CAD: Currently asymptomatic. Continue aspirin, Plavix, statin, beta mike, Norvasc, Imdur. Losartan on hold as above. 7. Chronic normocytic anemia: Appears to be at baseline. 8. DVT prophylaxis: Heparin. Tushar Bradley MD Feb 21, 2017 14:51
[2017-02-21] MEDS: cefTRIAXone INJ 1,000 MG in SODIUM CHLORIDE 0.9% INJ 100 ML IV SCH (15:54)
--- NOTE | 2017-02-21 16:11 | HHI.NPPN ---
Subjective History of Present Illness 81 year old male with CKD stage 5 admitted with flu like symptoms, tired, cough has A fib Review of Systems General Constitutional: Fatigue Respiratory Lungs: SOB, Cough Objective Data Data Vital Signs Date Time Temp Pulse Resp B/P (MAP) Pulse Ox O2 Delivery O2 Flow Rate FiO2 02/21/17 11:55 97.7 136 18 152/82 (105) 92 02/21/17 08:57 93 Nasal Cannula 2.00 02/21/17 08:00 97.6 113 18 124/66 (85) 94 02/21/17 04:23 95 Nasal Cannula 2.00 02/21/17 04:00 98.0 62 19 125/62 (83) 97 02/20/17 20:30 98.8 69 22 130/64 (86) 95 02/20/17 16:49 95 Nasal Cannula 3.00 -: 02/19/17 1700 02/19/17 1515 Physical Exam General Appearance: Well Developed Neck Neck Exam: Neck Supple Pulmonary Resp Exam: Decreased Bases Cardiology CV Exam: Arrhythmia Gastrointestinal/Abdomen GI Exam: Soft, Non-Tender, Bowel Sounds Present Extremeties Extremities Exam: No Edema Assessment/Plan Problem List: (1) Acute renal failure ICD Codes: N17.9 - Acute kidney failure, unspecified Plan: Acute on CKD 5, baseline creatinine is 5.7 Acute worsening may be due to intravascular volume depletion from diarrhea, acute illness, poor oral intake he has advance kidney disease uremia possibly will need dialysis follow BMP check EKG as irregular pulse (2) Metabolic acidosis ICD Codes: E87.2 - Metabolic acidosis Status: Chronic Plan: Due to renal failure On oral sodium bicarbonate. Would improve with dialysis (3) Hypertension ICD Codes: I10 - Hypertension Status: Chronic Plan: Blood pressure is acceptable. (4) Pneumonia ICD Codes: J18.9 - Pneumonia, unspecified organism Status: Acute Plan: On Rocephin and Zithromax. Monitor clinically, on oxygen Yamilex Juarez MD Feb 21, 2017 16:11
[2017-02-21] MEDS: AZITHROMYCIN INJ 500 MG in SODIUM CHLOR 0.9% 250 ML INJ 250 ML IV SCH (16:13)
[2017-02-21 18:19] LABS: AUTOMATED NEUTROPHIL # 14.7 TH/MM3 (1.8-7.7); BASOPHIL % 0.2 % (0.0-2.0); HEMATOCRIT 23.8 % (39.0-51.0); LYMPH % 1.9 % (9.0-44.0); LYMPHOCYTE # 0.3 TH/MM3 (1.0-4.8); MEAN CELL VOLUME 89.4 FL (80.0-100.0); MEAN CORPUSCULAR HEMOGLOBIN 30.1 PG (27.0-34.0); MEAN CORPUSCULAR HGB CONC 33.7 % (32.0-36.0); MEAN PLATELET VOLUME 8.9 FL (7.0-11.0); MONO % 5.4 % (0.0-8.0); MONOCYTE # 0.9 TH/MM3 (0-0.9); NEUT % 92.5 % (16.0-70.0); PLATELET COUNT 400 TH/MM3 (150-450); RED BLOOD COUNT 2.67 MIL/MM3 (4.50-5.90); RED CELL DISTRIBUTION WIDTH 14.6 % (11.6-17.2); WHITE BLOOD COUNT 15.9 TH/MM3 (4.0-11.0)
[2017-02-21] MEDS: SODIUM BICARBONATE 8.4% INJ 75 MEQ in SODIUM CHLOR 0.45% 1000 ML INJ 1,000 ML IV SCH (18:37)
[2017-02-21 18:55] LABS: BICARBONATE 14.2 MEQ/L (21.0-32.0); CALCIUM 8.4 MG/DL (8.5-10.1)
[2017-02-21 19:11] LABS: CREATININE 10.11 MG/DL (0.60-1.30)
[2017-02-21] MEDS: ATORVASTATIN 80 MG TAB PO SCH (22:50)
[2017-02-21] MEDS: METOPROLOL TARTRATE 25 MG TAB PO SCH (22:50)
[2017-02-22] VITALS (10 sets, daily range): BP systolic 120–155; BP diastolic 66–85; PULSE 87–152; RESP 18–24; TEMP 97.5–98.5; O2SAT 90–95
[2017-02-22] MEDS: RESP: ALBUTEROL 2.5 MG/IPRATROPIUM 0.5 MG NEB (SCH) INH ×4 (03:48→22:20)
[2017-02-22 07:13] LABS: AUTOMATED NEUTROPHIL # 11.9 TH/MM3 (1.8-7.7); BASOPHIL % 0.1 % (0.0-2.0); HEMATOCRIT 23.1 % (39.0-51.0); HEMOGLOBIN 7.9 GM/DL (13.0-17.0); LYMPHOCYTE # 0.3 TH/MM3 (1.0-4.8); MEAN CORPUSCULAR HEMOGLOBIN 30.2 PG (27.0-34.0); MEAN CORPUSCULAR HGB CONC 34.3 % (32.0-36.0); MEAN PLATELET VOLUME 8.7 FL (7.0-11.0); MONOCYTE # 0.9 TH/MM3 (0-0.9); NEUT % 90.9 % (16.0-70.0); PLATELET COUNT 376 TH/MM3 (150-450); RED BLOOD COUNT 2.63 MIL/MM3 (4.50-5.90); RED CELL DISTRIBUTION WIDTH 14.1 % (11.6-17.2); WHITE BLOOD COUNT 13.1 TH/MM3 (4.0-11.0)
[2017-02-22 07:32] LABS: BICARBONATE 16.4 MEQ/L (21.0-32.0); CALCIUM 8.2 MG/DL (8.5-10.1); CREATININE 9.7 MG/DL (0.60-1.30)
[2017-02-22 07:49] LABS: PHOSPHORUS 8.6 MG/DL (2.5-4.9)
[2017-02-22 08:39] LABS: BANDS 10 % (0-6); LYMPHOCYTES 1 % (9-44); METAMYELOCYTES 1 % (0-1); MONOCYTES 1 % (0-8); NEUTROPHIL # MANUAL DIFF 12.8 TH/MM3 (1.8-7.7); POLYS (SEG NEUTROPHILS) 87 % (16-70); TOXIC GRANULATION 1+ (NORMAL)
[2017-02-22 08:40] LABS: ACANTHOCYTES OCC (NORMAL)
[2017-02-22] MEDS: SODIUM CHLORIDE 0.9% FLUSH 10 ML FLUSH IV FLUSH SCH ×3 (09:00→21:13)
[2017-02-22] MEDS: ASPIRIN EC 81 MG TABEC PO SCH (09:16)
[2017-02-22] MEDS: DOCUSATE SODIUM 50 MG/SENNA 8.6 MG TAB PO SCH ×2 (09:16→23:35)
[2017-02-22] MEDS: PANTOPRAZOLE SOD 40 MG DELAYED RELEASE TAB PO SCH (09:16)
[2017-02-22] MEDS: amLODIPine BESYLATE 5 MG TAB PO SCH (09:16)
[2017-02-22] MEDS: guaiFENesin E.R. 600 MG TAB PO SCH ×2 (09:16→23:35)
[2017-02-22] MEDS: CLOPIDOGREL 75 MG TAB PO SCH (09:16)
[2017-02-22] MEDS: ISOSORBIDE MONONITRATE 30 MG TAB PO SCH (09:16)
[2017-02-22] MEDS: SODIUM BICARBONATE 650 MG TAB PO SCH ×3 (09:16→18:03)
[2017-02-22] MEDS: HEPARIN SODIUM - SQ 10,000 UNITS/ML VIAL SQ SCH ×2 (09:19→23:36)
--- NOTE | 2017-02-22 13:20 | HHI.PR ---
Subjective Remarks Follow up pneumonia, renal failure. Patient states that he is feeling a little better today. Less dyspnea. No other complaints at this time. Objective Vitals Vital Signs Date Time Temp Pulse Resp B/P (MAP) Pulse Ox O2 Delivery O2 Flow Rate FiO2 02/22/17 12:35 98.5 152 18 155/69 (97) 91 02/22/17 09:56 93 Nasal Cannula 3.00 02/22/17 08:20 98.5 87 18 120/85 (97) 92 02/22/17 08:13 113 02/22/17 04:00 97.5 110 22 146/80 (102) 94 02/22/17 03:49 93 Nasal Cannula 3.00 02/22/17 00:00 98.4 108 20 121/73 (89) 95 02/21/17 20:00 97.8 115 20 150/76 (100) 93 02/21/17 17:07 120 02/21/17 16:14 98.4 122 18 153/67 (95) 92 I/O 02/21/17 02/21/17 02/21/17 02/22/17 02/22/17 02/22/17 07:00 15:00 23:00 07:00 15:00 23:00 Intake Total 800 ml 480 ml 320 ml Output Total 560 ml 500 ml 200 ml Balance 800 ml -80 ml -180 ml -200 ml Intake Oral 800 ml 480 ml 320 ml Output Urine Total 560 ml 500 ml 200 ml # Voids 2 # Bowel Movements 0 0 Result Diagram: 02/22/17 0626 02/22/17 0626 Imaging Last Impressions Chest X-Ray 02/19/17 1452 Signed Impressions: Service Date/Time: February 15:01 - CONCLUSION: 1. Bilateral infiltrates in the lung bases new when compared to previous dated 11/05/16. Examination is concerning for pneumonia. Chandan Reese MD Objective Remarks General: Elderly male in no acute distress. Heart: Regular rate and rhythm. No murmur. Lungs: Crackles noted, R>L. Breathing is nonlabored. Abdomen: Soft, nontender, nondistended. Extremities: No lower extremity edema. Psych: Alert and oriented. Procedures None Urinary Catheter: No Vascular Central Line Catheter: No A/P Problem List: (1) Pneumonia ICD Code: J18.9 - Pneumonia, unspecified organism Status: Acute (2) Severe sepsis ICD Code: A41.9 - Sepsis, unspecified organism; R65.20 - Severe sepsis without septic shock (3) Acute renal failure ICD Code: N17.9 - Acute kidney failure, unspecified Assessment and Plan 02/22/17 Slight clinical improvement in pneumonia. Continue antibiotics, oxygen, nebs. Monitor renal function. Nephrology following. 1. Severe sepsis secondary to community-acquired pneumonia: Patient presented with tachypnea, tachycardia, acute renal failure. Continue antibiotics. Continue bronchodilators, incentive spirometry, Mucinex, supplemental oxygen. 2. 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 Appreciate nephrology recommendations. Patient will likely need dialysis, but does not want dialysis at this time. 3. Chronic systolic congestive heart failure: Repeat echocardiogram shows ejection fraction of 35-40%, which is improved compared to the 20-25% seen on echocardiogram 11/06/16. Received 1 dose of Lasix in the ER. No further diuresis due to acute renal failure, no clinical signs of fluid overload. 4. Hypertension: Continue metoprolol, Norvasc. Losartan on hold secondary to acute renal failure. 5. Hyperlipidemia: Continue statin. 6. CAD: Currently asymptomatic. Continue aspirin, Plavix, statin, beta mike, Norvasc, Imdur. Losartan on hold as above. 7. Chronic normocytic anemia: Appears to be at baseline. 8. DVT prophylaxis: Heparin. Tushar Bradley MD Feb 22, 2017 13:20
--- NOTE | 2017-02-22 14:20 | EKG ---
Date Performed: 02/21/2017 Time Performed: 17:16:12 PTAGE: 81 years EKG: ATRIAL FIBRILLATION WITH RAPID VENTRICULAR RESPONSE MARKED LEFT AXIS DEVIATION ANTEROSEPTAL MYOCARDIAL INFARCTION , OF INDETERMINATE AGE NONSPECIFIC ST-T CHANGE Compared to previous tracing, t here is a rhythm change from Sinus rhythm to atrial fibrillation. The axis is more leftward. ST-T changes slightly improved on this tracing. A BNORMAL ECG PREVIOUS TRACING : 11/08/2016 06.56 DOCTOR: Kirit Toribio Interpretating Date/Time 02/22/2017 14:19:41
[2017-02-22] MEDS: cefTRIAXone INJ 1,000 MG in SODIUM CHLORIDE 0.9% INJ 100 ML IV SCH (16:04)
--- NOTE | 2017-02-22 16:32 | HHI.NPPN ---
Subjective History of Present Illness 81 year old male with CKD stage 5 admitted with flu like symptoms, tired, cough has A fib Review of Systems General Constitutional: Fatigue Respiratory Lungs: SOB, Cough Objective Data Data 02/22/17 02/23/17 19:00 07:00 Output Total 200 ml Balance -200 ml Output Urine Total 200 ml Vital Signs Date Time Temp Pulse Resp B/P (MAP) Pulse Ox O2 Delivery O2 Flow Rate FiO2 02/22/17 16:24 98.5 97 18 137/66 (89) 90 02/22/17 16:04 91 Nasal Cannula 3.00 02/22/17 12:35 98.5 152 18 155/69 (97) 91 02/22/17 09:56 93 Nasal Cannula 3.00 02/22/17 08:20 98.5 87 18 120/85 (97) 92 02/22/17 08:13 113 02/22/17 04:00 97.5 110 22 146/80 (102) 94 02/22/17 03:49 93 Nasal Cannula 3.00 02/22/17 00:00 98.4 108 20 121/73 (89) 95 02/21/17 20:00 97.8 115 20 150/76 (100) 93 02/21/17 17:07 120 -: 02/22/17 0626 02/22/17 0626 Physical Exam General Appearance: Well Developed Neck Neck Exam: Neck Supple Pulmonary Resp Exam: Decreased Bases Cardiology CV Exam: Arrhythmia Gastrointestinal/Abdomen GI Exam: Soft, Non-Tender, Bowel Sounds Present Extremeties Extremities Exam: No Edema Assessment/Plan Problem List: (1) Acute renal failure ICD Codes: N17.9 - Acute kidney failure, unspecified Plan: Acute on CKD 5, baseline creatinine is 5.7 Acute worsening may be due to intravascular volume depletion from diarrhea, acute illness, poor oral intake he has advance kidney disease uremia possibly will need dialysis follow BMP EKG as irregular pulse RVR d/w Nurse give metoprolol Dr. Cleveland to follow (2) Metabolic acidosis ICD Codes: E87.2 - Metabolic acidosis Status: Chronic Plan: Due to renal failure On oral sodium bicarbonate. Would improve with dialysis (3) Hypertension ICD Codes: I10 - Hypertension Status: Chronic Plan: Blood pressure is acceptable. (4) Pneumonia ICD Codes: J18.9 - Pneumonia, unspecified organism Status: Acute Plan: On Rocephin and Zithromax. Monitor clinically, on oxygen (5) Atrial fibrillation ICD Codes: I48.91 - Unspecified atrial fibrillation Plan: RVR discuss with nurse, it may need treatment on Beta mike inc. dose Yamilex Juarez MD Feb 22, 2017 16:32
[2017-02-22] MEDS ORDERED: METOPROLOL TARTRATE 25 MG TAB PO ONE (16:45)
[2017-02-22] MEDS: AZITHROMYCIN INJ 500 MG in SODIUM CHLOR 0.9% 250 ML INJ 250 ML IV SCH (16:50)
[2017-02-22] MEDS: SODIUM BICARBONATE 8.4% INJ 75 MEQ in SODIUM CHLOR 0.45% 1000 ML INJ 1,000 ML IV SCH (17:59)
[2017-02-22] MEDS: ATORVASTATIN 80 MG TAB PO SCH (23:35)
[2017-02-22] MEDS: METOPROLOL TARTRATE 25 MG TAB PO SCH (23:36)
[2017-02-23] VITALS (10 sets, daily range): BP systolic 119–174; BP diastolic 68–97; PULSE 67–107; RESP 19–20; TEMP 97.5–98.8; O2SAT 91–95
[2017-02-23] MEDS: RESP: ALBUTEROL 2.5 MG/IPRATROPIUM 0.5 MG NEB (SCH) INH ×4 (03:06→19:43)
[2017-02-23 07:53] LABS: AUTOMATED NEUTROPHIL # 13.6 TH/MM3 (1.8-7.7); BASOPHIL % 0.2 % (0.0-2.0); EOSINOPHIL % 0.2 % (0.0-4.0); HEMATOCRIT 24.6 % (39.0-51.0); HEMOGLOBIN 8.5 GM/DL (13.0-17.0); LYMPH % 2.6 % (9.0-44.0); LYMPHOCYTE # 0.4 TH/MM3 (1.0-4.8); MEAN CELL VOLUME 88.2 FL (80.0-100.0); MEAN CORPUSCULAR HEMOGLOBIN 30.2 PG (27.0-34.0); MEAN CORPUSCULAR HGB CONC 34.3 % (32.0-36.0); MEAN PLATELET VOLUME 9.2 FL (7.0-11.0); MONO % 7.3 % (0.0-8.0); MONOCYTE # 1.1 TH/MM3 (0-0.9); NEUT % 89.7 % (16.0-70.0); PLATELET COUNT 395 TH/MM3 (150-450); RED BLOOD COUNT 2.79 MIL/MM3 (4.50-5.90); RED CELL DISTRIBUTION WIDTH 14.3 % (11.6-17.2); WHITE BLOOD COUNT 15.1 TH/MM3 (4.0-11.0)
[2017-02-23 08:15] LABS: BICARBONATE 15.4 MEQ/L (21.0-32.0); CALCIUM 8.4 MG/DL (8.5-10.1); CREATININE 9.17 MG/DL (0.60-1.30)
[2017-02-23] MEDS: SODIUM CHLORIDE 0.9% FLUSH 10 ML FLUSH IV FLUSH SCH (08:26)
[2017-02-23] MEDS: amLODIPine BESYLATE 5 MG TAB PO SCH (08:28)
[2017-02-23] MEDS: PANTOPRAZOLE SOD 40 MG DELAYED RELEASE TAB PO SCH (08:28)
[2017-02-23] MEDS: DOCUSATE SODIUM 50 MG/SENNA 8.6 MG TAB PO SCH ×2 (08:28→21:14)
[2017-02-23] MEDS: ASPIRIN EC 81 MG TABEC PO SCH (08:28)
[2017-02-23] MEDS: ISOSORBIDE MONONITRATE 30 MG TAB PO SCH (08:28)
[2017-02-23] MEDS: SODIUM BICARBONATE 650 MG TAB PO SCH ×3 (08:28→17:17)
[2017-02-23] MEDS: METOPROLOL TARTRATE 25 MG TAB PO SCH ×2 (08:28→21:13)
[2017-02-23] MEDS: guaiFENesin E.R. 600 MG TAB PO SCH ×2 (08:28→21:13)
[2017-02-23] MEDS: CLOPIDOGREL 75 MG TAB PO SCH (08:29)
[2017-02-23] MEDS: HEPARIN SODIUM - SQ 10,000 UNITS/ML VIAL SQ SCH ×2 (08:30→21:14)
--- NOTE | 2017-02-23 11:59 | HHI.NPPN ---
Subjective Renal Failure: Chronic, Acute, Stage V Interval History He states he feels better. inquiring about discharge. (Kellen Carlos) Review of Systems General Constitutional: Fatigue (Kellen Carlos) Respiratory Lungs: SOB, Cough (Kellen Carlos) Objective Data Data 02/23/17 02/24/17 19:00 07:00 Output Total 300 ml Balance -300 ml Output Urine Total 300 ml Vital Signs Date Time Temp Pulse Resp B/P (MAP) Pulse Ox O2 Delivery O2 Flow Rate FiO2 02/23/17 08:16 97.5 82 20 133/97 (109) 94 02/23/17 07:52 94 Nasal Cannula 4.00 02/23/17 04:59 98.8 67 19 119/68 (85) 93 02/23/17 03:08 93 Nasal Cannula 3.00 02/23/17 00:55 98.2 98 19 128/73 (91) 93 02/22/17 20:00 98.3 110 24 131/76 (94) 94 02/22/17 16:24 98.5 97 18 137/66 (89) 90 02/22/17 16:04 91 Nasal Cannula 3.00 02/22/17 12:35 98.5 152 18 155/69 (97) 91 (Kellen Carlos) -: 02/23/17 0619 02/23/17 0619 Physical Exam General Appearance: Well Developed, Comfortable (Klelen Carlos) Neck Neck Exam: Neck Supple (Kellen Carlos) Pulmonary Resp Exam: Breath Sounds Equal, Decreased Bases (Kellen Carlos) Cardiology CV Exam: Good Perfusion, Irregular, Arrhythmia (Kellen Carlos) Gastrointestinal/Abdomen GI Exam: Soft, Non-Tender, Bowel Sounds Present (Kellen Carlos) Musculoskeletal MS Exam: Joints Intact, Normal Tone (Kellen Carlos) Integumentary Skin Exam: Warm, Dry, Intact (Kellen Carlos) Extremeties Extremities Exam: No Edema (Kellen Carlos) Assessment/Plan Discussed Condition With: Patient Assessment Summary: ERIC/Acute Renal Failure, Hypertension, CKD Stage V Electrolyte Assessment: Metabolic Acidosis Problem List: (1) Acute renal failure ICD Codes: N17.9 - Acute kidney failure, unspecified Plan: Acute on CKD 5, baseline creatinine is 5.7 He has advance kidney disease; needs to start dialysis. He is reluctant. Discussed the risks of not preceding and following up outpatient If discharged will need to follow with Dr. Lou within one week Stop IVF He is making urine Repeat labs tomorrow. Start Renvela for metabolic bone disorder (2) Metabolic acidosis ICD Codes: E87.2 - Metabolic acidosis Status: Chronic Plan: Due to renal failure On oral sodium bicarbonate. Would improve with dialysis (3) Hypertension ICD Codes: I10 - Hypertension Status: Chronic Plan: Blood pressure is acceptable. (4) Pneumonia ICD Codes: J18.9 - Pneumonia, unspecified organism Status: Acute Plan: On Rocephin and Zithromax. Monitor clinically, on oxygen (5) Atrial fibrillation ICD Codes: I48.91 - Unspecified atrial fibrillation Plan: rate controlled, continue BB (Kellen Carlos) Plan patient was seen and examined. Very close to dialysis. 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 Discontinue IVF. Agree with above assessment and plan. (Nithin Cleveland MD) Kellen Carlos Feb 23, 2017 11:59 Nithin Cleveland MD Feb 23, 2017 17:49
[2017-02-23] MEDS: SEVELAMER CARBONATE 800 MG TAB PO SCH ×2 (13:25→17:30)
--- NOTE | 2017-02-23 14:04 | HHI.PR ---
Subjective Remarks Follow up pneumonia, renal failure. Has had some shortness of breath and reports productive cough. Overall feels a little better. Wants to go home tomorrow. Objective Vitals Vital Signs Date Time Temp Pulse Resp B/P (MAP) Pulse Ox O2 Delivery O2 Flow Rate FiO2 02/23/17 12:08 98.1 73 20 148/76 (100) 94 02/23/17 12:07 4.00 02/23/17 08:16 97.5 82 20 133/97 (109) 94 02/23/17 07:52 94 Nasal Cannula 4.00 02/23/17 04:59 98.8 67 19 119/68 (85) 93 02/23/17 03:08 93 Nasal Cannula 3.00 02/23/17 00:55 98.2 98 19 128/73 (91) 93 02/22/17 20:00 98.3 110 24 131/76 (94) 94 02/22/17 16:24 98.5 97 18 137/66 (89) 90 02/22/17 16:04 91 Nasal Cannula 3.00 I/O 02/22/17 02/22/17 02/22/17 02/23/17 02/23/17 02/23/17 07:00 15:00 23:00 07:00 15:00 23:00 Intake Total 320 ml 480 ml 120 ml Output Total 500 ml 600 ml 500 ml 300 ml Balance -180 ml -120 ml -380 ml -300 ml Intake Oral 320 ml 480 ml 120 ml Output Urine Total 500 ml 600 ml 500 ml 300 ml # Voids 1 # Bowel Movements 0 Result Diagram: 02/23/17 0619 02/23/17 0619 Imaging Last Impressions Chest X-Ray 02/19/17 1452 Signed Impressions: Service Date/Time: February 15:01 - CONCLUSION: 1. Bilateral infiltrates in the lung bases new when compared to previous dated 11/05/16. Examination is concerning for pneumonia. Chandan Reese MD Objective Remarks General: Elderly male in no acute distress. Heart: Regular rate and rhythm. No murmur. Lungs: Crackles bilaterally. Breathing is nonlabored. Abdomen: Soft, nontender, nondistended. Extremities: No lower extremity edema. Psych: Alert and oriented. Procedures None Urinary Catheter: No Vascular Central Line Catheter: No A/P Problem List: (1) Pneumonia ICD Code: J18.9 - Pneumonia, unspecified organism Status: Acute (2) Severe sepsis ICD Code: A41.9 - Sepsis, unspecified organism; R65.20 - Severe sepsis without septic shock (3) Acute renal failure ICD Code: N17.9 - Acute kidney failure, unspecified Assessment and Plan 02/23/17 pneumonia continues to improve clinically. Continue antibiotics, oxygen, nebs. Check home oxygen walk test. Monitor renal function. Nephrology following. Patient wants to follow-up with his outpatient advertising vice president before deciding about dialysis. 1. Severe sepsis secondary to community-acquired pneumonia: Patient presented with tachypnea, tachycardia, acute renal failure. Continue antibiotics. Continue bronchodilators, incentive spirometry, Mucinex, supplemental oxygen. 2. 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 Appreciate nephrology recommendations. Patient will likely need dialysis, but does not want dialysis at this time. 3. Chronic systolic congestive heart failure: Repeat echocardiogram shows ejection fraction of 35-40%, which is improved compared to the 20-25% seen on echocardiogram 11/06/16. Received 1 dose of Lasix in the ER. No further diuresis due to acute renal failure, no clinical signs of fluid overload. 4. Hypertension: Continue metoprolol, Norvasc. Losartan on hold secondary to acute renal failure. 5. Hyperlipidemia: Continue statin. 6. CAD: Currently asymptomatic. Continue aspirin, Plavix, statin, beta mike, Norvasc, Imdur. Losartan on hold as above. 7. Chronic normocytic anemia: Appears to be at baseline. 8. DVT prophylaxis: Heparin. Discharge Planning Possible discharge home tomorrow pending further clinical improvement and clearance by nephrology. Tushar Bradley MD Feb 23, 2017 14:04
[2017-02-23] MEDS: AZITHROMYCIN INJ 500 MG in SODIUM CHLOR 0.9% 250 ML INJ 250 ML IV SCH (17:17)
[2017-02-23] MEDS: cefTRIAXone INJ 1,000 MG in SODIUM CHLORIDE 0.9% INJ 100 ML IV SCH (17:29)
[2017-02-23] MEDS: ATORVASTATIN 80 MG TAB PO SCH (21:13)
[2017-02-24] VITALS (8 sets, daily range): BP systolic 110–146; BP diastolic 63–94; PULSE 87–112; RESP 18–22; TEMP 97.6–98.7; O2SAT 90–98
[2017-02-24] MEDS: SEVELAMER CARBONATE 800 MG TAB PO SCH ×3 (08:34→16:09)
[2017-02-24] MEDS: SODIUM BICARBONATE 650 MG TAB PO SCH ×3 (08:34→18:10)
[2017-02-24] MEDS: guaiFENesin E.R. 600 MG TAB PO SCH ×2 (08:35→21:20)
[2017-02-24] MEDS: METOPROLOL TARTRATE 25 MG TAB PO SCH ×2 (08:35→21:20)
[2017-02-24] MEDS: ISOSORBIDE MONONITRATE 30 MG TAB PO SCH (08:35)
[2017-02-24] MEDS: amLODIPine BESYLATE 5 MG TAB PO SCH (08:35)
[2017-02-24] MEDS: PANTOPRAZOLE SOD 40 MG DELAYED RELEASE TAB PO SCH (08:35)
[2017-02-24] MEDS: CLOPIDOGREL 75 MG TAB PO SCH (08:35)
[2017-02-24] MEDS: ASPIRIN EC 81 MG TABEC PO SCH (08:36)
[2017-02-24] MEDS: SODIUM CHLORIDE 0.9% FLUSH 10 ML FLUSH IV FLUSH SCH ×2 (08:36→21:20)
[2017-02-24] MEDS: HEPARIN SODIUM - SQ 10,000 UNITS/ML VIAL SQ SCH ×2 (08:37→21:21)
[2017-02-24] MEDS: DOCUSATE SODIUM 50 MG/SENNA 8.6 MG TAB PO SCH ×2 (08:39→21:21)
--- NOTE | 2017-02-24 10:42 | HHI.NPPN ---
Subjective Renal Failure: Chronic, Acute, Stage V Interval History No new overnight events. Wanting to be discharged. (Kellen Carlos) Review of Systems General Constitutional: Fatigue (Kellen Carlos) Respiratory Lungs: SOB, Cough (Kellen Carlos) Objective Data Data Vital Signs Date Time Temp Pulse Resp B/P (MAP) Pulse Ox O2 Delivery O2 Flow Rate FiO2 02/24/17 09:33 92 Nasal Cannula 5.00 02/24/17 08:01 98.4 108 18 145/94 (111) 90 02/24/17 06:34 97.8 112 20 141/74 (96) 91 02/24/17 00:00 98.7 109 22 126/63 (84) 97 02/23/17 21:39 95 Nasal Cannula 5.00 02/23/17 21:00 93 02/23/17 20:00 97.9 105 20 140/86 (104) 91 02/23/17 16:42 98.0 107 20 174/79 (110) 92 02/23/17 12:08 98.1 73 20 148/76 (100) 94 02/23/17 12:07 4.00 (Kellen Carlos) -: 02/23/17 0619 02/23/17 0619 Physical Exam General Appearance: Well Developed, Comfortable (Kellen Carlos) Neck Neck Exam: Neck Supple (Kellen Carlos) Pulmonary Resp Exam: Breath Sounds Equal, Decreased Bases (Kellen Carlos) Cardiology CV Exam: Good Perfusion, Irregular, Arrhythmia (Kellen Carlos) Gastrointestinal/Abdomen GI Exam: Soft, Non-Tender, Bowel Sounds Present (Kellen Carlos) Musculoskeletal MS Exam: Joints Intact, Normal Tone (Kellen Carlos) Integumentary Skin Exam: Clear, Warm, Dry, Intact (Kellen Carlos) Extremeties Extremities Exam: No Edema, Pedal Pulses Palpable (Kellen Carlos) Neurologic Neuro Exam: Alert, Awake, Oriented, Speech Clear, Moving All Extremities (Kellen Carlos) Psychiatric Psych Exam: Appropriate Responses (Kellen Carlos) Assessment/Plan Discussed Condition With: Patient Assessment Summary: ERIC/Acute Renal Failure, Hypertension, CKD Stage V Electrolyte Assessment: Metabolic Acidosis Problem List: (1) Acute renal failure ICD Codes: N17.9 - Acute kidney failure, unspecified Plan: Acute on CKD 5, baseline creatinine is 5.7 He has advance kidney disease; needs to start dialysis. He is reluctant. Discussed the risks of not preceding and following up outpatient Cleared for discharge, has appointment with Dr. Lou next week He is making urine On Renvela for metabolic bone disorder (2) Metabolic acidosis ICD Codes: E87.2 - Metabolic acidosis Status: Chronic Plan: Due to renal failure On oral sodium bicarbonate. Would improve with dialysis (3) Hypertension ICD Codes: I10 - Hypertension Status: Chronic Plan: Blood pressure is acceptable. (4) Pneumonia ICD Codes: J18.9 - Pneumonia, unspecified organism Status: Acute Plan: On Rocephin and Zithromax. Monitor clinically, on oxygen Walk test ordered to evaluate need for home oxygen (5) Atrial fibrillation ICD Codes: I48.91 - Unspecified atrial fibrillation Plan: rate controlled, continue BB Plan Cleared for discharge from renal perspective. (Kellen Carlos) Plan patient was seen and examined. 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 (Nithin Cleveland MD) Kellen Carlos Feb 24, 2017 10:42 Nithin Cleveland MD Feb 24, 2017 12:22
[2017-02-24] MEDS ORDERED: OXYGENDME NAS.CANULA (11:33)
[2017-02-24] MEDS ORDERED: CEFU1TAB18 PO (11:33)
[2017-02-24] MEDS ORDERED: ECASA81 PO (11:33)
[2017-02-24] MEDS ORDERED: AZIT500T2 PO (11:33)
[2017-02-24] MEDS ORDERED: SEVEL800 PO (11:33)
--- NOTE | 2017-02-24 11:34 | HHI.DCPOC ---
Discharge Care Plan Diagnosis: (1) Pneumonia (2) Atrial fibrillation (3) Hypertension (4) Severe sepsis (5) Acute renal failure (6) Chronic kidney disease Goals to Promote Your Health * To prevent worsening of your condition and complications * To maintain your health at the optimal level Directions to Meet Your Goals Take your medications as prescribed Follow your dietary instruction Follow activity as directed Keep your appointments as scheduled Take your immunizations and boosters as scheduled If your symptoms worsen call your PCP, if no PCP go to Urgent Care Center or Emergency Room Smoking is Dangerous to Your Health. Avoid second hand smoke Call the 24-hour hour crisis hotline for domestic abuse at Tushar Bradley MD Feb 24, 2017 11:34
--- NOTE | 2017-02-24 11:36 | HHI.FF ---
Face to Face Verification Diagnosis: (1) Pneumonia (2) CHF (congestive heart failure), NYHA class II (3) Atrial fibrillation (4) Hypertension (5) Severe sepsis (6) Acute renal failure (7) Chronic kidney disease Physical Therapy Order: Evaluate and Treat Home Health Nursing Order: Nursing assessment with vital signs I have seen patient Rizwan Garcia on 02/24/17. My clinical findings support the need for the requested home health care services because: Infection w/ risk of complications I certify that my clinical findings support that this patient is homebound because: Unsteady gait/balance Tushar Bradley MD Feb 24, 2017 11:36
[2017-02-24] MEDS: cefTRIAXone INJ 1,000 MG in SODIUM CHLORIDE 0.9% INJ 100 ML IV SCH (15:30)
--- NOTE | 2017-02-24 15:32 | HHI.PR ---
Subjective Remarks Follow up pneumonia, renal failure. The patient continues to report shortness of breath and productive cough. Denies chest pain, nausea, vomiting. Objective Vitals Vital Signs Date Time Temp Pulse Resp B/P (MAP) Pulse Ox O2 Delivery O2 Flow Rate FiO2 02/24/17 12:35 97.6 101 18 142/82 (102) 93 02/24/17 09:33 92 Nasal Cannula 5.00 02/24/17 08:01 98.4 108 18 145/94 (111) 90 02/24/17 06:34 97.8 112 20 141/74 (96) 91 02/24/17 00:00 98.7 109 22 126/63 (84) 97 02/23/17 21:39 95 Nasal Cannula 5.00 02/23/17 21:00 93 02/23/17 20:00 97.9 105 20 140/86 (104) 91 02/23/17 16:42 98.0 107 20 174/79 (110) 92 I/O 02/23/17 02/23/17 02/23/17 02/24/17 02/24/17 02/24/17 06:59 14:59 22:59 06:59 14:59 22:59 Intake Total 120 ml 590 ml Output Total 500 ml 300 ml 200 ml 800 ml 250 ml Balance -380 ml -300 ml 390 ml -800 ml -250 ml Intake Oral 120 ml 240 ml IV Total 350 ml Output Urine Total 500 ml 300 ml 200 ml 800 ml 250 ml # Voids 1 4 Result Diagram: 02/23/17 0619 02/23/17 0619 Imaging Last Impressions Chest X-Ray 02/19/17 1452 Signed Impressions: Service Date/Time: February 15:01 - CONCLUSION: 1. Bilateral infiltrates in the lung bases new when compared to previous dated 11/05/16. Examination is concerning for pneumonia. Chandan Reese MD Objective Remarks General: Elderly male in no acute distress. Heart: Regular rate and rhythm. No murmur. Lungs: Crackles bilaterally. Breathing is nonlabored. Abdomen: Soft, nontender, nondistended. Extremities: No lower extremity edema. Psych: Alert and oriented. Procedures None Urinary Catheter: No Vascular Central Line Catheter: No A/P Problem List: (1) Pneumonia ICD Code: J18.9 - Pneumonia, unspecified organism Status: Acute (2) Severe sepsis ICD Code: A41.9 - Sepsis, unspecified organism; R65.20 - Severe sepsis without septic shock (3) Acute renal failure ICD Code: N17.9 - Acute kidney failure, unspecified Assessment and Plan 02/24/17 the patient is still having shortness of breath and productive cough. Repeat chest x-ray. Continue antibiotics, oxygen, nebs. Home oxygen walk test done. Patient will need outpatient oxygen. He is still requiring 5 L of oxygen continuously at this time. Monitor renal function. Nephrology following. Patient wants to follow-up with his outpatient telephone maintenance mechanic before deciding about dialysis. 1. Severe sepsis secondary to community-acquired pneumonia: Patient presented with tachypnea, tachycardia, acute renal failure. Continue antibiotics. Continue bronchodilators, incentive spirometry, Mucinex, supplemental oxygen. 2. 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 Appreciate nephrology recommendations. Patient will likely need dialysis, but does not want dialysis at this time. 3. Chronic systolic congestive heart failure: Repeat echocardiogram shows ejection fraction of 35-40%, which is improved compared to the 20-25% seen on echocardiogram 11/06/16. Received 1 dose of Lasix in the ER. No further diuresis due to acute renal failure, no clinical signs of fluid overload. 4. Hypertension: Continue metoprolol, Norvasc. Losartan on hold secondary to acute renal failure. 5. Hyperlipidemia: Continue statin. 6. CAD: Currently asymptomatic. Continue aspirin, Plavix, statin, beta mike, Norvasc, Imdur. Losartan on hold as above. 7. Chronic normocytic anemia: Appears to be at baseline. 8. DVT prophylaxis: Heparin. Discharge Planning Possible discharge home soon pending further clinical improvement. Tushar Bradley MD Feb 24, 2017 15:32
[2017-02-24] MEDS: AZITHROMYCIN INJ 500 MG in SODIUM CHLOR 0.9% 250 ML INJ 250 ML IV SCH (16:09)
--- NOTE | 2017-02-24 16:56 | RADRPT ---
EXAM DATE/TIME: 02/24/2017 16:27 [facility] COMPARISON: CHEST SINGLE AP, February 19, 2017, 15:01. INDICATIONS : Short of breath, evaluate for pneumonia MEDICAL HISTORY : Myocardial infarction. Congestive heart failure. SURGICAL HISTORY : Coronary artery stent. ENCOUNTER: Subsequent ACUITY: 2 weeks PAIN SCORE: 3/10 LOCATION: Bilateral chest FINDINGS: Interval progression of bilateral lower lobe airspace consolidation most notably in the right lower l obe. Cardiomediastinal contours are stable. Remainder of exam is unchanged. CONCLUSION: 1. Worsening bilateral lower lobe air space consolidation, most notably in the right lower lobe. Find ings are concerning for aspiration and associated pneumonia. Yeol Perrin MD on February 24, 2017 at 16:52 Board Certified Radiologist. This report was verified electronically.
[2017-02-24] MEDS: metroNIDAZOLE 500 MG INJ 100 ML IV SCH (18:10)
[2017-02-24] MEDS: ATORVASTATIN 80 MG TAB PO SCH (21:20)
[2017-02-25] VITALS (9 sets, daily range): BP systolic 118–131; BP diastolic 60–76; PULSE 64–121; RESP 20–22; TEMP 97.3–98.3; O2SAT 92–97
[2017-02-25] MEDS: metroNIDAZOLE 500 MG INJ 100 ML IV SCH ×2 (00:26→05:30)
[2017-02-25] MEDS: amLODIPine BESYLATE 5 MG TAB PO SCH (09:00)
[2017-02-25 09:48] LABS: AUTOMATED NEUTROPHIL # 14.3 TH/MM3 (1.8-7.7); BASOPHIL % 0.2 % (0.0-2.0); EOSINOPHIL # 0.3 TH/MM3 (0-0.4); EOSINOPHIL % 1.7 % (0.0-4.0); HEMATOCRIT 25.6 % (39.0-51.0); HEMOGLOBIN 8.5 GM/DL (13.0-17.0); LYMPHOCYTE # 0.3 TH/MM3 (1.0-4.8); MEAN CELL VOLUME 88.3 FL (80.0-100.0); MEAN CORPUSCULAR HEMOGLOBIN 29.4 PG (27.0-34.0); MEAN CORPUSCULAR HGB CONC 33.3 % (32.0-36.0); MEAN PLATELET VOLUME 9.1 FL (7.0-11.0); MONO % 6.4 % (0.0-8.0); NEUT % 89.7 % (16.0-70.0); PLATELET COUNT 396 TH/MM3 (150-450); RED CELL DISTRIBUTION WIDTH 14.3 % (11.6-17.2); WHITE BLOOD COUNT 15.9 TH/MM3 (4.0-11.0)
[2017-02-25] MEDS: METOPROLOL TARTRATE 25 MG TAB PO SCH ×2 (09:52→20:32)
[2017-02-25] MEDS: SODIUM BICARBONATE 650 MG TAB PO SCH ×3 (09:52→17:50)
[2017-02-25] MEDS: ISOSORBIDE MONONITRATE 30 MG TAB PO SCH (09:52)
[2017-02-25] MEDS: guaiFENesin E.R. 600 MG TAB PO SCH ×2 (09:52→20:32)
[2017-02-25] MEDS: CLOPIDOGREL 75 MG TAB PO SCH (09:52)
[2017-02-25] MEDS: PANTOPRAZOLE SOD 40 MG DELAYED RELEASE TAB PO SCH (09:52)
[2017-02-25] MEDS: DOCUSATE SODIUM 50 MG/SENNA 8.6 MG TAB PO SCH ×2 (09:52→20:24)
[2017-02-25] MEDS: ASPIRIN EC 81 MG TABEC PO SCH (09:52)
[2017-02-25] MEDS: HEPARIN SODIUM - SQ 10,000 UNITS/ML VIAL SQ SCH ×2 (09:54→20:33)
[2017-02-25] MEDS: SEVELAMER CARBONATE 800 MG TAB PO SCH ×3 (09:59→16:38)
[2017-02-25] MEDS: SODIUM CHLORIDE 0.9% FLUSH 10 ML FLUSH IV FLUSH SCH ×2 (10:00→20:35)
[2017-02-25] MEDS: PIPERACIL-TAZO 2.25 GM PREMIX 50 ML IV SCH ×2 (10:03→17:51)
[2017-02-25 10:16] LABS: CALCIUM 8.8 MG/DL (8.5-10.1); CREATININE 8.16 MG/DL (0.60-1.30)
[2017-02-25 10:47] LABS: BANDS 7 % (0-6); LYMPHOCYTES 3 % (9-44); MONOCYTES 5 % (0-8); NEUTROPHIL # MANUAL DIFF 14.5 TH/MM3 (1.8-7.7); POLYS (SEG NEUTROPHILS) 84 % (16-70)
--- NOTE | 2017-02-25 11:31 | HHI.NPPN ---
Subjective Renal Failure: Chronic, Acute, Stage V Interval History Renal function is slightly better. He is on oxygen, still short of breath. (Kellen Carlos) Review of Systems General Constitutional: Fatigue (Kellen Carlos) Respiratory Lungs: SOB, Cough (Kellen Carlos) Objective Data Data 02/25/17 02/26/17 19:00 07:00 Intake Total 150 ml Balance 150 ml IV Total 150 ml Vital Signs Date Time Temp Pulse Resp B/P (MAP) Pulse Ox O2 Delivery O2 Flow Rate FiO2 02/25/17 09:30 121 02/25/17 07:43 97.4 99 20 121/74 (90) 94 02/25/17 05:19 98.0 111 20 131/76 (94) 97 02/25/17 00:00 97.3 64 20 118/71 (87) 96 02/24/17 21:00 100 02/24/17 20:09 98.7 104 20 110/86 (94) 93 02/24/17 15:57 97.6 87 18 146/73 (97) 98 02/24/17 12:35 97.6 101 18 142/82 (102) 93 (Kellen Carlos) -: 02/25/17 0830 02/25/17 0830 Imaging Last 72 hours Impressions Chest X-Ray 02/24/17 0000 Signed Impressions: Service Date/Time: Friday, February 24, 2017 16:27 - CONCLUSION: 1. Worsening bilateral lower lobe air space consolidation, most notably in the right lower lobe. Findings are concerning for aspiration and associated pneumonia. Yoel Perrin MD (Kellen Carlos) Physical Exam General Appearance: Well Developed, Comfortable (Kellen Carlos) Eyes Eye Exam: Pupils Equal (Kellen Carlos) Neck Neck Exam: Neck Supple (Kellen Carlos) Pulmonary Resp Exam: Breath Sounds Equal, Crackles, Decreased Bases (Kellen Carlos) Cardiology CV Exam: Good Perfusion, Irregular, Arrhythmia (Kellen Carlos) Gastrointestinal/Abdomen GI Exam: Soft, Non-Tender, Bowel Sounds Present (Kellen Carlos) Musculoskeletal MS Exam: Joints Intact, Normal Tone (Kellen Carlos) Integumentary Skin Exam: Clear, Warm, Dry, Intact (Kellen Carlos) Extremeties Extremities Exam: No Edema, Pedal Pulses Palpable (Kellen Carlos) Neurologic Neuro Exam: Alert, Awake, Oriented, Speech Clear, Moving All Extremities (Kellen Carlos) Psychiatric Psych Exam: Appropriate Responses (Kellen Carlos) Assessment/Plan Discussed Condition With: Patient Assessment Summary: ERIC/Acute Renal Failure, Hypertension, CKD Stage V Electrolyte Assessment: Metabolic Acidosis Problem List: (1) Acute renal failure ICD Codes: N17.9 - Acute kidney failure, unspecified Plan: Acute on CKD 5, baseline creatinine is 5.7 ERIC may be due to infection. He has advance kidney disease; needs to start dialysis Has appt with Dr. Lou next week to discuss plans. Start lasix 80 mg daily PO He is making urine On Renvela for metabolic bone disorder (2) Metabolic acidosis ICD Codes: E87.2 - Metabolic acidosis Status: Chronic Plan: Due to renal failure On oral sodium bicarbonate. Would improve with dialysis (3) Hypertension ICD Codes: I10 - Hypertension Status: Chronic Plan: Blood pressure is acceptable. (4) Pneumonia ICD Codes: J18.9 - Pneumonia, unspecified organism Status: Acute Plan: On Rocephin and Zithromax. Monitor clinically, on oxygen Home oxygen ordered (5) Atrial fibrillation ICD Codes: I48.91 - Unspecified atrial fibrillation Plan: tachycardic today, monitor Plan Cleared for discharge from renal perspective (Kellen Carlos) Plan patient was seen and examined. Agree with above assessment and plan. Lasix initiated today. (Nithin Cleveland MD) Kellen Carlos Feb 25, 2017 11:31 Nithin Cleveland MD Feb 25, 2017 18:44
[2017-02-25] MEDS: FLUTICASONE PROPIONATE 50 MCG/ACT 16 GM NASAL SPRAY EACH NARE SCH (13:33)
--- NOTE | 2017-02-25 14:59 | HHI.PR ---
Subjective Remarks Follow-up pneumonia, renal failure. The patient states that he wants to go home. Still having shortness of breath, worse with activity. Still with productive cough. Objective Vitals Vital Signs Date Time Temp Pulse Resp B/P (MAP) Pulse Ox O2 Delivery O2 Flow Rate FiO2 02/25/17 13:19 86 02/25/17 11:40 97.7 86 20 130/74 (92) 95 02/25/17 09:30 121 02/25/17 07:43 97.4 99 20 121/74 (90) 94 02/25/17 05:19 98.0 111 20 131/76 (94) 97 02/25/17 00:00 97.3 64 20 118/71 (87) 96 02/24/17 21:00 100 02/24/17 20:09 98.7 104 20 110/86 (94) 93 02/24/17 15:57 97.6 87 18 146/73 (97) 98 I/O 02/24/17 02/24/17 02/24/17 02/25/17 02/25/17 02/25/17 07:00 15:00 23:00 07:00 15:00 23:00 Intake Total 350 ml 1030 ml 150 ml Output Total 800 ml 250 ml Balance -800 ml -250 ml 350 ml 1030 ml 150 ml IV Total 350 ml 1030 ml 150 ml Output Urine Total 800 ml 250 ml # Voids 4 Result Diagram: 02/25/17 0830 02/25/17 0830 Imaging Last Impressions Chest X-Ray 02/24/17 0000 Signed Impressions: Service Date/Time: Friday, February 24, 2017 16:27 - CONCLUSION: 1. Worsening bilateral lower lobe air space consolidation, most notably in the right lower lobe. Findings are concerning for aspiration and associated pneumonia. Yoel Perrin MD Objective Remarks General: Elderly male in no acute distress. Heart: Regular rate and rhythm. No murmur. Lungs: Crackles bilaterally. Breathing is nonlabored. Abdomen: Soft, nontender, nondistended. Extremities: No lower extremity edema. Psych: Alert and oriented. Procedures None Urinary Catheter: No Vascular Central Line Catheter: No A/P Problem List: (1) Pneumonia ICD Code: J18.9 - Pneumonia, unspecified organism Status: Acute (2) Severe sepsis ICD Code: A41.9 - Sepsis, unspecified organism; R65.20 - Severe sepsis without septic shock (3) Acute renal failure ICD Code: N17.9 - Acute kidney failure, unspecified Assessment and Plan 02/25/17 the patient is still having shortness of breath and productive cough. Repeat chest x-ray shows worsening of pneumonia, possibly aspiration pneumonia. Antibiotics adjusted. Continue oxygen, nebs. Home oxygen walk test done. Patient will need outpatient oxygen. He is still requiring 3 L of oxygen continuously at this time. Monitor renal function. Nephrology following. Patient wants to follow-up with his outpatient metal cleaner before deciding about dialysis. 1. Severe sepsis secondary to community-acquired pneumonia: Patient presented with tachypnea, tachycardia, acute renal failure. Continue antibiotics. Continue bronchodilators, incentive spirometry, Mucinex, supplemental oxygen. 2. 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 Appreciate nephrology recommendations. Patient will likely need dialysis, but does not want dialysis at this time. 3. Chronic systolic congestive heart failure: Repeat echocardiogram shows ejection fraction of 35-40%, which is improved compared to the 20-25% seen on echocardiogram 11/06/16. Received 1 dose of Lasix in the ER. No further diuresis due to acute renal failure, no clinical signs of fluid overload. 4. Hypertension: Continue metoprolol, Norvasc. Losartan on hold secondary to acute renal failure. 5. Hyperlipidemia: Continue statin. 6. CAD: Currently asymptomatic. Continue aspirin, Plavix, statin, beta mike, Norvasc, Imdur. Losartan on hold as above. 7. Chronic normocytic anemia: Appears to be at baseline. 8. DVT prophylaxis: Heparin. Discharge Planning Possible discharge home soon pending further clinical improvement. Tushar Bradley MD Feb 25, 2017 14:59
[2017-02-25] MEDS: cefTRIAXone INJ 1,000 MG in SODIUM CHLORIDE 0.9% INJ 100 ML IV SCH (15:53)
[2017-02-25] MEDS: FUROSEMIDE 80 MG TAB PO SCH (16:38)
[2017-02-25] MEDS: AZITHROMYCIN INJ 500 MG in SODIUM CHLOR 0.9% 250 ML INJ 250 ML IV SCH (16:38)
[2017-02-25] MEDS: ATORVASTATIN 80 MG TAB PO SCH (20:32)
[2017-02-26] VITALS (12 sets, daily range): BP systolic 116–140; BP diastolic 62–90; PULSE 66–111; RESP 20–22; TEMP 97.1–98.9; O2SAT 91–97
[2017-02-26] MEDS: PIPERACIL-TAZO 2.25 GM PREMIX 50 ML IV SCH ×3 (02:22→19:04)
[2017-02-26] MEDS: SEVELAMER CARBONATE 800 MG TAB PO SCH ×3 (08:29→18:03)
[2017-02-26 08:33] LABS: AUTOMATED NEUTROPHIL # 13.6 TH/MM3 (1.8-7.7); BASOPHIL # 0.1 TH/MM3 (0-0.2); BASOPHIL % 0.5 % (0.0-2.0); EOSINOPHIL # 0.3 TH/MM3 (0-0.4); EOSINOPHIL % 1.8 % (0.0-4.0); HEMATOCRIT 26.2 % (39.0-51.0); HEMOGLOBIN 8.6 GM/DL (13.0-17.0); LYMPH % 2.2 % (9.0-44.0); LYMPHOCYTE # 0.3 TH/MM3 (1.0-4.8); MEAN CELL VOLUME 89.4 FL (80.0-100.0); MEAN CORPUSCULAR HEMOGLOBIN 29.3 PG (27.0-34.0); MEAN CORPUSCULAR HGB CONC 32.7 % (32.0-36.0); MEAN PLATELET VOLUME 9.2 FL (7.0-11.0); MONO % 8.4 % (0.0-8.0); MONOCYTE # 1.3 TH/MM3 (0-0.9); NEUT % 87.1 % (16.0-70.0); PLATELET COUNT 406 TH/MM3 (150-450); RED BLOOD COUNT 2.93 MIL/MM3 (4.50-5.90); RED CELL DISTRIBUTION WIDTH 14.4 % (11.6-17.2); WHITE BLOOD COUNT 15.6 TH/MM3 (4.0-11.0)
[2017-02-26] MEDS: DOCUSATE SODIUM 50 MG/SENNA 8.6 MG TAB PO SCH ×2 (09:00→21:00)
[2017-02-26 09:01] LABS: CALCIUM 8.9 MG/DL (8.5-10.1); CREATININE 7.86 MG/DL (0.60-1.30)
[2017-02-26] MEDS: FLUTICASONE PROPIONATE 50 MCG/ACT 16 GM NASAL SPRAY EACH NARE SCH (09:17)
[2017-02-26] MEDS: SODIUM CHLORIDE 0.9% FLUSH 10 ML FLUSH IV FLUSH SCH ×2 (09:18→23:45)
[2017-02-26] MEDS: FUROSEMIDE 80 MG TAB PO SCH (09:20)
[2017-02-26] MEDS: ASPIRIN EC 81 MG TABEC PO SCH (09:20)
[2017-02-26] MEDS: ISOSORBIDE MONONITRATE 30 MG TAB PO SCH (09:20)
[2017-02-26] MEDS: CLOPIDOGREL 75 MG TAB PO SCH (09:20)
[2017-02-26] MEDS: guaiFENesin E.R. 600 MG TAB PO SCH ×2 (09:20→23:45)
[2017-02-26] MEDS: SODIUM BICARBONATE 650 MG TAB PO SCH ×3 (09:21→18:03)
[2017-02-26] MEDS: amLODIPine BESYLATE 5 MG TAB PO SCH (09:21)
[2017-02-26] MEDS: METOPROLOL TARTRATE 25 MG TAB PO SCH ×2 (09:21→23:44)
[2017-02-26] MEDS: HEPARIN SODIUM - SQ 10,000 UNITS/ML VIAL SQ SCH (09:21)
[2017-02-26] MEDS: PANTOPRAZOLE SOD 40 MG DELAYED RELEASE TAB PO SCH (09:21)
--- NOTE | 2017-02-26 10:38 | HHI.NPPN ---
Subjective Renal Failure: Chronic, Acute, Stage V Interval History Still with high O2 requirement. Pulmonary has been consulted. Renal function is slightly better. (Kellen Carlos) Review of Systems General Constitutional: Fatigue (Kellen Carlos) Respiratory Lungs: SOB, Cough (Kellen Carlos) Objective Data Data Vital Signs Date Time Temp Pulse Resp B/P (MAP) Pulse Ox O2 Delivery O2 Flow Rate FiO2 02/26/17 10:31 92 Nasal Cannula 5.00 02/26/17 07:44 97.6 108 20 140/74 (96) 91 02/26/17 04:33 91 Nasal Cannula 5.00 02/26/17 04:30 98.4 104 22 129/80 (96) 92 02/26/17 02:38 Nasal Cannula 5.00 02/26/17 00:15 97.6 66 20 125/70 (88) 97 02/25/17 21:40 98.1 68 22 129/69 (89) 96 02/25/17 17:26 92 Nasal Cannula 5.00 02/25/17 16:23 98.3 109 20 130/60 (83) 92 02/25/17 13:19 86 02/25/17 11:40 97.7 86 20 130/74 (92) 95 (Kellen Carlos) -: 02/26/17 0706 02/26/17 0706 Imaging Last 72 hours Impressions Chest X-Ray 02/24/17 0000 Signed Impressions: Service Date/Time: Friday, February 24, 2017 16:27 - CONCLUSION: 1. Worsening bilateral lower lobe air space consolidation, most notably in the right lower lobe. Findings are concerning for aspiration and associated pneumonia. Yoel Perrin MD (Kellen Carlos) Physical Exam General Appearance: Well Developed, Comfortable (Kellen Carlos) Eyes Eye Exam: Pupils Equal (Kellen Carlos) Neck Neck Exam: Neck Supple (Kellen Carlos) Pulmonary Resp Exam: Breath Sounds Equal, Crackles, Decreased Bases (Kellen Carlos) Cardiology CV Exam: Good Perfusion, Irregular, Arrhythmia (Kellen Carlos) Gastrointestinal/Abdomen GI Exam: Soft, Non-Tender, Bowel Sounds Present (Kellen Carlos) Musculoskeletal MS Exam: Joints Intact, Normal Tone (Kellen Carlos) Integumentary Skin Exam: Clear, Warm, Dry, Intact (Kellen Carlos) Extremeties Extremities Exam: No Edema, Pedal Pulses Palpable (Kellen Carlos) Neurologic Neuro Exam: Alert, Awake, Oriented, Speech Clear, Moving All Extremities (Kellen Carlos) Psychiatric Psych Exam: Appropriate Responses (Kellen Carlos) Assessment/Plan Discussed Condition With: Patient Assessment Summary: ERIC/Acute Renal Failure, Hypertension, CKD Stage V Electrolyte Assessment: Metabolic Acidosis Problem List: (1) Acute renal failure ICD Codes: N17.9 - Acute kidney failure, unspecified Plan: Acute on CKD 5, baseline creatinine is 5.7 ERIC may be due to infection. He has advance kidney disease; needs to start dialysis Has appt with Dr. Lou next week to discuss plans. Hesitant to start this admission. Continue lasix 80 mg daily PO He is non oliguric, urine output appears to have improved On Renvela for metabolic bone disorder (2) Metabolic acidosis ICD Codes: E87.2 - Metabolic acidosis Status: Chronic Plan: High anion gap acidosis Due to renal failure On oral sodium bicarbonate. Would improve with dialysis (3) Hypertension ICD Codes: I10 - Hypertension Status: Chronic Plan: Blood pressure is acceptable. (4) Pneumonia ICD Codes: J18.9 - Pneumonia, unspecified organism Status: Acute Plan: On Rocephin and Zithromax. Monitor clinically, on oxygen Home oxygen ordered Hypoxic with high oxygen requirement, pulmonary has been consulted (5) Atrial fibrillation ICD Codes: I48.91 - Unspecified atrial fibrillation Plan: intermittently tachycardic , continue to monitor Plan (Kellen Carlos) Plan patient was seen and examined. The patient remains short of breath. Chest CT findings are consistent with pneumonia with pleural effusions. Zosyn has been added. Pulmonary consulted. He is very near dialysis. (Nithin Cleveland MD) Kellen Carlos Feb 26, 2017 10:37 Nithin Cleveland MD Feb 26, 2017 17:41
--- NOTE | 2017-02-26 11:23 | HHI.PR ---
Subjective Remarks Follow up pneumonia, renal failure. Patient states that he is anxious to go home. Still with dyspnea, cough. Objective Vitals Vital Signs Date Time Temp Pulse Resp B/P (MAP) Pulse Ox O2 Delivery O2 Flow Rate FiO2 02/26/17 10:31 92 Nasal Cannula 5.00 02/26/17 07:44 97.6 108 20 140/74 (96) 91 02/26/17 04:33 91 Nasal Cannula 5.00 02/26/17 04:30 98.4 104 22 129/80 (96) 92 02/26/17 02:38 Nasal Cannula 5.00 02/26/17 00:15 97.6 66 20 125/70 (88) 97 02/25/17 21:40 98.1 68 22 129/69 (89) 96 02/25/17 17:26 92 Nasal Cannula 5.00 02/25/17 16:23 98.3 109 20 130/60 (83) 92 02/25/17 13:19 86 02/25/17 11:40 97.7 86 20 130/74 (92) 95 I/O 02/25/17 02/25/17 02/25/17 02/26/17 02/26/17 02/26/17 07:00 15:00 23:00 07:00 15:00 23:00 Intake Total 1030 ml 150 ml 1750 ml 700 ml Output Total 1100 ml 600 ml Balance 1030 ml 150 ml 650 ml 100 ml Intake Oral 1400 ml 650 ml IV Total 1030 ml 150 ml 350 ml 50 ml Output Urine Total 1100 ml 600 ml # Bowel Movements 1 0 Result Diagram: 02/26/17 0706 02/26/17 0706 Imaging Last Impressions Chest X-Ray 02/24/17 0000 Signed Impressions: Service Date/Time: Friday, February 24, 2017 16:27 - CONCLUSION: 1. Worsening bilateral lower lobe air space consolidation, most notably in the right lower lobe. Findings are concerning for aspiration and associated pneumonia. Yoel Perrin MD Objective Remarks General: Elderly male in no acute distress. Sitting up in a chair. Heart: Regular rate and rhythm. No murmur. Lungs: Crackles bilaterally. Breathing is nonlabored. Abdomen: Soft, nontender, nondistended. Extremities: No lower extremity edema. Psych: Alert and oriented. Procedures None Urinary Catheter: No Vascular Central Line Catheter: No A/P Problem List: (1) Pneumonia ICD Code: J18.9 - Pneumonia, unspecified organism Status: Acute (2) Severe sepsis ICD Code: A41.9 - Sepsis, unspecified organism; R65.20 - Severe sepsis without septic shock (3) Acute renal failure ICD Code: N17.9 - Acute kidney failure, unspecified Assessment and Plan 02/26/17 Still requiring 5L oxygen per nasal cannula. Consult pulmonology. Continue antibiotics, nebs. Monitor renal function. Nephrology following. Patient wants to follow-up with his outpatient inker before deciding about dialysis. 1. Severe sepsis secondary to community-acquired pneumonia: Patient presented with tachypnea, tachycardia, acute renal failure. Continue antibiotics. Continue bronchodilators, incentive spirometry, Mucinex, supplemental oxygen. 2. 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 Appreciate nephrology recommendations. Patient will likely need dialysis, but does not want dialysis at this time. 3. Chronic systolic congestive heart failure: Repeat echocardiogram shows ejection fraction of 35-40%, which is improved compared to the 20-25% seen on echocardiogram 11/06/16. Received 1 dose of Lasix in the ER. No further diuresis due to acute renal failure, no clinical signs of fluid overload. 4. Hypertension: Continue metoprolol, Norvasc. Losartan on hold secondary to acute renal failure. 5. Hyperlipidemia: Continue statin. 6. CAD: Currently asymptomatic. Continue aspirin, Plavix, statin, beta mike, Norvasc, Imdur. Losartan on hold as above. 7. Chronic normocytic anemia: Appears to be at baseline. 8. DVT prophylaxis: Heparin. Discharge Planning Discharge home when respiratory status has improved. Tushar Bradley MD Feb 26, 2017 11:22
--- NOTE | 2017-02-26 13:46 | RADRPT ---
EXAM DATE/TIME: 02/26/2017 13:32 [facility] COMPARISON: CHEST SINGLE AP, February 24, 2017, 16:27. CT THORAX W/O CONTRAST, July 28, 2014, 16:17. INDICATIONS : Shortness of breath, cough RADIATION DOSE: 14.80 CTDIvol (mGy) MEDICAL HISTORY : Cardiovascular disease. Hypertension. Renal failure, acute. diabetes, anemia SURGICAL HISTORY : None. ENCOUNTER: Initial ACUITY: 4 - 6 days PAIN SCALE: 2/10 LOCATION: chest TECHNIQUE: Volumetric scanning of the chest was performed. Using automated exposure control and adjustment of t he mA and/or kV according to patient size, radiation dose was kept as low as reasonably achievable to obtain optimal diagnostic quality images. DICOM format image data is available electronically for r eview and comparison. Follow-up recommendations for detected pulmonary nodules are based at a minimum on nodule size and pa tient risk factors according to Fleischner Society Guidelines. FINDINGS: LUNGS: There is no pneumothorax. There is consolidation in the right middle lobe and both posterior lung bas es with air bronchograms. There is patchy infiltrate in the right upper lobe. No concerning pulmonary nodule is visualized. PLEURAE: There are moderate bilateral pleural effusions right greater than left. MEDIASTINUM: The heart and great vessels demonstrate no acute abnormality. There are stable prominent pretracheal and periaortic lymph nodes. Coronary artery calcifications are present. The heart size is mildly pro minent. There is no pericardial effusion. AXILLAE: Within normal limits. No lymphadenopathy. MUSCULOSKELETAL: Within normal limits for patient age. MISCELLANEOUS: The visualized upper abdominal organs demonstrate no acute abnormality. CONCLUSION: 1. Consolidation in both posterior lung bases and right middle lobe with air bronchograms. Milder pat jammie infiltrate in the right upper lobe. 2. Moderate size bilateral pleural effusions right greater than left. 3. Stable prominent mediastinal lymph nodes. 4. Coronary artery calcifications. Ben Steele MD on February 26, 2017 at 13:41 Board Certified Radiologist. This report was verified electronically.
[2017-02-26] MEDS: cefTRIAXone INJ 1,000 MG in SODIUM CHLORIDE 0.9% INJ 100 ML IV SCH (15:36)
[2017-02-26] MEDS: AZITHROMYCIN INJ 500 MG in SODIUM CHLOR 0.9% 250 ML INJ 250 ML IV SCH (18:00)
[2017-02-26 20:55] LABS: HEMATOCRIT 24.5 % (39.0-51.0); HEMOGLOBIN 8.5 GM/DL (13.0-17.0); MEAN CORPUSCULAR HEMOGLOBIN 30.8 PG (27.0-34.0); MEAN CORPUSCULAR HGB CONC 34.6 % (32.0-36.0); MEAN PLATELET VOLUME 9.4 FL (7.0-11.0); PLATELET COUNT 376 TH/MM3 (150-450); RED BLOOD COUNT 2.76 MIL/MM3 (4.50-5.90); RED CELL DISTRIBUTION WIDTH 14.3 % (11.6-17.2)
[2017-02-26 21:03] LABS: INTERNATIONAL NORMALIZED RATIO 1.4 RATIO; PROTHROMBIN TIME - PATIENT 13.8 SEC (9.8-11.6)
--- NOTE | 2017-02-26 23:06 | RADRPT ---
EXAM DATE/TIME: 02/26/2017 22:35 [facility] COMPARISON: No previous studies available for comparison. INDICATIONS : Pleural effusion. MEDICAL HISTORY : Myocardial infarction. Congestive heart failure. Hypercholesterolemia. Coronary artery disease. Antic oagulant therapy. Hypertension. Renal failure. Diabetes. Anemia. SURGICAL HISTORY : Coronary artery stent. Left knee surgery. Bilateral cataract removal. ENCOUNTER: Initial ACUITY: 1 day PAIN SCORE: 0/10 LOCATION: Left chest MEASUREMENTS: SKIN TO PARIETAL PLEURA: 1.9 cm SKIN TO MAX SAFE DEPTH: 4.3 cm ESTIMATED FLUID VOLUME: 1449 cc FLUID COMPOSITION: simple FINDINGS: Pleural effusion as above. A ricardo was placed on the skin surface superficial to the pleural fluid col lection. CONCLUSION: Nearly 1500 cc of left pleural fluid. Chest wall was marked. Derrick Walker MD on February 26, 2017 at 23:03 Board Certified Radiologist. This report was verified electronically.
--- NOTE | 2017-02-26 23:06 | RADRPT ---
EXAM DATE/TIME: 02/26/2017 22:33 [facility] COMPARISON: CT THORAX W/O CONTRAST, February 26, 2017, 13:32. INDICATIONS : Pleural effusion. MEDICAL HISTORY : Myocardial infarction. Congestive heart failure. Hypercholesterolemia. Coronary artery disease. Antic oagulant therapy. Hypertension. Renal failure. Diabetes. Anemia. SURGICAL HISTORY : Coronary artery stent. Left knee surgery. Bilateral cataract removal. ENCOUNTER: Initial ACUITY: 1 day PAIN SCORE: 0/10 LOCATION: Right chest MEASUREMENTS: SKIN TO PARIETAL PLEURA: 2.0 cm SKIN TO MAX SAFE DEPTH: 4.3 cm ESTIMATED FLUID VOLUME: 1644 cc FLUID COMPOSITION: simple FINDINGS: Pleural effusion as above. A ricardo was placed on the skin surface superficial to the pleural fluid col lection. CONCLUSION: 1600 cc right pleural fluid. Chest wall was marked. Derrick Walker MD on February 26, 2017 at 23:02 Board Certified Radiologist. This report was verified electronically.
[2017-02-26] MEDS: ATORVASTATIN 80 MG TAB PO SCH (23:44)
[2017-02-27] VITALS (12 sets, daily range): BP systolic 119–140; BP diastolic 57–77; PULSE 87–117; RESP 16–20; TEMP 97.6–99.2; O2SAT 90–97
[2017-02-27] MEDS: PIPERACIL-TAZO 2.25 GM PREMIX 50 ML IV SCH ×3 (02:34→21:19)
[2017-02-27 08:38] LABS: AUTOMATED NEUTROPHIL # 10.4 TH/MM3 (1.8-7.7); BASOPHIL # 0.1 TH/MM3 (0-0.2); BASOPHIL % 0.5 % (0.0-2.0); EOSINOPHIL # 0.3 TH/MM3 (0-0.4); EOSINOPHIL % 2.3 % (0.0-4.0); HEMATOCRIT 26.6 % (39.0-51.0); HEMOGLOBIN 8.8 GM/DL (13.0-17.0); LYMPH % 3.1 % (9.0-44.0); LYMPHOCYTE # 0.4 TH/MM3 (1.0-4.8); MEAN CELL VOLUME 88.7 FL (80.0-100.0); MEAN CORPUSCULAR HEMOGLOBIN 29.4 PG (27.0-34.0); MEAN CORPUSCULAR HGB CONC 33.1 % (32.0-36.0); MEAN PLATELET VOLUME 9.1 FL (7.0-11.0); MONO % 8.2 % (0.0-8.0); NEUT % 85.9 % (16.0-70.0); PLATELET COUNT 383 TH/MM3 (150-450); RED CELL DISTRIBUTION WIDTH 14.4 % (11.6-17.2); WHITE BLOOD COUNT 12.1 TH/MM3 (4.0-11.0)
[2017-02-27] MEDS: CLOPIDOGREL 75 MG TAB PO SCH (09:00)
[2017-02-27] MEDS: guaiFENesin E.R. 600 MG TAB PO SCH ×2 (09:00→21:19)
[2017-02-27] MEDS: ASPIRIN EC 81 MG TABEC PO SCH (09:00)
[2017-02-27 09:03] LABS: BICARBONATE 23.6 MEQ/L (21.0-32.0); CREATININE 7.68 MG/DL (0.60-1.30)
--- NOTE | 2017-02-27 09:11 | HHI.NPPN ---
Subjective Renal Failure: Chronic, Acute, Stage V Interval History He is due for thoracentesis today. Labs are in progress. (Kellen Carlos) Review of Systems General Constitutional: Fatigue (Kellen Carlos) Respiratory Lungs: SOB, Cough (Kellen Carlos) Objective Data Data Vital Signs Date Time Temp Pulse Resp B/P (MAP) Pulse Ox O2 Delivery O2 Flow Rate FiO2 02/27/17 08:44 97.6 98 17 119/57 (77) 92 02/27/17 06:42 110 93 02/27/17 04:00 98.3 95 20 119/57 (77) 91 02/27/17 00:00 97.7 113 20 121/64 (83) 91 02/26/17 20:53 97.1 111 20 140/83 (102) 94 02/26/17 18:17 93 Nasal Cannula 4.00 02/26/17 16:00 98 02/26/17 15:47 98.9 96 22 125/90 (102) 92 02/26/17 12:00 95 02/26/17 11:58 97.2 98 22 116/62 (80) 91 02/26/17 10:31 92 Nasal Cannula 5.00 (Kellen Carlos) -: 02/27/17 0808 02/27/17 0808 Imaging Last [address] 02/26/17 1300 Signed Impressions: Service Date/Time: February 13:32 - CONCLUSION: 1. Consolidation in both posterior lung bases and right middle lobe with air bronchograms. Milder patchy infiltrate in the right upper lobe. 2. Moderate size bilateral pleural effusions right greater than left. 3. Stable prominent mediastinal lymph nodes. 4. Coronary artery calcifications. Ben Steele MD Chest Ultrasound 02/26/17 0000 Signed Impressions: Service Date/Time: February 22:33 - CONCLUSION: 1600 cc right pleural fluid. Chest wall was marked. Derrick Walker MD Chest Ultrasound 02/26/17 0000 Signed Impressions: Service Date/Time: February 22:35 - CONCLUSION: Nearly 1500 cc of left pleural fluid. Chest wall was marked. Derrick Walker MD (Kellen Carlos) Physical Exam General Appearance: Well Developed, Comfortable (Kellen Carlos) Eyes Eye Exam: Pupils Equal (Kellen Carlos) Neck Neck Exam: Neck Supple (Kellen Carlos UNATTENDED GROUND SENSOR SPECIALIST) Pulmonary Resp Exam: Breath Sounds Equal, Crackles, Decreased Bases, Diminished Breath Sounds (Kellen Carlos UNATTENDED GROUND SENSOR SPECIALIST) Cardiology CV Exam: Good Perfusion, Irregular, Arrhythmia (Kellen Carlos UNATTENDED GROUND SENSOR SPECIALIST) Gastrointestinal/Abdomen GI Exam: Soft, Non-Tender, Bowel Sounds Present (Kellen Carlos UNATTENDED GROUND SENSOR SPECIALIST) Musculoskeletal MS Exam: Joints Intact, Normal Tone (Kellen Carlos) Integumentary Skin Exam: Clear, Warm, Dry, Intact (Kellen Carlos UNATTENDED GROUND SENSOR SPECIALIST) Extremeties Extremities Exam: No Edema, Pedal Pulses Palpable (Kellen Carlos) Neurologic Neuro Exam: Alert, Awake, Oriented, Speech Clear, Moving All Extremities (Kellen Carlos) Psychiatric Psych Exam: Appropriate Responses (Kellen Carlos) Assessment/Plan Discussed Condition With: Patient Assessment Summary: ERIC/Acute Renal Failure, Hypertension, CKD Stage V Electrolyte Assessment: Metabolic Acidosis Problem List: (1) Acute renal failure ICD Codes: N17.9 - Acute kidney failure, unspecified Plan: Acute on CKD 5, baseline creatinine is 5.7 ERIC may be due to recent infection. He has advance kidney disease; needs to start dialysis Has appt with Dr. Lou next week to discuss plans. Hesitant to start this admission. Continue lasix 80 mg, increased to BID. May need dose reduction after procedure if symptoms improve He is non oliguric On Renvela for metabolic bone disorder (2) Metabolic acidosis ICD Codes: E87.2 - Metabolic acidosis Status: Chronic Plan: High anion gap acidosis Due to renal failure On oral sodium bicarbonate. Would improve with dialysis (3) Hypertension ICD Codes: I10 - Hypertension Status: Chronic Plan: Blood pressure is acceptable. (4) Pneumonia ICD Codes: J18.9 - Pneumonia, unspecified organism Status: Acute Plan: On Rocephin and Zithromax. Monitor clinically, on oxygen Home oxygen ordered Hypoxic with high oxygen requirement, pulmonary following Due to thoracentesis on right (5) Atrial fibrillation ICD Codes: I48.91 - Unspecified atrial fibrillation Plan: intermittently tachycardic , continue to monitor (Kellen Carlos) Problem List: (1) Acute renal failure ICD Codes: N17.9 - Acute kidney failure, unspecified Plan: Acute on CKD 5, baseline creatinine is 5.7 ERIC may be due to recent infection. He has advance kidney disease; needs to start dialysis Has appt with Dr. Lou next week to discuss plans. Hesitant to start this admission. Continue lasix 80 mg, increased to BID. May need dose reduction after procedure if symptoms improve He is non oliguric On Renvela for metabolic bone disorder (2) Metabolic acidosis ICD Codes: E87.2 - Metabolic acidosis Status: Chronic Plan: High anion gap acidosis Due to renal failure On oral sodium bicarbonate. Would improve with dialysis (3) Hypertension ICD Codes: I10 - Hypertension Status: Chronic Plan: Blood pressure is acceptable. (4) Pneumonia ICD Codes: J18.9 - Pneumonia, unspecified organism Status: Acute Plan: On Rocephin and Zithromax. Monitor clinically, on oxygen Home oxygen ordered Hypoxic with high oxygen requirement, pulmonary following Due to thoracentesis on right (5) Atrial fibrillation ICD Codes: I48.91 - Unspecified atrial fibrillation Plan: intermittently tachycardic , continue to monitor Plan patient was seen and examined. Agree with above assessment and plan. Will continue Furosemide once a day. (Nithin Cleveland MD) Kellen Carlos Feb 27, 2017 09:11 Nithin Cleveland MD Feb 27, 2017 12:45
[2017-02-27 09:58] LABS: BANDS 8 % (0-6); METAMYELOCYTES 1 % (0-1); MONOCYTES 7 % (0-8); MYELOCYTES 1 % (0-0); NEUTROPHIL # MANUAL DIFF 11.1 TH/MM3 (1.8-7.7); POLYS (SEG NEUTROPHILS) 82 % (16-70)
[2017-02-27] MEDS: SODIUM CHLORIDE 0.9% FLUSH 10 ML FLUSH IV FLUSH SCH ×2 (10:12→21:19)
[2017-02-27] MEDS: METOPROLOL TARTRATE 25 MG TAB PO SCH ×2 (10:15→21:20)
[2017-02-27] MEDS: PANTOPRAZOLE SOD 40 MG DELAYED RELEASE TAB PO SCH (10:16)
[2017-02-27] MEDS: ISOSORBIDE MONONITRATE 30 MG TAB PO SCH (10:16)
[2017-02-27] MEDS: DOCUSATE SODIUM 50 MG/SENNA 8.6 MG TAB PO SCH ×2 (10:28→21:00)
[2017-02-27] MEDS: amLODIPine BESYLATE 5 MG TAB PO SCH (10:28)
[2017-02-27] MEDS: SEVELAMER CARBONATE 800 MG TAB PO SCH ×3 (10:42→19:31)
[2017-02-27] MEDS: FLUTICASONE PROPIONATE 50 MCG/ACT 16 GM NASAL SPRAY EACH NARE SCH (10:43)
[2017-02-27] MEDS: SODIUM BICARBONATE 650 MG TAB PO SCH ×3 (10:43→19:34)
--- NOTE | 2017-02-27 12:55 | MB ---
cc: JARAD DRISCOLL DATE OF CONSULTATION 02/26/2017 REASON FOR CONSULTATION Shortness of breath and effusions. HISTORY OF PRESENT ILLNESS This is a 81-year-old white male with a history of hypertension and chronic kidney disease stage V, history of hyperlipidemia and a coronary artery disease with stenting and CHF who was admitted with shortness of breath, cough, wheezing, chest congestion and myalgia. The patient had a flu-like illness for 2-3 weeks, became worse and had chest congestion and cough and thus was admitted to the hospital on 02/19/2017. He has been coughing up thick greenish-yellow mucus and upon admission was started on antibiotic therapy since his influenza test was negative. He was also given Solu-Medrol and IV Lasix, but his urine output has been marginal. The patient was initially on Zithromax and Rocephin and a repeat chest x-ray during his hospital stay showed evidence of bibasilar effusions. The patient is orthopneic. He has leg edema and he complains of tightness in his chest and back. PAST HISTORY Includes a history of: 1. Hypertension 2. Hyperlipidemia 3. History of chronic kidney disease. 4. Anemia of chronic disease PAST SURGICAL HISTORY Includes: 1. Cardiac catheterization and stenting times four. 2. History of bilateral cataract surgery with implants. 3. Previous colonoscopies. ALLERGIES None listed. HABITS The patient smoked briefly in the past, but not on a regular basis. MEDICATION LIST 1. Plavix 75 mg daily 2. Norvasc 5 mg a day 3. Lipitor 80 mg at bedtime 4. Lasix 10 mg daily 5. Metoprolol 25 mg h.s. 6. Losartan 100 mg a day 7. Isordil 30 mg a day FAMILY HISTORY Noncontributory. There is a history of heart disease in his father, diabetes in his mother. REVIEW OF SYSTEMS The patient has leg swelling and joint pains. He has trouble ambulating. He has dizzy attacks. He has epigastric distress and bloating and urinary frequency. No depression or anxiety. No skin rash. PHYSICAL EXAMINATION This is a well-built elderly man who is sitting upright pale and mildly dyspneic at rest. VITAL SIGNS: Blood pressure 160/70, pulse 90, respirations 22, temperature 98.2. HEENT: Head normocephalic. Pupils are reactive and equal. Tongue is dry. Throat is injected. NECK: Supple. There is venous distension at 45 degrees up to 4 cm. Trachea midline. CHEST: Decreased breath sounds at the bases with occasional basilar crackles. HEART: The heart sounds are irregular, S1-S2 with no murmur. ABDOMEN: Soft and protuberant. No masses, organomegaly, or tenderness. EXTREMITIES: Edema 1+ with decreased pulses. Reflexes are 1+ with no gross motor deficits. NEUROLOGIC: Cranial nerves grossly intact. RECTAL: Exam is deferred. SKIN: No lesions. IMPRESSION 1. CHF with bilateral pleural effusions. 2. Basilar atelectasis with possible pneumonia resolving. 3. Acute on chronic renal failure 4. Hypertension and hypertensive cardiovascular disease 5. Anemia of chronic disease PLAN The patient will be sent for an ultrasound examination of the chest to evaluate the effusions, placed on DuoNeb solution with nebulizer three times a day. Continue with antibiotic coverage as ordered including Zosyn and Zithromax thoracentesis will be planned and we will hold off on any anticoagulants at this time. I will check the coagulation profile and follow the case with you. Dr. Bradley, thank you for this consultation. MD ANG Dejesus/RANDI /12:15 PM /12:33 PM
--- NOTE | 2017-02-27 13:49 | HHI.PR ---
Subjective Remarks Follow-up pleural effusion, pneumonia. Patient still requiring 5 L of oxygen. Status post thoracentesis with removal of 1500 cc of fluid from the right lung by pulmonology. The patient states that he does feel better following the procedure. No other complaints at this time. Objective Vitals Vital Signs Date Time Temp Pulse Resp B/P (MAP) Pulse Ox O2 Delivery O2 Flow Rate FiO2 02/27/17 12:35 98.3 96 17 139/77 (97) 94 02/27/17 12:33 87 02/27/17 12:18 117 02/27/17 12:03 93 Nasal Cannula 4.00 02/27/17 08:44 97.6 98 17 119/57 (77) 92 02/27/17 06:42 110 93 02/27/17 04:00 98.3 95 20 119/57 (77) 91 02/27/17 00:00 97.7 113 20 121/64 (83) 91 02/26/17 20:53 97.1 111 20 140/83 (102) 94 02/26/17 18:17 93 Nasal Cannula 4.00 02/26/17 16:00 98 02/26/17 15:47 98.9 96 22 125/90 (102) 92 I/O 02/26/17 02/26/17 02/26/17 02/27/17 02/27/17 02/27/17 07:00 15:00 23:00 07:00 15:00 23:00 Intake Total 700 ml 50 ml 950 ml 220 ml Output Total 600 ml 1000 ml 600 ml 250 ml Balance 100 ml 50 ml -50 ml -380 ml -250 ml Intake Oral 650 ml 600 ml 220 ml IV Total 50 ml 50 ml 350 ml Output Urine Total 600 ml 1000 ml 600 ml 250 ml # Voids 1 1 # Bowel Movements 0 2 1 1 Result Diagram: 02/27/17 0808 02/27/17 0808 Imaging Last Impressions Chest CT 02/26/17 1300 Signed Impressions: Service Date/Time: February 13:32 - CONCLUSION: 1. Consolidation in both posterior lung bases and right middle lobe with air bronchograms. Milder patchy infiltrate in the right upper lobe. 2. Moderate size bilateral pleural effusions right greater than left. 3. Stable prominent mediastinal lymph nodes. 4. Coronary artery calcifications. Ben Steele MD Chest Ultrasound 02/26/17 0000 Signed Impressions: Service Date/Time: February 22:33 - CONCLUSION: 1600 cc right pleural fluid. Chest wall was marked. Derrick Walker MD Chest X-Ray 02/24/17 0000 Signed Impressions: Service Date/Time: Friday, February 24, 2017 16:27 - CONCLUSION: 1. Worsening bilateral lower lobe air space consolidation, most notably in the right lower lobe. Findings are concerning for aspiration and associated pneumonia. Yoel Perrin MD Objective Remarks General: Elderly male in no acute distress. Heart: Regular rate and rhythm. No murmur. Lungs: Diminished breath sounds on the left. Mild crackles on the right. Breathing is nonlabored. Abdomen: Soft, nontender, nondistended. Extremities: No lower extremity edema. Psych: Alert and oriented. Procedures 02/27/17 thoracentesis Urinary Catheter: No Vascular Central Line Catheter: No A/P Problem List: (1) Pneumonia ICD Code: J18.9 - Pneumonia, unspecified organism Status: Acute (2) Severe sepsis ICD Code: A41.9 - Sepsis, unspecified organism; R65.20 - Severe sepsis without septic shock (3) Acute renal failure ICD Code: N17.9 - Acute kidney failure, unspecified Assessment and Plan 02/27/17 Still requiring 5L oxygen per nasal cannula. Appreciate pulmonology recommendations. CT of the chest and chest ultrasounds show significant pleural effusions. Status post thoracentesis at the bedside by pulmonology with removal of 1500 cc of fluid from the right. Continue antibiotics, nebs. Monitor renal function. Nephrology following. Patient wants to follow-up with his outpatient learning technologies specialist before deciding about dialysis. I again advised him to pursue dialysis sooner rather than later. 1. Severe sepsis secondary to community-acquired pneumonia: Patient presented with tachypnea, tachycardia, acute renal failure. Continue antibiotics. Continue bronchodilators, incentive spirometry, Mucinex, supplemental oxygen. 2. 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 Appreciate nephrology recommendations. Patient will need dialysis, but does not want dialysis at this time. 3. Chronic systolic congestive heart failure: Repeat echocardiogram shows ejection fraction of 35-40%, which is improved compared to the 20-25% seen on echocardiogram 11/06/16. Continue Lasix. 4. Hypertension: Continue metoprolol, Norvasc. Losartan on hold secondary to acute renal failure. 5. Hyperlipidemia: Continue statin. 6. CAD: Currently asymptomatic. Continue aspirin, Plavix, statin, beta mike, Norvasc, Imdur. Losartan on hold as above. 7. Chronic normocytic anemia: Appears to be at baseline. 8. DVT prophylaxis: Heparin. Discharge Planning Discharge home when respiratory status has improved. Tushar Bradley MD Feb 27, 2017 13:49
--- NOTE | 2017-02-27 14:06 | RADRPT ---
EXAM DATE/TIME: 02/27/2017 13:24 [facility] COMPARISON: CT THORAX W/O CONTRAST, February 26, 2017, 13:32. CHEST SINGLE AP, February 24, 2017, 16:27. INDICATIONS : Post thoracentesis left chest MEDICAL HISTORY : Congestive heart failure. Hypertension renal failure, diabetes, coronary artery disease SURGICAL HISTORY : Coronary artery stent. ENCOUNTER: Subsequent ACUITY: 1 day PAIN SCORE: 0/10 LOCATION: Left chest FINDINGS: Minimally improved airspace consolidation in the right lower lobe. Persistent airspace consolidation in the left lower lobe. Persistent hazy opacity in the left inferior hemithorax consistent with effus ion. The cardiomediastinal contours are stable. Remainder of exam is unchanged. CONCLUSION: 1. No significant pneumothorax. 2. Improved aeration in the right lower lung zone with persistent airspace consolidation. Query statu s post right thoracentesis? 3. Stable left lower lung zone pleural parenchymal opacities. Yoel Perrin MD on February 27, 2017 at 13:59 Board Certified Radiologist. This report was verified electronically.
[2017-02-27] MEDS ORDERED: HEPARIN SODIUM - IV 2,000 UNITS/2 ML VIAL OTHER SCH (14:15)
[2017-02-27] MEDS: cefTRIAXone INJ 1,000 MG in SODIUM CHLORIDE 0.9% INJ 100 ML IV SCH (15:18)
[2017-02-27 16:54] LABS: TOTAL PROTEIN,PLEURAL FLUID 2.2 GM/DL
[2017-02-27] MEDS ORDERED: FUROSEMIDE 80 MG TAB PO SCH (18:00)
[2017-02-27 18:42] LABS: PLEURAL FLUID HISTIOCYTES 6 %; PLEURAL FLUID LYMPHS 8 %; PLEURAL FLUID MESOTHELIAL 7 %; PLEURAL FLUID MONOS 31 %; PLEURAL FLUID POLYS (SEGS) 49 %; PLEURAL FLUID RBC 640 /MM3 (0-0); PLEURAL FLUID WBC 720 /MM3 (0-10)
[2017-02-27] MEDS: AZITHROMYCIN INJ 500 MG in SODIUM CHLOR 0.9% 250 ML INJ 250 ML IV SCH (19:35)
[2017-02-27] MEDS: ATORVASTATIN 80 MG TAB PO SCH (21:19)
[2017-02-28] VITALS (10 sets, daily range): BP systolic 126–159; BP diastolic 69–93; PULSE 88–115; RESP 16–20; TEMP 97.1–98.7; O2SAT 91–98
[2017-02-28] MEDS: PIPERACIL-TAZO 2.25 GM PREMIX 50 ML IV SCH ×2 (02:57→08:47)
[2017-02-28] MEDS: FLUTICASONE PROPIONATE 50 MCG/ACT 16 GM NASAL SPRAY EACH NARE SCH (08:45)
[2017-02-28] MEDS: guaiFENesin E.R. 600 MG TAB PO SCH ×2 (08:53→22:39)
[2017-02-28] MEDS: SEVELAMER CARBONATE 800 MG TAB PO SCH ×3 (08:54→16:17)
[2017-02-28] MEDS: CLOPIDOGREL 75 MG TAB PO SCH (08:54)
[2017-02-28] MEDS: DOCUSATE SODIUM 50 MG/SENNA 8.6 MG TAB PO SCH ×2 (08:54→22:40)
[2017-02-28] MEDS: FUROSEMIDE 80 MG TAB PO SCH (08:54)
[2017-02-28] MEDS: ISOSORBIDE MONONITRATE 30 MG TAB PO SCH (08:55)
[2017-02-28] MEDS: METOPROLOL TARTRATE 25 MG TAB PO SCH ×2 (08:55→22:40)
[2017-02-28] MEDS: ASPIRIN EC 81 MG TABEC PO SCH (08:55)
[2017-02-28] MEDS: PANTOPRAZOLE SOD 40 MG DELAYED RELEASE TAB PO SCH (08:55)
[2017-02-28] MEDS: SODIUM BICARBONATE 650 MG TAB PO SCH ×3 (08:55→16:17)
[2017-02-28] MEDS: amLODIPine BESYLATE 5 MG TAB PO SCH (08:55)
[2017-02-28] MEDS: SODIUM CHLORIDE 0.9% FLUSH 10 ML FLUSH IV FLUSH SCH ×2 (08:59→22:39)
--- NOTE | 2017-02-28 10:07 | HHI.NPPN ---
Subjective Renal Failure: Chronic, Acute, Stage V Interval History patient underwent thoracentesis yesterday. Renal labs are pending. Non oliguric. Review of Systems General Constitutional: Fatigue Respiratory Lungs: SOB, Cough Objective Data Data Vital Signs Date Time Temp Pulse Resp B/P (MAP) Pulse Ox O2 Delivery O2 Flow Rate FiO2 02/28/17 08:15 98.5 101 20 149/93 (111) 94 02/28/17 07:37 93 Nasal Cannula 4.00 02/28/17 04:00 97.1 89 16 130/90 (103) 98 02/28/17 00:00 98.7 103 19 134/91 (105) 94 02/27/17 20:00 97.7 93 17 123/67 (85) 97 02/27/17 16:33 99.2 107 16 120/66 (84) 97 02/27/17 14:49 98 140/77 (98) 93 02/27/17 14:26 99 120/61 (80) 90 02/27/17 12:35 98.3 96 17 139/77 (97) 94 02/27/17 12:33 87 02/27/17 12:18 117 02/27/17 12:03 93 Nasal Cannula 4.00 -: 02/27/17 0808 02/27/17 0808 Microbiology 02/27/17 Stool Occult Blood (HAIR) - Final, Complete HEMOCCULT POSITIVE Physical Exam General Appearance: Well Developed, Comfortable Eyes Eye Exam: Pupils Equal Neck Neck Exam: Neck Supple Pulmonary Resp Exam: Breath Sounds Equal, Crackles, Decreased Bases, Diminished Breath Sounds Cardiology CV Exam: Good Perfusion, Irregular, Arrhythmia Gastrointestinal/Abdomen GI Exam: Soft, Non-Tender, Bowel Sounds Present Musculoskeletal MS Exam: Joints Intact, Normal Tone Integumentary Skin Exam: Clear, Warm, Dry, Intact Extremeties Extremities Exam: No Edema, Pedal Pulses Palpable Neurologic Neuro Exam: Alert, Awake, Oriented, Speech Clear, Moving All Extremities Psychiatric Psych Exam: Appropriate Responses Assessment/Plan Discussed Condition With: Patient Assessment Summary: ERIC/Acute Renal Failure, Hypertension, CKD Stage V Electrolyte Assessment: Metabolic Acidosis Problem List: (1) Acute renal failure ICD Codes: N17.9 - Acute kidney failure, unspecified Plan: Acute on CKD 5, baseline creatinine is 5.7 ERIC may be due to recent infection. He has advance kidney disease; needs to start dialysis Has appt with Dr. Lou next week to discuss plans. Hesitant to start this admission. Continue Lasix. He is non oliguric On Renvela for metabolic bone disorder (2) Metabolic acidosis ICD Codes: E87.2 - Metabolic acidosis Status: Chronic Plan: High anion gap acidosis Due to renal failure On oral sodium bicarbonate. Stable. (3) Hypertension ICD Codes: I10 - Hypertension Status: Chronic Plan: Blood pressure is acceptable. (4) Pneumonia ICD Codes: J18.9 - Pneumonia, unspecified organism Status: Acute Plan: On Rocephin and Zithromax. Also on Zosyn. Monitor clinically, on oxygen s/p thoracentesis. Pulmonary following. (5) Atrial fibrillation ICD Codes: I48.91 - Unspecified atrial fibrillation Plan: intermittently tachycardic , continue to monitor Nithin Cleveland MD Feb 28, 2017 10:07
--- NOTE | 2017-02-28 11:28 | HHI.PR ---
Subjective Remarks Patient seen and examined this morning. Vitals are stable. Continues to have cough. States he walks the halls without issues. He states hes breathing better. Wants to go home. I asked him about the blood that was found in his stool, he says that happens sometimes. Last colonscopy he says was 8 months ago , he says it was normal. He reports dark stools at time, but denies bright red blood per rectum. Objective Vital Signs Date Time Temp Pulse Resp B/P (MAP) Pulse Ox O2 Delivery O2 Flow Rate FiO2 02/28/17 08:15 98.5 101 20 149/93 (111) 94 02/28/17 07:37 93 Nasal Cannula 4.00 02/28/17 04:00 97.1 89 16 130/90 (103) 98 02/28/17 00:00 98.7 103 19 134/91 (105) 94 02/27/17 20:00 97.7 93 17 123/67 (85) 97 02/27/17 16:33 99.2 107 16 120/66 (84) 97 02/27/17 14:49 98 140/77 (98) 93 02/27/17 14:26 99 120/61 (80) 90 02/27/17 12:35 98.3 96 17 139/77 (97) 94 02/27/17 12:33 87 02/27/17 12:18 117 02/27/17 12:03 93 Nasal Cannula 4.00 I/O 02/27/17 02/27/17 02/27/17 02/28/17 02/28/17 02/28/17 07:00 15:00 23:00 07:00 15:00 23:00 Intake Total 220 ml 480 ml 650 ml Output Total 600 ml 250 ml 300 ml 600 ml Balance -380 ml -250 ml 180 ml 50 ml Intake Oral 220 ml 480 ml 650 ml Output Urine Total 600 ml 250 ml 300 ml 600 ml # Voids 1 # Bowel Movements 1 1 Result Diagram: 02/27/17 0808 02/27/17 0808 Imaging Last Impressions Chest X-Ray 02/27/17 0000 Signed Impressions: Service Date/Time: Monday, February 27, 2017 13:24 - CONCLUSION: 1. No significant pneumothorax. 2. Improved aeration in the right lower lung zone with persistent airspace consolidation. Query status post right thoracentesis? 3. Stable left lower lung zone pleural parenchymal opacities. Yoel Perrin MD Chest CT 02/26/17 1300 Signed Impressions: Service Date/Time: February 13:32 - CONCLUSION: 1. Consolidation in both posterior lung bases and right middle lobe with air bronchograms. Milder patchy infiltrate in the right upper lobe. 2. Moderate size bilateral pleural effusions right greater than left. 3. Stable prominent mediastinal lymph nodes. 4. Coronary artery calcifications. Ben Steele MD Chest Ultrasound 02/26/17 0000 Signed Impressions: Service Date/Time: February 22:33 - CONCLUSION: 1600 cc right pleural fluid. Chest wall was marked. Derrick Walker MD Objective Remarks GENERAL: well appearing, sitting up, nad SKIN: Warm and dry. HEAD: Normocephalic. EYES: No scleral icterus. No injection or drainage. NECK: Supple, trachea midline. No JVD or lymphadenopathy. CARDIOVASCULAR: Regular rate and rhythm without murmurs, gallops, or rubs. RESPIRATORY: Coughing throughout exam. Coarse breath sounds bilat.. GASTROINTESTINAL: Abdomen soft, non-tender, nondistended. MUSCULOSKELETAL: No cyanosis, or edema. No calf tenderness. A/P Problem List: (1) GI bleed ICD Code: K92.2 - GI bleed Status: Chronic (2) CAD (coronary artery disease) ICD Code: I25.10 - CAD (coronary artery disease) Status: Chronic (3) Diabetes ICD Code: E11.9 - Type 2 diabetes mellitus without complications (4) Chronic kidney disease, stage 5 ICD Code: N18.5 - Chronic kidney disease, stage 5 (5) Acute CHF ICD Code: I50.9 - Acute CHF Status: Acute Assessment and Plan 81-year-old male seen and examined for follow-up regarding pleural effusion, pneumonia, oxygen dependent Sepsis Community-acquired pneumonia, - Met Sepsis criteria on admission, leukocytosis improved - Blood cultures negative to date - Urine culture negative 48 hours - Currently on Rocephin, Zosyn - Continue bronchodilators - Continue supplemental oxygen - Status post ultrasound-guided thoracentesis Acute renal failure on top of chronic kidney disease stage V - Nephrology following. Patient needs dialysis although he is refusing at this time. - Has an appointment with Dr. Lou next week to discuss plans Chronic systolic heart failure - Echo with an EF of 35-40% - lasix 80 mg daily, reduced s/p thoracentesis - Continue metoprolol - Strict I's and O's, monitor electrolytes HTN - Continue metoprolol, Norvasc, losartan is on hold due to renal failure Hyperlipidemia - continue statin Chronic normocytic anemia - at baseline CAD - Continue aspirin, statin, Plavix, beta mike Hemoccult positive - consult GI DVT prophy: heparin Discharge Planning Appears clinically well. Pending: GI eval for hemoccult stools (maybe okay to follow up as an outpatient) , will have to be transition to PO abx Will see if the above can be done with hopeful anticipation for discharge tomorrow Reena Baker MD Feb 28, 2017 11:28
--- NOTE | 2017-02-28 12:17 | HHI.PR ---
Subjective Remarks Patient is lying in bed in NAD. s/p right sided thoracentesis yesterday. Afebrile. Objective Vital Signs Vital Signs Date Time Temp Pulse Resp B/P (MAP) Pulse Ox O2 Delivery O2 Flow Rate FiO2 02/28/17 11:43 98.5 88 20 126/69 (88) 92 02/28/17 08:15 98.5 101 20 149/93 (111) 94 02/28/17 07:37 93 Nasal Cannula 4.00 02/28/17 04:00 97.1 89 16 130/90 (103) 98 02/28/17 00:00 98.7 103 19 134/91 (105) 94 02/27/17 20:00 97.7 93 17 123/67 (85) 97 02/27/17 16:33 99.2 107 16 120/66 (84) 97 02/27/17 14:49 98 140/77 (98) 93 02/27/17 14:26 99 120/61 (80) 90 02/27/17 12:35 98.3 96 17 139/77 (97) 94 02/27/17 12:33 87 02/27/17 12:18 117 I/O 02/27/17 02/27/17 02/27/17 02/28/17 02/28/17 02/28/17 07:00 15:00 23:00 07:00 15:00 23:00 Intake Total 220 ml 480 ml 650 ml Output Total 600 ml 250 ml 300 ml 600 ml Balance -380 ml -250 ml 180 ml 50 ml Intake Oral 220 ml 480 ml 650 ml Output Urine Total 600 ml 250 ml 300 ml 600 ml # Voids 1 # Bowel Movements 1 1 Result Diagram: 02/27/17 0808 02/27/17 0808 Other Results Last Impressions Chest X-Ray 02/27/17 0000 Signed Impressions: Service Date/Time: Monday, February 27, 2017 13:24 - CONCLUSION: 1. No significant pneumothorax. 2. Improved aeration in the right lower lung zone with persistent airspace consolidation. Query status post right thoracentesis? 3. Stable left lower lung zone pleural parenchymal opacities. Yoel Perrin MD Chest CT 02/26/17 1300 Signed Impressions: Service Date/Time: February 13:32 - CONCLUSION: 1. Consolidation in both posterior lung bases and right middle lobe with air bronchograms. Milder patchy infiltrate in the right upper lobe. 2. Moderate size bilateral pleural effusions right greater than left. 3. Stable prominent mediastinal lymph nodes. 4. Coronary artery calcifications. Ben Steele MD Chest Ultrasound 02/26/17 0000 Signed Impressions: Service Date/Time: , February 26, 2017 22:33 - CONCLUSION: 1600 cc right pleural fluid. Chest wall was marked. Derrick Walker MD Objective Remarks GENERAL: Patient is 81 yo lying in bed in NAD SKIN: Warm and dry. HEAD: Normocephalic. EYES: No scleral icterus. No injection or drainage. NECK: Supple, trachea midline. No JVD or lymphadenopathy. CARDIOVASCULAR: Regular rate and rhythm without murmurs, gallops, or rubs. RESPIRATORY: Breath sounds equal bilaterally. Few coarse BS, diminished at bases GASTROINTESTINAL: Abdomen soft, non-tender, nondistended. MUSCULOSKELETAL: No cyanosis, or edema. BACK: Nontender without obvious deformity. No CVA tenderness. Neuro: Awake and alert A/P Assessment and Plan 1)Resp Insuff 2)CHF with bilateral pleural effusions. 3) Basilar atelectasis with possible pneumonia resolving. 4) Acute on chronic renal failure 5)Hypertension 6)Anemia of chronic disease PLAN Continue with oxygen keep sat >92% Bronchodilators, IS s/p right sided thoracentesis ( transudative effusion) likely 2nd CHF Continue with diuretics- On Lasix 80mg daily. Continue with abx ( Zosyn, Azithromycin) d/c Rocephin. Follow up on fluid culture Monitor renal function, I/O's, avoid nephrotoixns. Renal is following GI/DVT prophylaxis- per primary team Damaris Escalante MD Feb 28, 2017 12:17
--- NOTE | 2017-02-28 14:05 | MP ---
cc: JARAD MONROY DATE OF SURGERY: 02/27/2017 PROCEDURE: Right thoracentesis. PREOPERATIVE DIAGNOSIS: Right pleural effusion. POSTOPERATIVE DIAGNOSIS: Right pleural effusion. ANESTHESIA: 1% Xylocaine. SURGEON: Dr. Jarad Monroy PROCEDURAL FINDINGS: The patients right posterior back was prepped with chlorhexidine solution following his <<0:30>> applied. 1% Xylocaine was then injected into the <<0:33>> space in the posterior axillary line after which a small incision was made with a scalpel blade. Following this a 14-gauge catheter was inserted in the pleural space was connected to a vacuum bottle approximately 1500 cc of serosanguineous fluid was aspirated at which time the flow stopped. The patient tolerated the procedure well. MD AGN Dejesus/kenya /1:08 PM /1:32 PM
--- NOTE | 2017-02-28 15:01 | PD.CONS ---
HPI History of Present Illness This is a 81 year old M with medical history significant for HTN, HLD, CAD S/P 4 stends, CHF with EF 20-25%, anemia, and CKD. Pt has stage 5 kidney disease and was recommended to start on dialysis but per records he has decided to hold off. Pt presented to the emergency deparmtent on February 19 with complaints of cough, chills, body aches, nausea, and dry heaving. Reports sick contacts at home. Pt was diagnosed and is now being treated for pneumonia. GI has been consulted for anemia and Hemoccult positive stool. Pt denies ever having vomited, states it was only dry heaves. Reports diarrhea for 48 hours that resolved prior to coming to the hospital. Reports mild abdominal pain, described as soreness, and states he thinks it is from retching. Intermittent acid reflux, on medication at home for this, but is unsure the name of it. Pt does follow a GI doctor in [facility] [place], he is unsure of the doctors name. Reports last colonoscopy was 6 months ago, states normal exam. He is unsure if he has ever had an EGD. Risk factors include Plavix and daily baby ASA. Denies NSAIDs, ETOH, smoking. Reports he is feeling much better today and gaining strength and he would like to go home. H/H currently 8.8/26.6, hemoglobin has been as high as ten and as low as 7.9 during this admission. (Taisha Dozier) PFSH Past Medical History HTN HLD CAD s/p stents x4 CKD- stage 5 Anemia Past Surgical History Cardiac catheterizations with total 4 stents (2 placed 1-2months ago, 2 placed ~ 5years ago) Bilateral cataract removal Colonoscopy (Taisha Dozier) Coded Allergies: No Known Allergies (Unverified , 07/28/14) Family History Mother with diabetes Father with heart disease Social History Denies any tobacco, alcohol, or illicit drug use. Lives at home with his . (Taisha Dozier) Review of Systems Gastrointestinal: COMPLAINS OF: Abdominal pain, Diarrhea, Nausea, Heartburn, DENIES: Black stools, Bloody stools, Constipation, Vomiting, Difficulty Swallowing, Odynophagia, Swelling of Abdomen, Hematemesis (Taisha Dozier) GI Exam Vitals I&O Vital Signs Date Time Temp Pulse Resp B/P (MAP) Pulse Ox O2 Delivery O2 Flow Rate FiO2 02/28/17 11:43 98.5 88 20 126/69 (88) 92 02/28/17 08:15 98.5 101 20 149/93 (111) 94 02/28/17 07:37 93 Nasal Cannula 4.00 02/28/17 07:30 115 02/28/17 04:00 97.1 89 16 130/90 (103) 98 02/28/17 00:00 98.7 103 19 134/91 (105) 94 02/27/17 20:00 97.7 93 17 123/67 (85) 97 02/27/17 16:33 99.2 107 16 120/66 (84) 97 02/27/17 14:49 98 140/77 (98) 93 I/O 02/27/17 02/27/17 02/27/17 02/28/17 02/28/17 02/28/17 07:00 15:00 23:00 07:00 15:00 23:00 Intake Total 220 ml 480 ml 650 ml Output Total 600 ml 250 ml 300 ml 600 ml Balance -380 ml -250 ml 180 ml 50 ml Intake Oral 220 ml 480 ml 650 ml Output Urine Total 600 ml 250 ml 300 ml 600 ml # Voids 1 # Bowel Movements 1 1 Imaging Last Impressions Chest X-Ray 02/27/17 0000 Signed Impressions: Service Date/Time: Monday, February 27, 2017 13:24 - CONCLUSION: 1. No significant pneumothorax. 2. Improved aeration in the right lower lung zone with persistent airspace consolidation. Query status post right thoracentesis? 3. Stable left lower lung zone pleural parenchymal opacities. Yoel Perrin MD Chest CT 02/26/17 1300 Signed Impressions: Service Date/Time: February 13:32 - CONCLUSION: 1. Consolidation in both posterior lung bases and right middle lobe with air bronchograms. Milder patchy infiltrate in the right upper lobe. 2. Moderate size bilateral pleural effusions right greater than left. 3. Stable prominent mediastinal lymph nodes. 4. Coronary artery calcifications. Ben Steele MD Chest Ultrasound 02/26/17 0000 Signed Impressions: Service Date/Time: February 22:33 - CONCLUSION: 1600 cc right pleural fluid. Chest wall was marked. Derrick Walker MD Laboratory Date/Time Source Procedure Growth Status 02/19/17 15:15 Blood Peripheral Aerobic Blood Culture - Final NO GROWTH IN 5 DAYS Complete 02/19/17 15:15 Blood Peripheral Anaerobic Blood Culture - Final NO GROWTH IN 5 DAYS Complete 02/27/17 00:00 Fluid Pleural Fluid Fungal Smear - Final NO FUNGAL ELEMENTS SEEN. Resulted 02/27/17 00:00 Fluid Pleural Fluid Fungal Culture Pending Resulted 02/27/17 15:00 Stool Stool Stool Occult Blood (HAIR) - Final HEMOCCULT POSITIVE Complete 02/19/17 15:15 Nasal Washing Influenza Types A,B Antigen (HAIR) - Final Complete 02/19/17 16:20 Urine Catheterized Urine Urine Culture - Final NO GROWTH IN 48 HOURS. Complete Physical Examination HEENT: Normocephalic; atraumatic CHEST: Even/unlabored- 2 L O2 via NC CARDIAC: RRR ABDOMEN: Soft, nontender, bowel sounds active EXTREMITIES: No clubbing, cyanosis, or edema. SKIN: Normal; no rash; no jaundice. 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 (Taisha Dozier) Assessment and Plan Plan Assessment: - Anemia- Normocytic, H/H currently 8.8/26.6. Positive Hemoccult stool. Anemia likely multifactorial, stage 5 kidney disease, has decided to hold off on dialysis. No obvious GIB. Pt denies hematemesis, coffee ground emesis, BRBPR, and melena. Was having diarrhea for 48 hours that resolved prior to coming to the hospital. Was having nausea and dry heaving denies emesis. Last colonoscopy was approx 6 months ago in [facility] [place], pt is unsure of doctors name, states normal exam. He is unsure if he has ever had an EGD. Discussed with pt that the workup for anemia includes EGD/ colonoscopy. He does not want any GI procedures done at this time. He is aware of positive Hemoccult and states that he has a little bit of blood in his stool every now and again, denies noticing any recently. - SOB- pneumonia- S/P thoracentesis yesterday- per attending Plan: - Pt refusing procedures at this time - Notify GI if pt decides to proceed with EGD/colonoscopy - Monitor H/H - Transfuse as needed - Protonix - Supportive care Pt has been seen and examined by myself and Dr. rAita and this note is written on her behalf (Taisha Dozier) Physician Comments agree with above (Marni Arita MD) Taisha Dozier Feb 28, 2017 15:01 Marni Arita MD Feb 28, 2017 19:46
[2017-02-28] MEDS: AZITHROMYCIN INJ 500 MG in SODIUM CHLOR 0.9% 250 ML INJ 250 ML IV SCH (16:19)
[2017-02-28] MEDS: ATORVASTATIN 80 MG TAB PO SCH (22:40)
[2017-03-01] VITALS (7 sets, daily range): BP systolic 117–138; BP diastolic 71–84; PULSE 81–107; RESP 18–20; TEMP 97.4–98; O2SAT 91–94
[2017-03-01] MEDS: PIPERACIL-TAZO 2.25 GM PREMIX 50 ML IV SCH ×3 (01:58→18:02)
--- NOTE | 2017-03-01 09:07 | HHI.NPPN ---
Subjective Renal Failure: Chronic, Acute, Stage V Interval History Renal function is stable. Seen by GI. Review of Systems General Constitutional: Fatigue Respiratory Lungs: SOB, Cough Objective Data Data Vital Signs Date Time Temp Pulse Resp B/P (MAP) Pulse Ox O2 Delivery O2 Flow Rate FiO2 03/01/17 08:00 97.4 96 20 135/84 (101) 92 02/28/17 22:30 100 02/28/17 21:00 98.5 100 19 143/72 (95) 94 02/28/17 16:00 93 02/28/17 16:00 98.0 107 16 159/81 (107) 91 02/28/17 12:00 100 02/28/17 11:43 98.5 88 20 126/69 (88) 92 -: 02/27/17 0808 02/27/17 0808 Physical Exam General Appearance: Well Developed, Comfortable Eyes Eye Exam: Pupils Equal Neck Neck Exam: Neck Supple Pulmonary Resp Exam: Breath Sounds Equal, Crackles, Decreased Bases, Diminished Breath Sounds Cardiology CV Exam: Good Perfusion, Irregular, Arrhythmia Gastrointestinal/Abdomen GI Exam: Soft, Non-Tender, Bowel Sounds Present Musculoskeletal MS Exam: Joints Intact, Normal Tone Integumentary Skin Exam: Clear, Warm, Dry, Intact Extremeties Extremities Exam: No Edema, Pedal Pulses Palpable Neurologic Neuro Exam: Alert, Awake, Oriented, Speech Clear, Moving All Extremities Psychiatric Psych Exam: Appropriate Responses Assessment/Plan Discussed Condition With: Patient Assessment Summary: ERIC/Acute Renal Failure, Hypertension, CKD Stage V Electrolyte Assessment: Metabolic Acidosis Problem List: (1) Acute renal failure ICD Codes: N17.9 - Acute kidney failure, unspecified Plan: Acute on CKD 5, baseline creatinine is 5.7 ERIC may be due to recent infection. He has advance kidney disease; needs to start dialysis Has appt with Dr. Lou next week to discuss plans. Hesitant to start this admission. Continue Lasix. He is non oliguric On Renvela for metabolic bone disorder (2) Metabolic acidosis ICD Codes: E87.2 - Metabolic acidosis Status: Chronic Plan: High anion gap acidosis Due to renal failure On oral sodium bicarbonate. Stable, improved. (3) Hypertension ICD Codes: I10 - Hypertension Status: Chronic Plan: Blood pressure is acceptable. (4) Pneumonia ICD Codes: J18.9 - Pneumonia, unspecified organism Status: Acute Plan: On Zosyn and Zithromax. Monitor clinically, on oxygen s/p thoracentesis. Pulmonary following. (5) Atrial fibrillation ICD Codes: I48.91 - Unspecified atrial fibrillation Plan: intermittently tachycardic , continue to monitor Nithin Cleveland MD Mar 01, 2017 09:07
[2017-03-01] MEDS: SEVELAMER CARBONATE 800 MG TAB PO SCH ×3 (09:33→17:17)
[2017-03-01] MEDS: ASPIRIN EC 81 MG TABEC PO SCH (09:33)
[2017-03-01] MEDS: FUROSEMIDE 80 MG TAB PO SCH (09:34)
[2017-03-01] MEDS: SODIUM BICARBONATE 650 MG TAB PO SCH ×3 (09:34→17:17)
[2017-03-01] MEDS: ISOSORBIDE MONONITRATE 30 MG TAB PO SCH (09:34)
[2017-03-01] MEDS: METOPROLOL TARTRATE 25 MG TAB PO SCH ×2 (09:35→20:41)
[2017-03-01] MEDS: PANTOPRAZOLE SOD 40 MG DELAYED RELEASE TAB PO SCH (09:35)
[2017-03-01] MEDS: CLOPIDOGREL 75 MG TAB PO SCH (09:35)
[2017-03-01] MEDS: DOCUSATE SODIUM 50 MG/SENNA 8.6 MG TAB PO SCH ×2 (09:35→20:42)
[2017-03-01] MEDS: guaiFENesin E.R. 600 MG TAB PO SCH ×2 (09:35→20:41)
[2017-03-01] MEDS: amLODIPine BESYLATE 5 MG TAB PO SCH (09:36)
[2017-03-01] MEDS: SODIUM CHLORIDE 0.9% FLUSH 10 ML FLUSH IV FLUSH SCH ×2 (09:36→20:41)
[2017-03-01] MEDS: FLUTICASONE PROPIONATE 50 MCG/ACT 16 GM NASAL SPRAY EACH NARE SCH (09:40)
--- NOTE | 2017-03-01 09:50 | HHI.PR ---
Subjective Remarks Patient seen and examined this morning. Vitals are stable. Continues to have cough. Wants to know when he can go home. Had some a nose bleed from nasal dryness. Continues to require 4 L by nasal canula. Objective Vital Signs Date Time Temp Pulse Resp B/P (MAP) Pulse Ox O2 Delivery O2 Flow Rate FiO2 03/01/17 08:00 97.4 96 20 135/84 (101) 92 02/28/17 22:30 100 02/28/17 21:00 98.5 100 19 143/72 (95) 94 02/28/17 16:00 93 02/28/17 16:00 98.0 107 16 159/81 (107) 91 02/28/17 12:00 100 02/28/17 11:43 98.5 88 20 126/69 (88) 92 I/O 02/28/17 02/28/17 02/28/17 03/01/17 03/01/17 03/01/17 07:00 15:00 23:00 07:00 15:00 23:00 Intake Total 650 ml 50 ml 850 ml 800 ml Output Total 600 ml 0 ml 650 ml Balance 50 ml 50 ml 850 ml 150 ml Intake Oral 650 ml 600 ml 800 ml IV Total 50 ml 250 ml Output Urine Total 600 ml 0 ml 650 ml # Bowel Movements 0 0 Result Diagram: 02/27/17 0808 02/27/17 0808 Imaging Last Impressions Chest X-Ray 02/27/17 0000 Signed Impressions: Service Date/Time: Monday, February 27, 2017 13:24 - CONCLUSION: 1. No significant pneumothorax. 2. Improved aeration in the right lower lung zone with persistent airspace consolidation. Query status post right thoracentesis? 3. Stable left lower lung zone pleural parenchymal opacities. Yoel Perrin MD Chest CT 02/26/17 1300 Signed Impressions: Service Date/Time: February 13:32 - CONCLUSION: 1. Consolidation in both posterior lung bases and right middle lobe with air bronchograms. Milder patchy infiltrate in the right upper lobe. 2. Moderate size bilateral pleural effusions right greater than left. 3. Stable prominent mediastinal lymph nodes. 4. Coronary artery calcifications. Ben Steele MD Chest Ultrasound 02/26/17 0000 Signed Impressions: Service Date/Time: February 22:33 - CONCLUSION: 1600 cc right pleural fluid. Chest wall was marked. Derrick Walker MD Objective Remarks GENERAL: well appearing, sitting up, nad SKIN: Warm and dry. HEAD: Normocephalic. EYES: No scleral icterus. No injection or drainage. NECK: Supple, trachea midline. No JVD or lymphadenopathy. CARDIOVASCULAR: Regular rate and rhythm without murmurs, gallops, or rubs. RESPIRATORY: Sitting on side of the bed. GASTROINTESTINAL: Abdomen soft, non-tender, nondistended. MUSCULOSKELETAL: No cyanosis, or edema. No calf tenderness. A/P Problem List: (1) GI bleed ICD Code: K92.2 - GI bleed Status: Chronic (2) CAD (coronary artery disease) ICD Code: I25.10 - CAD (coronary artery disease) Status: Chronic (3) Diabetes ICD Code: E11.9 - Type 2 diabetes mellitus without complications (4) Chronic kidney disease, stage 5 ICD Code: N18.5 - Chronic kidney disease, stage 5 (5) Acute CHF ICD Code: I50.9 - Acute CHF Status: Acute Assessment and Plan 81-year-old male seen and examined for follow-up regarding pleural effusion, pneumonia, oxygen dependent Sepsis Community-acquired pneumonia, - Met Sepsis criteria on admission, leukocytosis improved - Blood cultures negative to date - Urine culture negative 48 hours - Currently on Rocephin, Zosyn - Continue bronchodilators - Continue supplemental oxygen - Status post ultrasound-guided thoracentesis, cultures so far negative, acid fast stain negative. Will repeat CXR today. Continues to require significant oxygen. Acute renal failure on top of chronic kidney disease stage V - Nephrology following. Patient needs dialysis although he is refusing at this time. - Has an appointment with Dr. Lou next week to discuss plans Chronic systolic heart failure - Echo with an EF of 35-40% - lasix 80 mg daily, reduced s/p thoracentesis - Continue metoprolol - Strict I's and O's, monitor electrolytes HTN - Continue metoprolol, Norvasc, losartan is on hold due to renal failure Hyperlipidemia - continue statin Chronic normocytic anemia - at baseline CAD - Continue aspirin, statin, Plavix, beta mike Hemoccult positive - consult GI, patient declines workup at this time DVT prophy: heparin Discharge Planning Appears clinically well Repeat CXR ordered for this am Will see if okay from pulmonology to go home Reena Baker MD Mar 01, 2017 09:50
--- NOTE | 2017-03-01 10:07 | HHI.PR ---
Subjective Remarks Patient is on 4L oxygen. Afebrile. Feeling better. Objective Vital Signs Vital Signs Date Time Temp Pulse Resp B/P (MAP) Pulse Ox O2 Delivery O2 Flow Rate FiO2 03/01/17 08:00 97.4 96 20 135/84 (101) 92 02/28/17 22:30 100 02/28/17 21:00 98.5 100 19 143/72 (95) 94 02/28/17 16:00 93 02/28/17 16:00 98.0 107 16 159/81 (107) 91 02/28/17 12:00 100 02/28/17 11:43 98.5 88 20 126/69 (88) 92 I/O 02/28/17 02/28/17 02/28/17 03/01/17 03/01/17 03/01/17 07:00 15:00 23:00 07:00 15:00 23:00 Intake Total 650 ml 50 ml 850 ml 800 ml Output Total 600 ml 0 ml 650 ml Balance 50 ml 50 ml 850 ml 150 ml Intake Oral 650 ml 600 ml 800 ml IV Total 50 ml 250 ml Output Urine Total 600 ml 0 ml 650 ml # Bowel Movements 0 0 Result Diagram: 02/27/17 0808 02/27/17 0808 Other Results Last Impressions Chest X-Ray 02/27/17 0000 Signed Impressions: Service Date/Time: Monday, February 27, 2017 13:24 - CONCLUSION: 1. No significant pneumothorax. 2. Improved aeration in the right lower lung zone with persistent airspace consolidation. Query status post right thoracentesis? 3. Stable left lower lung zone pleural parenchymal opacities. Yoel Perrin MD Chest CT 02/26/17 1300 Signed Impressions: Service Date/Time: February 13:32 - CONCLUSION: 1. Consolidation in both posterior lung bases and right middle lobe with air bronchograms. Milder patchy infiltrate in the right upper lobe. 2. Moderate size bilateral pleural effusions right greater than left. 3. Stable prominent mediastinal lymph nodes. 4. Coronary artery calcifications. Ben Steele MD Chest Ultrasound 02/26/17 0000 Signed Impressions: Service Date/Time: February 22:33 - CONCLUSION: 1600 cc right pleural fluid. Chest wall was marked. Derrick Walker MD Objective Remarks GENERAL: Patient is 81 yo lying in bed in NAD SKIN: Warm and dry. HEAD: Normocephalic. EYES: No scleral icterus. No injection or drainage. NECK: Supple, trachea midline. No JVD or lymphadenopathy. CARDIOVASCULAR: Regular rate and rhythm without murmurs, gallops, or rubs. RESPIRATORY: Breath sounds equal bilaterally. Few coarse BS, diminished at bases GASTROINTESTINAL: Abdomen soft, non-tender, nondistended. MUSCULOSKELETAL: No cyanosis, or edema. BACK: Nontender without obvious deformity. No CVA tenderness. Neuro: Awake and alert A/P Assessment and Plan 1)Resp Insuff 2)CHF with bilateral pleural effusions. 3) Basilar atelectasis with possible pneumonia resolving. 4) Acute on chronic renal failure 5)Hypertension 6)Anemia of chronic disease PLAN Continue with oxygen keep sat >92% Bronchodilators, IS Check CXR Need to asses for home oxygen prior to discharge s/p right sided thoracentesis ( transudative effusion) likely 2nd CHF Continue with diuretics- On Lasix 80mg daily. Continue with abx ( Zosyn, Azithromycin) Follow up on fluid culture- NGTD Monitor renal function, I/O's, avoid nephrotoxins. Renal is following GI/DVT prophylaxis- per primary team Damaris Escalante MD Mar 01, 2017 10:07
[2017-03-01 10:15] LABS: AUTOMATED NEUTROPHIL # 10.2 TH/MM3 (1.8-7.7); BASOPHIL # 0.1 TH/MM3 (0-0.2); BASOPHIL % 0.6 % (0.0-2.0); EOSINOPHIL # 0.3 TH/MM3 (0-0.4); EOSINOPHIL % 2.2 % (0.0-4.0); HEMOGLOBIN 9.1 GM/DL (13.0-17.0); LYMPH % 5.3 % (9.0-44.0); LYMPHOCYTE # 0.7 TH/MM3 (1.0-4.8); MEAN CELL VOLUME 90.3 FL (80.0-100.0); MEAN CORPUSCULAR HEMOGLOBIN 29.3 PG (27.0-34.0); MEAN CORPUSCULAR HGB CONC 32.4 % (32.0-36.0); MEAN PLATELET VOLUME 9.3 FL (7.0-11.0); MONO % 8.8 % (0.0-8.0); MONOCYTE # 1.1 TH/MM3 (0-0.9); NEUT % 83.1 % (16.0-70.0); PLATELET COUNT 374 TH/MM3 (150-450); RED CELL DISTRIBUTION WIDTH 14.1 % (11.6-17.2); WHITE BLOOD COUNT 12.3 TH/MM3 (4.0-11.0)
[2017-03-01] MEDS ORDERED: RESP: ALBUTEROL 2.5 MG/IPRATROPIUM 0.5 MG NEB (PRN) NEB (10:15)
--- NOTE | 2017-03-01 10:30 | RADRPT ---
EXAM DATE/TIME: 03/01/2017 10:12 [facility] COMPARISON: CHEST SINGLE AP, February 27, 2017, 13:24. CHEST PA & LAT, November 05, 2016, 20:49. INDICATIONS : Follow up post thoracentesis left chest 02/27 MEDICAL HISTORY : Congestive heart failure. Hypertension renal failure, diabetes, coronary artery disease SURGICAL HISTORY : Coronary artery stent. ENCOUNTER: Subsequent ACUITY: 3 days PAIN SCORE: 0/10 LOCATION: Left chest FINDINGS: PA and lateral views of the chest. Bilateral pulmonary consolidation with mid to lower lung zone pred ominance is similar to the prior study of 02/27/2017. Small bilateral pleural effusions. No evidence o f pneumothorax. Cardiomediastinal silhouette unchanged. CONCLUSION: No significant interval change with persistent bilateral pulmonary parenchymal opacity and bilateral pleural effusions. Javier Grossman MD on March 01, 2017 at 10:27 Board Certified Radiologist. This report was verified electronically.
[2017-03-01 10:38] LABS: ALBUMIN 1.8 GM/DL (3.4-5.0); BICARBONATE 24.9 MEQ/L (21.0-32.0); CALCIUM 8.7 MG/DL (8.5-10.1); CREATININE 7.25 MG/DL (0.60-1.30); PHOSPHORUS 6.7 MG/DL (2.5-4.9)
[2017-03-01] MEDS: RESP: ALBUTEROL 2.5 MG/IPRATROPIUM 0.5 MG NEB (SCH) NEB ×3 (16:42→23:51)
[2017-03-01] MEDS: AZITHROMYCIN INJ 500 MG in SODIUM CHLOR 0.9% 250 ML INJ 250 ML IV SCH (16:54)
[2017-03-01] MEDS: ATORVASTATIN 80 MG TAB PO SCH (20:41)
[2017-03-02] VITALS (12 sets, daily range): BP systolic 114–150; BP diastolic 56–74; PULSE 80–130; RESP 18–21; TEMP 98–98.8; O2SAT 92–95
[2017-03-02] MEDS: PIPERACIL-TAZO 2.25 GM PREMIX 50 ML IV SCH ×3 (02:14→17:33)
[2017-03-02] MEDS: RESP: ALBUTEROL 2.5 MG/IPRATROPIUM 0.5 MG NEB (SCH) NEB ×4 (03:20→20:00)
--- NOTE | 2017-03-02 07:00 | HHI.PR ---
Subjective Remarks Patient seen and examined this morning. Vitals are stable. Wants to know when he can go home. Continues to require 3 L by nasal canula, feels unchanged from previous. Denies CP. Objective Vital Signs Date Time Temp Pulse Resp B/P (MAP) Pulse Ox O2 Delivery O2 Flow Rate FiO2 03/02/17 00:00 98.0 99 21 136/58 (84) 95 03/01/17 20:37 107 18 138/76 (96) 94 03/01/17 20:00 100 03/01/17 20:00 97.4 03/01/17 19:54 94 Nasal Cannula 4.00 03/01/17 16:45 91 Nasal Cannula 5.00 03/01/17 16:00 91 03/01/17 16:00 98.0 93 19 133/73 (93) 93 03/01/17 12:00 93 03/01/17 12:00 97.8 81 20 117/71 (86) 92 03/01/17 08:00 97.4 96 20 135/84 (101) 92 03/01/17 08:00 98 I/O 03/01/17 03/01/17 03/01/17 03/02/17 03/02/17 03/02/17 07:00 15:00 23:00 07:00 15:00 23:00 Intake Total 800 ml 530 ml 360 ml Output Total 650 ml 250 ml 120 ml Balance 150 ml 280 ml 240 ml Intake Oral 800 ml 480 ml 60 ml IV Total 50 ml 300 ml Output Urine Total 650 ml 250 ml 120 ml # Bowel Movements 0 1 1 Result Diagram: 03/01/17 0911 03/01/17 0911 Imaging Last Impressions Chest X-Ray 03/01/17 1007 Signed Impressions: Service Date/Time: Wednesday, March 01, 2017 10:12 - CONCLUSION: No significant interval change with persistent bilateral pulmonary parenchymal opacity and bilateral pleural effusions. Javier Grossman MD Chest CT 02/26/17 1300 Signed Impressions: Service Date/Time: February 13:32 - CONCLUSION: 1. Consolidation in both posterior lung bases and right middle lobe with air bronchograms. Milder patchy infiltrate in the right upper lobe. 2. Moderate size bilateral pleural effusions right greater than left. 3. Stable prominent mediastinal lymph nodes. 4. Coronary artery calcifications. Ben Steele MD Chest Ultrasound 02/26/17 0000 Signed Impressions: Service Date/Time: February 22:33 - CONCLUSION: 1600 cc right pleural fluid. Chest wall was marked. Derrick Walker MD Objective Remarks GENERAL: well appearing, sitting up, nad SKIN: Warm and dry. HEAD: Normocephalic. EYES: No scleral icterus. No injection or drainage. NECK: Supple, trachea midline. No JVD or lymphadenopathy. CARDIOVASCULAR: Regular rate and rhythm without murmurs, gallops, or rubs. RESPIRATORY: Sitting on side of the bed. GASTROINTESTINAL: Abdomen soft, non-tender, nondistended. MUSCULOSKELETAL: No cyanosis, or edema. No calf tenderness. A/P Problem List: (1) GI bleed ICD Code: K92.2 - GI bleed Status: Chronic (2) CAD (coronary artery disease) ICD Code: I25.10 - CAD (coronary artery disease) Status: Chronic (3) Diabetes ICD Code: E11.9 - Type 2 diabetes mellitus without complications (4) Chronic kidney disease, stage 5 ICD Code: N18.5 - Chronic kidney disease, stage 5 (5) Acute CHF ICD Code: I50.9 - Acute CHF Status: Acute Assessment and Plan 81-year-old male seen and examined for follow-up regarding pleural effusion, pneumonia, oxygen dependent Sepsis Community-acquired pneumonia Bilateral Pleural Effusion - Met Sepsis criteria on admission, leukocytosis improved - Blood cultures negative to date - Urine culture negative 48 hours - Currently on Rocephin, Zosyn (02/20- - Continue bronchodilators - Continue supplemental oxygen - Status post ultrasound-guided thoracentesis, cultures so far negative, acid fast stain negative. - Repeat CXR on 03/01 with no significant change Acute renal failure on top of chronic kidney disease stage V - Nephrology following. Patient needs dialysis although he is refusing at this time. - Has an appointment with Dr. Lou next week to discuss plans Chronic systolic heart failure - Echo with an EF of 35-40% - lasix 80 mg daily, reduced s/p thoracentesis - Continue metoprolol - Strict I's and O's, monitor electrolytes HTN - Continue metoprolol, Norvasc, losartan is on hold due to renal failure Hyperlipidemia - continue statin Chronic normocytic anemia - at baseline CAD - Continue aspirin, statin, Plavix, beta mike Hemoccult positive - consult GI, patient declines workup at this time DVT prophy: heparin Discharge Planning Appears clinically well Will see when okay from pulmonology to go home, if further thoracentesis of pleural effusion required Nephro cleared to go home Home O2 test, needs home O2 Reena Baker MD Mar 02, 2017 07:00
--- NOTE | 2017-03-02 07:22 | RADRPT ---
EXAM DATE/TIME: 03/02/2017 05:57 [facility] COMPARISON: CHEST SINGLE AP, February 27, 2017, 13:24. INDICATIONS : Cough, short of breath MEDICAL HISTORY : Congestive heart failure. Hypertension Diabetes mellitus type II. renal failure, coronary artery disease SURGICAL HISTORY : Coronary artery stent. ENCOUNTER: Subsequent ACUITY: 4 - 6 days PAIN SCORE: 0/10 LOCATION: Bilateral chest FINDINGS: There continues to be a diffuse parenchymal infiltrate involving the right mid to right lower lung. T here continues to be an infiltrate in the left lung base. These findings are stable compared to the p rior study. The heart size is enlarged but stable. There is blunting of the left phrenic angle sugges tive of a left-sided effusion. There is no evidence of pneumothorax. Compared to the prior exam no si gnificant changes. CONCLUSION: 1. There continues to be stable bilateral pulmonary infiltrates in both lung bases, right greater coni n left. 2. Stable left-sided pleural effusion. Sly Andrade MD on March 02, 2017 at 7:18 Board Certified Radiologist. This report was verified electronically.
[2017-03-02] MEDS: ASPIRIN EC 81 MG TABEC PO SCH (09:33)
[2017-03-02] MEDS: ISOSORBIDE MONONITRATE 30 MG TAB PO SCH (09:33)
[2017-03-02] MEDS: CLOPIDOGREL 75 MG TAB PO SCH (09:33)
[2017-03-02] MEDS: SEVELAMER CARBONATE 800 MG TAB PO SCH ×3 (09:33→17:32)
[2017-03-02] MEDS: SODIUM BICARBONATE 650 MG TAB PO SCH ×3 (09:33→17:32)
[2017-03-02] MEDS: METOPROLOL TARTRATE 25 MG TAB PO SCH ×2 (09:33→22:25)
[2017-03-02] MEDS: guaiFENesin E.R. 600 MG TAB PO SCH ×2 (09:33→22:24)
[2017-03-02] MEDS: SODIUM CHLORIDE 0.9% FLUSH 10 ML FLUSH IV FLUSH SCH ×2 (09:34→22:25)
[2017-03-02] MEDS: amLODIPine BESYLATE 5 MG TAB PO SCH (09:34)
[2017-03-02] MEDS: DOCUSATE SODIUM 50 MG/SENNA 8.6 MG TAB PO SCH ×2 (09:34→22:25)
[2017-03-02] MEDS: FUROSEMIDE 80 MG TAB PO SCH (09:34)
[2017-03-02] MEDS: PANTOPRAZOLE SOD 40 MG DELAYED RELEASE TAB PO SCH (09:34)
[2017-03-02] MEDS: FLUTICASONE PROPIONATE 50 MCG/ACT 16 GM NASAL SPRAY EACH NARE SCH (09:35)
--- NOTE | 2017-03-02 12:54 | HHI.NPPN ---
Subjective Renal Failure: Chronic, Acute, Stage V Interval History Labs from today not obtained. Still with shortness of breath and tachypnea. (Kellen Carlos) Review of Systems General Constitutional: Fatigue (Kellen Carlos) Respiratory Lungs: SOB, Cough (Kellen Carlos) Objective Data Data 03/02/17 03/03/17 19:00 07:00 Output Total 400 ml Balance -400 ml Output Urine Total 400 ml # Bowel Movements 1 Vital Signs Date Time Temp Pulse Resp B/P (MAP) Pulse Ox O2 Delivery O2 Flow Rate FiO2 03/02/17 12:00 98.8 105 18 123/70 (87) 93 03/02/17 09:59 92 Nasal Cannula 4.00 03/02/17 09:57 4.00 03/02/17 08:12 98.3 130 18 120/59 (79) 94 03/02/17 07:53 102 03/02/17 04:00 98.1 108 18 121/56 (77) 93 03/02/17 00:00 98.0 99 21 136/58 (84) 95 03/01/17 20:37 107 18 138/76 (96) 94 03/01/17 20:00 100 03/01/17 20:00 97.4 03/01/17 19:54 94 Nasal Cannula 4.00 03/01/17 16:45 91 Nasal Cannula 5.00 03/01/17 16:00 91 03/01/17 16:00 98.0 93 19 133/73 (93) 93 (Kellen Carlos) -: 03/01/17 0911 03/01/17 0911 Imaging Last 72 hours Impressions Chest X-Ray 03/02/17 0600 Signed Impressions: Service Date/Time: Thursday, March 02, 2017 05:57 - CONCLUSION: 1. There continues to be stable bilateral pulmonary infiltrates in both lung bases, right greater than left. 2. Stable left-sided pleural effusion. Sly Andrade MD Chest X-Ray 03/01/17 1007 Signed Impressions: Service Date/Time: Wednesday, March 01, 2017 10:12 - CONCLUSION: No significant interval change with persistent bilateral pulmonary parenchymal opacity and bilateral pleural effusions. Javier Grossman MD (Kellen Carlos B. CHIEF EXECUTIVE) Physical Exam General Appearance: Well Developed, Comfortable (Kellen Carlos B. CHIEF EXECUTIVE) Eyes Eye Exam: Pupils Equal (Kellen Carlos B. CHIEF EXECUTIVE) Neck Neck Exam: Neck Supple (Kellen Carlos B. CHIEF EXECUTIVE) Pulmonary Resp Exam: Breath Sounds Equal, Crackles, Decreased Bases, Diminished Breath Sounds Resp Remarks right lower lobe crackles (Kellen Carlos B. CHIEF EXECUTIVE) Cardiology CV Exam: Good Perfusion, Irregular, Arrhythmia (Kellen Carlos B. CHIEF EXECUTIVE) Gastrointestinal/Abdomen GI Exam: Soft, Non-Tender, Bowel Sounds Present (Kellen Carlos B. CHIEF EXECUTIVE) Musculoskeletal MS Exam: Joints Intact, Normal Tone (Kellen Carlos B. CHIEF EXECUTIVE) Integumentary Skin Exam: Clear, Warm, Dry, Intact (Kellen Carlos B. CHIEF EXECUTIVE) Extremeties Extremities Exam: No Edema, Pedal Pulses Palpable (Kellen Carlos B. CHIEF EXECUTIVE) Neurologic Neuro Exam: Alert, Awake, Oriented, Speech Clear, Moving All Extremities (Kellen Carlos B. CHIEF EXECUTIVE) Psychiatric Psych Exam: Appropriate Responses (Kellen Carlos B. CHIEF EXECUTIVE) Assessment/Plan Discussed Condition With: Patient Assessment Summary: ERIC/Acute Renal Failure, Hypertension, CKD Stage V Electrolyte Assessment: Metabolic Acidosis Problem List: (1) Acute renal failure ICD Codes: N17.9 - Acute kidney failure, unspecified Plan: Acute on CKD 5, baseline creatinine is 5.7 ERIC may be due to recent infection. Renal function has been improving. He has advance kidney disease; needs to start dialysis Has appt with Dr. Lou next week to discuss plans. Hesitant to start this admission. Continue Lasix. He is non oliguric On Renvela for metabolic bone disorder (2) Metabolic acidosis ICD Codes: E87.2 - Metabolic acidosis Status: Chronic Plan: High anion gap acidosis Due to renal failure On oral sodium bicarbonate. Stable, improved. (3) Hypertension ICD Codes: I10 - Hypertension Status: Chronic Plan: Blood pressure is acceptable. (4) Pneumonia ICD Codes: J18.9 - Pneumonia, unspecified organism Status: Acute Plan: On Zosyn and Zithromax. Monitor clinically, on oxygen s/p thoracentesis. Pulmonary following. May need repeat procedure. (5) Atrial fibrillation ICD Codes: I48.91 - Unspecified atrial fibrillation Plan: intermittently tachycardic , continue to monitor (Kellen Carlos) Plan patient was seen and examined. Agree with above assessment and plan. Remains tachypneic. May need thoracentesis on the left side. (Nithin Cleveland MD) Kellen Carlos Mar 02, 2017 12:54 Nithin Cleveland MD Mar 03, 2017 09:37
[2017-03-02] MEDS: AZITHROMYCIN INJ 500 MG in SODIUM CHLOR 0.9% 250 ML INJ 250 ML IV SCH (17:33)
[2017-03-02] MEDS: oxyCODONE/ACETAMINOPHEN 10 MG/325 MG TAB PO PRN (18:49)
--- NOTE | 2017-03-02 18:49 | RADRPT ---
EXAM DATE/TIME: 03/02/2017 18:16 [facility] COMPARISON: CHEST SINGLE AP, March 02, 2017, 5:57. INDICATIONS : Post left thoracentesis. MEDICAL HISTORY : Congestive heart failure. Hypertension Diabetes mellitus type II. renal SURGICAL HISTORY : Coronary artery stent. ENCOUNTER: Subsequent ACUITY: 4 - 6 days PAIN SCORE: 0/10 LOCATION: Bilateral chest FINDINGS: A single portable frontal view the chest shows no significant change. Bibasilar pulmonary up ltrates and small left effusion are again noted. Heart is at the upper limits of normal in terms of size. Mil d scoliotic curvature. Appearance of the chest is stable. CONCLUSION: Unchanged bibasilar infiltrates and small effusion on the left. Vasyl Garduno Jr., MD on March 02, 2017 at 18:46 Board Certified Radiologist. This report was verified electronically.
[2017-03-02] MEDS: ATORVASTATIN 80 MG TAB PO SCH (22:25)
[2017-03-03 00:30] VITALS: BP 112/56; PULSE 98; RESP 19; TEMP 98; O2SAT 94
[2017-03-03] MEDS: RESP: ALBUTEROL 2.5 MG/IPRATROPIUM 0.5 MG NEB (SCH) NEB ×4 (00:44→11:12)
[2017-03-03] MEDS: PIPERACIL-TAZO 2.25 GM PREMIX 50 ML IV SCH ×2 (01:49→08:59)
[2017-03-03] MEDS: oxyCODONE/ACETAMINOPHEN 10 MG/325 MG TAB PO PRN ×2 (01:58→07:42)
[2017-03-03 04:49] VITALS: BP 109/55; PULSE 87; RESP 18; TEMP 98.3; O2SAT 94
[2017-03-03 07:33] VITALS: O2SAT 92
[2017-03-03] MEDS: ISOSORBIDE MONONITRATE 30 MG TAB PO SCH (07:43)
[2017-03-03] MEDS: SEVELAMER CARBONATE 800 MG TAB PO SCH ×2 (07:43→11:29)
[2017-03-03] MEDS: ASPIRIN EC 81 MG TABEC PO SCH (07:43)
[2017-03-03] MEDS: PANTOPRAZOLE SOD 40 MG DELAYED RELEASE TAB PO SCH (07:43)
[2017-03-03] MEDS: amLODIPine BESYLATE 5 MG TAB PO SCH (07:43)
[2017-03-03] MEDS: SODIUM BICARBONATE 650 MG TAB PO SCH ×2 (07:43→11:29)
[2017-03-03] MEDS: guaiFENesin E.R. 600 MG TAB PO SCH (07:43)
[2017-03-03] MEDS: METOPROLOL TARTRATE 25 MG TAB PO SCH (07:44)
[2017-03-03] MEDS: DOCUSATE SODIUM 50 MG/SENNA 8.6 MG TAB PO SCH (07:44)
[2017-03-03] MEDS: FUROSEMIDE 80 MG TAB PO SCH (07:44)
[2017-03-03] MEDS: CLOPIDOGREL 75 MG TAB PO SCH (07:44)
[2017-03-03] MEDS: SODIUM CHLORIDE 0.9% FLUSH 10 ML FLUSH IV FLUSH SCH (07:45)
[2017-03-03] MEDS: FLUTICASONE PROPIONATE 50 MCG/ACT 16 GM NASAL SPRAY EACH NARE SCH (07:45)
[2017-03-03 08:00] VITALS: PULSE 96
[2017-03-03 08:13] VITALS: BP 112/69; PULSE 96; RESP 20; TEMP 97.7; O2SAT 92
--- NOTE | 2017-03-03 10:59 | HHI.NPPN ---
Subjective Renal Failure: Chronic, Acute, Stage V Interval History He states he is being discharged this morning. Feels better, respirations less labored. (Kellen Carlos) Review of Systems General Constitutional: Fatigue (Kellen Carlos) Respiratory Lungs: SOB, Cough (Kellen Carlos) Objective Data Data 03/03/17 03/04/17 19:00 07:00 Output Total 200 ml Balance -200 ml Output Urine Total 200 ml Vital Signs Date Time Temp Pulse Resp B/P (MAP) Pulse Ox O2 Delivery O2 Flow Rate FiO2 03/03/17 08:52 16 03/03/17 08:13 97.7 96 20 112/69 (83) 92 03/03/17 08:00 96 03/03/17 07:33 92 Nasal Cannula 4.00 03/03/17 04:49 98.3 87 18 109/55 (73) 94 03/03/17 00:30 98.0 98 19 112/56 (74) 94 03/02/17 22:25 80 114/64 (81) 03/02/17 20:30 98.5 114 19 125/72 (89) 94 03/02/17 20:26 97 03/02/17 16:13 94 Nasal Cannula 4.00 03/02/17 16:00 96 03/02/17 16:00 98.4 96 18 150/74 (99) 94 03/02/17 12:00 98.8 105 18 123/70 (87) 93 (Kellen Carlos) -: 03/01/17 0911 03/01/17 0911 Imaging Last 72 hours Impressions Chest X-Ray 03/02/17 0600 Signed Impressions: Service Date/Time: Thursday, March 02, 2017 05:57 - CONCLUSION: 1. There continues to be stable bilateral pulmonary infiltrates in both lung bases, right greater than left. 2. Stable left-sided pleural effusion. Sly Andrade MD Chest X-Ray 03/02/17 0000 Signed Impressions: Service Date/Time: Thursday, March 02, 2017 18:16 - CONCLUSION: Unchanged bibasilar infiltrates and small effusion on the left. Vasyl Garduno Jr., MD Chest X-Ray 03/01/17 1007 Signed Impressions: Service Date/Time: Wednesday, March 01, 2017 10:12 - CONCLUSION: No significant interval change with persistent bilateral pulmonary parenchymal opacity and bilateral pleural effusions. Javier Grossman MD (Kellen Carlos B. ABRASIVES SALES REPRESENTATIVE) Physical Exam General Appearance: Well Developed, Comfortable (Kellen Carlos B. ABRASIVES SALES REPRESENTATIVE) Eyes Eye Exam: Pupils Equal (Chaitanya Carloson B. ABRASIVES SALES REPRESENTATIVE) Neck Neck Exam: Neck Supple (Kellen Carlos B. ABRASIVES SALES REPRESENTATIVE) Pulmonary Resp Exam: Breath Sounds Equal, Crackles, Decreased Bases, Diminished Breath Sounds Resp Remarks right lower lobe crackles (Chaitanya Carloson B. ABRASIVES SALES REPRESENTATIVE) Cardiology CV Exam: Good Perfusion, Irregular, Arrhythmia (Kellen Carlos B. ABRASIVES SALES REPRESENTATIVE) Gastrointestinal/Abdomen GI Exam: Soft, Non-Tender, Bowel Sounds Present (Kellen Carlos B. ABRASIVES SALES REPRESENTATIVE) Musculoskeletal MS Exam: Joints Intact, Normal Tone (Chaitanya Carloson B. ABRASIVES SALES REPRESENTATIVE) Integumentary Skin Exam: Clear, Warm, Dry, Intact (Kellen Carlos B. ABRASIVES SALES REPRESENTATIVE) Extremeties Extremities Exam: No Edema, Pedal Pulses Palpable (Kellen Carlos B. ABRASIVES SALES REPRESENTATIVE) Neurologic Neuro Exam: Alert, Awake, Oriented, Speech Clear, Moving All Extremities (Kellen Carlos B. ABRASIVES SALES REPRESENTATIVE) Psychiatric Psych Exam: Appropriate Responses (Kellen Carlos B. ABRASIVES SALES REPRESENTATIVE) Assessment/Plan Discussed Condition With: Patient Assessment Summary: ERIC/Acute Renal Failure, Hypertension, CKD Stage V Electrolyte Assessment: Metabolic Acidosis Problem List: (1) Acute renal failure ICD Codes: N17.9 - Acute kidney failure, unspecified Plan: Acute on CKD 5, baseline creatinine is 5.7 He has advance kidney disease; needs to start dialysis. He has been reluctant to start this admission Has appt with Dr. Lou this week to discuss plans. Stable for discharge Continue Lasix. He is non oliguric On Renvela for metabolic bone disorder; this should be continued at discharge (2) Metabolic acidosis ICD Codes: E87.2 - Metabolic acidosis Status: Chronic Plan: High anion gap acidosis Due to renal failure On oral sodium bicarbonate. Stable, improved. (3) Hypertension ICD Codes: I10 - Hypertension Status: Chronic Plan: Blood pressure is acceptable. (4) Pneumonia ICD Codes: J18.9 - Pneumonia, unspecified organism Status: Acute Plan: On Zosyn and Zithromax. Will need to change to PO for discharge. Monitor clinically, on oxygen s/p thoracentesis. Pulmonary has evaluated. (5) Atrial fibrillation ICD Codes: I48.91 - Unspecified atrial fibrillation Plan: intermittently tachycardic , continue to monitor (Kellen Carlos) Plan patient was seen and examined. Agree with above assessment and plan. (Nithin Cleveland MD) Kellen Carlos Mar 03, 2017 10:59 Nithin Cleveland MD Mar 03, 2017 19:55
--- NOTE | 2017-03-03 11:26 | HHI.DS ---
Discharge Summary Admission Date Feb 19, 2017 at 18:31 Discharge Date: Mar 03, 2017 Admitting Diagnosis pneumonia/CHF/acute renal failure (1) Pneumonia ICD Code: J18.9 - Pneumonia, unspecified organism Status: Acute (2) Severe sepsis ICD Code: A41.9 - Sepsis, unspecified organism; R65.20 - Severe sepsis without septic shock (3) Acute renal failure ICD Code: N17.9 - Acute kidney failure, unspecified (4) CHF (congestive heart failure), NYHA class II ICD Code: I50.9 - Heart failure, unspecified Procedures 02/27/17 right sided thoracentesis 03/02/17 left-sided thoracentesis Brief History - From Admission History of present illness from the admitting physician 81-year-old male with history of HTN, HLD, CAD s/p stents x4, CHF with EF 20-25% , CKD, anemia, presents with a two-week history of productive cough, congestion , chills, myalgias, and decreased oral intake. The patient reports 2-3 weeks ago his maid brought her child to his home who was sick with a URI. He states everybody in his family including him ended up getting sick with cough and congestion. His family improved however he has worsened over the past 2 weeks with an intractable cough productive of green sputum, nasal congestion, body aches, chills, and nausea with dry heaves. He denies noticing any fevers or sweats. He states he has not had an appetite due to the dry heaves; denies any episodes of vomiting. Over the past 48 hours he has had multiple episodes of nonbloody diarrhea, however this has improved since his arrival to the hospital. He has not been on antibiotics recently. He reports anterior pleuritic chest pains that he only notices with his cough. He denies any significant shortness of breath. He denies any abdominal pain or urinary complaints. He has no other medical complaints to report at this time. 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 He states they have discussed dialysis but made a decision to hold off on dialysis at this time per patient's request. He states he last had his labs checked around 1 month ago and he believes his Creatinine was 5.7 at the time. CBC/BMP: 03/01/17 0911 03/01/17 0911 Significant Findings Laboratory Tests Test 03/01/17 09:11 White Blood Count 12.3 TH/MM3 (4.0-11.0) Red Blood Count 3.10 MIL/MM3 (4.50-5.90) Hemoglobin 9.1 GM/DL (13.0-17.0) Hematocrit 28.0 % (39.0-51.0) Neutrophils (%) (Auto) 83.1 % (16.0-70.0) Lymphocytes (%) (Auto) 5.3 % (9.0-44.0) Monocytes (%) (Auto) 8.8 % (0.0-8.0) Neutrophils # (Auto) 10.2 TH/MM3 (1.8-7.7) Lymphocytes # (Auto) 0.7 TH/MM3 (1.0-4.8) Monocytes # (Auto) 1.1 TH/MM3 (0-0.9) Blood Urea Nitrogen 91 MG/DL (7-18) Creatinine 7.25 MG/DL (0.60-1.30) Random Glucose 168 MG/DL (74-106) Albumin 1.8 GM/DL (3.4-5.0) Phosphorus Level 6.7 MG/DL (2.5-4.9) Estimat Glomerular Filtration Rate 7 ML/MIN (>89) Imaging Last Impressions Chest X-Ray 03/02/17 0600 Signed Impressions: Service Date/Time: Thursday, March 02, 2017 05:57 - CONCLUSION: 1. There continues to be stable bilateral pulmonary infiltrates in both lung bases, right greater than left. 2. Stable left-sided pleural effusion. Sly Andrade MD Chest CT 02/26/17 1300 Signed Impressions: Service Date/Time: February 13:32 - CONCLUSION: 1. Consolidation in both posterior lung bases and right middle lobe with air bronchograms. Milder patchy infiltrate in the right upper lobe. 2. Moderate size bilateral pleural effusions right greater than left. 3. Stable prominent mediastinal lymph nodes. 4. Coronary artery calcifications. Ben Steele MD Chest Ultrasound 1/11/18 0000 Signed Impressions: Service Date/Time: February 22:33 - CONCLUSION: 1600 cc right pleural fluid. Chest wall was marked. Derrick Walker MD PE at Discharge General: Elderly male in no acute distress. Heart: Regular rate and rhythm. No murmur. Lungs: Diminished breath sounds on the left. Mild crackles on the right. Breathing is nonlabored. Abdomen: Soft, nontender, nondistended. Extremities: No lower extremity edema. Psych: Alert and oriented. Pt update on day of discharge Patient reports he is feeling better. We discussed discharge planning at length and the need to follow-up. We reviewed his current comorbid conditions and his likely eventual need for dialysis to prevent recurrent setbacks and worsening of his conditions. Hospital Course 81-year-old male with multiple comorbid conditions including hypertension, hyperlipidemia, CAD status post stent placement, CHF with reported EF of 20-25% , chronic kidney disease admitted with sepsis, probable community-acquired pneumonia and bilateral pleural effusions. Evaluation and treatment course detailed below: Sepsis probably secondary to community-acquired pneumonia. Patient was treated with antibiotics and bronchodilators. Supplemental oxygen. Sepsis syndrome resolved. He will continue antibiotics outpatient to complete the course of treatment. Bilateral pleural effusions: This is due to a combination of CHF and acute on chronic renal failure. - The patient underwent thoracentesis by pulmonology, Dr. Guerrero. He significantly improved. He still required oxygen at home. Extensive discussion with the patient regarding his comorbid conditions including the likelihood the fluid may recur if his kidney disease is not addressed. He does need dialysis soon. Acute renal failure on top of chronic kidney disease stage V - Nephrology following. Patient needs dialysis although he is refusing at this time. He is nonoliguric. 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 He appeared to be stable currently. Chronic systolic heart failure - Echo with an EF of 35-40% -Continue Lasix, reduced dose s/p thoracentesis - Continue metoprolol HTN - Continue metoprolol, Norvasc, losartan held due to renal failure Hyperlipidemia - continue statin Chronic normocytic anemia - at baseline CAD - Continue aspirin, statin, Plavix, beta mike Hemoccult positive -Patient seen by GI, patient declines workup at this time Pt Condition on Discharge: Good Discharge Disposition: Disch w/ Home Health Serv Discharge Time: > 30 minutes Discharge Instructions DIET: Follow Instructions for: Heart Healthy Diet Activities you can perform: Regular-No Restrictions Follow up Referrals: Appointment for Follow Up Nephrology - 1 Week with Rolan Lou MD PCP Follow-up - 1 Week with Andrez Reyes DO PCP Follow-up New Medications: Azithromycin (Azithromycin) 500 Mg Tab 500 MG PO DAILY for Infection, #3 TAB 0 Refills Cefuroxime (Ceftin) 250 Mg Tab 250 MG PO BID for Infection, #6 TAB 0 Refills Furosemide (Lasix) 20 Mg Tab 20 MG PO DAILY, #30 TAB 0 Refills Oxygen (O2) (Oxygen (O2)) Device LITER NYA.CANULA CONTINUOUS for Prevent Hypoxemia, #2 Oxygen Concentrator Portable Gaseous 2 L/min via Nasal Canula Continuous For [address] (Aspirin DR) 81 Mg Tabdr 81 MG PO DAILY for Blood Clot Prevention, #30 TAB 0 Refills Sevelamer Carbonate (Renvela) 800 Mg Tab 1600 MG PO TIDAC for supplement, #90 TAB 0 Refills Continued Medications: Amlodipine (Norvasc) 5 Mg Tab 5 MG PO DAILY for Blood Pressure Management, #30 TAB Atorvastatin (Atorvastatin) 80 Mg Tab 80 MG PO HS for Cholesterol Management, #90 TAB 3 Refills Clopidogrel (Plavix) 75 Mg Tab 75 MG PO DAILY for Blood Clot Prevention, #90 TAB 3 Refills Isosorbide Mononitrate ER (Isosorbide Mononitrate ER) 30 Mg Nena 30 MG PO DAILY for Prevent Chest Pain, #30 TAB 0 Refills Metoprolol Tartrate (Metoprolol Tartrate) 25 Mg Tab 25 MG PO HS, #30 TAB 0 Refills Omeprazole (Omeprazole) 40 Mg Cap 40 MG PO DAILY, #30 CAP 0 Refills Sodium Bicarbonate (Sodium Bicarbonate) 650 Mg Tab 1300 MG PO TID for Renal, #90 TAB Discontinued Medications: Furosemide (Furosemide) 20 Mg Tab 10 MG PO DAILY, #30 TAB 0 Refills Losartan (Losartan) 100 Mg Tab 100 MG PO DAILY for Blood Pressure Management, #30 TAB 0 Refills Alma Chadwick MD Mar 03, 2017 11:26
[2017-03-03 12:00] VITALS: BP 102/53; PULSE 86; RESP 20; TEMP 98.7; O2SAT 92
[2017-03-03] MEDS ORDERED: FURO1TAB62 PO (12:28)
--- NOTE | 2017-03-03 12:31 | HHI.FF ---
Face to Face Verification Diagnosis: (1) CHF (congestive heart failure), NYHA class II (2) Acute renal failure (3) Chronic kidney disease (4) Hypertension (5) CAD (coronary artery disease) (6) Diabetes Physical Therapy Order: Improve ambulation, Strength and gait training Home Health Nursing Order: Medical education CHF education Oxygen administration education Medication education-adverse effect I have seen patient Rizwan Garcia on 03/03/17. My clinical findings support the need for the requested home health care services because: Ltd mobility - disease progression Patient has SOB Deconditioned w/ increased weakness Limited ability to care for self I certify that my clinical findings support that this patient is homebound because: Unsafe to leave home unassisted Poor cardiac reserve Alma Chadwick MD Mar 03, 2017 12:31
--- NOTE | 2017-03-03 13:02 | HHI.PR ---
Subjective Remarks He is better after Thoracentesis. on O2. 3 L Objective Vital Signs Date Time Temp Pulse Resp B/P (MAP) Pulse Ox O2 Delivery O2 Flow Rate FiO2 03/03/17 12:00 98.7 86 20 102/53 (69) 92 03/03/17 08:52 16 03/03/17 08:13 97.7 96 20 112/69 (83) 92 03/03/17 08:00 96 03/03/17 07:33 92 Nasal Cannula 4.00 03/03/17 04:49 98.3 87 18 109/55 (73) 94 03/03/17 00:30 98.0 98 19 112/56 (74) 94 03/02/17 22:25 80 114/64 (81) 03/02/17 20:30 98.5 114 19 125/72 (89) 94 03/02/17 20:26 97 03/02/17 16:13 94 Nasal Cannula 4.00 03/02/17 16:00 96 03/02/17 16:00 98.4 96 18 150/74 (99) 94 I/O 03/02/17 03/02/17 03/02/17 03/03/17 03/03/17 03/03/17 07:00 15:00 23:00 07:00 15:00 23:00 Intake Total 240 ml 120 ml Output Total 650 ml 550 ml 200 ml Balance -410 ml -430 ml -200 ml Intake Oral 240 ml 120 ml Output Urine Total 650 ml 550 ml 200 ml # Bowel Movements 1 Result Diagram: 03/01/17 0911 03/01/17 0911 Objective Remarks This is a well-built elderly man who is sitting upright pale and mildly dyspneic at rest. HEENT: Head normocephalic. Pupils are reactive and equal. Tongue is dry. Throat is injected. NECK: Supple. There is venous distension at 45 degrees up to 4 cm. Trachea midline. CHEST: Decreased breath sounds at the bases with occasional basilar crackles. HEART: The heart sounds are irregular, S1-S2 with no murmur. ABDOMEN: Soft and protuberant. No masses, organomegaly, or tenderness. EXTREMITIES: Edema 1+ with decreased pulses. Reflexes are 1+ with no gross motor deficits. NEUROLOGIC: Cranial nerves grossly intact. RECTAL: Exam is deferred. SKIN: No lesions. Assessment and Plan Assessment and Plan IMPRESSION 1. CHF with bilateral pleural effusions. 2. Basilar atelectasis with possible pneumonia resolving. 3. Acute on chronic renal failure 4. Hypertension and hypertensive cardiovascular disease 5. Anemia of chronic disease Plan : 1. Wean O2 and arrange home O2 2 L 2. Poss Dialysis soon 3. OK to go home 4. Needs F/U CXR in 2 weeks 5. Will see as OP in 2 weeks Dwain Monroy MD Mar 03, 2017 13:02
--- NOTE | 2017-03-03 14:27 | MR ---
cc: JARAD MONROY DATE 03/02/2017 PROCEDURE Left thoracentesis PREOPERATIVE DIAGNOSIS Left pleural effusion ANESTHESIA 1% Xylocaine SURGEON Dr. Sg Monroy PROCEDURE AND FINDINGS The patient's left posterior back was prepped with chlorhexidine solution following which sterile drapes were applied. 1% Xylocaine was then injected in the intercostal space in the posterior axillary line after which a small incision made with a scalpel blade. Following this, a 14-gauge catheter was inserted in the pleural space. This was connected to a vacuum bottle. Approximately 850 cc of serosanguineous fluid was aspirated at which time the flow stopped. The patient tolerated the procedure well. Jarad Monroy MD JCODEY/RANDI /6:04 PM /9:58 AM
[2017-03-03 15:10] LABS: AMYLASE BODY FLUID 37 U/L; AMYLASE BODY FLUID TYPE PLEURAL
== END 2017-03-03 14:21 | disposition home health service (06) | DRG 871 ==
LOC: NEPE 14:31 → NEDA 18:31 → N05B 20:02
PROVIDERS: ADMIT Family Medicine; ATTEND Family Medicine
PROC: 0W993ZZ Drainage of Right Pleural Cavity, Percutaneous Approach (ICD-10-PCS; 2017-02-27)
PROC: 0W9B3ZZ Drainage of Left Pleural Cavity, Percutaneous Approach (ICD-10-PCS; principal; 2017-03-02)
DX: A41.9 Sepsis, unspecified organism (principal); J18.9 Pneumonia, unspecified organism; N17.9 Acute kidney failure, unspecified; I13.2 Hypertensive heart and chronic kidney disease with heart failure and with stage 5 chronic kidney disease, or end stage renal disease; J91.8 Pleural effusion in other conditions classified elsewhere; E87.2 Acidosis; N18.5 Chronic kidney disease, stage 5; I48.91 Unspecified atrial fibrillation; I50.22 Chronic systolic (congestive) heart failure; J98.11 Atelectasis; E11.22 Type 2 diabetes mellitus with diabetic chronic kidney disease; R06.82 Tachypnea, not elsewhere classified; D63.8 Anemia in other chronic diseases classified elsewhere; R65.20 Severe sepsis without septic shock; E78.5 Hyperlipidemia, unspecified; R00.0 Tachycardia, unspecified; I25.10 Atherosclerotic heart disease of native coronary artery without angina pectoris; K21.9 Gastro-esophageal reflux disease without esophagitis; R06.2 Wheezing; R09.02 Hypoxemia; Z95.5 Presence of coronary angioplasty implant and graft; Z99.81 Dependence on supplemental oxygen; Z87.891 Personal history of nicotine dependence
CPT/HCPCS: 36600; 71045; 71046; 71250; 76604; 80048; 80053; 80069; 81001; 82150; 82272; 82550; 82805; 82945; 83605; 83615; 83735; 83880; 83986; 84157; 84484; 85007; 85025; 85027; 85610; 85730; 87015; 87040; 87070; 87086; 87102; 87116; 87205; 87206; 87804; 88112; 88305; 89051; 93005; 93308; 94150; 94618; 94640; 94664; 96365; 96366; 96367; 96375; J0456; J0696; J1644; J1940; J2543; J2920; J7050